=== PATIENT | male | born 1960 | race Caucasian/White ===

== ENCOUNTER 2016-11-19 15:31 | Inpatient (IN) | payer MEDICARE, MEDICAID ==
[2016-11-19 15:31] VITALS: BMI 14.1
[2016-11-19] MEDS ORDERED: Albuterol-Ipratrop 3 mg / 0.5 (3 ml) UD IH STA (16:04)
[2016-11-19] MEDS ORDERED: Albuterol-Ipratrop 3 mg / 0.5 (3 ml) UD INH STA (16:04)
[2016-11-19] MEDS ORDERED: Sodium Chloride 0.9% 1,000 ML IV STA (16:04)
--- NOTE | 2016-11-19 16:06 | ED PDOC ---
HPI: SOB/CHF/COPD Time Seen by Provider: 11/19/16 15:50 Chief Complaint (Nursing): Shortness Of Breath Chief Complaint (Provider): shortness of breath History Per: Patient History/Exam Limitations: no limitations Current Symptoms Are (Timing): Still Present Additional Complaint(s): 55yo male w/ Hx HIV comes to the ED complaining of shortness of breath, cough, congestion, yellow sputum, intermittent chest pain. Decreased appetite for 1 week. No nausea, vomit, dizziness, abdominal pain, leg pain. Past Medical History Vital Signs: Last Vital Signs Temp 98.2 F 11/19/16 15:42 Pulse 74 11/19/16 17:17 Resp 20 11/19/16 17:17 BP 100/60 11/19/16 17:05 Pulse Ox 97 11/19/16 17:51 - Medical History PMH: Arthritis, Asthma, Back Problems (Fractured vertebrae, kyphosis scoliosis) , Depression, Fractures, HIV (on HAART), Malignancy (brain CA), Osteoporosis, Pneumonia Denies: CHF, COPD, HTN, Hypercholesterolemia, Hypothyroidism, Kidney Stones, Chronic Kidney Disease, Rheumatoid Arthritis - Surgical History Surgical History: Appendectomy, Tonsillectomy - Family History Family History: States: Unknown Family Hx - Immunization History Hx Influenza Vaccination: Yes - Home Medications Home Medications: Ambulatory Orders Medication Instructions Recorded Baclofen [Lioresal] 40 mg PO TID 09/21/15 Celecoxib [Celebrex] 200 mg PO DAILY 09/21/15 Montelukast [Singulair] 10 mg PO DAILY 09/21/15 Morphine Sulfate [Morphine Sulfate 15 mg PO TID 09/21/15 ER] Morphine Sulfate [Morphine Sulfate 30 mg PO TID 09/21/15 ER] Ipratropium/Albuterol Sulfate 1 puff IH QID PRN 10/12/15 [Combivent Respimat Inhal [place]] Abacavir/Dolutegravir/Lamivudi 1 tab PO DAILY 03/27/16 [Triumeq Tablet] Albuterol Sulfate [Proair Hfa] 2 puff INH Q6H PRN 03/27/16 Ranitidine HCl [Zantac] 300 mg PO DAILY 03/27/16 Ammonium Lactate 12% [Lac-Hydrin 1 appl TOP DAILY 11/19/16 12% Lotion (225 g)] Calcium Carbonate [Calcium 1,250 mg PO DAILY 11/19/16 Carbonate] Mometasone Furoate [Nasonex] 2 spray NHI DAILY PRN 11/19/16 - Allergies Allergies/Adverse Reactions: Allergies Allergy/AdvReac Type Severity Reaction Status Date / Time No Known Allergies Allergy Verified 03/27/16 19:12 Review of Systems ROS Statement: Except As Marked, All Systems Reviewed And Found Negative ENT: Positive for: Nose Congestion Cardiovascular: Positive for: Chest Pain Respiratory: Positive for: Cough, Shortness of Breath, Sputum Gastrointestinal: Negative for: Nausea, Vomiting, Abdominal Pain Musculoskeletal: Negative for: Leg Pain Physical Exam - Reviewed Nursing Documentation Reviewed: Yes Vital Signs Reviewed: Yes - Physical Exam Appears: Positive for: Well, Non-toxic, No Acute Distress Head Exam: Positive for: ATRAUMATIC, NORMAL INSPECTION, NORMOCEPHALIC Skin: Positive for: Warm, Dry Eye Exam: Positive for: EOMI, PERRL Cardiovascular/Chest: Positive for: Regular Rate, Rhythm Respiratory: Positive for: Decreased Breath Sounds, Wheezing (diffuse) Gastrointestinal/Abdominal: Positive for: Soft. Negative for: Tenderness Extremity: Positive for: Normal ROM - Laboratory Results Result Diagrams: 11/19/16 17:24 11/19/16 17:24 - ECG ECG: Positive for: Interpreted By Me, Viewed By Me ECG Rhythm: Positive for: Right Bundle Branch Block O2 Sat by Pulse Oximetry: 97 (RA) Pulse Ox Interpretation: Normal - Progress ED Course And Treament: 1826: Spoke with Dr. Ma. Will admit. Pt. stable. Will give antibiotics. Will give further orders when pt. reaches floor. Disposition - Clinical Impression Clinical Impression: Exacerbation of asthma, Pneumonia - Patient ED Disposition Is Patient to be Admitted: Yes Counseled Patient/Family Regarding: Studies Performed, Diagnosis - Disposition Disposition Time: 18:28 Condition: FAIR - Pt Status Changed To: Hospital Disposition Of: Inpatient - Admit Certification Admit to Inpatient:: After my assessment, the patient will require hospitalization for at least two midnights. This is because of the severity of symptoms shown, intensity of services needed, and/or the medical risk in this patient being treated as an outpatient. - POA Present On Arrival: None Core Measure Indicators: Pneumonia Additional Comments - Additional Comments Additional Comments: Scribe Attestation: Documented by Michael Arredondo acting as a scribe for Lavonne Vuong MD. MD Edwards Attestation: All medical record entries made by the Yonathanibluis alfredo were at my direction and personally dictated by me. I have reviewed the chart and agree that the record accurately reflects my personal performance of the history, physical exam, medical decision making, and the department course for this patient. I have also personally directed, reviewed, and agree with the discharge instructions and disposition.
[2016-11-19] MEDS ORDERED: Albuterol-Ipratrop 3 mg / 0.5 (3 ml) UD ONE (17:31)
[2016-11-19 17:41] LABS: ABG ALLEN TEST YES; ARTERIAL BLOOD GAS HCO3 29.2 mmol/L (21-28); ARTERIAL BLOOD GAS PH 7.44 (7.35-7.45); ARTERIAL BLOOD GAS PO2 76 mm/Hg (80-100)
[2016-11-19 17:42] LABS: BASO % 0.4 % (0.0-2.0); LYMPH # 0.7 K/uL (1.0-4.3); LYMPH % 10.8 % (20.0-40.0); MEAN CELL VOLUME 85.1 fl (80.0-94.0); MEAN CORPUSCULAR HEMOGLOBIN 28.7 pg (27.0-31.0); MEAN CORPUSCULAR HGB CONC 33.7 g/dL (33.0-37.0); MEAN PLATELET VOLUME 7.9 fl (7.2-11.7); MONO # 0.8 K/uL (0.0-0.8); MONO % 11.8 % (0.0-10.0); NEUT # 5.2 K/uL (1.8-7.0); NRBC % 0.1 % (0.0-0.0); RED CELL DISTRIBUTION WIDTH 13.4 % (11.5-14.5); WHITE BLOOD COUNT 6.7 K/uL (4.8-10.8)
[2016-11-19 17:43] LABS: ALB/GLOB RATIO 0.7 (1.0-2.1); ALKALINE PHOSPHATASE 116 U/L (38-126); ALT/SGPT 29 U/L (21-72); AST/SGOT 42 U/L (17-59); BILIRUBIN,TOTAL 0.6 mg/dl (0.2-1.3); BLOOD UREA NITROGEN 16 mg/dl (9-20); CALCIUM 9.1 mg/dL (8.4-10.2); CARBON DIOXIDE 29 mmol/L (22-30); CHLORIDE 99 mmol/L (98-107); GFR AFRICAN-AMERICAN > 60; GLUCOSE,RANDOM 103 mg/dL (75-110); MAGNESIUM 2.3 MG/DL (1.6-2.3); PHOSPHOROUS 4.2 mg/dl (2.5-4.5); POTASSIUM 4.4 MMOL/L (3.6-5.0); SODIUM 142 mmol/l (132-148); TOTAL PROTEIN 8.3 G/DL (6.3-8.2)
[2016-11-19 17:45] LABS: PARTIAL THROMBOPLASTIN TIME 32.8 SECONDS (23.3-32.5)
[2016-11-19] MEDS ORDERED: cefTRIAXone (Rocephin) 1 gm Inj ONE (18:25)
[2016-11-19] MEDS ORDERED: cefTRIAXone (Rocephin) 1 gm Inj IV ONE (18:27)
[2016-11-19] MEDS ORDERED: Azithromycin 500 MG in Sodium Chloride 0.9% 250 ML IVPB ONE (18:30)
[2016-11-20] MEDS ORDERED: Patient's Own Med (Mometasone Furoate [Nasonex] 2 SPRAY) NAS PRN (00:54)
[2016-11-20] MEDS ORDERED: Sodium Chloride 3% for Inhalation 4 ML VIAL.NEB IH PRN ×2 (01:02→11:13)
[2016-11-20] MEDS: Dextrose 5%/0.45% NS 1,000 ML IV SCH ×2 (01:27→18:32)
[2016-11-20] MEDS: Morphine 15 mg SR Tab PO SCH ×3 (01:31→16:44)
[2016-11-20] MEDS: Morphine 30 mg SR Tab PO SCH ×4 (01:31→16:45)
[2016-11-20 07:29] LABS: BLOOD UREA NITROGEN 13 mg/dl (9-20); CALCIUM 8.7 mg/dL (8.4-10.2); CARBON DIOXIDE 27 mmol/L (22-30); CHLORIDE 102 mmol/L (98-107); GFR AFRICAN-AMERICAN > 60; GLUCOSE,RANDOM 145 mg/dL (75-110); POTASSIUM 4.4 MMOL/L (3.6-5.0); SODIUM 144 mmol/l (132-148)
[2016-11-20 07:32] LABS: HEMATOCRIT 29.1 % (35.0-51.0); MEAN CELL VOLUME 84.4 fl (80.0-94.0); MEAN CORPUSCULAR HEMOGLOBIN 28.4 pg (27.0-31.0); MEAN CORPUSCULAR HGB CONC 33.6 g/dL (33.0-37.0); RED CELL DISTRIBUTION WIDTH 13.1 % (11.5-14.5); WHITE BLOOD COUNT 4.3 K/uL (4.8-10.8)
--- NOTE | 2016-11-20 07:53 | RAD ---
HISTORY: Sepsis Patient COMPARISON: Comparison is made to the previous study dated 03/27/2016 FINDINGS: LUNGS: Reticular opacities at the right lung. The right upper lobe is partially obscured by the patient's head. No significant interval change in the left lung. PLEURA: Possible small right pleural effusion. CARDIOVASCULAR: Normal. OSSEOUS STRUCTURES: No significant abnormalities. VISUALIZED UPPER ABDOMEN: Normal. OTHER FINDINGS: None. IMPRESSION: Reticular opacities at the right lung. Blunting of the right costophrenic angle. Otherwise no interval change.
--- NOTE | 2016-11-20 08:27 | CARD ---
APPROVED REPORT EKG Measurement Heart [id number] <Conclusion> Normal sinus rhythm Normal ECG
[2016-11-20] MEDS: Albuterol-Ipratrop 3 mg / 0.5 (3 ml) UD INH SCH ×3 (08:33→19:52)
[2016-11-20] MEDS ORDERED: Patient's Own Med (Abacavir/Dolutegravir/Lamivudi [Triumeq Tablet] 1 TAB) PO SCH (09:00)
[2016-11-20] MEDS ORDERED: CELECOXIB 200 MG PO SCH (09:00)
[2016-11-20] MEDS: methylPREDNISolone 60 MG in Sodium Chloride 0.9% 50 ML IVPB SCH ×2 (09:03→21:38)
[2016-11-20] MEDS: Promethazine DM 12.5 mg-30 mg/10 ml Syrup PO PRN (09:04)
[2016-11-20] MEDS: Enoxaparin 40 mg Syringe SC SCH (09:05)
[2016-11-20] MEDS: Azithromycin 500 MG in Sodium Chloride 0.9% 250 ML IVPB SCH (10:26)
--- NOTE | 2016-11-20 10:42 | HP ---
HISTORY OF PRESENT ILLNESS: The patient is a 55-year-old male who was admitted via the [facility] because of shortness of breath, cough, pulmonary congestion, yellow sputum, intermittent chest pain and decreased appetite for the past several weeks prior to presentation. He indicates that he had b een sick for at least 2 weeks prior to presentation. He follows up with a doctor in [place], but romero s not gone to see the doctor, but called the doctor on the phone several weeks ago. 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 FAMILY HISTORY: Noncontributory. SOCIAL HISTORY: He lives at home with his partner. REVIEW OF SYSTEMS: Essentially remarkable for unsteadiness of gait and poor appetite with weight los s. PHYSICAL EXAMINATION: GENERAL: The patient is alert and oriented, appears emaciated. VITAL SIGNS: Blood pressure 100/60, pulse of 74, respiratory rate 20, temperature of 98.2 degrees Fa hrenheit, O2 sat 97% on room air. SKIN: Shows poor turgor. HEENT: Pupils equal, react to light and accommodation. Mouth shows poor hygiene. NECK: JVP flat. LUNGS: Bilateral coarse rales. HEART: S1, S2. ABDOMEN: Soft, nontender. No organomegaly. EXTREMITIES: Show chronic stasis changes and some deformity of right hip. CENTRAL NERVOUS SYSTEM: Exam is grossly intact. The patient is alert and oriented x 3. LABORATORY DATA: Remarkable for WBC of 4.3; hemoglobin 9.8; platelet count of 359,000. Sodium 144, potassium 4.4, BUN of 13, creatinine 0.4, serum glucose 145. ProBNP 603, troponin less than 0.012. ELECTROCARDIOGRAM FINDINGS: EKG: Normal sinus rhythm. CHEST X-RAY: Reticular opacities of right lung, right upper lobe was partially obscured by the patie nt's hand. No significant interval change in his left lung when compared to x-rays of 03/27/2016. IMPRESSION: Acute exacerbation of asthma, pneumonia right lung, history of human immunodeficiency vi cecilio infection, history of lymphoma in the past, cachexia due to low body mass index. PLAN: IV antibiotics and IV hydration. Infectious disease evaluation for appropriate antibiotic the rapy. We will continue therapy as ordered. Thee Ma MD cc: 62 TT: 11/20/2016 10:41:35 [facility] # [id number] dn
--- NOTE | 2016-11-20 11:11 | CP.PCM.CON ---
History of Present Illness - History of Present Illness History of Present Illness: 55yo male w/ Hx HIV comes to the ED complaining of shortness of breath, cough, congestion, yellow sputum, intermittent chest pain. Decreased appetite for 1 week. No nausea, vomit, dizziness, abdominal pain, leg pain. stopped his HIV meds claims to be undetectable - Medical History PMH: Arthritis, Asthma, Back Problems (Fractured vertebrae, kyphosis scoliosis) , Depression, Fractures, HIV (on HAART), Malignancy (brain CA), Osteoporosis, Pneumonia Denies: CHF, COPD, HTN, Hypercholesterolemia, Hypothyroidism, Kidney Stones, Chronic Kidney Disease, Rheumatoid Arthritis Review of Systems - Constitutional Constitutional: As Per HPI - EENT Eyes: absent: As Per HPI, Blind Spots, Blurred Vision, Change in Vision, Decreased Night Vision, Diplopia, Discharge, Dry Eye, Exophthalmos, Floaters, Irritation, Itchy Eyes, Loss of Peripheral Vision, Pain, Photophobia, Requires Corrective Lenses, Sees Flashes, Spots in Vision, Tunnel Vision, Other Visual Disturbances, Loss of Vision, Other Ears: absent: As Per HPI, Decreased Hearing, Ear Discharge, Ear Pain, Tinnitus, Abnormal Hearing, Disequilibrium, Dizziness, Other Nose/Mouth/Throat: absent: As Per HPI, Epistaxis, Nasal Congestion, Nasal Discharge, Nasal Obstruction, Nasal Trauma, Nose Pain, Post Nasal Drip, Sinus Pain, Sinus Pressure, Bleeding Gums, Change in Voice, Dental Pain, Dry Mouth, Dysphagia, Halitosis, Hoarsness, Lip Swelling, Mouth Lesions, Mouth Pain, Odynophagia, Sore Throat, Throat Swelling, Tongue Swelling, Facial Pain, Neck Pain, Neck Mass, Other - Cardiovascular Cardiovascular: As Per HPI - Respiratory Respiratory: As Per HPI - Gastrointestinal Gastrointestinal: absent: As Per HPI, Abdominal Pain, Belching, Bloating, Change in Bowel Habits, Change in Stool Character, Coffee Ground Emesis, Constipation, Cramping, Diarrhea, Dyspepsia, Dysphagia, Early Satiety, Excessive Flatus, Fecal Incontinence, Heartburn, Hematemesis, Hematochezia, Loose Stools, Melena, Nausea, Odynophagia, Temesmus, Vomiting, Other - Genitourinary Genitourinary: absent: As Per HPI, Change in Urinary Stream, Difficulty Urinating, Dysuria, Flank Pain, Hematuria, Pyuria, Nocturia, Urinary Incontinence, Urinary Frequency, Urinary Hesitance, Urinary Urgency, Voiding Freq/Small Amts, Freq UTI, Hx Renal/Bladder Calculi, Hx /Renal Surgery, Bladder Distension, Other - Musculoskeletal Musculoskeletal: As Per HPI - Integumentary Integumentary: absent: As Per HPI, Acne, Alopecia, Bleeding Lesions, Change in Hair, Change in Nails, Change in Pigmentation, Changing Lesions, Dry Skin, Erythema, Furuncle, Hirsutism, Lesions, New Lesions, Non-Healing Lesions, Photosensitivity, Pruritus, Rash, Skin Pain, Skin Ulcer, Sores, Striae, Swelling , Unusual Bruising, Wounds, Jaundice, Other - Neurological Neurological: absent: As Per HPI, Abnormal Gait, Abnormal Hearing, Abnormal Movements, Abnormal Speech, Behavioral Changes, Burning Sensations, Confusion, Convulsions, Disequilibrium, Dizziness, Numbness, Focal Weakness, Frequent Falls , Headaches, Lack of Coordination, Loss of Vision, Memory Loss, Paresthesias, Radicular Pain, Restless Legs, Sensory Deficit, Syncope, Tingling, Tremor, Vertigo, Weakness, Other Visual Disturbances, Other - Psychiatric Psychiatric: absent: As Per HPI, Abnormal Sleep Pattern, Anhedonia, Anxiety, Auditory Hallucinations, Behavioral Changes, Change in Appetite, Change in Libido, Confusion, Depression, Difficulty Concentrating, Hallucinations, Homicidal Ideation, Hopelessness, Irritability, Memory Loss, Mood Swings, Panic Attacks, Paranoia, Suicidal Ideation, Visual Hallucinations, Tactile Hallucinations, Other - Endocrine Endocrine: absent: As Per HPI, Change in Body Appearance, Change in Libido, Cold Intolorance, Deepening of Voice, Excessive Sweating, Fatigue, Flushing, Heat Intolorance, Increase in Ring/Shoe/Hat Size, Palpitations, Polydipsia, Polyphagia, Polyuria, Other - Hematologic/Lymphatic Hematologic: absent: As Per HPI, Easy Bleeding, Easy Bruising, Lymphadenopathy, Other Past Patient History - Infectious Disease Hx of Infectious Diseases: None - Past Medical History & Family History Past Medical History?: Yes - Past Social History Smoking Status: Former Smoker - CARDIAC Hx Cardiac Disorders: No - PULMONARY Hx Respiratory Disorders: Yes Hx Asthma: Yes Hx Pneumonia: Yes - NEUROLOGICAL Hx Neurological Disorder: No HX Cerebrovascular Accident: No Other/Comment: Brain Ca - HEENT Hx HEENT Problems: Yes Hx Blind: No Hx Cataracts: Yes Hx Deafness: Yes ([place] Hx Difficulty Chewing: No Hx Epistaxis: No Hx Glaucoma: No Hx Macular Degeneration: No Other/Comment: impaired hearing, used to have Left and right hearing aid years ago. - RENAL Hx Chronic Kidney Disease: No - ENDOCRINE/METABOLIC Hx Endocrine Disorders: No Hx Hypothyroidism: No - HEMATOLOGICAL/ONCOLOGICAL Hx Blood Disorders: Yes Hx Human Immunodeficiency Virus (HIV): Yes (on HAART) - INTEGUMENTARY Hx Dermatological Problems: No - MUSCULOSKELETAL/RHEUMATOLOGICAL Hx Musculoskeletal Disorders: Yes Hx Falls: Yes Other/Comment: hx of kyphosis - GASTROINTESTINAL Hx Gastrointestinal Disorders: No - GENITOURINARY/GYNECOLOGICAL Hx Genitourinary Disorders: No - PSYCHIATRIC Hx Psychophysiologic Disorder: No Hx Substance Use: No - SURGICAL HISTORY Hx Surgeries: Yes Hx Appendectomy: Yes Hx Cataract Extraction: Yes Hx Tonsillectomy: Yes Other/Comment: hx of kyphoplasty - ANESTHESIA Hx Anesthesia: Yes Hx Anesthesia Reactions: No Hx Malignant Hyperthermia: No Meds Allergies/Adverse Reactions: Allergies Allergy/AdvReac Type Severity Reaction Status Date / Time No Known Allergies Allergy Verified 03/27/16 19:12 - Medications Medications: Current Medications Acetaminophen (Tylenol 325mg Tab) 650 mg PO Q4 PRN PRN Reason: Fever >100.4 F Albuterol/Ipratropium (Duoneb 3 Mg/0.5 Mg (3 Ml) Ud) 3 ml INH RQ6 [facility] Last Admin: 11/20/16 08:33 Dose: 3 ml Baclofen (Lioresal) 40 mg PO TID [facility] Calcium Carbonate (Oscal) 1,000 mg PO DAILY [facility] Last Admin: 11/20/16 10:25 Dose: 1,000 mg Celecoxib (Celebrex) 200 mg PO DAILY [facility] Last Admin: 11/20/16 09:04 Dose: 200 mg Enoxaparin Sodium (Lovenox) 40 mg SC DAILY [facility] PRN Reason: Protocol Last Admin: 11/20/16 09:05 Dose: 40 mg Fluticasone Propionate (Flonase) 2 spr NHI DAILY PRN PRN Reason: Allergy symptoms Home Med (Abacavir/Dolutegravir/Lamivudi [Triumeq Tablet]) 1 tab PO DAILY [facility] Dextrose/Sodium Chloride (Dextrose 5%/0.45% Ns 1000 Ml) 1,000 mls @ 60 mls/hr IV .[id number] [facility] Stop: 11/21/16 01:01 Last Admin: 11/20/16 01:27 Dose: 60 mls/hr Ceftriaxone Sodium 1 gm/ (Sodium Chloride) 100 mls @ 100 mls/hr IVPB DAILY [facility] Last Admin: 11/20/16 10:26 Dose: 100 mls/hr Methylprednisolone 60 mg/ (Sodium Chloride) 50.96 mls @ 100 mls/hr IVPB Q12 [facility] Last Admin: 11/20/16 09:03 Dose: 100 mls/hr Azithromycin 500 mg/ Sodium (Chloride) 250 mls @ 250 mls/hr IVPB DAILY [facility] Last Admin: 11/20/16 10:26 Dose: 250 mls/hr Lactic Acid (Lac-Hydrin 12% Lotion (225 G)) 1 applic TOP DAILY [facility] Last Admin: 11/20/16 09:04 Dose: 1 unit Montelukast Sodium (Singulair) 10 mg PO DAILY [facility] Last Admin: 11/20/16 09:04 Dose: 10 mg Morphine Sulfate (Morphine Extended Release Tab) 15 mg PO TID [facility] Last Admin: 11/20/16 09:02 Dose: 15 mg Morphine Sulfate (Morphine Extended Release Tab) 30 mg PO TID [facility] Last Admin: 11/20/16 09:02 Dose: 30 mg Promethazine HCl/Dextromethorphan (Phenergan Dm Syrup) 10 ml PO Q4 PRN PRN Reason: Cough Last Admin: 11/20/16 09:04 Dose: 10 ml Physical Exam - Constitutional Appears: Non-toxic, Cachectic, Chronically Ill - Head Exam Head Exam: ATRAUMATIC, NORMAL INSPECTION, NORMOCEPHALIC - Eye Exam Eye Exam: EOMI. absent: Scleral icterus - ENT Exam ENT Exam: Mucous Membranes Dry, Normal External Ear Exam, Normal Oropharynx - Neck Exam Neck exam: Negative for: Lymphadenopathy, Thyromegaly - Respiratory Exam Respiratory Exam: Decreased Breath Sounds, Rhonchi - Cardiovascular Exam Cardiovascular Exam: REGULAR RHYTHM - GI/Abdominal Exam GI & Abdominal Exam: Diminished Bowel Sounds, Soft. absent: Tenderness - Rectal Exam Rectal Exam: Deferred - Exam Exam: NORMAL INSPECTION - Extremities Exam Extremities exam: Positive for: pedal edema, tenderness, pedal pulses present. Negative for: calf tenderness - Back Exam Back exam: absent: CVA tenderness (L), CVA tenderness (R) - Neurological Exam Neurological exam: Alert, CN II-XII Intact, Oriented x3, Reflexes Normal - Psychiatric Exam Psychiatric exam: Normal Mood - Skin Skin Exam: Dry, Intact Results - Vital Signs Recent Vital Signs: Last Vital Signs Temp 97.5 F L 11/20/16 08:01 Pulse 60 11/20/16 08:40 Resp 20 11/20/16 08:01 BP 101/64 11/20/16 08:01 Pulse Ox 99 11/20/16 08:01 - Labs Result Diagrams: 11/20/16 06:20 11/20/16 06:20 Labs: Laboratory Results - last 24 hr 11/20/16 11/20/16 06:20 06:20 WBC 4.3 L RBC 3.45 L Hgb 9.8 L Hct 29.1 L MCV 84.4 MCH 28.4 MCHC 33.6 RDW 13.1 Plt Count 359 Sodium 144 Potassium 4.4 Chloride 102 Carbon Dioxide 27 Anion Gap 19 BUN 13 Creatinine 0.4 L Est GFR ( Amer) > 60 Est GFR (Non-Af Amer) > 60 Random Glucose 145 H Calcium 8.7 Assessment & Plan (1) Asthma attack Status: Acute (2) Pneumonia Status: Acute Priority: High (3) Dehydration Status: Acute Priority: High (4) Failure to thrive Assessment and Plan: will check cultures serologies T cells and viral load poor prognosis from outset Status: Acute Priority: High (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
--- NOTE | 2016-11-20 12:49 | PQF GENQUE ---
This form is a permanent part of the medical record 11/20/16 Dr. Ma, Please clarify the type of asthma. Admitted with sob, cough, chest congestion ,intermittent chest pain and decreased appetite. Noted to have diffuse wheezing in the ER. CXR: Reticular opacities at the right lung. H&P diagnoses include Asthma exacerbation and Pneumonia. Treated with Solumedrol, IVAB, Nebulizers, Singulair and Flonase. Clarification of your documentation is requested to better reflect the severity of illness and intensity of treatment of your patient. PHYSICIAN'S RESPONSE Please clarify type of asthma: [ ] Childhood [ ] Cough variant [ ] Exercise induced [ ] Late onset [ ] Mild intermittent [ x] Mild persistent [ ] Moderate persistent [ ] Severe persistent [ ] With bronchitis(please clarify acuity of bronchitis) [ ] With chronic lung disease (please document specific chronic lung disease ) [ ] Other (please specify) [ ] Unable to determine [ ] Unknown Based on your medical judgment of the clinical indicators outlined above please clarify the following: [] Practitioner response [] If unable to determine, please check the box, sign and date. Present On Admission (POA) Indicator: [] Present at the time of admission [] Not present at the time of admission [] Clinically Undetermined In responding to this query, please exercise your independent professional judgment. The fact that a question is asked does not imply that any particular answer is desired or expected. Thank you for your clarification on this documentation. If you have any questions please call:extension [phone] Medical Records Dept * Thank you, Chyna Rosenbaum RN [facility]
--- NOTE | 2016-11-20 12:58 | PQF HIV ---
This form is a permanent part of the medical record 11/20/16 Dr. Fields, Would you please clarify the status of the patient's HIV AFTER WORKUP. See Physician Response below. 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 Lymphocyte subset panel pending. Clarification of your documentation is requested to better reflect the severity of illness and intensity of treatment of your patient. Indicators present [x] Documented diagnosis of HIV [] CD4 count: [] PENDING [] Other: [] Location in the medical record that reflects the above clinical findings: [] Other Treatment Provided: [] PHYSICIAN'S RESPONSE If possible, based on your medical judgment, please clarify the clinical classification for this patient. [ ] Asymptomatic HIV Status: without any history of (or current) AIDS Defining Illnesses of HIV-Related Illness [ ] AIDS: Meets the current CDC Definition of AIDS HIV-Infected persons who HAVE OR HAVE HAD less than 200 CD4+ T-lymphocytes/uL or CD4+ T-lymphocyte percentage of total lymphocytes of less than 14, AND/OR an AIDS-Defining or HIV-Related Disease. See reverse side for examples. Per CDC publication Vol 60 RR-17 : Relating to the classification HIV Infection , once a patient is diagnosed with AIDS the diagnosis still stands even if, after treatment, the CD4+ T cell count rises above 200 per uL of blood or other AIDS-defining illnesses are cured. [ ] If unable to determine, please check the box, sign and date. In responding to this query, please exercise your independent professional judgment. The fact that a question is asked does not imply that any particular answer is desired or expected. Thank you for your clarification on this documentation. If you have any questions please call:[phone] * Thank you, Chyna Rosenbaum RN [facility] The following are AIDS-Defining Illnesses or HIV-Related Diseases: Candidiasis of bronchi, trachea, or lungs Candidiasis, esophageal Cervical cancer, invasive * Coccidioidomycosis, disseminated or extrapulmonary Cryptococcosis, extrapulmonary Cryptosporidiosis, chronic intestinal (greater than 1 month's duration) Cytomegalovirus disease (other than liver, spleen, or nodes) Cytomegalovirus retinitis (with loss of vision) Encephalopathy, HIV-related Herpes simplex: chronic ulcer(s) (greater than 1 month's duration); or bronchitis, pneumonitis, or esophagitis Histoplasmosis, disseminated or extrapulmonary Isosporiasis, chronic intestinal (greater than 1 month's duration) Kaposi's sarcoma Lymphoma, Burkitt's (or equivalent term) Lymphoma, immunoblastic (or equivalent term) Lymphoma, primary, of brain Mycobacterium avium complex or M. 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
--- NOTE | 2016-11-20 14:43 | IP.NPCORE ---
Pneumonia Progress Notes - Oxygenation Assessment (REQUIRED) Documented 02: Yes O2 Saturation: 98 Oxygen Delivery Method: Room Air Documented P02: Yes (76) - Blood Cultures (REQUIRED) Culture drawn: Yes - Initial Antibiotic Initial Antibiotic given within Four Hours:: Yes - Appropriate Antibiotic Appropriate Antibiotic within 24 hours of Admission:: Yes No change in antibiotics: Yes Infectious Disease Consult: 11/21/16 08:18 Dr. Fields 11/21/16 08:25 - Pneumonia Vaccine Pneumonia Vaccine: Yes
[2016-11-20 15:42] LABS: RBC URINE 1 /hpf (0-3); URINE BACTERIA RARE (<OCC); URINE BILIRUBIN NEGATIVE (NEGATIVE); URINE BLOOD NEGATIVE (NEGATIVE); URINE COLOR YELLOW (YELLOW); URINE GLUCOSE (UA) NEG (Normal); URINE KETONE TRACE mg/dL (NEGATIVE); URINE LEUKOCYTE ESTERASE NEG Leu/uL (Negative); URINE PROTEIN NEGATIVE (NEGATIVE); URINE UROBILINOGEN 0.2-1.0 mg/dL (0.2-1.0); WBC URINE < 1 /hpf (0-5)
[2016-11-21] MEDS: Morphine 15 mg SR Tab PO SCH ×3 (00:14→16:36)
[2016-11-21] MEDS: Morphine 30 mg SR Tab PO SCH ×3 (00:14→16:34)
[2016-11-21] MEDS: Promethazine DM 12.5 mg-30 mg/10 ml Syrup PO PRN ×3 (00:15→16:38)
[2016-11-21] MEDS: Albuterol-Ipratrop 3 mg / 0.5 (3 ml) UD INH SCH ×4 (01:07→19:37)
--- NOTE | 2016-11-21 08:53 | CP.PCM.PN ---
Subjective - Date & Time of Evaluation Date of Evaluation: 11/21/16 Time of Evaluation: 08:54 - Subjective Subjective: MILD CLINICAL IMPROVEMENT STILL COUGHING WITH SOB UNABLE TO EXPECTORATE SPUTUM Objective - Vital Signs/Intake and Output Vital Signs (last 24 hours): Temp Pulse Resp BP Pulse Ox 97.9 F 72 20 123/71 98 11/21/16 08:03 11/21/16 08:03 11/21/16 08:03 11/21/16 08:03 11/21/16 08:26 - Medications Medications: Current Medications Acetaminophen (Tylenol 325mg Tab) 650 mg PO Q4 PRN PRN Reason: Fever >100.4 F Albuterol/Ipratropium (Duoneb 3 Mg/0.5 Mg (3 Ml) Ud) 3 ml INH RQ6 [facility] Last Admin: 11/21/16 08:19 Dose: 3 ml Baclofen (Lioresal) 40 mg PO TID [facility] Calcium Carbonate (Oscal) 1,000 mg PO DAILY [facility] Last Admin: 11/20/16 10:25 Dose: 1,000 mg Celecoxib (Celebrex) 200 mg PO DAILY [facility] Last Admin: 11/20/16 09:04 Dose: 200 mg Enoxaparin Sodium (Lovenox) 40 mg SC DAILY [facility] PRN Reason: Protocol Last Admin: 11/20/16 09:05 Dose: 40 mg Fluticasone Propionate (Flonase) 2 spr NHI DAILY PRN PRN Reason: Allergy symptoms Home Med (Abacavir/Dolutegravir/Lamivudi [Triumeq Tablet]) 1 tab PO DAILY [facility] Ceftriaxone Sodium 1 gm/ (Sodium Chloride) 100 mls @ 100 mls/hr IVPB DAILY [facility] Last Admin: 11/20/16 10:26 Dose: 100 mls/hr Methylprednisolone 60 mg/ (Sodium Chloride) 50.96 mls @ 100 mls/hr IVPB Q12 [facility] Last Admin: 11/20/16 21:38 Dose: 100 mls/hr Azithromycin 500 mg/ Sodium (Chloride) 250 mls @ 250 mls/hr IVPB DAILY [facility] Last Admin: 11/20/16 10:26 Dose: 250 mls/hr Lactic Acid (Lac-Hydrin 12% Lotion (225 G)) 1 applic TOP DAILY [facility] Last Admin: 11/20/16 09:04 Dose: 1 unit Montelukast Sodium (Singulair) 10 mg PO DAILY [facility] Last Admin: 11/20/16 09:04 Dose: 10 mg Morphine Sulfate (Morphine Extended Release Tab) 15 mg PO Q8 [facility] Last Admin: 11/21/16 00:14 Dose: 15 mg Morphine Sulfate (Morphine Extended Release Tab) 30 mg PO Q8 [facility] Last Admin: 11/21/16 00:14 Dose: 30 mg Promethazine HCl/Dextromethorphan (Phenergan Dm Syrup) 10 ml PO Q4 PRN PRN Reason: Cough Last Admin: 11/21/16 00:15 Dose: 10 ml - Labs Labs: 11/20/16 06:20 11/20/16 06:20 PT 11.4 SECONDS (9.6-11.2) H 11/19/16 17:24 INR 1.10 (0.92-1.08) H 11/19/16 17:24 APTT 32.8 SECONDS (23.3-32.5) H 11/19/16 17:24 - Constitutional Appears: Chronically Ill - Head Exam Head Exam: ATRAUMATIC, NORMAL INSPECTION, NORMOCEPHALIC - Eye Exam Eye Exam: EOMI, Normal appearance, PERRL Pupil Exam: NORMAL ACCOMODATION, PERRL - ENT Exam ENT Exam: Mucous Membranes Moist, Normal Exam - Neck Exam Neck Exam: Full ROM, Normal Inspection. absent: Lymphadenopathy - Respiratory Exam Respiratory Exam: Decreased Breath Sounds, Rales, Wheezes, NORMAL BREATHING PATTERN - Cardiovascular Exam Cardiovascular Exam: REGULAR RHYTHM, +S1, +S2. absent: Murmur - GI/Abdominal Exam GI & Abdominal Exam: Soft, Normal Bowel Sounds. absent: Tenderness - Rectal Exam Rectal Exam: NORMAL INSPECTION - Extremities Exam Extremities Exam: Full ROM, Normal Capillary Refill, Normal Inspection. absent : Joint Swelling, Pedal Edema - Back Exam Back Exam: NORMAL INSPECTION - Neurological Exam Neurological Exam: Abnormal Gait, Alert, Awake, CN II-XII Intact, Oriented x3 - Psychiatric Exam Psychiatric exam: Normal Affect, Normal Mood - Skin Skin Exam: Dry, Intact, Normal Color, Warm Assessment and Plan - Assessment and Plan (Free Text) Assessment: ACUTE EXAC OF ASTHMA HIV DZ PNEUMONIA Plan: CONTINUE RX ORDERED PODIATRY CARE FOR ONYCHOMYCOSIS OF FEET
[2016-11-21] MEDS: methylPREDNISolone 60 MG in Sodium Chloride 0.9% 50 ML IVPB SCH ×2 (09:21→21:18)
[2016-11-21] MEDS: Enoxaparin 40 mg Syringe SC SCH (09:22)
[2016-11-21] MEDS: Azithromycin 500 MG in Sodium Chloride 0.9% 250 ML IVPB SCH (11:11)
--- NOTE | 2016-11-21 18:59 | CP.PCM.PN ---
Subjective - Date & Time of Evaluation Date of Evaluation: 11/21/16 Time of Evaluation: 09:00 - Subjective Subjective: cultures neg thus far cont iv rx check T cells Objective - Vital Signs/Intake and Output Vital Signs (last 24 hours): Temp Pulse Resp BP Pulse Ox 98.7 F 76 20 127/71 96 11/21/16 16:43 11/21/16 16:43 11/21/16 16:43 11/21/16 16:43 11/21/16 16:43 - Medications Medications: Current Medications Acetaminophen (Tylenol 325mg Tab) 650 mg PO Q4 PRN PRN Reason: Fever >100.4 F Albuterol/Ipratropium (Duoneb 3 Mg/0.5 Mg (3 Ml) Ud) 3 ml INH RQ6 [facility] Last Admin: 11/21/16 13:48 Dose: 3 ml Baclofen (Lioresal) 40 mg PO TID [facility] Calcium Carbonate (Oscal) 1,000 mg PO DAILY [facility] Last Admin: 11/21/16 09:23 Dose: 1,000 mg Celecoxib (Celebrex) 200 mg PO DAILY [facility] Last Admin: 11/21/16 09:22 Dose: 200 mg Enoxaparin Sodium (Lovenox) 40 mg SC DAILY [facility] PRN Reason: Protocol Last Admin: 11/21/16 09:22 Dose: 40 mg Fluticasone Propionate (Flonase) 2 spr NHI DAILY PRN PRN Reason: Allergy symptoms Home Med (Abacavir/Dolutegravir/Lamivudi [Triumeq Tablet]) 1 tab PO DAILY [facility] Ceftriaxone Sodium 1 gm/ (Sodium Chloride) 100 mls @ 100 mls/hr IVPB DAILY [facility] Last Admin: 11/21/16 09:21 Dose: 100 mls/hr Methylprednisolone 60 mg/ (Sodium Chloride) 50.96 mls @ 100 mls/hr IVPB Q12 [facility] Last Admin: 11/21/16 09:21 Dose: 100 mls/hr Azithromycin 500 mg/ Sodium (Chloride) 250 mls @ 250 mls/hr IVPB DAILY [facility] Last Admin: 11/21/16 11:11 Dose: 250 mls/hr Lactic Acid (Lac-Hydrin 12% Lotion (225 G)) 1 applic TOP DAILY [facility] Last Admin: 11/21/16 09:22 Dose: 1 unit Montelukast Sodium (Singulair) 10 mg PO DAILY [facility] Last Admin: 11/21/16 09:22 Dose: 10 mg Morphine Sulfate (Morphine Extended Release Tab) 15 mg PO Q8 [facility] Last Admin: 11/21/16 16:36 Dose: 15 mg Morphine Sulfate (Morphine Extended Release Tab) 30 mg PO Q8 [facility] Last Admin: 11/21/16 16:34 Dose: 30 mg Promethazine HCl/Dextromethorphan (Phenergan Dm Syrup) 10 ml PO Q4 PRN PRN Reason: Cough Last Admin: 11/21/16 16:38 Dose: 10 ml - Labs Labs: 11/20/16 06:20 11/20/16 06:20 PT 11.4 SECONDS (9.6-11.2) H 11/19/16 17:24 INR 1.10 (0.92-1.08) H 11/19/16 17:24 APTT 32.8 SECONDS (23.3-32.5) H 11/19/16 17:24 - Constitutional Appears: Non-toxic, Cachectic, Chronically Ill - Head Exam Head Exam: NORMOCEPHALIC - Eye Exam Eye Exam: PERRL. 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
[2016-11-22] MEDS: Morphine 15 mg SR Tab PO SCH ×2 (00:45→09:25)
[2016-11-22] MEDS: Morphine 30 mg SR Tab PO SCH ×2 (00:46→09:25)
[2016-11-22] MEDS: Promethazine DM 12.5 mg-30 mg/10 ml Syrup PO PRN ×2 (00:48→09:29)
[2016-11-22] MEDS: Albuterol-Ipratrop 3 mg / 0.5 (3 ml) UD INH SCH ×3 (01:01→13:33)
[2016-11-22 07:49] LABS: HEMATOCRIT 29.6 % (35.0-51.0); MEAN CELL VOLUME 83.6 fl (80.0-94.0); MEAN CORPUSCULAR HEMOGLOBIN 28.6 pg (27.0-31.0); MEAN CORPUSCULAR HGB CONC 34.3 g/dL (33.0-37.0); RED CELL DISTRIBUTION WIDTH 13.3 % (11.5-14.5); WHITE BLOOD COUNT 5.1 K/uL (4.8-10.8)
[2016-11-22 08:12] LABS: BLOOD UREA NITROGEN 13 mg/dl (9-20); CALCIUM 8.8 mg/dL (8.4-10.2); CARBON DIOXIDE 29 mmol/L (22-30); CHLORIDE 99 mmol/L (98-107); GFR AFRICAN-AMERICAN > 60; GLUCOSE,RANDOM 119 mg/dL (75-110); POTASSIUM 3.8 MMOL/L (3.6-5.0); SODIUM 141 mmol/l (132-148)
[2016-11-22] MEDS: Azithromycin 500 MG in Sodium Chloride 0.9% 250 ML IVPB SCH (09:27)
[2016-11-22] MEDS: methylPREDNISolone 60 MG in Sodium Chloride 0.9% 50 ML IVPB SCH (09:27)
[2016-11-22] MEDS: Enoxaparin 40 mg Syringe SC SCH (09:28)
--- NOTE | 2016-11-22 09:28 | CP.PCM.PN ---
Subjective - Date & Time of Evaluation Date of Evaluation: 11/22/16 Time of Evaluation: 09:28 - Subjective Subjective: STILL WEAK AND DYSPNEIC COUGHING Objective - Vital Signs/Intake and Output Vital Signs (last 24 hours): Temp Pulse Resp BP Pulse Ox 98.1 F 65 18 121/68 99 11/22/16 08:03 11/22/16 08:03 11/22/16 08:03 11/22/16 08:03 11/22/16 08:03 - Medications Medications: Current Medications Acetaminophen (Tylenol 325mg Tab) 650 mg PO Q4 PRN PRN Reason: Fever >100.4 F Albuterol/Ipratropium (Duoneb 3 Mg/0.5 Mg (3 Ml) Ud) 3 ml INH RQ6 [facility] Last Admin: 11/22/16 07:45 Dose: 3 ml Baclofen (Lioresal) 40 mg PO TID [facility] Calcium Carbonate (Oscal) 1,000 mg PO DAILY [facility] Last Admin: 11/21/16 09:23 Dose: 1,000 mg Celecoxib (Celebrex) 200 mg PO DAILY [facility] Last Admin: 11/21/16 09:22 Dose: 200 mg Enoxaparin Sodium (Lovenox) 40 mg SC DAILY [facility] PRN Reason: Protocol Last Admin: 11/21/16 09:22 Dose: 40 mg Fluticasone Propionate (Flonase) 2 spr NHI DAILY PRN PRN Reason: Allergy symptoms Home Med (Abacavir/Dolutegravir/Lamivudi [Triumeq Tablet]) 1 tab PO DAILY [facility] Ceftriaxone Sodium 1 gm/ (Sodium Chloride) 100 mls @ 100 mls/hr IVPB DAILY [facility] Last Admin: 11/21/16 09:21 Dose: 100 mls/hr Methylprednisolone 60 mg/ (Sodium Chloride) 50.96 mls @ 100 mls/hr IVPB Q12 [facility] Last Admin: 11/21/16 21:18 Dose: 100 mls/hr Azithromycin 500 mg/ Sodium (Chloride) 250 mls @ 250 mls/hr IVPB DAILY [facility] Last Admin: 11/21/16 11:11 Dose: 250 mls/hr Lactic Acid (Lac-Hydrin 12% Lotion (225 G)) 1 applic TOP DAILY [facility] Last Admin: 11/21/16 09:22 Dose: 1 unit Montelukast Sodium (Singulair) 10 mg PO DAILY [facility] Last Admin: 11/21/16 09:22 Dose: 10 mg Morphine Sulfate (Morphine Extended Release Tab) 15 mg PO Q8 [facility] Last Admin: 11/22/16 00:45 Dose: 15 mg Morphine Sulfate (Morphine Extended Release Tab) 30 mg PO Q8 [facility] Last Admin: 11/22/16 00:46 Dose: 30 mg Promethazine HCl/Dextromethorphan (Phenergan Dm Syrup) 10 ml PO Q4 PRN PRN Reason: Cough Last Admin: 11/22/16 00:48 Dose: 10 ml - Labs Labs: 11/22/16 06:10 11/22/16 06:10 PT 11.4 SECONDS (9.6-11.2) H 11/19/16 17:24 INR 1.10 (0.92-1.08) H 11/19/16 17:24 APTT 32.8 SECONDS (23.3-32.5) H 11/19/16 17:24 - Constitutional Appears: In Acute Distress - Head Exam Head Exam: ATRAUMATIC, NORMAL INSPECTION, NORMOCEPHALIC - Eye Exam Eye Exam: EOMI, Normal appearance, PERRL Pupil Exam: NORMAL ACCOMODATION, PERRL - ENT Exam ENT Exam: Mucous Membranes Moist, Normal Exam - Neck Exam Neck Exam: Full ROM, Normal Inspection. absent: Lymphadenopathy - Respiratory Exam Respiratory Exam: Decreased Breath Sounds, Rales, NORMAL BREATHING PATTERN - Cardiovascular Exam Cardiovascular Exam: REGULAR RHYTHM, +S1, +S2. absent: Murmur - GI/Abdominal Exam GI & Abdominal Exam: Soft, Normal Bowel Sounds. absent: Tenderness - Rectal Exam Rectal Exam: NORMAL INSPECTION - Extremities Exam Extremities Exam: Full ROM, Normal Capillary Refill, Normal Inspection. absent : Joint Swelling, Pedal Edema - Back Exam Back Exam: NORMAL INSPECTION - Neurological Exam Neurological Exam: Alert, Awake, CN II-XII Intact, Normal Gait, Oriented x3 - Psychiatric Exam Psychiatric exam: Normal Affect, Normal Mood - Skin Skin Exam: Dry, Intact, Normal Color, Warm Assessment and Plan - Assessment and Plan (Free Text) Assessment: ASTHMA EXAC PNEUMONIA HIV DZ Plan: CONTINUE ANTIBIOTIC RX TRANSFER TO TCU
[2016-11-22 10:32] VITALS: O2SAT 97
--- NOTE | 2016-11-22 14:07 | CP.PCM.CON ---
History of Present Illness - History of Present Illness History of Present Illness: PODIATRY CONSULT NOTE DR. MORROW: This is a 55 yo male patient seen at bedside today following request for podiatry consult. Pt says he has been in the hospital since Saturday w/ pneumonia. Says his toenails are long and thickened and has painful calluses under his feet. Also reports that he has neuropathy in the feet. Says he normally sees a web offset press feeder in [place]. Also complains of some dryness to the top and bottom of both feet. Denies any other pedal complaints at this time. PMH: asthma, HIV + Past Patient History - Infectious Disease Hx of Infectious Diseases: None - Past Medical History & Family History Past Medical History?: Yes - Past Social History Smoking Status: Former Smoker - CARDIAC Hx Cardiac Disorders: No - PULMONARY Hx Respiratory Disorders: Yes Hx Asthma: Yes Hx Pneumonia: Yes - NEUROLOGICAL Hx Neurological Disorder: No HX Cerebrovascular Accident: No Other/Comment: Brain Ca - HEENT Hx HEENT Problems: Yes Hx Blind: No Hx Cataracts: Yes Hx Deafness: Yes (B/L [place]) Hx Difficulty Chewing: No Hx Epistaxis: No Hx Glaucoma: No Hx Macular Degeneration: No Other/Comment: impaired hearing, used to have Left and right hearing aid years ago. - RENAL Hx Chronic Kidney Disease: No - ENDOCRINE/METABOLIC Hx Endocrine Disorders: No Hx Hypothyroidism: No - HEMATOLOGICAL/ONCOLOGICAL Hx Blood Disorders: Yes Hx Human Immunodeficiency Virus (HIV): Yes (on HAART) - INTEGUMENTARY Hx Dermatological Problems: No - MUSCULOSKELETAL/RHEUMATOLOGICAL Hx Musculoskeletal Disorders: Yes Hx Falls: Yes Other/Comment: hx of kyphosis - GASTROINTESTINAL Hx Gastrointestinal Disorders: No - GENITOURINARY/GYNECOLOGICAL Hx Genitourinary Disorders: No - PSYCHIATRIC Hx Psychophysiologic Disorder: No Hx Substance Use: No - SURGICAL HISTORY Hx Surgeries: Yes Hx Appendectomy: Yes Hx Cataract Extraction: Yes Hx Tonsillectomy: Yes Other/Comment: hx of kyphoplasty - ANESTHESIA Hx Anesthesia: Yes Hx Anesthesia Reactions: No Hx Malignant Hyperthermia: No Meds Home Medications: Home Medication List Medication Instructions Recorded Confirmed Type Azithromycin 500MG/NS 250ml 500 mg IV DAILY #7 bag 11/22/16 Rx [Zithromax 500mg in NS] cefTRIAXone 1 gm [Rocephin 1 gram 1 gm IVPB DAILY #7 bag 11/22/16 Rx IVPB] methylPREDNISolone [Solu-Medrol] 60 mg IV Q12 #4 vial 11/22/16 Rx Allergies/Adverse Reactions: Allergies Allergy/AdvReac Type Severity Reaction Status Date / Time No Known Allergies Allergy Verified 03/27/16 19:12 - Medications Medications: Current Medications Acetaminophen (Tylenol 325mg Tab) 650 mg PO Q4 PRN PRN Reason: Fever >100.4 F Albuterol/Ipratropium (Duoneb 3 Mg/0.5 Mg (3 Ml) Ud) 3 ml INH RQ6 [facility] Last Admin: 11/22/16 13:33 Dose: 3 ml Calcium Carbonate (Oscal) 1,000 mg PO DAILY [facility] Last Admin: 11/22/16 09:26 Dose: 1,000 mg Celecoxib (Celebrex) 200 mg PO DAILY [facility] Last Admin: 11/22/16 09:26 Dose: 200 mg Enoxaparin Sodium (Lovenox) 40 mg SC DAILY [facility] PRN Reason: Protocol Last Admin: 11/22/16 09:28 Dose: 40 mg Fluticasone Propionate (Flonase) 2 spr NHI DAILY PRN PRN Reason: Allergy symptoms Ceftriaxone Sodium 1 gm/ (Sodium Chloride) 100 mls @ 100 mls/hr IVPB DAILY [facility] Last Admin: 11/22/16 09:26 Dose: 100 mls/hr Methylprednisolone 60 mg/ (Sodium Chloride) 50.96 mls @ 100 mls/hr IVPB Q12 [facility] Last Admin: 11/22/16 09:27 Dose: 100 mls/hr Azithromycin 500 mg/ Sodium (Chloride) 250 mls @ 250 mls/hr IVPB DAILY [facility] Last Admin: 11/22/16 09:27 Dose: 250 mls/hr Lactic Acid (Lac-Hydrin 12% Lotion (225 G)) 1 applic TOP DAILY [facility] Last Admin: 11/22/16 09:28 Dose: 1 unit Montelukast Sodium (Singulair) 10 mg PO DAILY [facility] Last Admin: 11/22/16 09:27 Dose: 10 mg Morphine Sulfate (Morphine Extended Release Tab) 15 mg PO Q8 [facility] Last Admin: 11/22/16 09:25 Dose: 15 mg Morphine Sulfate (Morphine Extended Release Tab) 30 mg PO Q8 [facility] Last Admin: 11/22/16 09:25 Dose: 30 mg Promethazine HCl/Dextromethorphan (Phenergan Dm Syrup) 10 ml PO Q4 PRN PRN Reason: Cough Last Admin: 11/22/16 09:29 Dose: 10 ml Physical Exam - Constitutional Appears: Non-toxic, No Acute Distress, Cachectic, Chronically Ill - Extremities Exam Additional comments: BL lower extremity exam: VASC- DP/PT pulses palpable, skin temp runs warm to cool BL, cap refill < 3 sec to digits x 10, no pedal edema noted NEURO: gross pedal sensation is intact DERM: IPK noted submetatarsal 3 bilateral, nails thickened and elongated x 10 ( BL hallux toenails have subungual debris) ORTHO: tenderness to palpation sub-met 3 bl at IPK's - Neurological Exam Neurological exam: Alert, CN II-XII Intact, Oriented x3 - Psychiatric Exam Psychiatric exam: Normal Affect, Normal Mood Results - Vital Signs Recent Vital Signs: Last Vital Signs Temp 98.1 F 11/22/16 08:03 Pulse 79 11/22/16 10:19 Resp 18 11/22/16 08:03 BP 121/68 11/22/16 08:03 Pulse Ox 97 11/22/16 10:19 - Labs Result Diagrams: 11/22/16 06:10 11/22/16 06:10 Labs: Laboratory Results - last 24 hr 11/20/16 11/20/16 11/22/16 12:19 12:19 06:10 WBC 5.1 RBC 3.54 L Hgb 10.1 L Hct 29.6 L MCV 83.6 MCH 28.6 MCHC 34.3 RDW 13.3 Plt Count 417 H Sodium Potassium Chloride Carbon Dioxide Anion Gap BUN Creatinine Est GFR ( Amer) Est GFR (Non-Af Amer) Random Glucose Calcium Absolute Lymphs (Flow) 595 L % CD4 Cells 4 L Absolute CD4 Count 26 L T-Help/Suppress Ratio 0.08 L % CD8 Cells 57 H Absolute CD8 Count 337 T-Lymph Analys Comment See note HIV-1 RNA Qnt (RT-PCR) 4.38 H 11/22/16 06:10 WBC RBC Hgb Hct MCV MCH MCHC RDW Plt Count Sodium 141 Potassium 3.8 Chloride 99 Carbon Dioxide 29 Anion Gap 18 BUN 13 Creatinine 0.4 L Est GFR ( Amer) > 60 Est GFR (Non-Af Amer) > 60 Random Glucose 119 H Calcium 8.8 Absolute Lymphs (Flow) % CD4 Cells Absolute CD4 Count T-Help/Suppress Ratio % CD8 Cells Absolute CD8 Count T-Lymph Analys Comment HIV-1 RNA Qnt (RT-PCR) Assessment & Plan - Assessment and Plan (Free Text) Assessment: 55 yo male patient w/ oncychomycosis of toenails x 10, bilateral foot intractable plantar keratomas (secondary to pressure) Plan: -Pt S&E at bedside -Chart, labs, vitals reviewed -Discussed w/ attending Dr. Morrow -Nails aseptically debrided x 10 w/ sterile nail nipper, IPK's paired w/ sterile # 10 blade. -Pt tolerated procedures well without incident -Rx for clotrimazole. Apply to affected toenails bid -Ammonium lactate (patient has bottle at bedside) to plantar aspect of feet bid -Stable per podiatry, podiatry to signs off. -Reconsult as needed -
--- NOTE | 2016-11-22 14:57 | RAD ---
PROCEDURE: CHEST RADIOGRAPH, 1 VIEW HISTORY: Pneumonia COMPARISON: 11/19/2016. FINDINGS: LUNGS: There is persistent airspace disease in the right lower lobe. The left lung is clear the PLEURA: No pneumothorax or pleural fluid seen. CARDIOVASCULAR: Normal. OSSEOUS STRUCTURES: No significant abnormalities. VISUALIZED UPPER ABDOMEN: Normal. OTHER FINDINGS: There is chronic elevation of the right hemidiaphragm. IMPRESSION: Airspace disease in the right lower lobe could represent atelectasis or pneumonia. Follow-up PA and lateral radiographs are recommended.
[2016-11-22 15:46] VITALS: BP 131/72; PULSE 71; RESP 20; TEMP 98.2
--- NOTE | 2016-11-23 09:04 | PQF HIV ---
This form is a permanent part of the medical record 11/23/16 Dr. Ma, Would you please further clarify the HIV status on this patient using the terminology under the physician response. This is for the medical admission . 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 Lymphocyte subset panel results have returned. Clarification of your documentation is requested to better reflect the severity of illness and intensity of treatment of your patient. Indicators present [x] Documented diagnosis of HIV [x] CD4 count: [] Under the laboratory section [] Other: [] Location in the medical record that reflects the above clinical findings: [] Other Treatment Provided: [] PHYSICIAN'S RESPONSE If possible, based on your medical judgment, please clarify the clinical classification for this patient. [x] Asymptomatic HIV Status: without any history of (or current) AIDS Defining Illnesses of HIV-Related Illness [] AIDS: Meets the current CDC Definition of AIDS HIV-Infected persons who HAVE OR HAVE HAD less than 200 CD4+ T-lymphocytes/uL or CD4+ T-lymphocyte percentage of total lymphocytes of less than 14, AND/OR an AIDS-Defining or HIV-Related Disease. See reverse side for examples. Per CDC publication Vol 60 RR-17 : Relating to the classification HIV Infection , once a patient is diagnosed with AIDS the diagnosis still stands even if, after treatment, the CD4+ T cell count rises above 200 per uL of blood or other AIDS-defining illnesses are cured. [] If unable to determine, please check the box, sign and date. In responding to this query, please exercise your independent professional judgment. The fact that a question is asked does not imply that any particular answer is desired or expected. Thank you for your clarification on this documentation. If you have any questions please call: extension [phone] * Thank you, Chyna Rosenbaum RN CDMP The following are AIDS-Defining Illnesses or HIV-Related Diseases: Candidiasis of bronchi, trachea, or lungs Candidiasis, esophageal Cervical cancer, invasive * Coccidioidomycosis, disseminated or extrapulmonary Cryptococcosis, extrapulmonary Cryptosporidiosis, chronic intestinal (greater than 1 month's duration) Cytomegalovirus disease (other than liver, spleen, or nodes) Cytomegalovirus retinitis (with loss of vision) Encephalopathy, HIV-related Herpes simplex: chronic ulcer(s) (greater than 1 month's duration); or bronchitis, pneumonitis, or esophagitis Histoplasmosis, disseminated or extrapulmonary Isosporiasis, chronic intestinal (greater than 1 month's duration) Kaposi's sarcoma Lymphoma, Burkitt's (or equivalent term) Lymphoma, immunoblastic (or equivalent term) Lymphoma, primary, of brain Mycobacterium avium complex or M. 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
--- NOTE | 2016-12-02 10:53 | CP.PCM.DIS ---
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 (6) Chronic pain syndrome Status: Chronic Priority: Low (7) HIV disease Status: Chronic Priority: Low Hospital Course - Lab Results Lab Results: Most Recent Lab Values WBC 5.1 K/uL (4.8-10.8) 11/22/16 06:10 RBC 3.54 Mil/uL (4.40-5.90) L 11/22/16 06:10 Hgb 10.1 g/dL (12.0-18.0) L 11/22/16 06:10 Hct 29.6 % (35.0-51.0) L 11/22/16 06:10 MCV 83.6 fl (80.0-94.0) 11/22/16 06:10 MCH 28.6 pg (27.0-31.0) 11/22/16 06:10 MCHC 34.3 g/dL (33.0-37.0) 11/22/16 06:10 RDW 13.3 % (11.5-14.5) 11/22/16 06:10 Plt Count 417 K/uL (130-400) H 11/22/16 06:10 MPV 7.9 fl (7.2-11.7) 11/19/16 17:24 Neut % (Auto) 77.0 % (50.0-75.0) H 11/19/16 17:24 Lymph % (Auto) 10.8 % (20.0-40.0) L 11/19/16 17:24 [place] % (Auto) 11.8 % (0.0-10.0) H 11/19/16 17:24 Eos % (Auto) 0.0 % (0.0-4.0) 11/19/16 17:24 Baso % (Auto) 0.4 % (0.0-2.0) 11/19/16 17:24 Neut # 5.2 K/uL (1.8-7.0) 11/19/16 17:24 Lymph # 0.7 K/uL (1.0-4.3) L 11/19/16 17:24 [place] # 0.8 K/uL (0.0-0.8) 11/19/16 17:24 Eos # 0.0 K/uL (0.0-0.7) 11/19/16 17:24 Baso # 0.0 K/uL (0.0-0.2) 11/19/16 17:24 PT 11.4 SECONDS (9.6-11.2) H 11/19/16 17:24 INR 1.10 (0.92-1.08) H 11/19/16 17:24 APTT 32.8 SECONDS (23.3-32.5) H 11/19/16 17:24 pCO2 45 mm/Hg (35-45) 11/19/16 17:35 pO2 76 mm/Hg (80-100) L 11/19/16 17:35 HCO3 29.2 mmol/L (21-28) H 11/19/16 17:35 ABG pH 7.44 (7.35-7.45) 11/19/16 17:35 ABG Total CO2 32.0 mmol/L (22-28) H 11/19/16 17:35 ABG O2 Saturation 99.2 % (95-98) H 11/19/16 17:35 ABG Base Excess 5.6 mmol/L (-2.0-3.0) H 11/19/16 17:35 Shawn Test Yes 11/19/16 17:35 ABG Potassium 4.1 mmol/L (3.6-5.2) 11/19/16 17:35 Sodium 135.0 mmol/L (132-148) 11/19/16 17:35 Chloride 105.0 mmol/L (98-107) 11/19/16 17:35 Glucose 99 mg/dL (75-110) 11/19/16 17:35 Lactate 0.5 mmol/L (0.7-2.1) L 11/19/16 17:35 FiO2 21.0 % 11/19/16 17:35 Sodium 141 mmol/l (132-148) 11/22/16 06:10 Potassium 3.8 MMOL/L (3.6-5.0) 11/22/16 06:10 Chloride 99 mmol/L (98-107) 11/22/16 06:10 Carbon Dioxide 29 mmol/L (22-30) 11/22/16 06:10 Anion Gap 18 (10-20) 11/22/16 06:10 BUN 13 mg/dl (9-20) 11/22/16 06:10 Creatinine 0.4 mg/dL (0.8-1.5) L 11/22/16 06:10 Est GFR ( Amer) > 60 11/22/16 06:10 Est GFR (Non-Af Amer) > 60 11/22/16 06:10 Random Glucose 119 mg/dL (75-110) H 11/22/16 06:10 Calcium 8.8 mg/dL (8.4-10.2) 11/22/16 06:10 Phosphorus 4.2 mg/dl (2.5-4.5) 11/19/16 17:24 Magnesium 2.3 MG/DL (1.6-2.3) 11/19/16 17:24 Total Bilirubin 0.6 mg/dl (0.2-1.3) 11/19/16 17:24 AST 42 U/L (17-59) 11/19/16 17:24 ALT 29 U/L (21-72) 11/19/16 17:24 Alkaline Phosphatase 116 U/L (38-126) 11/19/16 17:24 Troponin I < 0.0120 ng/mL (0.00-0.120) 11/19/16 17:24 NT-Pro-B Natriuret Pep 603 pg/ml (0-900) 11/19/16 17:24 Total Protein 8.3 G/DL (6.3-8.2) H 11/19/16 17:24 Albumin 3.5 g/dL (3.5-5.0) 11/19/16 17:24 Globulin 4.8 gm/dL (2.2-3.9) H 11/19/16 17:24 Albumin/Globulin Ratio 0.7 (1.0-2.1) L 11/19/16 17:24 Arterial Blood Potassium 4.1 mmol/L (3.6-5.2) 11/19/16 17:35 Urine Color Yellow (YELLOW) 11/19/16 15:26 Urine Clarity Slighty-cloudy (Clear) 11/19/16 15:26 Urine pH 6.0 (5.0-8.0) 11/19/16 15:26 Ur Specific [place] 1.018 (1.003-1.030) 11/19/16 15:26 Urine Protein Negative mg/dL (NEGATIVE) 11/19/16 15:26 Urine Glucose (UA) Neg mg/dL (Normal) 11/19/16 15:26 Urine Ketones Trace mg/dL (NEGATIVE) 11/19/16 15:26 Urine Blood Negative (NEGATIVE) 11/19/16 15:26 Urine Nitrate Negative (NEGATIVE) 11/19/16 15:26 Urine Bilirubin Negative (NEGATIVE) 11/19/16 15:26 Urine Urobilinogen 0.2-1.0 mg/dL (0.2-1.0) 11/19/16 15:26 Ur Leukocyte Esterase Neg [place]/uL (Negative) 11/19/16 15:26 Urine RBC (Auto) 1 /hpf (0-3) 11/19/16 15:26 Urine Microscopic WBC < 1 /hpf (0-5) 11/19/16 15:26 Urine Bacteria Rare (<OCC) 11/19/16 15:26 Absolute Lymphs (Flow) 595 Cells/mcL (850-3900) L 11/20/16 12:19 % CD4 Cells 4 Percent (30-61) L 11/20/16 12:19 Absolute CD4 Count 26 Cells/mcL (490-1740) L 11/20/16 12:19 T-Help/Suppress Ratio 0.08 Ratio (0.86-5.00) L 11/20/16 12:19 % CD8 Cells 57 Percent (12-42) H 11/20/16 12:19 Absolute CD8 Count 337 Cells/mcL (180-1170) 11/20/16 12:19 T-Lymph Analys Comment See note 11/20/16 12:19 HIV-1 RNA Qnt (RT-PCR) 4.38 (<1.30) H 11/20/16 12:19 Influenza Typ A,B (EIA) Negative for flu a/b (NEGATIVE) 11/19/16 17:24 - Hospital Course Hospital Course: STILL ILL COUGH AND SOB PERSIST Discharge Exam - Head Exam Head Exam: ATRAUMATIC, NORMAL INSPECTION, NORMOCEPHALIC - Eye Exam Eye Exam: EOMI, Normal appearance, PERRL Pupil Exam: NORMAL ACCOMODATION, PERRL - Respiratory Exam Respiratory Exam: Prolonged Expiratory Phase, Rales - GI/Abdominal Exam GI & Abdominal Exam: Normal Bowel Sounds - Rectal Exam Rectal Exam: NORMAL INSPECTION - Neurological Exam Neurological exam: Abnormal Gait, Alert, CN II-XII Intact, Oriented x3, Reflexes Normal - Psychiatric Exam Psychiatric exam: Normal Affect, Normal Mood - Skin Skin Exam: Dry, Intact, Normal Color, Warm Discharge Plan - Discharge Medications Prescriptions: cefTRIAXone 1 gm [Rocephin 1 gram IVPB] 1 gm IVPB DAILY #7 bag methylPREDNISolone [Solu-Medrol] 60 mg IV Q12 #4 vial Azithromycin 500MG/NS 250ml [Zithromax 500mg in NS] 500 mg IV DAILY #7 bag - Follow Up Plan Condition: FAIR Disposition: TRANSF TO SNF Patient education suggested?: Yes Instructions: Asthma (DC), Community Acquired Pneumonia (DC) Additional Instructions: TRANSFER TO TCU
== END 2016-11-22 15:34 | DRG 975 ==
LOC: H.ER 15:31 → H.ERHOLD 18:23 → H.MEDSURG1 22:04
PROVIDERS: ADMIT Internal Medicine Pulmonary Disease; ATTEND Internal Medicine Pulmonary Disease
PROC: 0HBRXZZ Excision of Toe Nail, External Approach (ICD-10-PCS; principal; 2016-11-22)
DX: J18.9 Pneumonia, unspecified organism (principal); B20 Human immunodeficiency virus [HIV] disease; J45.31 Mild persistent asthma with (acute) exacerbation; R64 Cachexia; M41.9 Scoliosis, unspecified; Z68.1 Body mass index [BMI] 19.9 or less, adult; G62.9 Polyneuropathy, unspecified; M81.0 Age-related osteoporosis without current pathological fracture; B35.1 Tinea unguium; Z85.841 Personal history of malignant neoplasm of brain; G89.4 Chronic pain syndrome; Z87.891 Personal history of nicotine dependence; Z87.01 Personal history of pneumonia (recurrent); H91.93 Unspecified hearing loss, bilateral; E86.0 Dehydration; R62.7 Adult failure to thrive

== ENCOUNTER 2016-11-22 13:39 | Inpatient (IN) | payer OTHER ==
[2016-11-22 15:53] VITALS: BMI 16.6
[2016-11-22] MEDS ORDERED: ALBUTEROL SULFATE IH PRN (17:46)
[2016-11-22] MEDS ORDERED: [UNRECOGNIZED DRUG - OTHER] IH PRN (17:46)
[2016-11-22] MEDS ORDERED: IPRATROPIUM IH PRN (17:46)
[2016-11-22] MEDS ORDERED: Promethazine DM 12.5 mg-30 mg/10 ml Syrup PO PRN (18:03)
[2016-11-22] MEDS: Morphine 30 mg SR Tab PO SCH (20:53)
[2016-11-22] MEDS: Morphine 15 mg SR Tab PO SCH (20:54)
[2016-11-22] MEDS: methylPREDNISolone 60 MG in Sodium Chloride 0.9% 50 ML IV SCH ×2 (20:55→21:00)
[2016-11-22] MEDS ORDERED: MethylPREDNISolone 40 mg Vial IV SCH (21:00)
[2016-11-23] MEDS: Morphine 15 mg SR Tab PO SCH ×3 (05:36→22:23)
[2016-11-23] MEDS: Morphine 30 mg SR Tab PO SCH ×3 (05:36→22:22)
[2016-11-23 08:17] LABS: HEMATOCRIT 30.2 % (35.0-51.0); MEAN CELL VOLUME 83.4 fl (80.0-94.0); MEAN CORPUSCULAR HEMOGLOBIN 28.1 pg (27.0-31.0); MEAN CORPUSCULAR HGB CONC 33.7 g/dL (33.0-37.0); RED CELL DISTRIBUTION WIDTH 13.2 % (11.5-14.5); WHITE BLOOD COUNT 5.2 K/uL (4.8-10.8)
[2016-11-23 08:25] LABS: BLOOD UREA NITROGEN 20 mg/dl (9-20); CARBON DIOXIDE 29 mmol/L (22-30); CHLORIDE 100 mmol/L (98-107); GFR AFRICAN-AMERICAN > 60; GLUCOSE,RANDOM 95 mg/dL (75-110); POTASSIUM 4.6 MMOL/L (3.6-5.0); SODIUM 138 mmol/l (132-148)
[2016-11-23] MEDS ORDERED: Azithromycin 500 MG in Sodium Chloride 0.9% 250 ML IVPB SCH (09:00)
[2016-11-23] MEDS ORDERED: cefTRIAXone IV 1 gm in Dextros 50 ML BAG IVPB SCH (09:00)
[2016-11-23] MEDS: Enoxaparin 40 mg Syringe SC SCH (09:27)
[2016-11-23] MEDS: methylPREDNISolone 60 MG in Sodium Chloride 0.9% 50 ML IV SCH ×2 (09:32→22:24)
--- NOTE | 2016-11-23 13:04 | CP.PCM.CON ---
History of Present Illness - History of Present Illness History of Present Illness: awaiting antivitral rx to arrive from [facility] so far negative remains congested bactrim added CD4 is low Past Patient History - Infectious Disease Hx of Infectious Diseases: None - Past Medical History & Family History Past Medical History?: Yes - Past Social History Smoking Status: Never Smoked - CARDIAC Hx Cardiac Disorders: No - PULMONARY Hx Respiratory Disorders: Yes Hx Asthma: Yes Hx Pneumonia: Yes - NEUROLOGICAL Hx Neurological Disorder: No HX Cerebrovascular Accident: No Other/Comment: Brain Ca - HEENT Hx HEENT Problems: Yes Hx Blind: No Hx Cataracts: Yes Hx Deafness: Yes ([place]) Hx Difficulty Chewing: No Hx Epistaxis: No Hx Glaucoma: No Hx Macular Degeneration: No Other/Comment: impaired hearing, used to have Left and right hearing aid years ago. - RENAL Hx Chronic Kidney Disease: No - ENDOCRINE/METABOLIC Hx Endocrine Disorders: No Hx Hypothyroidism: No - HEMATOLOGICAL/ONCOLOGICAL Hx AIDS: Yes Hx Human Immunodeficiency Virus (HIV): Yes - INTEGUMENTARY Hx Dermatological Problems: No - MUSCULOSKELETAL/RHEUMATOLOGICAL Hx Musculoskeletal Disorders: Yes Hx Falls: No Other/Comment: hx of kyphosis - GASTROINTESTINAL Hx Gastrointestinal Disorders: No - GENITOURINARY/GYNECOLOGICAL Hx Genitourinary Disorders: No - PSYCHIATRIC Hx Psychophysiologic Disorder: No Hx Substance Use: No - SURGICAL HISTORY Hx Surgeries: Yes Hx Appendectomy: Yes Hx Cataract Extraction: Yes Hx Tonsillectomy: Yes Other/Comment: hx of kyphoplasty - ANESTHESIA Hx Anesthesia: Yes Hx Anesthesia Reactions: No Hx Malignant Hyperthermia: No Has any member of the family had a problem w/ anesthesia?: No Meds Allergies/Adverse Reactions: Allergies Allergy/AdvReac Type Severity Reaction Status Date / Time No Known Allergies Allergy Verified 11/22/16 15:53 - Medications Medications: Current Medications Acetaminophen (Tylenol 325mg Tab) 650 mg PO Q4 PRN PRN Reason: Fever >100.4 F Albuterol/Ipratropium (Duoneb 3 Mg/0.5 Mg (3 Ml) Ud) 3 ml INH RQ6 PRN PRN Reason: Shortness of Breath Calcium Carbonate (Oscal) 1,000 mg PO DAILY [facility] Last Admin: 11/23/16 09:25 Dose: 1,000 mg Celecoxib (Celebrex) 200 mg PO DAILY [facility] Last Admin: 11/23/16 09:26 Dose: 200 mg Clotrimazole (Lotrimin 1% Cream) 1 applic TOP BID [facility] Last Admin: 11/23/16 09:26 Dose: 1 u Enoxaparin Sodium (Lovenox) 40 mg SC DAILY [facility] PRN Reason: Protocol Last Admin: 11/23/16 09:27 Dose: 40 mg Fluticasone Propionate (Flonase) 2 spr NHI DAILY PRN PRN Reason: Allergy symptoms Home Med (Ipratropium/Albuterol Sulfate [Combivent Respimat Inhal [place]]) 1 puff IH QID PRN PRN Reason: Shortness of Breath Azithromycin 500 mg/ Sodium (Chloride) 250 mls @ 250 mls/hr IVPB DAILY [facility] Last Admin: 11/23/16 10:13 Dose: 250 mls/hr Ceftriaxone Sodium 1 gm/ (Sodium Chloride) 100 mls @ 100 mls/hr IVPB DAILY@ 1700 [facility] Methylprednisolone 60 mg/ (Sodium Chloride) 50.96 mls @ 101.92 mls/hr IV Q12 [facility] Last Admin: 11/23/16 09:32 Dose: 101.92 mls/hr Lactic Acid (Lac-Hydrin 12% Lotion (225 G)) 1 applic TOP DAILY [facility] Last Admin: 11/23/16 09:27 Dose: 1 u Montelukast Sodium (Singulair) 10 mg PO DAILY [facility] Last Admin: 11/23/16 09:27 Dose: 10 mg Morphine Sulfate (Morphine Extended Release Tab) 15 mg PO Q8@0600,1300,2100 [facility] Last Admin: 11/23/16 05:36 Dose: 15 mg Morphine Sulfate (Morphine Extended Release Tab) 30 mg PO Q8@0600,1300,2100 [facility] Last Admin: 11/23/16 05:36 Dose: 30 mg Promethazine HCl/Dextromethorphan (Phenergan Dm Syrup) 10 ml PO Q4 PRN PRN Reason: Cough Results - Vital Signs Recent Vital Signs: Last Vital Signs Temp 98.1 F 11/23/16 08:19 Pulse 73 11/23/16 10:49 Resp 20 11/23/16 08:19 BP 119/73 11/23/16 08:19 Pulse Ox 95 11/23/16 10:49 - Labs Result Diagrams: 11/23/16 07:43 11/23/16 07:43 Labs: Laboratory Results - last 24 hr 11/23/16 11/23/16 07:43 07:43 WBC 5.2 RBC 3.62 L Hgb 10.2 L Hct 30.2 L MCV 83.4 MCH 28.1 MCHC 33.7 RDW 13.2 Plt Count 420 H Sodium 138 Potassium 4.6 Chloride 100 Carbon Dioxide 29 Anion Gap 14 BUN 20 Creatinine 0.5 L Est GFR ( Amer) > 60 Est GFR (Non-Af Amer) > 60 Random Glucose 95 Calcium 9.0
--- NOTE | 2016-11-23 14:53 | HP ---
HISTORY OF PRESENT ILLNESS: The patient is a 55-year-old male who was admitted from the [facility] to the transitional care unit for intravenous antibiotic therapy and aggressive physical therapy. He was admitted originally for pneumonia and acute asthma. PAST MEDICAL HISTORY: Arthritis, asthma, chronic back pain syndrome, kyphoscoliosis, depression, HIV infection, and brain lymphoma. FAMILY HISTORY: Unremarkable. SOCIAL HISTORY: He lives at home with his partner, does not smoke or drink. REVIEW OF SYSTEMS: Remarkable for unsteadiness of gait, back pain, and cough with shortness of breat h. PHYSICAL EXAMINATION: GENERAL: The patient is alert and oriented, appears emaciated. VITAL SIGNS: Stable. HEENT: Mouth shows fair hygiene. NECK: JVP flat. LUNGS: Poor aeration bilaterally with rales and wheezing. HEART: S1, S2. ABDOMEN: Soft, nontender, no organomegaly. EXTREMITIES: Show no edema or cyanosis. CENTRAL NERVOUS SYSTEM: Grossly intact. LABORATORY DATA: Pending. IMPRESSION: Pneumonia, acute asthma, history of human immunodeficiency virus infection, history of b rain lymphoma in the past, cachexia due to low body mass index. PLAN: Continue IV antibiotic therapy, aerosolized bronchodilators, physical therapy. Further therap y will depend on findings. Thee Ma MD cc: [id number] TT: 11/23/2016 14:53:04 ny
[2016-11-23] MEDS: TRIUMEQ TABLET PO SCH (18:06)
[2016-11-23] MEDS: Tmp-Smz 800 mg-160 mg DS Tab PO SCH (22:22)
[2016-11-24] MEDS: Morphine 30 mg SR Tab PO SCH ×3 (05:53→21:23)
[2016-11-24] MEDS: Morphine 15 mg SR Tab PO SCH ×3 (05:54→21:23)
[2016-11-24] MEDS: methylPREDNISolone 60 MG in Sodium Chloride 0.9% 50 ML IV SCH ×2 (09:29→21:25)
[2016-11-24] MEDS: TRIUMEQ TABLET PO SCH (09:30)
[2016-11-24] MEDS: Enoxaparin 40 mg Syringe SC SCH (09:31)
--- NOTE | 2016-11-24 12:35 | CP.PCM.PN ---
Subjective - Date & Time of Evaluation Date of Evaluation: 11/24/16 Time of Evaluation: 12:35 - Subjective Subjective: c/o persistent cough and dyspepsia Objective - Vital Signs/Intake and Output Vital Signs (last 24 hours): Temp Pulse Resp BP Pulse Ox 97.9 F 56 L 20 119/71 98 11/24/16 08:18 11/24/16 08:18 11/24/16 08:18 11/24/16 08:18 11/24/16 08:18 - Medications Medications: Current Medications Acetaminophen (Tylenol 325mg Tab) 650 mg PO Q4 PRN PRN Reason: Fever >100.4 F Albuterol/Ipratropium (Duoneb 3 Mg/0.5 Mg (3 Ml) Ud) 3 ml INH RQ6 PRN PRN Reason: Shortness of Breath Calcium Carbonate (Oscal) 1,000 mg PO DAILY [facility] Last Admin: 11/24/16 09:30 Dose: 1,000 mg Celecoxib (Celebrex) 200 mg PO DAILY [facility] Last Admin: 11/24/16 09:31 Dose: 200 mg Clotrimazole (Lotrimin 1% Cream) 1 applic TOP BID [facility] Last Admin: 11/24/16 09:32 Dose: 1 u Enoxaparin Sodium (Lovenox) 40 mg SC DAILY [facility] PRN Reason: Protocol Last Admin: 11/24/16 09:31 Dose: 40 mg Fluticasone Propionate (Flonase) 2 spr NHI DAILY PRN PRN Reason: Allergy symptoms Home Med (Ipratropium/Albuterol Sulfate [Combivent Respimat Inhal [place]]) 1 puff IH QID PRN PRN Reason: Shortness of Breath Home Med (Patient's Own Medication) 1 unit PO DAILY [facility] Last Admin: 11/24/16 09:30 Dose: 1 unit Ceftriaxone Sodium 1 gm/ (Sodium Chloride) 100 mls @ 100 mls/hr IVPB DAILY@ 1700 [facility] Last Admin: 11/23/16 17:29 Dose: 100 mls/hr Methylprednisolone 60 mg/ (Sodium Chloride) 50.96 mls @ 101.92 mls/hr IV Q12 [facility] Last Admin: 11/24/16 09:29 Dose: 101.92 mls/hr Azithromycin 500 mg/ Sodium (Chloride) 250 mls @ 250 mls/hr IVPB DAILY@1800 [facility] Lactic Acid (Lac-Hydrin 12% Lotion (225 G)) 1 applic TOP DAILY [facility] Last Admin: 11/24/16 09:32 Dose: 1 u Montelukast Sodium (Singulair) 10 mg PO DAILY [facility] Last Admin: 11/24/16 09:31 Dose: 10 mg Morphine Sulfate (Morphine Extended Release Tab) 15 mg PO Q8@0600,1300,2100 [facility] Last Admin: 11/24/16 05:54 Dose: 15 mg Morphine Sulfate (Morphine Extended Release Tab) 30 mg PO Q8@0600,1300,2100 [facility] Last Admin: 11/24/16 05:53 Dose: 30 mg Promethazine HCl/Dextromethorphan (Phenergan Dm Syrup) 10 ml PO Q4 PRN PRN Reason: Cough Trimethoprim/Sulfamethoxazole (Bactrim Ds Tab) 1 tab PO Q12 [facility] Last Admin: 11/23/16 22:22 Dose: 1 tab - Labs Labs: 11/23/16 07:43 11/23/16 07:43 - Constitutional Appears: Chronically Ill - Head Exam Head Exam: ATRAUMATIC, NORMAL INSPECTION, NORMOCEPHALIC - Eye Exam Eye Exam: EOMI, Normal appearance, PERRL Pupil Exam: NORMAL ACCOMODATION, PERRL - ENT Exam ENT Exam: Mucous Membranes Moist, Normal Exam - Neck Exam Neck Exam: Full ROM, Normal Inspection. absent: Lymphadenopathy - Respiratory Exam Respiratory Exam: Prolonged Expiratory Phase, Rales, Wheezes, NORMAL BREATHING PATTERN - Cardiovascular Exam Cardiovascular Exam: REGULAR RHYTHM, +S1, +S2. absent: Murmur - GI/Abdominal Exam GI & Abdominal Exam: Soft, Normal Bowel Sounds. absent: Tenderness - Rectal Exam Rectal Exam: NORMAL INSPECTION - Extremities Exam Extremities Exam: Full ROM, Normal Capillary Refill, Normal Inspection. absent : Joint Swelling, Pedal Edema - Back Exam Back Exam: NORMAL INSPECTION - Neurological Exam Neurological Exam: Alert, Awake, CN II-XII Intact, Normal Gait, Oriented x3 - Psychiatric Exam Psychiatric exam: Normal Affect, Normal Mood - Skin Skin Exam: Dry, Intact, Normal Color, Warm Assessment and Plan - Assessment and Plan (Free Text) Assessment: HIV DZ PNEUMONIA Plan: CONTINUE PRESENT RX PROTONIX PO
[2016-11-24] MEDS: Tmp-Smz 800 mg-160 mg DS Tab PO SCH ×2 (13:20→21:23)
[2016-11-24] MEDS: Pantoprazole 40 mg EC Tab PO SCH (16:53)
[2016-11-24] MEDS: Azithromycin 500 MG in Sodium Chloride 0.9% 250 ML IVPB SCH (17:00)
[2016-11-24] MEDS: Acetylcysteine 20% Inhal Soln (4ml) INH SCH (19:46)
[2016-11-24] MEDS: Albuterol-Ipratrop 3 mg / 0.5 (3 ml) UD INH PRN (19:46)
[2016-11-25] MEDS: Morphine 15 mg SR Tab PO SCH ×3 (06:18→21:13)
[2016-11-25] MEDS: Morphine 30 mg SR Tab PO SCH ×3 (06:19→21:13)
[2016-11-25] MEDS: Albuterol-Ipratrop 3 mg / 0.5 (3 ml) UD INH PRN ×2 (08:55→20:09)
[2016-11-25] MEDS: Acetylcysteine 20% Inhal Soln (4ml) INH SCH ×2 (08:55→20:09)
[2016-11-25] MEDS: Tmp-Smz 800 mg-160 mg DS Tab PO SCH ×2 (09:14→21:13)
[2016-11-25] MEDS: Enoxaparin 40 mg Syringe SC SCH (09:14)
[2016-11-25] MEDS: TRIUMEQ TABLET PO SCH (09:15)
[2016-11-25] MEDS: Pantoprazole 40 mg EC Tab PO SCH (09:15)
[2016-11-25] MEDS: methylPREDNISolone 60 MG in Sodium Chloride 0.9% 50 ML IV SCH (09:22)
--- NOTE | 2016-11-25 11:00 | CP.PCM.PN ---
Subjective - Date & Time of Evaluation Date of Evaluation: 11/25/16 Time of Evaluation: 11:00 - Subjective Subjective: CONTINUES TO COUGH BUT IS UNABLE TO EXPECTORATE SPUTUM Objective - Vital Signs/Intake and Output Vital Signs (last 24 hours): Temp Pulse Resp BP Pulse Ox 97.2 F L 61 20 116/76 98 11/25/16 07:58 11/25/16 07:58 11/25/16 07:58 11/25/16 07:58 11/25/16 07:58 - Medications Medications: Current Medications Acetaminophen (Tylenol 325mg Tab) 650 mg PO Q4 PRN PRN Reason: Fever >100.4 F Acetylcysteine (Acetylcysteine 20%) 2 ml INH RBID [facility] Last Admin: 11/25/16 08:55 Dose: 2 ml Albuterol/Ipratropium (Duoneb 3 Mg/0.5 Mg (3 Ml) Ud) 3 ml INH RQ6 PRN PRN Reason: Shortness of Breath Last Admin: 11/25/16 08:55 Dose: 3 ml Calcium Carbonate (Oscal) 1,000 mg PO DAILY [facility] Last Admin: 11/25/16 09:15 Dose: 1,000 mg Celecoxib (Celebrex) 200 mg PO DAILY [facility] Last Admin: 11/25/16 09:15 Dose: 200 mg Clotrimazole (Lotrimin 1% Cream) 1 applic TOP BID [facility] Last Admin: 11/25/16 09:16 Dose: 1 u Enoxaparin Sodium (Lovenox) 40 mg SC DAILY [facility] PRN Reason: Protocol Last Admin: 11/25/16 09:14 Dose: 40 mg Fluticasone Propionate (Flonase) 2 spr NHI DAILY PRN PRN Reason: Allergy symptoms Home Med (Ipratropium/Albuterol Sulfate [Combivent Respimat Inhal [place]]) 1 puff IH QID PRN PRN Reason: Shortness of Breath Home Med (Patient's Own Medication) 1 unit PO DAILY [facility] Last Admin: 11/25/16 09:15 Dose: 1 unit Ceftriaxone Sodium 1 gm/ (Sodium Chloride) 100 mls @ 100 mls/hr IVPB DAILY@ 1700 [facility] Last Admin: 11/24/16 16:50 Dose: 100 mls/hr Methylprednisolone 60 mg/ (Sodium Chloride) 50.96 mls @ 101.92 mls/hr IV Q12 [facility] Last Admin: 11/25/16 09:22 Dose: 101.92 mls/hr Azithromycin 500 mg/ Sodium (Chloride) 250 mls @ 250 mls/hr IVPB DAILY@1800 [facility] Last Admin: 11/24/16 17:00 Dose: 250 mls/hr Lactic Acid (Lac-Hydrin 12% Lotion (225 G)) 1 applic TOP DAILY [facility] Last Admin: 11/25/16 09:16 Dose: 1 u Montelukast Sodium (Singulair) 10 mg PO DAILY [facility] Last Admin: 11/25/16 09:15 Dose: 10 mg Morphine Sulfate (Morphine Extended Release Tab) 15 mg PO Q8@0600,1300,2100 [facility] Last Admin: 11/25/16 06:18 Dose: 15 mg Morphine Sulfate (Morphine Extended Release Tab) 30 mg PO Q8@0600,1300,2100 [facility] Last Admin: 11/25/16 06:19 Dose: 30 mg Pantoprazole Sodium (Protonix Ec Tab) 40 mg PO DAILY [facility] Last Admin: 11/25/16 09:15 Dose: 40 mg Promethazine HCl/Dextromethorphan (Phenergan Dm Syrup) 10 ml PO Q4 PRN PRN Reason: Cough Trimethoprim/Sulfamethoxazole (Bactrim Ds Tab) 1 tab PO Q12 [facility] Last Admin: 11/25/16 09:14 Dose: 1 tab - Labs Labs: 11/23/16 07:43 11/23/16 07:43 - Constitutional Appears: Chronically Ill - Head Exam Head Exam: ATRAUMATIC, NORMAL INSPECTION, NORMOCEPHALIC - Eye Exam Eye Exam: EOMI, Normal appearance, PERRL Pupil Exam: NORMAL ACCOMODATION, PERRL - ENT Exam ENT Exam: Mucous Membranes Moist, Normal Exam - Neck Exam Neck Exam: Full ROM, Normal Inspection. absent: Lymphadenopathy - Respiratory Exam Respiratory Exam: Decreased Breath Sounds, Prolonged Expiratory Phase, Rales, NORMAL BREATHING PATTERN - Cardiovascular Exam Cardiovascular Exam: REGULAR RHYTHM, +S1, +S2. absent: Murmur - GI/Abdominal Exam GI & Abdominal Exam: Soft, Normal Bowel Sounds. absent: Tenderness - Rectal Exam Rectal Exam: NORMAL INSPECTION - Extremities Exam Extremities Exam: Full ROM, Normal Capillary Refill, Normal Inspection. absent : Joint Swelling, Pedal Edema - Back Exam Back Exam: NORMAL INSPECTION - Neurological Exam Neurological Exam: Alert, Awake, CN II-XII Intact, Normal Gait, Oriented x3 - Psychiatric Exam Psychiatric exam: Normal Affect, Normal Mood - Skin Skin Exam: Dry, Intact, Normal Color, Warm Assessment and Plan - Assessment and Plan (Free Text) Assessment: PNEUMONIA HIV DZ CACHEXIA ASTHMA Plan: CONTINUE PRESENT RX CPT REPEAT CXR
[2016-11-25] MEDS: Azithromycin 500 MG in Sodium Chloride 0.9% 250 ML IVPB SCH (18:15)
[2016-11-25] MEDS: methylPREDNISolone 40 MG in Sodium Chloride 0.9% 50 ML IV SCH (21:12)
[2016-11-26] MEDS: Morphine 30 mg SR Tab PO SCH ×3 (06:07→21:06)
[2016-11-26] MEDS: Morphine 15 mg SR Tab PO SCH ×3 (06:08→21:06)
[2016-11-26] MEDS: Albuterol-Ipratrop 3 mg / 0.5 (3 ml) UD INH PRN ×2 (07:59→20:19)
[2016-11-26] MEDS: Acetylcysteine 20% Inhal Soln (4ml) INH SCH ×2 (07:59→20:19)
--- NOTE | 2016-11-26 08:19 | CP.PCM.PN ---
Subjective - Date & Time of Evaluation Date of Evaluation: 11/26/16 Time of Evaluation: 08:19 - Subjective Subjective: STILL COUGHING BUT UNABLE TO EXPECTORATE SPUTUM NO CHEST PAINS SOB IMPROVING Objective - Vital Signs/Intake and Output Vital Signs (last 24 hours): Temp Pulse Resp BP Pulse Ox 97.9 F 59 L 20 117/68 99 11/26/16 07:58 11/26/16 07:58 11/26/16 07:58 11/26/16 07:58 11/26/16 07:58 - Medications Medications: Current Medications Acetaminophen (Tylenol 325mg Tab) 650 mg PO Q4 PRN PRN Reason: Fever >100.4 F Acetylcysteine (Acetylcysteine 20%) 2 ml INH RBID [facility] Last Admin: 11/26/16 07:59 Dose: 2 ml Albuterol/Ipratropium (Duoneb 3 Mg/0.5 Mg (3 Ml) Ud) 3 ml INH RQ6 PRN PRN Reason: Shortness of Breath Last Admin: 11/26/16 07:59 Dose: 3 ml Benzonatate (Tessalon Perles) 100 mg PO TID [facility] Last Admin: 11/25/16 17:12 Dose: 100 mg Calcium Carbonate (Oscal) 1,000 mg PO DAILY [facility] Last Admin: 11/25/16 09:15 Dose: 1,000 mg Celecoxib (Celebrex) 200 mg PO DAILY [facility] Last Admin: 11/25/16 09:15 Dose: 200 mg Clotrimazole (Lotrimin 1% Cream) 1 applic TOP BID [facility] Last Admin: 11/25/16 17:13 Dose: 1 u Enoxaparin Sodium (Lovenox) 40 mg SC DAILY [facility] PRN Reason: Protocol Last Admin: 11/25/16 09:14 Dose: 40 mg Fluticasone Propionate (Flonase) 2 spr NHI DAILY PRN PRN Reason: Allergy symptoms Home Med (Ipratropium/Albuterol Sulfate [Combivent Respimat Inhal [place]]) 1 puff IH QID PRN PRN Reason: Shortness of Breath Home Med (Patient's Own Medication) 1 unit PO DAILY [facility] Last Admin: 11/25/16 09:15 Dose: 1 unit Ceftriaxone Sodium 1 gm/ (Sodium Chloride) 100 mls @ 100 mls/hr IVPB DAILY@ 1700 [facility] Last Admin: 11/25/16 17:09 Dose: 100 mls/hr Azithromycin 500 mg/ Sodium (Chloride) 250 mls @ 250 mls/hr IVPB DAILY@1800 [facility] Last Admin: 11/25/16 18:15 Dose: 250 mls/hr Methylprednisolone 40 mg/ (Sodium Chloride) 50.64 mls @ 101.92 mls/hr IV Q12 [facility] Last Admin: 11/25/16 21:12 Dose: 101.92 mls/hr Lactic Acid (Lac-Hydrin 12% Lotion (225 G)) 1 applic TOP DAILY [facility] Last Admin: 11/25/16 09:16 Dose: 1 u Montelukast Sodium (Singulair) 10 mg PO DAILY [facility] Last Admin: 11/25/16 09:15 Dose: 10 mg Morphine Sulfate (Morphine Extended Release Tab) 15 mg PO Q8@0600,1300,2100 [facility] Last Admin: 11/26/16 06:08 Dose: 15 mg Morphine Sulfate (Morphine Extended Release Tab) 30 mg PO Q8@0600,1300,2100 [facility] Last Admin: 11/26/16 06:07 Dose: 30 mg Pantoprazole Sodium (Protonix Ec Tab) 40 mg PO DAILY [facility] Last Admin: 11/25/16 09:15 Dose: 40 mg Promethazine HCl/Dextromethorphan (Phenergan Dm Syrup) 10 ml PO Q4 PRN PRN Reason: Cough Trimethoprim/Sulfamethoxazole (Bactrim Ds Tab) 1 tab PO Q12 [facility] Last Admin: 11/25/16 21:13 Dose: 1 tab - Labs Labs: 11/23/16 07:43 11/23/16 07:43 - Constitutional Appears: No Acute Distress, Chronically Ill - Head Exam Head Exam: ATRAUMATIC, NORMAL INSPECTION, NORMOCEPHALIC - Eye Exam Eye Exam: EOMI, Normal appearance, PERRL Pupil Exam: NORMAL ACCOMODATION, PERRL - ENT Exam ENT Exam: Mucous Membranes Moist, Normal Exam - Neck Exam Neck Exam: Full ROM, Normal Inspection. absent: Lymphadenopathy - Respiratory Exam Respiratory Exam: Decreased Breath Sounds, Prolonged Expiratory Phase, Rales, NORMAL BREATHING PATTERN - Cardiovascular Exam Cardiovascular Exam: REGULAR RHYTHM, +S1, +S2. absent: Murmur - GI/Abdominal Exam GI & Abdominal Exam: Soft, Normal Bowel Sounds. absent: Tenderness - Rectal Exam Rectal Exam: NORMAL INSPECTION - Extremities Exam Extremities Exam: Full ROM, Normal Capillary Refill, Normal Inspection. absent : Joint Swelling, Pedal Edema - Back Exam Back Exam: NORMAL INSPECTION - Neurological Exam Neurological Exam: Abnormal Gait, Alert, Awake, CN II-XII Intact, Oriented x3 - Psychiatric Exam Psychiatric exam: Normal Affect, Normal Mood - Skin Skin Exam: Dry, Intact, Normal Color, Warm Assessment and Plan - Assessment and Plan (Free Text) Assessment: PNEUMONIA ASTHMA HIV DZ Plan: CONTINUE PRESENT RX
[2016-11-26] MEDS: Tmp-Smz 800 mg-160 mg DS Tab PO SCH ×2 (09:11→21:03)
[2016-11-26] MEDS: Enoxaparin 40 mg Syringe SC SCH (09:14)
[2016-11-26] MEDS: TRIUMEQ TABLET PO SCH (09:16)
[2016-11-26] MEDS: Pantoprazole 40 mg EC Tab PO SCH (09:17)
[2016-11-26] MEDS: methylPREDNISolone 40 MG in Sodium Chloride 0.9% 50 ML IV SCH ×2 (09:33→21:07)
--- NOTE | 2016-11-26 17:03 | RAD ---
PROCEDURE: CHEST RADIOGRAPH, 1 VIEW HISTORY: PNEUMONIA COMPARISON: Comparison is made to the previous study dated 11/22/2016 FINDINGS: LUNGS: There is heterogeneous opacity at the right lung base may represent atelectasis or pneumonia. PLEURA: No pneumothorax or pleural fluid seen. CARDIOVASCULAR: Normal. OSSEOUS STRUCTURES: No significant abnormalities. VISUALIZED UPPER ABDOMEN: Normal. OTHER FINDINGS: None. IMPRESSION: Opacity at the right lower lobe suspicious for atelectasis or pneumonia.
[2016-11-26] MEDS: Azithromycin 500 MG in Sodium Chloride 0.9% 250 ML IVPB SCH (18:04)
[2016-11-27] MEDS: Morphine 15 mg SR Tab PO SCH ×3 (05:40→20:54)
[2016-11-27] MEDS: Morphine 30 mg SR Tab PO SCH ×3 (05:40→20:54)
[2016-11-27] MEDS: Pantoprazole 40 mg EC Tab PO SCH (08:28)
[2016-11-27] MEDS: TRIUMEQ TABLET PO SCH (08:28)
[2016-11-27] MEDS: Tmp-Smz 800 mg-160 mg DS Tab PO SCH ×2 (08:28→20:55)
[2016-11-27] MEDS: Enoxaparin 40 mg Syringe SC SCH (08:29)
--- NOTE | 2016-11-27 08:42 | CP.PCM.PN ---
Subjective - Date & Time of Evaluation Date of Evaluation: 11/27/16 Time of Evaluation: 08:43 - Subjective Subjective: COUGH PERSISTS C/O MOOD SWINGS WHICH HE BLAMES ON MEDS? Objective - Vital Signs/Intake and Output Vital Signs (last 24 hours): Temp Pulse Resp BP Pulse Ox 98.1 F 75 18 108/73 98 11/27/16 08:17 11/27/16 08:17 11/27/16 08:17 11/27/16 08:17 11/27/16 08:17 - Medications Medications: Current Medications Acetaminophen (Tylenol 325mg Tab) 650 mg PO Q4 PRN PRN Reason: Fever >100.4 F Acetylcysteine (Acetylcysteine 20%) 2 ml INH RBID [facility] Last Admin: 11/26/16 20:19 Dose: 2 ml Albuterol/Ipratropium (Duoneb 3 Mg/0.5 Mg (3 Ml) Ud) 3 ml INH RQ6 PRN PRN Reason: Shortness of Breath Last Admin: 11/26/16 20:19 Dose: 3 ml Benzonatate (Tessalon Perles) 100 mg PO TID [facility] Last Admin: 11/27/16 08:27 Dose: 100 mg Calcium Carbonate (Oscal) 1,000 mg PO DAILY [facility] Last Admin: 11/27/16 08:28 Dose: 1,000 mg Celecoxib (Celebrex) 200 mg PO DAILY [facility] Last Admin: 11/27/16 08:28 Dose: 200 mg Clotrimazole (Lotrimin 1% Cream) 1 applic TOP BID [facility] Last Admin: 11/27/16 08:29 Dose: 1 u Enoxaparin Sodium (Lovenox) 40 mg SC DAILY [facility] PRN Reason: Protocol Last Admin: 11/27/16 08:29 Dose: 40 mg Fluticasone Propionate (Flonase) 2 spr NHI DAILY PRN PRN Reason: Allergy symptoms Home Med (Ipratropium/Albuterol Sulfate [Combivent Respimat Inhal [place]]) 1 puff IH QID PRN PRN Reason: Shortness of Breath Home Med (Patient's Own Medication) 1 unit PO DAILY [facility] Last Admin: 11/27/16 08:28 Dose: 1 unit Ceftriaxone Sodium 1 gm/ (Sodium Chloride) 100 mls @ 100 mls/hr IVPB DAILY@ 1700 [facility] Last Admin: 11/26/16 16:58 Dose: 100 mls/hr Azithromycin 500 mg/ Sodium (Chloride) 250 mls @ 250 mls/hr IVPB DAILY@1800 [facility] Last Admin: 11/26/16 18:04 Dose: 250 mls/hr Methylprednisolone 40 mg/ (Sodium Chloride) 50.64 mls @ 101.92 mls/hr IV Q12 [facility] Last Admin: 11/26/16 21:07 Dose: 101.92 mls/hr Lactic Acid (Lac-Hydrin 12% Lotion (225 G)) 1 applic TOP DAILY [facility] Last Admin: 11/27/16 08:29 Dose: 1 u Montelukast Sodium (Singulair) 10 mg PO DAILY [facility] Last Admin: 11/27/16 08:28 Dose: 10 mg Morphine Sulfate (Morphine Extended Release Tab) 15 mg PO Q8@0600,1300,2100 [facility] Last Admin: 11/27/16 05:40 Dose: 15 mg Morphine Sulfate (Morphine Extended Release Tab) 30 mg PO Q8@0600,1300,2100 [facility] Last Admin: 11/27/16 05:40 Dose: 30 mg Pantoprazole Sodium (Protonix Ec Tab) 40 mg PO DAILY [facility] Last Admin: 11/27/16 08:28 Dose: 40 mg Promethazine HCl/Dextromethorphan (Phenergan Dm Syrup) 10 ml PO Q4 PRN PRN Reason: Cough Trimethoprim/Sulfamethoxazole (Bactrim Ds Tab) 1 tab PO Q12 [facility] Last Admin: 11/27/16 08:28 Dose: 1 tab - Labs Labs: 11/23/16 07:43 11/23/16 07:43 - Constitutional Appears: No Acute Distress, Chronically Ill - Head Exam Head Exam: ATRAUMATIC, NORMAL INSPECTION, NORMOCEPHALIC - Eye Exam Eye Exam: EOMI, Normal appearance, PERRL Pupil Exam: NORMAL ACCOMODATION, PERRL - ENT Exam ENT Exam: Mucous Membranes Moist, Normal Exam - Neck Exam Neck Exam: Full ROM, Normal Inspection. absent: Lymphadenopathy - Respiratory Exam Respiratory Exam: Decreased Breath Sounds, Prolonged Expiratory Phase, Rales, NORMAL BREATHING PATTERN - Cardiovascular Exam Cardiovascular Exam: REGULAR RHYTHM, +S1, +S2. absent: Murmur - GI/Abdominal Exam GI & Abdominal Exam: Soft, Normal Bowel Sounds. absent: Tenderness - Rectal Exam Rectal Exam: NORMAL INSPECTION - Extremities Exam Extremities Exam: Full ROM, Normal Capillary Refill, Normal Inspection. absent : Joint Swelling, Pedal Edema - Back Exam Back Exam: NORMAL INSPECTION - Neurological Exam Neurological Exam: Alert, Awake, CN II-XII Intact, Normal Gait, Oriented x3 - Psychiatric Exam Psychiatric exam: Normal Affect, Normal Mood - Skin Skin Exam: Dry, Intact, Normal Color, Warm Assessment and Plan - Assessment and Plan (Free Text) Assessment: PNEUMONIA HIV DZ ANEMIA OF CHRONIC DZ ASTHMA MOOD SWINGS?MED RXN Plan: TAPER STEROIDS D/C TESSARLON AND MUCOMYST
[2016-11-27] MEDS: Albuterol-Ipratrop 3 mg / 0.5 (3 ml) UD INH PRN (09:16)
[2016-11-27] MEDS: Acetylcysteine 20% Inhal Soln (4ml) INH SCH (09:16)
[2016-11-27] MEDS: methylPREDNISolone 40 MG in Sodium Chloride 0.9% 50 ML IV SCH (09:18)
[2016-11-27] MEDS: Azithromycin 500 MG in Sodium Chloride 0.9% 250 ML IVPB SCH (17:01)
[2016-11-28] MEDS: Morphine 15 mg SR Tab PO SCH (05:38)
[2016-11-28] MEDS: Morphine 30 mg SR Tab PO SCH ×2 (05:39→21:13)
[2016-11-28] MEDS: Enoxaparin 40 mg Syringe SC SCH (09:28)
--- NOTE | 2016-11-28 09:35 | CP.PCM.PN ---
Subjective - Date & Time of Evaluation Date of Evaluation: 11/28/16 Time of Evaluation: 09:36 - Subjective Subjective: STILL C/O HALLUCINATIONS AT NIGHT--STATES THAT IT IS DUE TO HIS MEDS COUGH PERSISTS Objective - Vital Signs/Intake and Output Vital Signs (last 24 hours): Temp Pulse Resp BP Pulse Ox 97.5 F L 63 20 121/72 99 11/28/16 08:13 11/28/16 08:13 11/28/16 08:13 11/28/16 08:13 11/28/16 08:13 - Medications Medications: Current Medications Acetaminophen (Tylenol 325mg Tab) 650 mg PO Q4 PRN PRN Reason: Fever >100.4 F Albuterol/Ipratropium (Duoneb 3 Mg/0.5 Mg (3 Ml) Ud) 3 ml INH RQ6 PRN PRN Reason: Shortness of Breath Last Admin: 11/27/16 09:16 Dose: 3 ml Calcium Carbonate (Oscal) 1,000 mg PO DAILY [facility] Last Admin: 11/27/16 08:28 Dose: 1,000 mg Celecoxib (Celebrex) 200 mg PO DAILY [facility] Last Admin: 11/27/16 08:28 Dose: 200 mg Clotrimazole (Lotrimin 1% Cream) 1 applic TOP BID [facility] Last Admin: 11/27/16 16:59 Dose: 1 u Enoxaparin Sodium (Lovenox) 40 mg SC DAILY [facility] PRN Reason: Protocol Last Admin: 11/28/16 09:28 Dose: 40 mg Fluticasone Propionate (Flonase) 2 spr NHI DAILY PRN PRN Reason: Allergy symptoms Home Med (Patient's Own Medication) 1 unit PO DAILY [facility] Last Admin: 11/27/16 08:28 Dose: 1 unit Ceftriaxone Sodium 1 gm/ (Sodium Chloride) 100 mls @ 100 mls/hr IVPB DAILY@ 1700 [facility] Last Admin: 11/27/16 17:00 Dose: 100 mls/hr Azithromycin 500 mg/ Sodium (Chloride) 250 mls @ 250 mls/hr IVPB DAILY@1800 [facility] Last Admin: 11/27/16 17:01 Dose: 250 mls/hr Methylprednisolone 40 mg/ (Sodium Chloride) 50.64 mls @ 101.92 mls/hr IV DAILY [facility] Last Admin: 11/27/16 09:18 Dose: 101.92 mls/hr Lactic Acid (Lac-Hydrin 12% Lotion (225 G)) 1 applic TOP DAILY [facility] Last Admin: 11/27/16 08:29 Dose: 1 u Montelukast Sodium (Singulair) 10 mg PO DAILY [facility] Last Admin: 11/27/16 08:28 Dose: 10 mg Morphine Sulfate (Morphine Extended Release Tab) 15 mg PO Q8@0600,1300,2100 [facility] Last Admin: 11/28/16 05:38 Dose: 15 mg Morphine Sulfate (Morphine Extended Release Tab) 30 mg PO Q8@0600,1300,2100 [facility] Last Admin: 11/28/16 05:39 Dose: 30 mg Pantoprazole Sodium (Protonix Ec Tab) 40 mg PO DAILY [facility] Last Admin: 11/27/16 08:28 Dose: 40 mg Promethazine HCl/Dextromethorphan (Phenergan Dm Syrup) 10 ml PO Q4 PRN PRN Reason: Cough Trimethoprim/Sulfamethoxazole (Bactrim Ds Tab) 1 tab PO Q12 [facility] Last Admin: 11/27/16 20:55 Dose: 1 tab - Labs Labs: 11/23/16 07:43 11/23/16 07:43 - Constitutional Appears: Chronically Ill - Head Exam Head Exam: ATRAUMATIC, NORMAL INSPECTION, NORMOCEPHALIC - Eye Exam Eye Exam: EOMI, Normal appearance, PERRL Pupil Exam: NORMAL ACCOMODATION, PERRL - ENT Exam ENT Exam: Mucous Membranes Moist, Normal Exam - Neck Exam Neck Exam: Full ROM, Normal Inspection. absent: Lymphadenopathy - Respiratory Exam Respiratory Exam: Decreased Breath Sounds, Rales, NORMAL BREATHING PATTERN - Cardiovascular Exam Cardiovascular Exam: REGULAR RHYTHM, +S1, +S2. absent: Murmur - GI/Abdominal Exam GI & Abdominal Exam: Soft, Normal Bowel Sounds. absent: Tenderness - Rectal Exam Rectal Exam: NORMAL INSPECTION - Extremities Exam Extremities Exam: Full ROM, Normal Capillary Refill, Normal Inspection. absent : Joint Swelling, Pedal Edema - Back Exam Back Exam: NORMAL INSPECTION - Neurological Exam Neurological Exam: Abnormal Gait, Alert, Awake, CN II-XII Intact, Oriented x3 - Psychiatric Exam Psychiatric exam: Normal Affect, Normal Mood - Skin Skin Exam: Dry, Intact, Normal Color, Warm Assessment and Plan - Assessment and Plan (Free Text) Assessment: PNEUMONIA ASTHMA HX OF HIV DZ Plan: HOLD ALL MEDS EXCEPT DUONEB,ROBITUSSIN AND LOVENOX X 24 HRS
[2016-11-28] MEDS: Tmp-Smz 800 mg-160 mg DS Tab PO SCH (10:08)
[2016-11-28] MEDS: Pantoprazole 40 mg EC Tab PO SCH (10:11)
[2016-11-28] MEDS: TRIUMEQ TABLET PO SCH ×2 (10:12→17:42)
[2016-11-28] MEDS: methylPREDNISolone 40 MG in Sodium Chloride 0.9% 50 ML IV SCH (10:31)
[2016-11-28] MEDS: guaiFENesin 100 mg/5 ml Syrup UD PO SCH ×3 (10:59→21:16)
--- NOTE | 2016-11-28 13:14 | CP.PCM.PN ---
Subjective - Date & Time of Evaluation Date of Evaluation: 11/28/16 Time of Evaluation: 08:00 - Subjective Subjective: c/o hallucinations afebrile CD4 very low needs PCP prophylaxis cont ARV rx poor prognosis Objective - Vital Signs/Intake and Output Vital Signs (last 24 hours): Temp Pulse Resp BP Pulse Ox 97.5 F L 63 20 121/72 99 11/28/16 08:13 11/28/16 08:13 11/28/16 08:13 11/28/16 08:13 11/28/16 08:13 - Medications Medications: Current Medications Acetaminophen (Tylenol 325mg Tab) 650 mg PO Q4 PRN PRN Reason: Fever >100.4 F Albuterol/Ipratropium (Duoneb 3 Mg/0.5 Mg (3 Ml) Ud) 3 ml INH RQ6 PRN PRN Reason: Shortness of Breath Last Admin: 11/27/16 09:16 Dose: 3 ml Calcium Carbonate (Oscal) 1,000 mg PO DAILY [facility] Last Admin: 11/28/16 10:12 Dose: Not Given Celecoxib (Celebrex) 200 mg PO DAILY [facility] Last Admin: 11/28/16 10:13 Dose: Not Given Clotrimazole (Lotrimin 1% Cream) 1 applic TOP BID [facility] Last Admin: 11/28/16 10:19 Dose: 1 u Enoxaparin Sodium (Lovenox) 40 mg SC DAILY [facility] PRN Reason: Protocol Last Admin: 11/28/16 09:28 Dose: 40 mg Fluticasone Propionate (Flonase) 2 spr NHI DAILY PRN PRN Reason: Allergy symptoms Guaifenesin (Robitussin) 100 mg PO Q6 [facility] Last Admin: 11/28/16 10:59 Dose: Not Given Home Med (Patient's Own Medication) 1 unit PO DAILY [facility] Last Admin: 11/28/16 10:12 Dose: Not Given Ceftriaxone Sodium 1 gm/ (Sodium Chloride) 100 mls @ 100 mls/hr IVPB DAILY@ 1700 [facility] Last Admin: 11/27/16 17:00 Dose: 100 mls/hr Azithromycin 500 mg/ Sodium (Chloride) 250 mls @ 250 mls/hr IVPB DAILY@1800 [facility] Last Admin: 11/27/16 17:01 Dose: 250 mls/hr Methylprednisolone 40 mg/ (Sodium Chloride) 50.64 mls @ 101.92 mls/hr IV DAILY [facility] Last Admin: 11/28/16 10:31 Dose: Not Given Lactic Acid (Lac-Hydrin 12% Lotion (225 G)) 1 applic TOP DAILY [facility] Last Admin: 11/28/16 10:20 Dose: 1 u Montelukast Sodium (Singulair) 10 mg PO DAILY [facility] Last Admin: 11/28/16 10:11 Dose: Not Given Morphine Sulfate (Morphine Extended Release Tab) 15 mg PO Q8@0600,1300,2100 [facility] Last Admin: 11/28/16 05:38 Dose: 15 mg Morphine Sulfate (Morphine Extended Release Tab) 30 mg PO Q8@0600,1300,2100 [facility] Last Admin: 11/28/16 05:39 Dose: 30 mg Trimethoprim/Sulfamethoxazole (Bactrim Ds Tab) 1 tab PO Q12 [facility] Last Admin: 11/28/16 10:08 Dose: Not Given - Labs Labs: 11/23/16 07:43 11/23/16 07:43 - Constitutional Appears: Non-toxic - Head Exam Head Exam: NORMOCEPHALIC - Eye Exam Eye Exam: PERRL. absent: Scleral icterus - ENT Exam ENT Exam: Mucous Membranes Dry - Neck Exam Neck Exam: absent: Lymphadenopathy - Respiratory Exam Respiratory Exam: Decreased Breath Sounds, Rhonchi - Cardiovascular Exam Cardiovascular Exam: REGULAR RHYTHM, +S1, +S2 - GI/Abdominal Exam GI & Abdominal Exam: Distended, Hypoactive Bowel Sounds. absent: Tenderness - Rectal Exam Rectal Exam: Deferred - Extremities Exam Extremities Exam: absent: Calf Tenderness, Pedal Edema, Tenderness - Back Exam Back Exam: absent: CVA tenderness (L), CVA tenderness (R) - Neurological Exam Neurological Exam: Alert, Awake, Oriented x3 Assessment and Plan - Assessment and Plan (Free Text) Plan: cont rx as recommended
[2016-11-28] MEDS: Azithromycin 500 MG in Sodium Chloride 0.9% 250 ML IVPB SCH (17:44)
[2016-11-29] MEDS: Morphine 30 mg SR Tab PO SCH ×3 (00:57→17:11)
[2016-11-29] MEDS: guaiFENesin 100 mg/5 ml Syrup UD PO SCH ×4 (04:57→21:26)
[2016-11-29 07:11] LABS: BASO % 0.1 % (0.0-2.0); EOS # 0.1 K/uL (0.0-0.7); EOS % 0.5 % (0.0-4.0); HEMATOCRIT 35.3 % (35.0-51.0); LYMPH # 2.4 K/uL (1.0-4.3); LYMPH % 20.4 % (20.0-40.0); MEAN CELL VOLUME 84.8 fl (80.0-94.0); MEAN CORPUSCULAR HEMOGLOBIN 28.3 pg (27.0-31.0); MEAN CORPUSCULAR HGB CONC 33.4 g/dL (33.0-37.0); MEAN PLATELET VOLUME 8.2 fl (7.2-11.7); MONO # 1.3 K/uL (0.0-0.8); MONO % 11.2 % (0.0-10.0); NEUT % 67.8 % (50.0-75.0); NRBC % 0.1 % (0.0-0.0); RED CELL DISTRIBUTION WIDTH 13.9 % (11.5-14.5); WHITE BLOOD COUNT 11.9 K/uL (4.8-10.8)
[2016-11-29 07:20] LABS: BLOOD UREA NITROGEN 22 mg/dl (9-20); CALCIUM 8.7 mg/dL (8.4-10.2); CARBON DIOXIDE 32 mmol/L (22-30); CHLORIDE 96 mmol/L (98-107); GFR AFRICAN-AMERICAN > 60; GLUCOSE,RANDOM 82 mg/dL (75-110); POTASSIUM 5.1 MMOL/L (3.6-5.0); SODIUM 136 mmol/l (132-148)
[2016-11-29] MEDS: Enoxaparin 40 mg Syringe SC SCH (09:01)
[2016-11-29] MEDS: Tmp-Smz 800 mg-160 mg DS Tab PO SCH (09:02)
[2016-11-29] MEDS: TRIUMEQ TABLET PO SCH (09:02)
--- NOTE | 2016-11-29 09:40 | CP.PCM.PN ---
Subjective - Date & Time of Evaluation Date of Evaluation: 11/29/16 Time of Evaluation: 09:40 - Subjective Subjective: CONTINUES TO C/O ABOUT SLEEP DISTURBANCES REQUESTS A SLEEPING PILL REFUSES PSYCH EVAL LABS REVIEWED WILL CONTINUE IV ANTIBIOTICS RESTART ALL MEDS ADD AMBIEN FOR INSOMNIA Objective - Vital Signs/Intake and Output Vital Signs (last 24 hours): Temp Pulse Resp BP Pulse Ox 97.6 F 70 20 100/61 96 11/29/16 07:58 11/29/16 07:58 11/29/16 07:58 11/29/16 07:58 11/28/16 20:21 - Medications Medications: Current Medications Acetaminophen (Tylenol 325mg Tab) 650 mg PO Q4 PRN PRN Reason: Fever >100.4 F Albuterol/Ipratropium (Duoneb 3 Mg/0.5 Mg (3 Ml) Ud) 3 ml INH RQ6 PRN PRN Reason: Shortness of Breath Last Admin: 11/27/16 09:16 Dose: 3 ml Calcium Carbonate (Oscal) 1,000 mg PO DAILY [facility] Last Admin: 11/28/16 10:12 Dose: Not Given Celecoxib (Celebrex) 200 mg PO DAILY [facility] Last Admin: 11/28/16 10:13 Dose: Not Given Clotrimazole (Lotrimin 1% Cream) 1 applic TOP BID [facility] Last Admin: 11/28/16 19:15 Dose: 1 u Enoxaparin Sodium (Lovenox) 40 mg SC DAILY [facility] PRN Reason: Protocol Last Admin: 11/29/16 09:01 Dose: 40 mg Fluticasone Propionate (Flonase) 2 spr NHI DAILY PRN PRN Reason: Allergy symptoms Guaifenesin (Robitussin) 100 mg PO Q6 [facility] Last Admin: 11/29/16 09:02 Dose: 100 mg Home Med (Patient's Own Medication) 1 unit PO DAILY [facility] Last Admin: 11/29/16 09:02 Dose: 1 unit Ceftriaxone Sodium 1 gm/ (Sodium Chloride) 100 mls @ 100 mls/hr IVPB DAILY@ 1700 [facility] Last Admin: 11/27/16 17:00 Dose: 100 mls/hr Azithromycin 500 mg/ Sodium (Chloride) 250 mls @ 250 mls/hr IVPB DAILY@1800 [facility] Last Admin: 11/28/16 17:44 Dose: 250 mls/hr Methylprednisolone 40 mg/ (Sodium Chloride) 50.64 mls @ 101.92 mls/hr IV DAILY [facility] Last Admin: 11/28/16 10:31 Dose: Not Given Lactic Acid (Lac-Hydrin 12% Lotion (225 G)) 1 applic TOP DAILY [facility] Last Admin: 11/28/16 10:20 Dose: 1 u Montelukast Sodium (Singulair) 10 mg PO DAILY [facility] Last Admin: 11/28/16 10:11 Dose: Not Given Morphine Sulfate (Morphine Extended Release Tab) 15 mg PO Q8@0600,1300,2100 [facility] Last Admin: 11/28/16 05:38 Dose: 15 mg Morphine Sulfate (Morphine Extended Release Tab) 30 mg PO Q8 [facility] Last Admin: 11/29/16 09:00 Dose: 30 mg Trimethoprim/Sulfamethoxazole (Bactrim Ds Tab) 1 tab PO DAILY [facility] Last Admin: 11/29/16 09:02 Dose: 1 tab Zolpidem Tartrate (Ambien) 5 mg PO HS PRN PRN Reason: Insomnia - Labs Labs: 11/29/16 06:43 11/29/16 06:43
[2016-11-29] MEDS: Azithromycin 500 MG in Sodium Chloride 0.9% 250 ML IVPB SCH (17:08)
[2016-11-30] MEDS: Morphine 30 mg SR Tab PO SCH ×3 (00:43→16:42)
[2016-11-30] MEDS: guaiFENesin 100 mg/5 ml Syrup UD PO SCH ×4 (05:10→21:31)
[2016-11-30 08:03] VITALS: RESP 20
[2016-11-30] MEDS: Enoxaparin 40 mg Syringe SC SCH (09:18)
[2016-11-30] MEDS: TRIUMEQ TABLET PO SCH (09:18)
[2016-11-30] MEDS: Tmp-Smz 800 mg-160 mg DS Tab PO SCH (09:18)
--- NOTE | 2016-11-30 12:37 | CP.PCM.PN ---
Subjective - Date & Time of Evaluation Date of Evaluation: 11/30/16 Time of Evaluation: 12:37 - Subjective Subjective: OOB TO CHAIR SOB AND COUGH IMPROVED NO MORE HALLUCINATIONS Objective - Vital Signs/Intake and Output Vital Signs (last 24 hours): Temp Pulse Resp BP Pulse Ox 97.2 F L 73 20 102/55 L 99 11/30/16 08:02 11/30/16 08:02 11/30/16 08:02 11/30/16 08:02 11/30/16 08:02 - Medications Medications: Current Medications Acetaminophen (Tylenol 325mg Tab) 650 mg PO Q4 PRN PRN Reason: Fever >100.4 F Albuterol/Ipratropium (Duoneb 3 Mg/0.5 Mg (3 Ml) Ud) 3 ml INH RQ6 PRN PRN Reason: Shortness of Breath Last Admin: 11/27/16 09:16 Dose: 3 ml Calcium Carbonate (Oscal) 1,000 mg PO DAILY [facility] Last Admin: 11/28/16 10:12 Dose: Not Given Celecoxib (Celebrex) 200 mg PO DAILY [facility] Last Admin: 11/28/16 10:13 Dose: Not Given Clotrimazole (Lotrimin 1% Cream) 1 applic TOP BID [facility] Last Admin: 11/30/16 09:17 Dose: 1 u Docusate Sodium (Colace) 100 mg PO BID [facility] Enoxaparin Sodium (Lovenox) 40 mg SC DAILY [facility] PRN Reason: Protocol Last Admin: 11/30/16 09:18 Dose: 40 mg Fluticasone Propionate (Flonase) 2 spr NHI DAILY PRN PRN Reason: Allergy symptoms Guaifenesin (Robitussin) 100 mg PO Q6 [facility] Last Admin: 11/30/16 09:18 Dose: 100 mg Home Med (Patient's Own Medication) 1 unit PO DAILY [facility] Last Admin: 11/30/16 09:18 Dose: 1 unit Lactic Acid (Lac-Hydrin 12% Lotion (225 G)) 1 applic TOP DAILY [facility] Last Admin: 11/30/16 09:17 Dose: 1 u Montelukast Sodium (Singulair) 10 mg PO DAILY [facility] Last Admin: 11/28/16 10:11 Dose: Not Given Morphine Sulfate (Morphine Extended Release Tab) 15 mg PO Q8@0600,1300,2100 [facility] Last Admin: 11/28/16 05:38 Dose: 15 mg Morphine Sulfate (Morphine Extended Release Tab) 30 mg PO Q8 [facility] Last Admin: 11/30/16 09:20 Dose: 30 mg Trimethoprim/Sulfamethoxazole (Bactrim Ds Tab) 1 tab PO DAILY [facility] Last Admin: 11/30/16 09:18 Dose: 1 tab Zolpidem Tartrate (Ambien) 5 mg PO HS PRN PRN Reason: Insomnia Last Admin: 11/29/16 21:29 Dose: 5 mg - Labs Labs: 11/29/16 06:43 11/29/16 06:43 - Constitutional Appears: No Acute Distress - Head Exam Head Exam: ATRAUMATIC, NORMAL INSPECTION, NORMOCEPHALIC - Eye Exam Eye Exam: EOMI, Normal appearance, PERRL Pupil Exam: NORMAL ACCOMODATION, PERRL - ENT Exam ENT Exam: Mucous Membranes Moist, Normal Exam - Neck Exam Neck Exam: Full ROM, Normal Inspection. absent: Lymphadenopathy - Respiratory Exam Respiratory Exam: Decreased Breath Sounds, Rales, NORMAL BREATHING PATTERN - Cardiovascular Exam Cardiovascular Exam: REGULAR RHYTHM, +S1, +S2. absent: Murmur - GI/Abdominal Exam GI & Abdominal Exam: Soft, Normal Bowel Sounds. absent: Tenderness - Rectal Exam Rectal Exam: NORMAL INSPECTION - Extremities Exam Extremities Exam: Full ROM, Normal Capillary Refill, Normal Inspection. absent : Joint Swelling, Pedal Edema - Back Exam Back Exam: NORMAL INSPECTION - Neurological Exam Neurological Exam: Abnormal Gait, Alert, Awake, CN II-XII Intact, Oriented x3 - Psychiatric Exam Psychiatric exam: Normal Affect, Normal Mood - Skin Skin Exam: Dry, Intact, Normal Color, Warm Assessment and Plan - Assessment and Plan (Free Text) Assessment: PNEUMONIA IMPROVING HIV DZ Plan: CONTINUE PRESENT RX D/C HOME ON 12/02
[2016-12-01] MEDS: Morphine 30 mg SR Tab PO SCH ×3 (01:45→17:07)
[2016-12-01] MEDS: guaiFENesin 100 mg/5 ml Syrup UD PO SCH ×4 (04:45→21:57)
[2016-12-01] MEDS: TRIUMEQ TABLET PO SCH (09:26)
[2016-12-01] MEDS: Tmp-Smz 800 mg-160 mg DS Tab PO SCH (09:27)
--- NOTE | 2016-12-01 12:11 | CP.PCM.PN ---
Subjective - Date & Time of Evaluation Date of Evaluation: 12/01/16 Time of Evaluation: 12:11 - Subjective Subjective: EPISODE OF CONFUSION DUE TO AMBIEN FEELS WELL TODAY Objective - Vital Signs/Intake and Output Vital Signs (last 24 hours): Temp Pulse Resp BP Pulse Ox 96.8 F L 72 20 88/54 L 97 12/01/16 08:11 12/01/16 08:11 12/01/16 08:11 12/01/16 08:11 12/01/16 08:11 - Medications Medications: Current Medications Acetaminophen (Tylenol 325mg Tab) 650 mg PO Q4 PRN PRN Reason: Fever >100.4 F Albuterol/Ipratropium (Duoneb 3 Mg/0.5 Mg (3 Ml) Ud) 3 ml INH RQ6 PRN PRN Reason: Shortness of Breath Last Admin: 11/27/16 09:16 Dose: 3 ml Calcium Carbonate (Oscal) 1,000 mg PO DAILY [facility] Last Admin: 11/28/16 10:12 Dose: Not Given Celecoxib (Celebrex) 200 mg PO DAILY [facility] Last Admin: 11/28/16 10:13 Dose: Not Given Clotrimazole (Lotrimin 1% Cream) 1 applic TOP BID [facility] Last Admin: 12/01/16 09:28 Dose: Not Given Docusate Sodium (Colace) 100 mg PO BID [facility] Last Admin: 12/01/16 09:27 Dose: Not Given Fluticasone Propionate (Flonase) 2 spr NHI DAILY PRN PRN Reason: Allergy symptoms Guaifenesin (Robitussin) 100 mg PO Q6 [facility] Last Admin: 12/01/16 09:28 Dose: 100 mg Home Med (Patient's Own Medication) 1 unit PO DAILY [facility] Last Admin: 12/01/16 09:26 Dose: 1 unit Lactic Acid (Lac-Hydrin 12% Lotion (225 G)) 1 applic TOP DAILY [facility] Last Admin: 12/01/16 09:28 Dose: Not Given Montelukast Sodium (Singulair) 10 mg PO DAILY [facility] Last Admin: 11/28/16 10:11 Dose: Not Given Morphine Sulfate (Morphine Extended Release Tab) 15 mg PO Q8@0600,1300,2100 [facility] Last Admin: 11/28/16 05:38 Dose: 15 mg Morphine Sulfate (Morphine Extended Release Tab) 30 mg PO Q8 [facility] Last Admin: 12/01/16 09:24 Dose: 30 mg Trimethoprim/Sulfamethoxazole (Bactrim Ds Tab) 1 tab PO DAILY [facility] Last Admin: 12/01/16 09:27 Dose: 1 tab Zolpidem Tartrate (Ambien) 5 mg PO HS PRN PRN Reason: Insomnia Last Admin: 11/30/16 23:33 Dose: 5 mg - Labs Labs: 11/29/16 06:43 11/29/16 06:43 - Constitutional Appears: Chronically Ill - Head Exam Head Exam: ATRAUMATIC, NORMAL INSPECTION, NORMOCEPHALIC - Eye Exam Eye Exam: EOMI, Normal appearance, PERRL Pupil Exam: NORMAL ACCOMODATION, PERRL - ENT Exam ENT Exam: Mucous Membranes Moist, Normal Exam - Neck Exam Neck Exam: Full ROM, Normal Inspection. absent: Lymphadenopathy - Respiratory Exam Respiratory Exam: Prolonged Expiratory Phase, NORMAL BREATHING PATTERN - Cardiovascular Exam Cardiovascular Exam: REGULAR RHYTHM, +S1, +S2. absent: Murmur - GI/Abdominal Exam GI & Abdominal Exam: Soft, Normal Bowel Sounds. absent: Tenderness - Rectal Exam Rectal Exam: NORMAL INSPECTION - Extremities Exam Extremities Exam: Full ROM, Normal Capillary Refill, Normal Inspection. absent : Joint Swelling, Pedal Edema - Back Exam Back Exam: NORMAL INSPECTION - Neurological Exam Neurological Exam: Abnormal Gait, Alert, Awake, CN II-XII Intact, Oriented x3 - Psychiatric Exam Psychiatric exam: Normal Affect, Normal Mood - Skin Skin Exam: Dry, Intact, Normal Color, Warm Assessment and Plan - Assessment and Plan (Free Text) Assessment: PNEUMONIA CLINICALLY IMPROVED HIV DZ CHRONIC LOW BP Plan: D/C AMBIEN D/C PLANNED FOR AM
[2016-12-02] MEDS: Morphine 30 mg SR Tab PO SCH ×3 (00:39→17:11)
[2016-12-02] MEDS: guaiFENesin 100 mg/5 ml Syrup UD PO SCH ×4 (04:50→21:19)
[2016-12-02] MEDS: TRIUMEQ TABLET PO SCH (08:07)
[2016-12-02] MEDS: Tmp-Smz 800 mg-160 mg DS Tab PO SCH (08:07)
--- NOTE | 2016-12-02 09:55 | CP.PCM.PN ---
Subjective - Date & Time of Evaluation Date of Evaluation: 12/02/16 Time of Evaluation: 09:56 - Subjective Subjective: C/O FEELING WEAK SCARRED TO GO HOME ADVISED SUBACUTE CARE BUT INDICATES THAT HE WANTS HIS PARTNER TO MAKE THAT DECISION FOR HIM Objective - Vital Signs/Intake and Output Vital Signs (last 24 hours): Temp Pulse Resp BP Pulse Ox 97.7 F 73 20 96/69 L 98 12/02/16 08:37 12/02/16 08:37 12/02/16 08:37 12/02/16 08:37 12/02/16 08:37 - Medications Medications: Current Medications Acetaminophen (Tylenol 325mg Tab) 650 mg PO Q4 PRN PRN Reason: Fever >100.4 F Albuterol/Ipratropium (Duoneb 3 Mg/0.5 Mg (3 Ml) Ud) 3 ml INH RQ6 PRN PRN Reason: Shortness of Breath Last Admin: 11/27/16 09:16 Dose: 3 ml Calcium Carbonate (Oscal) 1,000 mg PO DAILY [facility] Last Admin: 11/28/16 10:12 Dose: Not Given Celecoxib (Celebrex) 200 mg PO DAILY [facility] Last Admin: 11/28/16 10:13 Dose: Not Given Clotrimazole (Lotrimin 1% Cream) 1 applic TOP BID [facility] Last Admin: 12/02/16 08:15 Dose: Not Given Docusate Sodium (Colace) 100 mg PO BID [facility] Last Admin: 12/02/16 08:13 Dose: Not Given Enoxaparin Sodium (Lovenox) 30 mg SC DAILY [facility] PRN Reason: Protocol Fluticasone Propionate (Flonase) 2 spr NHI DAILY PRN PRN Reason: Allergy symptoms Guaifenesin (Robitussin) 100 mg PO Q6 [facility] Last Admin: 12/02/16 09:10 Dose: 100 mg Home Med (Patient's Own Medication) 1 unit PO DAILY [facility] Last Admin: 12/02/16 08:07 Dose: 1 unit Azithromycin 500 mg/ Sodium (Chloride) 250 mls @ 250 mls/hr IVPB DAILY@1700 [facility] Lactic Acid (Lac-Hydrin 12% Lotion (225 G)) 1 applic TOP DAILY [facility] Last Admin: 12/02/16 08:14 Dose: Not Given Montelukast Sodium (Singulair) 10 mg PO DAILY [facility] Last Admin: 11/28/16 10:11 Dose: Not Given Morphine Sulfate (Morphine Extended Release Tab) 30 mg PO Q8 [facility] Last Admin: 12/02/16 08:13 Dose: 30 mg Trimethoprim/Sulfamethoxazole (Bactrim Ds Tab) 1 tab PO DAILY [facility] Last Admin: 12/02/16 08:07 Dose: 1 tab - Labs Labs: 11/29/16 06:43 11/29/16 06:43 - Constitutional Appears: Chronically Ill - Head Exam Head Exam: ATRAUMATIC, NORMAL INSPECTION, NORMOCEPHALIC - Eye Exam Eye Exam: EOMI, Normal appearance, PERRL Pupil Exam: NORMAL ACCOMODATION, PERRL - ENT Exam ENT Exam: Mucous Membranes Moist, Normal Exam - Neck Exam Neck Exam: Full ROM, Normal Inspection. absent: Lymphadenopathy - Respiratory Exam Respiratory Exam: Decreased Breath Sounds, Prolonged Expiratory Phase, Rales, NORMAL BREATHING PATTERN - Cardiovascular Exam Cardiovascular Exam: REGULAR RHYTHM, +S1, +S2. absent: Murmur - GI/Abdominal Exam GI & Abdominal Exam: Soft, Normal Bowel Sounds. absent: Tenderness - Rectal Exam Rectal Exam: NORMAL INSPECTION - Extremities Exam Extremities Exam: Full ROM, Normal Capillary Refill, Normal Inspection. absent : Joint Swelling, Pedal Edema - Back Exam Back Exam: NORMAL INSPECTION - Neurological Exam Neurological Exam: Abnormal Gait, Alert, Awake, CN II-XII Intact, Oriented x3 - Psychiatric Exam Psychiatric exam: Normal Affect, Normal Mood - Skin Skin Exam: Dry, Intact, Normal Color, Warm Assessment and Plan - Assessment and Plan (Free Text) Assessment: PNEUMONIA HIV DZ ANEMIA OF CHRONIC DZ Plan: CANCEL DISCHARGE RENEW IV ZITHROMAX WILL HAVE [employer] MANAGER DISCUS SUBACUTE CARE WITH PT AND HIS PARTNER REPEAT LABS AND CXR
[2016-12-02] MEDS: Enoxaparin 40 mg Syringe SC SCH (12:40)
--- NOTE | 2016-12-02 13:00 | RAD ---
PROCEDURE: CHEST RADIOGRAPH, 1 VIEW HISTORY: PNEUMONIA COMPARISON: 11/25/2016 FINDINGS: LUNGS: Mild persistent subsegmental atelectasis or scarring is seen at the right lung base. Mild interstitial change and/or hyperinflation is seen elsewhere. PLEURA: No pneumothorax or pleural fluid seen. CARDIOVASCULAR: Aorta is moderately uncoiled. Heart is top-normal in size. No CHF is seen. OSSEOUS STRUCTURES: Multiple prior kyphoplasties are identified. No acute rib fractures seen. Kyphosis is noted. VISUALIZED UPPER ABDOMEN: Normal. OTHER FINDINGS: None. IMPRESSION: Stable mild subsegmental atelectasis or scarring at the right lung base. No new infiltrate seen.
[2016-12-02] MEDS: Albuterol-Ipratrop 3 mg / 0.5 (3 ml) UD INH SCH ×2 (13:13→19:29)
[2016-12-02] MEDS ORDERED: Azithromycin 500 MG in Sodium Chloride 0.9% 250 ML IVPB SCH (17:00)
[2016-12-03] MEDS: Albuterol-Ipratrop 3 mg / 0.5 (3 ml) UD INH SCH (01:14)
[2016-12-03] MEDS: Morphine 30 mg SR Tab PO SCH ×2 (01:49→08:06)
[2016-12-03] MEDS: guaiFENesin 100 mg/5 ml Syrup UD PO SCH ×2 (04:00→10:27)
[2016-12-03 06:29] LABS: BASO # 0.1 K/uL (0.0-0.2); BASO % 0.6 % (0.0-2.0); EOS # 0.1 K/uL (0.0-0.7); EOS % 1.3 % (0.0-4.0); HEMATOCRIT 31.9 % (35.0-51.0); LYMPH % 10.4 % (20.0-40.0); MEAN CELL VOLUME 85.5 fl (80.0-94.0); MEAN CORPUSCULAR HEMOGLOBIN 28.6 pg (27.0-31.0); MEAN CORPUSCULAR HGB CONC 33.5 g/dL (33.0-37.0); MEAN PLATELET VOLUME 7.7 fl (7.2-11.7); MONO # 1.2 K/uL (0.0-0.8); MONO % 12.8 % (0.0-10.0); NEUT % 74.9 % (50.0-75.0); RED CELL DISTRIBUTION WIDTH 14.6 % (11.5-14.5); WHITE BLOOD COUNT 9.3 K/uL (4.8-10.8)
[2016-12-03 06:47] LABS: BLOOD UREA NITROGEN 16 mg/dl (9-20); CALCIUM 8.7 mg/dL (8.4-10.2); CARBON DIOXIDE 30 mmol/L (22-30); CHLORIDE 101 mmol/L (98-107); GFR AFRICAN-AMERICAN > 60; GLUCOSE,RANDOM 82 mg/dL (75-110); POTASSIUM 4.7 MMOL/L (3.6-5.0); SODIUM 140 mmol/l (132-148)
[2016-12-03 07:57] VITALS: BP 104/74; PULSE 84; TEMP 99.5; O2SAT 99
[2016-12-03] MEDS: Tmp-Smz 800 mg-160 mg DS Tab PO SCH (08:07)
[2016-12-03] MEDS: Enoxaparin 40 mg Syringe SC SCH (08:08)
[2016-12-03] MEDS: TRIUMEQ TABLET PO SCH (08:09)
--- NOTE | 2016-12-03 09:11 | CP.PCM.DIS ---
Provider - Provider Date of Admission: 11/22/16 15:54 Attending physician: Thee Ma MD Time Spent in preparation of Discharge (in minutes): 30 Diagnosis - Discharge Diagnosis (1) Asthma attack Status: Acute (2) Hypotension Status: Acute Priority: High (3) Pneumonia Status: Acute Priority: High (4) Cachexia associated with AIDS Status: Chronic Priority: Low (5) Chronic pain syndrome Status: Chronic Priority: Low (6) HIV disease Status: Chronic Priority: Low Hospital Course - Lab Results Lab Results: Most Recent Lab Values WBC 9.3 K/uL (4.8-10.8) 12/03/16 05:30 RBC 3.73 Mil/uL (4.40-5.90) L 12/03/16 05:30 Hgb 10.7 g/dL (12.0-18.0) L 12/03/16 05:30 Hct 31.9 % (35.0-51.0) L 12/03/16 05:30 MCV 85.5 fl (80.0-94.0) 12/03/16 05:30 MCH 28.6 pg (27.0-31.0) 12/03/16 05:30 MCHC 33.5 g/dL (33.0-37.0) 12/03/16 05:30 RDW 14.6 % (11.5-14.5) H 12/03/16 05:30 Plt Count 354 K/uL (130-400) 12/03/16 05:30 MPV 7.7 fl (7.2-11.7) 12/03/16 05:30 Neut % (Auto) 74.9 % (50.0-75.0) 12/03/16 05:30 Lymph % (Auto) 10.4 % (20.0-40.0) L 12/03/16 05:30 [place] % (Auto) 12.8 % (0.0-10.0) H 12/03/16 05:30 Eos % (Auto) 1.3 % (0.0-4.0) 12/03/16 05:30 Baso % (Auto) 0.6 % (0.0-2.0) 12/03/16 05:30 Neut # 7.0 K/uL (1.8-7.0) 12/03/16 05:30 Lymph # 1.0 K/uL (1.0-4.3) 12/03/16 05:30 [place] # 1.2 K/uL (0.0-0.8) H 12/03/16 05:30 Eos # 0.1 K/uL (0.0-0.7) 12/03/16 05:30 Baso # 0.1 K/uL (0.0-0.2) 12/03/16 05:30 PT 10.7 SECONDS (9.6-11.2) 12/03/16 05:30 INR 1.03 (0.92-1.08) 12/03/16 05:30 Sodium 140 mmol/l (132-148) 12/03/16 05:30 Potassium 4.7 MMOL/L (3.6-5.0) 12/03/16 05:30 Chloride 101 mmol/L (98-107) 12/03/16 05:30 Carbon Dioxide 30 mmol/L (22-30) 12/03/16 05:30 Anion Gap 15 (10-20) 12/03/16 05:30 BUN 16 mg/dl (9-20) 12/03/16 05:30 Creatinine 0.6 mg/dL (0.8-1.5) L 12/03/16 05:30 Est GFR ( Amer) > 60 12/03/16 05:30 Est GFR (Non-Af Amer) > 60 12/03/16 05:30 Random Glucose 82 mg/dL (75-110) 12/03/16 05:30 Calcium 8.7 mg/dL (8.4-10.2) 12/03/16 05:30 - Hospital Course Hospital Course: FRAIL LOOKING NO CHEST PAINS/SOB DOES NOT WANT TO GO TO [facility] WANTS TO GO HOME CALL PLACED TO HIS PARTNER PER HIS REQUEST AND CASE WAS DISCUSSED WITH HIM-- HE WILL COME TO SEE PT AND WILL DISCUS [facility]/HOME CARE Discharge Exam - Head Exam Head Exam: ATRAUMATIC, NORMAL INSPECTION, NORMOCEPHALIC - Eye Exam Eye Exam: EOMI, Normal appearance, PERRL Pupil Exam: NORMAL ACCOMODATION, PERRL - Respiratory Exam Respiratory Exam: Prolonged Expiratory Phase - GI/Abdominal Exam GI & Abdominal Exam: Normal Bowel Sounds - Rectal Exam Rectal Exam: NORMAL INSPECTION - Exam Exam: Circumcision, NORMAL INSPECTION External exam: NORMAL EXTERNAL EXAM Speculum exam: NORMAL SPECULUM EXAM Bimanual exam: NORMAL BIMANUAL EXAM - Neurological Exam Neurological exam: Abnormal Gait, Alert, CN II-XII Intact, Oriented x3, Reflexes Normal - Psychiatric Exam Psychiatric exam: Normal Affect, Normal Mood - Skin Skin Exam: Dry, Intact, Normal Color, Warm Discharge Plan - Follow Up Plan Condition: GOOD Disposition: HOME/ ROUTINE Patient education suggested?: Yes Additional Instructions: DISCHARGE TODAY FOLLOW UP WITH PMD IN [place]
== END 2016-12-03 13:10 | disposition home or self-care (01) | DRG 975 ==
LOC: H.TCU 15:54
PROVIDERS: ADMIT Internal Medicine Pulmonary Disease; ATTEND Internal Medicine Pulmonary Disease
PROC: 3E03329 Introduction of Other Anti-infective into Peripheral Vein, Percutaneous Approach (ICD-10-PCS; principal; 2016-11-22)
PROC: F07Z9FZ Gait Training/Functional Ambulation Treatment using Assistive, Adaptive, Supportive or Protective Equipment (ICD-10-PCS; 2016-11-22)
PROC: F08Z4FZ Home Management Treatment using Assistive, Adaptive, Supportive or Protective Equipment (ICD-10-PCS; 2016-11-22)
PROC: 3E0F73Z Introduction of Anti-inflammatory into Respiratory Tract, Via Natural or Artificial Opening (ICD-10-PCS; 2016-11-22)
PROC: F07M6FZ Therapeutic Exercise Treatment of Musculoskeletal System - Whole Body using Assistive, Adaptive, Supportive or Protective Equipment (ICD-10-PCS; 2016-11-23)
DX: J18.9 Pneumonia, unspecified organism (principal); B20 Human immunodeficiency virus [HIV] disease; R64 Cachexia; Z68.1 Body mass index [BMI] 19.9 or less, adult; G89.4 Chronic pain syndrome; J45.998 Other asthma; D63.8 Anemia in other chronic diseases classified elsewhere; M41.9 Scoliosis, unspecified; G47.00 Insomnia, unspecified; M54.5 Low back pain; F32.9 Major depressive disorder, single episode, unspecified; Z85.72 Personal history of non-Hodgkin lymphomas; Z85.841 Personal history of malignant neoplasm of brain; Z87.01 Personal history of pneumonia (recurrent)

== ENCOUNTER 2017-02-26 15:27 | Emergency (ER) | payer MEDICARE ==
[2017-02-26 15:27] VITALS: BMI 14.1
[2017-02-26 15:48] VITALS: BP 98/66; PULSE 74; RESP 18; TEMP 98.7; O2SAT 98
--- NOTE | 2017-02-26 16:39 | ED PDOC ---
HPI: General Adult Time Seen by Provider: 02/26/17 16:31 Chief Complaint (Nursing): Lower Extremity Problem/Injury Chief Complaint (Provider): leg pain, swelling History Per: Patient Additional Complaint(s): 56 year old HIV (+) male presents to ED with chronic rash to both legs ongoing for several months. Patient states that he noticed redness to both legs as of one month ago and he came to ED today to be evaluated for this. He denies fever or chills. No associated chest pain, shortness or breath or ROBERTS. Patient also would like rash to groin that he has had for several months evaluated. He states groin rash is itchy but he denies any pain or drainage to affected area. Past Medical History Reviewed: Historical Data, Nursing Documentation, Vital Signs Vital Signs: Last Vital Signs Temp 98.7 F 02/26/17 15:45 Pulse 74 02/26/17 15:45 Resp 18 02/26/17 15:45 BP 98/66 L 02/26/17 15:45 Pulse Ox 98 02/26/17 20:00 - Medical History PMH: Arthritis, Asthma, Back Problems (Fractured vertebrae, kyphosis scoliosis) , Depression, Fractures, HIV, Malignancy (brain CA), Osteoporosis, Pneumonia - Surgical History Surgical History: Appendectomy, Tonsillectomy - Family History Family History: States: No Known Family Hx - Living Arrangements Living Arrangements: With Family - Social History Current smoker - smoking cessation education provided: No Alcohol: None Drugs: Denies - Home Medications Home Medications: Ambulatory Orders Medication Instructions Recorded Celecoxib [Celebrex] 200 mg PO DAILY 09/21/15 Montelukast [Singulair] 10 mg PO DAILY 09/21/15 Morphine Sulfate [Morphine Sulfate 30 mg PO TID 09/21/15 ER] Ipratropium/Albuterol Sulfate 1 puff IH QID PRN 10/12/15 [Combivent Respimat Inhal [facility]] Abacavir/Dolutegravir/Lamivudi 1 tab PO DAILY 03/27/16 [Triumeq Tablet] Albuterol Sulfate [Proair Hfa] 2 puff INH Q6H PRN 03/27/16 Ranitidine HCl [Zantac] 300 mg PO DAILY 03/27/16 Calcium Carbonate 1,250 mg PO DAILY 11/19/16 Azithromycin 500MG/NS 250ml 500 mg IV DAILY #7 bag 11/22/16 [Zithromax 500mg in NS] Morphine [Morphine Extended 30 mg PO Q8 12/03/16 Release Tab] Sulfamethoxazole/Trimethoprim 1 tab PO DAILY tab 12/03/16 [Bactrim DS Tab] guaiFENesin [Robitussin] 100 mg PO Q6 12/03/16 Cephalexin [Keflex] 500 mg PO TID #21 capsule 02/26/17 Fluconazole [Diflucan] 150 mg PO ONCE #1 tab 02/26/17 - Allergies Allergies/Adverse Reactions: Allergies Allergy/AdvReac Type Severity Reaction Status Date / Time No Known Allergies Allergy Verified 11/22/16 15:53 Review of Systems ROS Statement: Except As Marked, All Systems Reviewed And Found Negative Constitutional: Negative for: Fever Cardiovascular: Negative for: Chest Pain Respiratory: Negative for: Shortness of Breath Gastrointestinal: Negative for: Vomiting Musculoskeletal: Positive for: Other (chronic rash to legs) Skin: Positive for: Rash (to groin) Physical Exam - Reviewed Nursing Documentation Reviewed: Yes Vital Signs Reviewed: Yes - Physical Exam Appears: Positive for: Well, Non-toxic, No Acute Distress Skin: Positive for: Rash (fungal rash to groin region bilaterally, no acute suppurative infection) ENT: Positive for: Normal ENT Inspection Cardiovascular/Chest: Positive for: Regular Rate, Rhythm Respiratory: Positive for: Normal Breath Sounds Extremity: Positive for: Other (chronic venous statis dermatitis to both lower extremities with mild overlying erythema suspicious for possible mild cellulitis , mild calf tenderness bilaterally, normal distal sensation bilaterally) Neurologic/Psych: Positive for: Alert, Oriented, Gait (steady with cane, used at baseline) - Laboratory Results Result Diagrams: 02/26/17 17:47 02/26/17 17:47 - ECG O2 Sat by Pulse Oximetry: 98 Pulse Ox Interpretation: Normal - Other Rad CXR X-Ray: Viewed By Me, Read By Radiologist X-Ray Interpretation: atelectasis, no acute finding Doppler both legs X-Ray: Read By Radiologist X-Ray Interpretation: no DVT Medical Decision Making Medical Decision Makin56 year old with leg and groin rash Plan: CBC CMP Doppler both legs EKG CXR IVF Doppler negative for DVT PO diflucan dose given in ED. Rx given for diflucan and keflex. Patient was advised to follow up with PMD in 2-3 days. Disposition - Clinical Impression Clinical Impression: Venous stasis dermatitis of both lower extremities, Cellulitis of both lower extremities, Fungal dermatitis - Patient ED Disposition Is Patient to be Admitted: No Counseled Patient/Family Regarding: Studies Performed, Diagnosis, Need For Followup, Rx Given - Disposition Referrals: [facility] [place] [Outside] Disposition: Routine/Home Disposition Time: 19:14 Condition: STABLE Additional Instructions: TAKE ANTIBIOTICS DIRECTED. TAKE SECOND DOSE OF DIFLUCAN ONE WEEK FROM TODAY. FOLLOW UP IN 3-4 DAYS WITH YOUR PRIMARY CARE DOCTOR. Prescriptions: Cephalexin [Keflex] 500 mg PO TID #21 capsule Fluconazole [Diflucan] 150 mg PO ONCE #1 tab Instructions: Cellulitis (ED), Stasis Dermatitis (ED), Jock Itch (ED) Forms: [employer] ([place]) Results - Lab Results Lab Results: 02/26/17 02/26/17 17:47 17:47 WBC 4.8 RBC 3.50 L Hgb 10.3 L Hct 31.8 L MCV 90.8 D MCH 29.5 MCHC 32.5 L RDW 16.9 H Plt Count 158 D MPV 8.4 Neut % (Auto) 47.9 L Lymph % (Auto) 35.8 [place] % (Auto) 10.4 H Eos % (Auto) 5.2 H Baso % (Auto) 0.7 Neut # 2.3 Lymph # 1.7 [place] # 0.5 Eos # 0.2 Baso # 0.0 Sodium 142 Potassium 4.7 Chloride 105 Carbon Dioxide 27 Anion Gap 15 BUN 18 Creatinine 0.6 L Est GFR ( Amer) > 60 Est GFR (Non-Af Amer) > 60 Random Glucose 89 Calcium 9.0 Total Bilirubin 0.5 AST 36 ALT 36 Alkaline Phosphatase 88 Total Protein 7.1 Albumin 4.3 Globulin 2.9 Albumin/Globulin Ratio 1.5
[2017-02-26] MEDS ORDERED: Sodium Chloride 0.9% 1,000 ML IV STA (17:10)
[2017-02-26 17:51] LABS: BASO % 0.7 % (0.0-2.0); EOS # 0.2 K/uL (0.0-0.7); EOS % 5.2 % (0.0-4.0); HEMATOCRIT 31.8 % (35.0-51.0); LYMPH # 1.7 K/uL (1.0-4.3); LYMPH % 35.8 % (20.0-40.0); MEAN CELL VOLUME 90.8 fl (80.0-94.0); MEAN CORPUSCULAR HEMOGLOBIN 29.5 pg (27.0-31.0); MEAN CORPUSCULAR HGB CONC 32.5 g/dL (33.0-37.0); MEAN PLATELET VOLUME 8.4 fl (7.2-11.7); MONO # 0.5 K/uL (0.0-0.8); MONO % 10.4 % (0.0-10.0); NEUT # 2.3 K/uL (1.8-7.0); NEUT % 47.9 % (50.0-75.0); NRBC % 0.1 % (0.0-0.0); RED CELL DISTRIBUTION WIDTH 16.9 % (11.5-14.5); WHITE BLOOD COUNT 4.8 K/uL (4.8-10.8)
[2017-02-26 18:06] LABS: ALB/GLOB RATIO 1.5 (1.0-2.1); ALKALINE PHOSPHATASE 88 U/L (38-126); ALT/SGPT 36 U/L (21-72); AST/SGOT 36 U/L (17-59); BILIRUBIN,TOTAL 0.5 mg/dl (0.2-1.3); BLOOD UREA NITROGEN 18 mg/dl (9-20); CARBON DIOXIDE 27 mmol/L (22-30); CHLORIDE 105 mmol/L (98-107); GFR AFRICAN-AMERICAN > 60; GLUCOSE,RANDOM 89 mg/dL (75-110); POTASSIUM 4.7 MMOL/L (3.6-5.0); SODIUM 142 mmol/l (132-148); TOTAL PROTEIN 7.1 G/DL (6.3-8.2)
--- NOTE | 2017-02-26 18:14 | RAD ---
HISTORY: clearance COMPARISON: Chest x-ray performed 02/20/17 TECHNIQUE: Chest PA and lateral FINDINGS: LUNGS: Mild right basilar atelectasis. Please note that chest x-ray has limited sensitivity for the detection of pulmonary masses. PLEURA: No significant pleural effusion identified. No definite pneumothorax . CARDIOVASCULAR: Heart size appears within normal limits. Ectatic aorta. OSSEOUS STRUCTURES: Diffuse osseous demineralization limits evaluation for acute fracture lines. Evidence of vertebroplasty involving at least 3 levels lower thoracic/ upper lumbar spine. Degenerative changes. VISUALIZED UPPER ABDOMEN: Unremarkable. OTHER FINDINGS: None. IMPRESSION: Mild right basilar atelectasis.
--- NOTE | 2017-02-26 18:52 | US ---
PROCEDURE: Bilateral lower extremity duplex venous sonography HISTORY: swelling to both legs for one month COMPARISON: None available. TECHNIQUE: Bilateral common femoral, superficial femoral, popliteal and posterior tibial veins were evaluated. Flow was assessed with color Doppler, compressibility, assessment of phasic flow and augmentation response. FINDINGS: COMMON FEMORAL VEIN: Right CFV: Unremarkable. Left CFV: Unremarkable. SUPERFICIAL FEMORAL VEIN: Right SFV: Unremarkable. Left SFV: Unremarkable. POPLITEAL VEIN: Right Popliteal: Unremarkable. Left Popliteal: Unremarkable. POSTERIOR TIBIAL VEIN: Right PTV: Unremarkable. Left PTV: Unremarkable. OTHER FINDINGS: None. IMPRESSION: No evidence of deep venous thrombosis.
[2017-02-26] MEDS ORDERED: Fluconazole 150 MG TAB PO STA (19:12)
== END 2017-02-26 19:58 | disposition home or self-care (01) ==
LOC: H.ER 15:27
DX: L03.119 Cellulitis of unspecified part of limb (principal); B35.9 Dermatophytosis, unspecified; I87.2 Venous insufficiency (chronic) (peripheral)

== ENCOUNTER 2017-04-16 00:01 | Inpatient (IN) | payer MEDICARE ==
--- NOTE | 2017-04-16 00:38 | ED PDOC ---
HPI:STROKE - Historian Historian: Patient, Partner - Chief Complaint Chief Complaint: other (Aphasia ) - Onset Onset: This evening - Timing Timing: Resolved - Associated Symptoms Associated symptoms:: Tremors - Notes: Notes:: Thierry Quiroga is a 56 year old male with a past medical history of HIV and lymphoma who presents to the ER for evaluation of an episode of aphasia earlier today. The patients partner states that the patient was taking his pillls. Afterwards, when the patient was going to bed, his partner heard him calling his name. The patient was found sitting on floor upright and began having shaking of his bilateral upper extremities and became very tense. The patient thought that he was having an episode of neuropathic pain but was concerned with his speech stating that he was unable to speak for 45 minutes. He denies noticing any weakness or slurred speech. Symptoms have resolved and upon arrival to ED patient has no complaints. NIHSS Stroke Scale - Date/Time Evaluation Performed Date Performed: 04/16/17 Time Performed: 00:00 When Was NIHSS Performed: Code Stroke - How Severe is the Stroke Level of Consciousness: 0=Alert LOC to Questions: 0=Both comments correct LOC to commands: 0=Obeys both correctly Best Gaze: 0=Normal Visual: 0=No visual loss Facial: 0=Normal Motor Arm - Left: 0=No drift Motor Arm - Right: 0=No drift Motor Leg - Left: 0=No drift Motor Leg - Right: 0=No drift Limb Ataxia: 0=Absent Sensory: 0=Normal Best Language: 0=No aphasia Dysarthia: 0=Normal articulation Extinction & Inattention (Neglect): 0=Normal, no object Score: 0 rTPA Inclusion/Exclusion - Refusal of Treatment Patient Refused Treatment: No - Inclusion Criteria for Altepase Patient is 18 years or Older: Yes The Clinical Diagnosis of Ischemic Stroke That is Causing a Potentially Disabling Neurological Deficit: No Time of Onset is Well Established to be Less Than 270 Minute Before Treatment Would Begin: No Risk/Benefit Discussed With Patient/Family Member Present: No Past Medical History Reviewed: Historical Data, Nursing Documentation, Vital Signs Vital Signs: Last Vital Signs Temp Pulse 82 04/16/17 00:03 Resp 16 04/16/17 00:03 BP 108/75 04/16/17 00:03 Pulse Ox 100 04/16/17 00:03 - Medical History PMH: Arthritis, Asthma, Back Problems (Fractured vertebrae, kyphosis scoliosis) , Depression, Fractures, HIV, Malignancy (brain CA), Osteoporosis, Pneumonia Denies: CHF, COPD, HTN, Hypercholesterolemia, Hypothyroidism, Kidney Stones, Chronic Kidney Disease, Rheumatoid Arthritis - Surgical History Surgical History: Appendectomy, Tonsillectomy - Family History Family History: States: Unknown Family Hx - Immunization History Hx Influenza Vaccination: Yes - Home Medications Home Medications: Ambulatory Orders Medication Instructions Recorded Celecoxib [Celebrex] 200 mg PO DAILY 09/21/15 Montelukast [Singulair] 10 mg PO DAILY 09/21/15 Morphine Sulfate [Morphine Sulfate 30 mg PO TID 09/21/15 ER] Ipratropium/Albuterol Sulfate 1 puff IH QID PRN 10/12/15 [Combivent Respimat Inhal [place]] Abacavir/Dolutegravir/Lamivudi 1 tab PO DAILY 03/27/16 [Triumeq Tablet] Albuterol Sulfate [Proair Hfa] 2 puff INH Q6H PRN 03/27/16 Ranitidine HCl [Zantac] 300 mg PO DAILY 03/27/16 Calcium Carbonate 1,250 mg PO DAILY 11/19/16 Azithromycin 500MG/NS 250ml 500 mg IV DAILY #7 bag 11/22/16 [Zithromax 500mg in NS] Morphine [Morphine Extended 30 mg PO Q8 12/03/16 Release Tab] Sulfamethoxazole/Trimethoprim 1 tab PO DAILY tab 12/03/16 [Bactrim DS Tab] guaiFENesin [Robitussin] 100 mg PO Q6 12/03/16 Cephalexin [Keflex] 500 mg PO TID #21 capsule 02/26/17 Fluconazole [Diflucan] 150 mg PO ONCE #1 tab 02/26/17 - Allergies Allergies/Adverse Reactions: Allergies Allergy/AdvReac Type Severity Reaction Status Date / Time No Known Allergies Allergy Verified 11/22/16 15:53 Review of Systems Neurological: Positive for: Change in Speech (Aphasia, Negative for slurred speech). Negative for: Weakness Physical Exam - Physical Exam Appears: Negative for: Non-toxic (Patient appears weak and chronically ill) Head Exam: Positive for: ATRAUMATIC, NORMAL INSPECTION, NORMOCEPHALIC Skin: Positive for: Warm, Dry, Pallor Eye Exam: Positive for: Normal appearance, EOMI, PERRL, Other (Strabismus right eye) ENT: Positive for: Other (Dry mucus membranes) Neck: Positive for: Normal, Painless ROM, Supple Cardiovascular/Chest: Positive for: Regular Rate, Rhythm. Negative for: Murmur Respiratory: Positive for: Normal Breath Sounds. Negative for: Respiratory Distress Gastrointestinal/Abdominal: Positive for: Normal Exam, Soft. Negative for: Tenderness Back: Positive for: Normal Inspection. Negative for: L CVA Tenderness, R CVA Tenderness, Other (midline tenderness) Extremity: Positive for: Normal ROM. Negative for: Pedal Edema, Deformity Neurologic/Psych: Positive for: Alert, Oriented, Motor/Sensory Deficits (4/5 strength in all four extremities ). Negative for: Other (Pronator drift) - Laboratory Results Result Diagrams: 04/16/17 00:49 04/16/17 00:49 - ECG O2 Sat by Pulse Oximetry: 100 Medical Decision Making Medical Decision Making: Impression: Rule out CVA, versus electrolyte imbalance, versus other abnormality Plan: Type and screen CT head w/o contrast EKG CMP Hg A1C Lipid panel Troponin I CBC with Differential PT CXR [employer] Therapist CT Head w/o contrast: FINDINGS: Artifacts: Streak artifact degrades image quality. Motion artifact degrades image quality. Brain: There is dilatation of sulci, gyri and ventricles. There is no midline shift. There are no intraaxial or extra axial mass lesions or areas of hemorrhage. There is minimal left occipital encephalomalacia with compensatory dilatation of the occipital horn of the left lateral ventricle. There is dystrophic calcification in the posterior right parietal lobe. Lyon-white differentiation is maintained. Ventricles: See above. Bony structures: Cranial vault is intact Soft tissues: unremarkable Sinuses: There is no acute sinusitis. Ears and mastoids: Middle ears and mastoids unremarkable. Orbits: Orbital contents are unremarkable. IMPRESSION: Limited by patient motion, mild atrophy, minimal left occipital encephalomalacia; dystrophic calcification posterior right parietal lobe, no bleed 226AM: Pt. is stable. Still has not urinated despite IVF. Will admit to Dr. Hirsch. Will consult Dr. Mota in the AM. Scribe Attestation: Documented by Rashard Baker, acting as a scribe for Pepito Gomez MD. Provider Scribe Attestation: All medical record entries made by the Scribe were at my direction and personally dictated by me. I have reviewed the chart and agree that the record accurately reflects my personal performance of the history, physical exam, medical decision making, and the department course for this patient. I have also personally directed, reviewed, and agree with the discharge instructions and disposition. Disposition - Clinical Impression Clinical Impression: Weakness, Dehydration - Disposition Disposition Time: 02:27 Condition: STABLE
[2017-04-16 00:52] LABS: BASO # 0.1 K/uL (0.0-0.2); BASO % 1.1 % (0.0-2.0); EOS # 0.5 K/uL (0.0-0.7); EOS % 8.9 % (0.0-4.0); HEMATOCRIT 33.6 % (35.0-51.0); LYMPH # 2.4 K/uL (1.0-4.3); LYMPH % 46.3 % (20.0-40.0); MEAN CELL VOLUME 88.8 fl (80.0-94.0); MEAN CORPUSCULAR HEMOGLOBIN 28.8 pg (27.0-31.0); MEAN CORPUSCULAR HGB CONC 32.5 g/dL (33.0-37.0); MEAN PLATELET VOLUME 8.6 fl (7.2-11.7); MONO # 0.4 K/uL (0.0-0.8); MONO % 6.8 % (0.0-10.0); NEUT # 1.9 K/uL (1.8-7.0); NEUT % 36.9 % (50.0-75.0); NRBC % 0.1 % (0.0-0.0); RED CELL DISTRIBUTION WIDTH 13.4 % (11.5-14.5); WHITE BLOOD COUNT 5.1 K/uL (4.8-10.8)
[2017-04-16 01:03] LABS: ALB/GLOB RATIO 1.5 (1.0-2.1); ALKALINE PHOSPHATASE 82 U/L (38-126); ALT/SGPT 27 U/L (21-72); AST/SGOT 35 U/L (17-59); BILIRUBIN,TOTAL 0.5 mg/dl (0.2-1.3); BLOOD UREA NITROGEN 21 mg/dl (9-20); CALCIUM 8.9 mg/dL (8.4-10.2); CARBON DIOXIDE 23 mmol/L (22-30); CHLORIDE 102 mmol/L (98-107); CHOLESTEROL 134 mg/dL (0-199); GFR AFRICAN-AMERICAN > 60; GLUCOSE,RANDOM 99 mg/dL (75-110); POTASSIUM 3.8 MMOL/L (3.6-5.0); SODIUM 138 mmol/l (132-148); TOTAL PROTEIN 7.3 G/DL (6.3-8.2)
[2017-04-16 01:09] LABS: PARTIAL THROMBOPLASTIN TIME 21.3 Seconds (25.6-37.1)
--- NOTE | 2017-04-16 01:21 | CT ---
EXAM: CT Head Without Intravenous Contrast EXAM DATE/TIME: 04/16/2017 12:04 AM CLINICAL HISTORY: 56 years old, male; Pain; Other: Stroke; Additional info: Code stroke TECHNIQUE: Axial computed tomography images of the head/brain without intravenous contrast. All CT scans at this facility use one or more dose reduction techniques, viz.: automated exposure control; ma/kV adjustment per patient size (including targeted exams where dose is matched to indication; i.e. head); or iterative reconstruction technique. Coronal and sagittal reformatted images were created and reviewed. COMPARISON: RF - MODIFIED BARIUM VIDEO SWALLOW 09/23/2015 10:23:16 AM FINDINGS: Artifacts: Streak artifact degrades image quality. Motion artifact degrades image quality. Brain: There is dilatation of sulci, gyri and ventricles. There is no midline shift. There are no intra-axial or extra axial mass lesions or areas of hemorrhage. There is minimal left occipital encephalomalacia with compensatory dilatation of the occipital horn of the left lateral ventricle. There is dystrophic calcification in the posterior right parietal lobe. Lyon-white differentiation is maintained. Ventricles: See above. Bony structures: Cranial vault is intact Soft tissues: unremarkable Sinuses: There is no acute sinusitis. Ears and mastoids: Middle ears and mastoids unremarkable. Orbits: Orbital contents are unremarkable. IMPRESSION: Limited by patient motion, mild atrophy, minimal left occipital encephalomalacia; dystrophic calcification posterior right parietal lobe, no bleed
[2017-04-16] MEDS: Sodium Chloride 0.9% 1,000 ML IV SCH ×4 (01:47→22:53)
--- NOTE | 2017-04-16 02:28 | RAD ---
EXAM: XR Chest, 1 View CLINICAL HISTORY: 56 years old, male; Pain; Other: Stroke; Additional info: Weakness TECHNIQUE: Frontal view of the chest. COMPARISON: CT - CHEST W/O CONTRAST 10/06/2015 2:53:02 PM FINDINGS: The cardiomediastinal silhouette is unremarkable. The lungs are clear. No subdiaphragmatic free air or pneumothorax. The trachea is midline. IMPRESSION: No focal infiltrate or effusion.
[2017-04-16] MEDS ORDERED: Influenza Vaccine 18yr & older 0.5 ML/45 MCG SYR IM ONE (06:37)
[2017-04-16 06:42] VITALS: BMI 19.9
[2017-04-16] MEDS ORDERED: Albuterol-Ipratrop 3 mg / 0.5 (3 ml) UD INH PRN (09:10)
[2017-04-16] MEDS: Tmp-Smz 800 mg-160 mg DS Tab PO SCH (10:28)
[2017-04-16] MEDS: Morphine 30 mg SR Tab PO SCH ×2 (10:29→16:47)
[2017-04-16] MEDS: Pantoprazole 40 mg EC Tab PO SCH (10:31)
[2017-04-16 10:45] LABS: HEMATOCRIT 30.4 % (35.0-51.0); MEAN CELL VOLUME 86.7 fl (80.0-94.0); MEAN CORPUSCULAR HEMOGLOBIN 29.1 pg (27.0-31.0); MEAN CORPUSCULAR HGB CONC 33.5 g/dL (33.0-37.0); RED CELL DISTRIBUTION WIDTH 12.9 % (11.5-14.5); WHITE BLOOD COUNT 4.6 K/uL (4.8-10.8)
[2017-04-16 11:02] LABS: ALB/GLOB RATIO 1.3 (1.0-2.1); ALKALINE PHOSPHATASE 75 U/L (38-126); ALT/SGPT 29 U/L (21-72); AST/SGOT 35 U/L (17-59); BILIRUBIN,TOTAL 0.5 mg/dl (0.2-1.3); BLOOD UREA NITROGEN 17 mg/dl (9-20); CALCIUM 8.3 mg/dL (8.4-10.2); CARBON DIOXIDE 26 mmol/L (22-30); CHLORIDE 107 mmol/L (98-107); GFR AFRICAN-AMERICAN > 60; GLUCOSE,RANDOM 81 mg/dL (75-110); SODIUM 140 mmol/l (132-148); TOTAL PROTEIN 6.2 G/DL (6.3-8.2)
[2017-04-16 11:34] LABS: THYROID STIMULATING HORMONE 1.37 mIU/ML (0.46-4.68)
[2017-04-16] MEDS: TRIUMEQ PO SCH (12:51)
[2017-04-16] MEDS ORDERED: Gadodiamide 287 MG/ML VIAL (15ML) IV ONE (13:02)
--- NOTE | 2017-04-16 16:49 | CARD ---
APPROVED REPORT EKG Measurement Heart [id number] <Conclusion> Normal sinus rhythm RSR' or QR pattern in V1 suggests right ventricular conduction delay Borderline ECG
--- NOTE | 2017-04-16 18:00 | CP.PCM.CON ---
History of Present Illness - History of Present Illness History of Present Illness: CONSULT DICTATED TIA / Sz FAILURE TO THRIVE HYDRATION NO AED IS NEEDED CONTINUE THE PRESENT MANAGEMENT Past Patient History - Infectious Disease Hx of Infectious Diseases: None - Past Medical History & Family History Past Medical History?: Yes - Past Social History Smoking Status: Never Smoked - CARDIAC Hx Cardiac Disorders: Yes - PULMONARY Hx Asthma: Yes Hx Chronic Obstructive Pulmonary Disease (COPD): No Hx Pneumonia: Yes - NEUROLOGICAL Hx Neurological Disorder: No HX Cerebrovascular Accident: No Other/Comment: Brain Ca - HEENT Hx HEENT Problems: Yes Hx Blind: No Hx Cataracts: Yes Hx Deafness: Yes (B/L [place]) Hx Difficulty Chewing: No Hx Epistaxis: No Hx Glaucoma: No Hx Macular Degeneration: No Other/Comment: impaired hearing, used to have Left and right hearing aid years ago. - RENAL Hx Chronic Kidney Disease: No - ENDOCRINE/METABOLIC Hx Hypothyroidism: No - HEMATOLOGICAL/ONCOLOGICAL Hx Blood Disorders: Yes - INTEGUMENTARY Hx Dermatological Problems: No - MUSCULOSKELETAL/RHEUMATOLOGICAL Hx Musculoskeletal Disorders: Yes - GASTROINTESTINAL Hx Gastrointestinal Disorders: No Hx Gastritis: Yes - GENITOURINARY/GYNECOLOGICAL Hx Genitourinary Disorders: No - PSYCHIATRIC Hx Depression: Yes Hx Substance Use: No - SURGICAL HISTORY Hx Appendectomy: Yes Hx Tonsillectomy: Yes - ANESTHESIA Hx Anesthesia: Yes Hx Anesthesia Reactions: No Hx Malignant Hyperthermia: No Meds Allergies/Adverse Reactions: Allergies Allergy/AdvReac Type Severity Reaction Status Date / Time No Known Allergies Allergy Verified 11/22/16 15:53 - Medications Medications: Current Medications Albuterol/Ipratropium (Duoneb 3 Mg/0.5 Mg (3 Ml) Ud) 3 ml INH RQ6 PRN PRN Reason: Shortness of Breath Aspirin (Ecotrin) 81 mg PO DAILY [facility] Last Admin: 04/16/17 10:28 Dose: 81 mg Home Med (Patient's Own Medication) 1 unit PO DAILY [facility] Last Admin: 04/16/17 12:51 Dose: 1 unit Sodium Chloride (Sodium Chloride 0.9%) 1,000 mls @ 100 mls/hr IV .Q10H [facility] Stop: 04/17/17 08:54 Last Admin: 04/16/17 10:31 Dose: 100 mls/hr Montelukast Sodium (Singulair) 10 mg PO DAILY [facility] Last Admin: 04/16/17 10:31 Dose: 10 mg Morphine Sulfate (Morphine Extended Release Tab) 30 mg PO Q8 [facility] Last Admin: 04/16/17 16:47 Dose: Not Given Pantoprazole Sodium (Protonix Ec Tab) 40 mg PO DAILY [facility] Last Admin: 04/16/17 10:31 Dose: 40 mg Trimethoprim/Sulfamethoxazole (Bactrim Ds Tab) 1 tab PO DAILY [facility] Last Admin: 04/16/17 10:28 Dose: 1 tab Results - Vital Signs Recent Vital Signs: Last Vital Signs Temp 97.5 F L 04/16/17 15:53 Pulse 59 L 04/16/17 15:53 Resp 12 04/16/17 15:53 BP 92/53 L 04/16/17 15:53 Pulse Ox 95 04/16/17 15:53 - Labs Result Diagrams: 04/16/17 10:30 04/16/17 10:30 Labs: Laboratory Results - last 24 hr 04/16/17 04/16/17 04/16/17 00:05 00:49 00:49 WBC 5.1 RBC 3.79 L Hgb 10.9 L Hct 33.6 L MCV 88.8 D MCH 28.8 MCHC 32.5 L RDW 13.4 Plt Count 133 MPV 8.6 Neut % (Auto) 36.9 L Lymph % (Auto) 46.3 H [place] % (Auto) 6.8 Eos % (Auto) 8.9 H Baso % (Auto) 1.1 Neut # 1.9 Lymph # 2.4 [place] # 0.4 Eos # 0.5 Baso # 0.1 PT 10.8 INR 1.1 APTT 21.3 L Sodium 138 Potassium 3.8 Chloride 102 Carbon Dioxide 23 Anion Gap 17 BUN 21 H Creatinine 0.7 L Est GFR ( Amer) > 60 Est GFR (Non-Af Amer) > 60 Random Glucose 99 Hemoglobin A1c Calcium 8.9 Total Bilirubin 0.5 AST 35 ALT 27 Alkaline Phosphatase 82 Total Creatine Kinase Troponin I < 0.0120 Total Protein 7.3 Albumin 4.4 Globulin 2.9 Albumin/Globulin Ratio 1.5 Triglycerides 111 D Cholesterol 134 LDL Cholesterol Direct 51 HDL Cholesterol 56 TSH 3rd Generation 04/16/17 04/16/17 04/16/17 00:49 10:30 10:30 WBC 4.6 L RBC 3.51 L Hgb 10.2 L Hct 30.4 L MCV 86.7 D MCH 29.1 MCHC 33.5 RDW 12.9 Plt Count 134 MPV Neut % (Auto) Lymph % (Auto) [place] % (Auto) Eos % (Auto) Baso % (Auto) Neut # Lymph # [place] # Eos # Baso # PT INR APTT Sodium 140 Potassium 4.0 Chloride 107 Carbon Dioxide 26 Anion Gap 12 BUN 17 Creatinine 0.8 Est GFR ( Amer) > 60 Est GFR (Non-Af Amer) > 60 Random Glucose 81 Hemoglobin A1c 5.8 Calcium 8.3 L Total Bilirubin 0.5 AST 35 ALT 29 Alkaline Phosphatase 75 Total Creatine Kinase 89 Troponin I Total Protein 6.2 L Albumin 3.6 Globulin 2.6 Albumin/Globulin Ratio 1.3 Triglycerides Cholesterol LDL Cholesterol Direct HDL Cholesterol TSH 3rd Generation 1.37
--- NOTE | 2017-04-16 23:22 | CP.PCM.HP ---
History of Present Illness - History of Present Illness History of Present Illness: A 56 yr old male with hx of HIV , neuropathy on chronic pain meds, osteoporosis , dependant on ADL\IDL,walks with walker\cane brought to ER for small period of AMS. hx obtaine via Partner, as per him he called after he fell from chair ,was told he was trying to put on slippers.after that he was shaky especially arms, staring into space for few seconds. no known recent viral count .on bactrim he does see physician for HIV, complaint to meds. currently he got valium for MRI, feels sleepy. initial CT head negative, unbale to lie down in MRI for long. for EEG Present on Admission - Present on Admission Any Indicators Present on Admission: No Review of Systems - Hematologic/Lymphatic Additional comments: Constitutional: Fatigue. absent: Fever, Frequent Falls, no recent Weight Loss , Weakness - EENT Eyes: absent: Blurred Vision, Other Visual Disturbances Nose/Mouth/Throat: absent: Nasal Discharge, Dysphagia, Hoarsness - Cardiovascular Cardiovascular: no Dyspnea on Exertion. absent: Chest Pain, Edema, Palpitations, Pedal Edema, Syncope - Respiratory Respiratory: no Cough. absent: Wheezing, Chest Congestion, Excessive Mucous Production - Gastrointestinal Gastrointestinal: Belching, Bloating, Dyspepsia. absent: Change in Stool Character, Constipation, Melena, Nausea, Vomiting - Genitourinary Genitourinary: no Voiding Freq/Small Amts. absent: Change in Urinary Stream - Musculoskeletal Musculoskeletal: no Arthralgias, Back Pain - Neurological Neurological: absent: Behavioral Changes, Convulsions, Paresthesias, Vertigo - Psychiatric Psychiatric: absent: Confusion, Irritability Past Patient History - Infectious Disease Hx of Infectious Diseases: None - Past Medical History & Family History Past Medical History?: Yes - Past Social History Smoking Status: Never Smoked - CARDIAC Hx Cardiac Disorders: Yes - PULMONARY Hx Asthma: Yes Hx Chronic Obstructive Pulmonary Disease (COPD): No Hx Pneumonia: Yes - NEUROLOGICAL Hx Neurological Disorder: No HX Cerebrovascular Accident: No Other/Comment: Brain Ca - HEENT Hx HEENT Problems: Yes Hx Blind: No Hx Cataracts: Yes Hx Deafness: Yes (B/L [place]) Hx Difficulty Chewing: No Hx Epistaxis: No Hx Glaucoma: No Hx Macular Degeneration: No Other/Comment: impaired hearing, used to have Left and right hearing aid years ago. - RENAL Hx Chronic Kidney Disease: No - ENDOCRINE/METABOLIC Hx Hypothyroidism: No - HEMATOLOGICAL/ONCOLOGICAL Hx Blood Disorders: Yes - INTEGUMENTARY Hx Dermatological Problems: No - MUSCULOSKELETAL/RHEUMATOLOGICAL Hx Musculoskeletal Disorders: Yes - GASTROINTESTINAL Hx Gastrointestinal Disorders: No Hx Gastritis: Yes - GENITOURINARY/GYNECOLOGICAL Hx Genitourinary Disorders: No - PSYCHIATRIC Hx Depression: Yes Hx Substance Use: No - SURGICAL HISTORY Hx Appendectomy: Yes Hx Tonsillectomy: Yes - ANESTHESIA Hx Anesthesia: Yes Hx Anesthesia Reactions: No Hx Malignant Hyperthermia: No Meds Home Medications: Home Medication List Medication Instructions Recorded Confirmed Type Aspirin [Ecotrin] 81 mg PO DAILY #30 tabec 04/18/17 Rx Megestrol Acetate [Megace] 400 mg PO DAILY #14 cup 04/18/17 Rx Baclofen [Lioresal] 10 mg PO TID #60 tab 04/19/17 Rx Allergies/Adverse Reactions: Allergies Allergy/AdvReac Type Severity Reaction Status Date / Time No Known Allergies Allergy Verified 11/22/16 15:53 Physical Exam - Additional Findings Additional findings: Appears: Positive for: Non-toxic, No Acute Distress, sleepy MM-DRY Head Exam: Positive for: ATRAUMATIC. Negative for: NORMOCEPHALIC ,cachexia Eye Exam: Positive for: Normal appearance, EOMI, PERRL (PERRLA) Neck: Positive for: Normal ,no carotid bruit . Cardiovascular/Chest: Positive for: Regular Rate, Rhythm, Chest Non Tender. Negative for: Murmur Respiratory: Positive for: Normal Breath Sounds. Negative for: Respiratory Distress, wheezing, rhonchi etc Gastrointestinal/Abdominal: Positive for: Normal Exam, Soft, BM2 + Negative for : Tenderness Extremity: Positive for: Normal ROM. Negative for: Deformity Neurologic/Psych: Positive for: Alert, Oriented (x3). Negative for: Motor/ Sensory Deficits kyphosis noted Results - Vital Signs Recent Vital Signs: Last Vital Signs Temp 97.5 F L 04/16/17 15:53 Pulse 59 L 04/16/17 15:53 Resp 12 04/16/17 15:53 BP 92/53 L 04/16/17 15:53 Pulse Ox 95 04/16/17 15:53 - Labs Result Diagrams: 04/16/17 10:30 04/16/17 10:30 Labs: Laboratory Results - last 24 hr 04/16/17 04/16/17 04/16/17 00:05 00:49 00:49 WBC 5.1 RBC 3.79 L Hgb 10.9 L Hct 33.6 L MCV 88.8 D MCH 28.8 MCHC 32.5 L RDW 13.4 Plt Count 133 MPV 8.6 Neut % (Auto) 36.9 L Lymph % (Auto) 46.3 H [place] % (Auto) 6.8 Eos % (Auto) 8.9 H Baso % (Auto) 1.1 Neut # 1.9 Lymph # 2.4 [place] # 0.4 Eos # 0.5 Baso # 0.1 PT 10.8 INR 1.1 APTT 21.3 L Sodium 138 Potassium 3.8 Chloride 102 Carbon Dioxide 23 Anion Gap 17 BUN 21 H Creatinine 0.7 L Est GFR ( Amer) > 60 Est GFR (Non-Af Amer) > 60 Random Glucose 99 Hemoglobin A1c Calcium 8.9 Total Bilirubin 0.5 AST 35 ALT 27 Alkaline Phosphatase 82 Total Creatine Kinase Troponin I < 0.0120 Total Protein 7.3 Albumin 4.4 Globulin 2.9 Albumin/Globulin Ratio 1.5 Triglycerides 111 D Cholesterol 134 LDL Cholesterol Direct 51 HDL Cholesterol 56 TSH 3rd Generation 04/16/17 04/16/17 04/16/17 00:49 10:30 10:30 WBC 4.6 L RBC 3.51 L Hgb 10.2 L Hct 30.4 L MCV 86.7 D MCH 29.1 MCHC 33.5 RDW 12.9 Plt Count 134 MPV Neut % (Auto) Lymph % (Auto) [place] % (Auto) Eos % (Auto) Baso % (Auto) Neut # Lymph # [place] # Eos # Baso # PT INR APTT Sodium 140 Potassium 4.0 Chloride 107 Carbon Dioxide 26 Anion Gap 12 BUN 17 Creatinine 0.8 Est GFR ( Amer) > 60 Est GFR (Non-Af Amer) > 60 Random Glucose 81 Hemoglobin A1c 5.8 Calcium 8.3 L Total Bilirubin 0.5 AST 35 ALT 29 Alkaline Phosphatase 75 Total Creatine Kinase 89 Troponin I Total Protein 6.2 L Albumin 3.6 Globulin 2.6 Albumin/Globulin Ratio 1.3 Triglycerides Cholesterol LDL Cholesterol Direct HDL Cholesterol TSH 3rd Generation 1.37 - EKG Data EKG Interpreted by: Myself EKG shows normal: Sinus rhythm Rate: Normal - Imaging and Cardiology Chest x-ray Status: Report reviewed by me CT scan - head Status: Report reviewed by me Assessment & Plan (1) Altered mental state Status: Acute (2) Dehydration Status: Acute Priority: High (3) Failure to thrive in adult Status: Acute (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 This is because of the severity of symptoms shown, intensity of services needed, and/or the medical risk in this patient being treated as an outpatient. - . Bed Request Type: Telemetry Admitting Physician: Briana Hirsch
[2017-04-17] MEDS: Morphine 30 mg SR Tab PO SCH ×3 (01:24→17:15)
--- NOTE | 2017-04-17 03:27 | CON ---
DATE: LOCATION: Room 422. REASON FOR CONSULTATION: Possible transient ischemic attack. CHIEF COMPLAINT: The patient was brought in to [facility] with a history of some shaking spell and inability to speak for 45 minutes. From neurological point of view, I was called into evaluate him for further management. HISTORY OF PRESENT ILLNESS: Mr. 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 The speech arrest was about 45 minutes. He had no similar episodes happened in the past. PAST MEDICAL HISTORY: As stated above. Following entering into the emergency room, code stroke was called in, because of his focal neuro deficit. Initial NIH score was 0. PERSONAL HISTORY: Denies smoking or alcohol use. REVIEW OF SYSTEMS: A 16-point review of systems have been reviewed. From neuro, focal speech arrest. MEDICATIONS: Celebrex, Singulair, Morphine, Combivent, Triumeq, ProAir, Zantac, calcium supplement, Zithromax, extended morphine, Bactrim, Robitussin, Keflex, and fluconazole. PHYSICAL EXAMINATION: VITAL SIGNS: Blood pressure 92/53, pulse rate 59, mean artery pressure of 66, temperature 97.5 with pulse rate of 12. NECK: Supple. No carotid bruit. HEART: Sounds irregular. EXTREMITIES: Hyperemic 2+ pitting edema in both lower extremities. NEUROLOGIC: The patient is sedated, verbally arousable, speech is fluent. He knows he is in the hospital. No focal weakness as he is complaining out. He denies of headache. No visual or bulbar dysfunction at present. CRANIAL NERVE EXAMINATION: Visual field: Respond to visual threat. Pupils reactive to light. Extraocular movement normal. No nystagmus. No facial sensory deficit. No facial asymmetry. Hearing seems to be intact. Good gag. MOTOR EXAMINATION: He could able to lift both upper extremities against gravity. Mild sensory tremor is noted. He had a restricted movement of the lower extremities more than upper extremities. Deep tendon reflexes are same throughout. Plantars are downgoing. SENSORY EXAMINATION: Respond to pain symmetrically. COORDINATION: Gait deferred at this time. DIAGNOSTIC DATA: CT of the head being reviewed showed motion artifact with atrophy, minimal left occipital encephalomalacia and posterior right parietal lobe calcification noted. No mass effect is noted. EKG, sinus bradycardia. LABORATORY DATA: WBC 4.6, hemoglobin 10.2, hematocrit 30.4, and platelet 134. PT 10.8, INR 1.1. PTT 21.3. Sodium 140, potassium 4.0, chloride 107, bicarbonate 26, BUN 17, creatinine 0.8, GFR more than 60, calcium 8.3, total protein 6.2, cholesterol 134, LDL 51, HDL 56, and TSH 137. CONCLUSION: Upon reviewing his history and neurological examination, Mr. Thierry Quiroga has been presenting with a brief episode of speech arrest. This episode was associated with some preceding some tremor sensation. All symptoms are nonspecific, however, speech arrest possible, dominant hemisphere dysfunction. RECOMMENDATION: 1. Continue the present management including aspirin for stroke prophylaxis. 2. The patient should be evaluated by ticket broker to upgrade his nutritional status by dietary recommendation. 3. Please avoid all narcotics, which would worsen his problem. 4. No further workup is needed from neurology. Cole Mota MD
--- NOTE | 2017-04-17 08:24 | EEG ---
DATE OF STUDY: 04/16/2017 This is a 16-channel electroencephalogram of awake and drowsy adult. During the study, photic stimulation was performed. Hyperventilation was not performed. The resting electroencephalogram consists of 7 to 9 hertz, high theta mixed with low alpha activity seen at parietal and occipital leads. Anteriorly, fast activity superimposed with 2 to 3 hertz delta activity seen, which consists of early drowsiness. The photic stimulation did not evoke driving response noted at 2 to 20 hertz. IMPRESSION: This is a mildly abnormal electroencephalogram for his age. However, during the study, neither electroencephalographic paroxysmal activities nor focal slowing noted. Cole Mota MD
[2017-04-17] MEDS: Enoxaparin 40 mg Syringe SC SCH (09:25)
[2017-04-17] MEDS: Tmp-Smz 800 mg-160 mg DS Tab PO SCH (09:25)
[2017-04-17] MEDS: Pantoprazole 40 mg EC Tab PO SCH (09:28)
[2017-04-17] MEDS: TRIUMEQ PO SCH (09:28)
[2017-04-17] MEDS: Sodium Chloride 0.9% 1,000 ML IV SCH (09:29)
--- NOTE | 2017-04-18 00:01 | CP.PCM.PN ---
Subjective - Date & Time of Evaluation Date of Evaluation: 04/17/17 Time of Evaluation: 08:00 - Subjective Subjective: patient is lethargic, received ramesh of ativan vitals- BP low normal side with HR 40-50. no fever .looks comfortable EEG-final report pending notes he feels better notes he is on pain meds for chronic pain due to back etc Objective - Vital Signs/Intake and Output Vital Signs (last 24 hours): Temp Pulse Resp BP Pulse Ox 98.2 F 72 18 94/59 L 98 04/17/17 18:41 04/17/17 18:41 04/17/17 18:41 04/17/17 18:41 04/17/17 18:41 Intake and Output: 04/17/17 04/18/17 18:59 06:59 Intake Total 250 Balance 250 - Medications Medications: Current Medications Albuterol/Ipratropium (Duoneb 3 Mg/0.5 Mg (3 Ml) Ud) 3 ml INH RQ6 PRN PRN Reason: Shortness of Breath Aspirin (Ecotrin) 81 mg PO DAILY [facility] Last Admin: 04/17/17 09:25 Dose: 81 mg Enoxaparin Sodium (Lovenox) 40 mg SC DAILY [facility] PRN Reason: Protocol Last Admin: 04/17/17 09:25 Dose: 40 mg Home Med (Patient's Own Medication) 1 unit PO DAILY [facility] Last Admin: 04/17/17 09:28 Dose: 1 unit Montelukast Sodium (Singulair) 10 mg PO DAILY [facility] Last Admin: 04/17/17 09:28 Dose: 10 mg Morphine Sulfate (Morphine Extended Release Tab) 30 mg PO Q8 [facility] Pantoprazole Sodium (Protonix Ec Tab) 40 mg PO DAILY [facility] Last Admin: 04/17/17 09:28 Dose: 40 mg Trimethoprim/Sulfamethoxazole (Bactrim Ds Tab) 1 tab PO DAILY [facility] Last Admin: 04/17/17 09:25 Dose: 1 tab - Labs Labs: 04/16/17 10:30 04/16/17 10:30 PT 10.8 Seconds (9.8-13.1) 04/16/17 00:05 INR 1.1 (0.9-1.2) 04/16/17 00:05 APTT 21.3 Seconds (25.6-37.1) L 04/16/17 00:05 - Additional Findings Additional findings: Appears: Positive for: Non-toxic, No Acute Distress, sleepy Head Exam: Positive for: ATRAUMATIC. Negative for: NORMOCEPHALIC ,cachexia Eye Exam: Positive for: Normal appearance, EOMI, PERRL (PERRLA) Neck: Positive for: Normal ,no carotid bruit . Cardiovascular/Chest: Positive for: Regular Rate, Rhythm, Chest Non Tender. Negative for: Murmur Respiratory: Positive for: Normal Breath Sounds. Negative for: Respiratory Distress, wheezing, rhonchi etc Gastrointestinal/Abdominal: Positive for: Normal Exam, Soft, BM2 + Negative for : Tenderness Extremity: Positive for: Normal ROM. Negative for: Deformity Neurologic/Psych: Positive for: Alert, Oriented (x3). Negative for: Motor/ Sensory Deficits kyphosis noted Assessment and Plan (1) Altered mental state Status: Resolved (2) Dehydration Status: Acute (3) Cachexia associated with AIDS Status: Chronic (4) Chronic pain syndrome Status: Chronic - Assessment and Plan (Free Text) Plan: continue IVF encourage PO reports pending labs noted d\w partner - in detail so far work up negative PT evaluvation when he is more alert
[2017-04-18] MEDS: Morphine 15 mg SR Tab PO SCH ×3 (01:07→18:08)
[2017-04-18] MEDS ORDERED: Patient's Own Med (Abacavir/Dolutegravir/Lamivudi [Triumeq Tablet] 1 TAB) PO SCH (09:00)
--- NOTE | 2017-04-18 09:04 | PQF HIV ---
This form is a permanent part of the medical record 04/18/17 Dr. 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 ( Lymphoma per the ER MD ) . Would you please further clarify the diagnosis of HIV under the physician response. Clarification of your documentation is requested to better reflect the severity of illness and intensity of treatment of your patient. Indicators present [x] Documented diagnosis of HIV [] CD4 count: [] [] Other: [] Location in the medical record that reflects the above clinical findings: [] Other Treatment Provided: [x] Medication PHYSICIAN'S RESPONSE If possible, based on your medical judgment, please clarify the clinical classification for this patient. [] Asymptomatic HIV Status: without any history of (or current) AIDS Defining Illnesses of HIV-Related Illness [] AIDS: Meets the current CDC Definition of AIDS HIV-Infected persons who HAVE OR HAVE HAD less than 200 CD4+ T-lymphocytes/uL or CD4+ T-lymphocyte percentage of total lymphocytes of less than 14, AND/OR an AIDS-Defining or HIV-Related Disease. See reverse side for examples. Per CDC publication Vol 60 RR-17 : Relating to the classification HIV Infection , once a patient is diagnosed with AIDS the diagnosis still stands even if, after treatment, the CD4+ T cell count rises above 200 per uL of blood or other AIDS-defining illnesses are cured. [] If unable to determine, please check the box, sign and date. In responding to this query, please exercise your independent professional judgment. The fact that a question is asked does not imply that any particular answer is desired or expected. Thank you for your clarification on this documentation. If you have any questions please call:extension [phone] * Thank you, Chyna Rosenbaum RN CDMP The following are AIDS-Defining Illnesses or HIV-Related Diseases: Candidiasis of bronchi, trachea, or lungs Candidiasis, esophageal Cervical cancer, invasive * Coccidioidomycosis, disseminated or extrapulmonary Cryptococcosis, extrapulmonary Cryptosporidiosis, chronic intestinal (greater than 1 month's duration) Cytomegalovirus disease (other than liver, spleen, or nodes) Cytomegalovirus retinitis (with loss of vision) Encephalopathy, HIV-related Herpes simplex: chronic ulcer(s) (greater than 1 month's duration); or bronchitis, pneumonitis, or esophagitis Histoplasmosis, disseminated or extrapulmonary Isosporiasis, chronic intestinal (greater than 1 month's duration) Kaposi's sarcoma Lymphoma, Burkitt's (or equivalent term) Lymphoma, immunoblastic (or equivalent term) Lymphoma, primary, of brain Mycobacterium avium complex or M. 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
[2017-04-18] MEDS: Tmp-Smz 800 mg-160 mg DS Tab PO SCH (09:19)
[2017-04-18] MEDS: Enoxaparin 40 mg Syringe SC SCH (09:19)
[2017-04-18] MEDS: Pantoprazole 40 mg EC Tab PO SCH (09:20)
[2017-04-18] MEDS: TRIUMEQ PO SCH (09:20)
[2017-04-18] MEDS: Megestrol Acetate 40 mg/ml Cup PO SCH (11:25)
--- NOTE | 2017-04-19 00:17 | CP.PCM.PN ---
Subjective - Date & Time of Evaluation Date of Evaluation: 04/19/17 Time of Evaluation: 09:00 - Subjective Subjective: standing and combing his hair in bathroom feels better labs noted consults reviewed d\w patient -he also does not know CD 4 count, he is complaint to meds tolerating diet Objective - Vital Signs/Intake and Output Vital Signs (last 24 hours): Temp Pulse Resp BP Pulse Ox 98.3 F 67 20 125/75 99 04/18/17 23:48 04/18/17 23:48 04/18/17 23:48 04/18/17 23:48 04/18/17 23:48 - Medications Medications: Current Medications Albuterol/Ipratropium (Duoneb 3 Mg/0.5 Mg (3 Ml) Ud) 3 ml INH RQ6 PRN PRN Reason: Shortness of Breath Aspirin (Ecotrin) 81 mg PO DAILY [facility] Last Admin: 04/18/17 09:19 Dose: 81 mg Baclofen (Lioresal) 10 mg PO TID [facility] Enoxaparin Sodium (Lovenox) 40 mg SC DAILY [facility] PRN Reason: Protocol Last Admin: 04/18/17 09:19 Dose: Not Given Home Med (Patient's Own Medication) 1 unit PO DAILY [facility] Last Admin: 04/18/17 09:20 Dose: 1 unit Home Med (Abacavir/Dolutegravir/Lamivudi [Triumeq Tablet]) 1 tab PO DAILY [facility] Megestrol Acetate (Megace) 400 mg PO DAILY [facility] Last Admin: 04/18/17 11:25 Dose: 400 mg Montelukast Sodium (Singulair) 10 mg PO DAILY [facility] Last Admin: 04/18/17 09:20 Dose: 10 mg Morphine Sulfate (Morphine Extended Release Tab) 30 mg PO Q8 [facility] Last Admin: 04/18/17 18:08 Dose: 30 mg Pantoprazole Sodium (Protonix Ec Tab) 40 mg PO DAILY [facility] Last Admin: 04/18/17 09:20 Dose: 40 mg Trimethoprim/Sulfamethoxazole (Bactrim Ds Tab) 1 tab PO DAILY [facility] Last Admin: 04/18/17 09:19 Dose: 1 tab - Labs Labs: 04/16/17 10:30 04/16/17 10:30 PT 10.8 Seconds (9.8-13.1) 04/16/17 00:05 INR 1.1 (0.9-1.2) 04/16/17 00:05 APTT 21.3 Seconds (25.6-37.1) L 04/16/17 00:05 - Additional Findings Additional findings: Appears: Positive for: Non-toxic, No Acute Distress, sleepy Head Exam: Positive for: ATRAUMATIC. Negative for: NORMOCEPHALIC ,cachexia Eye Exam: Positive for: Normal appearance, EOMI, PERRL (PERRLA) Neck: Positive for: Normal ,no carotid bruit . Cardiovascular/Chest: Positive for: Regular Rate, Rhythm, Chest Non Tender. Negative for: Murmur Respiratory: Positive for: Normal Breath Sounds. Negative for: Respiratory Distress, wheezing, rhonchi etc Gastrointestinal/Abdominal: Positive for: Normal Exam, Soft, BM2 + Negative for : Tenderness Extremity: Positive for: Normal ROM. Negative for: Deformity Neurologic/Psych: Positive for: Alert, Oriented (x3). 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 continue all meds.
[2017-04-19] MEDS: Morphine 15 mg SR Tab PO SCH ×2 (02:45→09:00)
[2017-04-19 07:53] VITALS: O2SAT 100
[2017-04-19] MEDS: Tmp-Smz 800 mg-160 mg DS Tab PO SCH (08:57)
[2017-04-19] MEDS: Enoxaparin 40 mg Syringe SC SCH (08:57)
[2017-04-19] MEDS: Megestrol Acetate 40 mg/ml Cup PO SCH (08:58)
[2017-04-19] MEDS: TRIUMEQ PO SCH (08:58)
[2017-04-19] MEDS: Pantoprazole 40 mg EC Tab PO SCH (08:58)
[2017-04-19 16:12] VITALS: BP 111/73; PULSE 82; RESP 16; TEMP 97.9
--- NOTE | 2017-04-19 22:42 | CP.PCM.DIS ---
Provider - Provider Date of Admission: 04/17/17 07:59 Attending physician: Briana Hirsch MD Time Spent in preparation of Discharge (in minutes): 30 Hospital Course - Lab Results Lab Results: Micro Results 04/17/17 13:08 Nose MRSA Culture (Admit) - Final MRSA NOT DETECTED 04/16/17 Unknown Naris MRSA Culture (Admit) - Final MRSA NOT DETECTED Most Recent Lab Values WBC 4.6 K/uL (4.8-10.8) L 04/16/17 10:30 RBC 3.51 Mil/uL (4.40-5.90) L 04/16/17 10:30 Hgb 10.2 g/dL (12.0-18.0) L 04/16/17 10:30 Hct 30.4 % (35.0-51.0) L 04/16/17 10:30 MCV 86.7 fl (80.0-94.0) D 04/16/17 10:30 MCH 29.1 pg (27.0-31.0) 04/16/17 10:30 MCHC 33.5 g/dL (33.0-37.0) 04/16/17 10:30 RDW 12.9 % (11.5-14.5) 04/16/17 10:30 Plt Count 134 K/uL (130-400) 04/16/17 10:30 MPV 8.6 fl (7.2-11.7) 04/16/17 00:49 Neut % (Auto) 36.9 % (50.0-75.0) L 04/16/17 00:49 Lymph % (Auto) 46.3 % (20.0-40.0) H 04/16/17 00:49 [place] % (Auto) 6.8 % (0.0-10.0) 04/16/17 00:49 Eos % (Auto) 8.9 % (0.0-4.0) H 04/16/17 00:49 Baso % (Auto) 1.1 % (0.0-2.0) 04/16/17 00:49 Neut # 1.9 K/uL (1.8-7.0) 04/16/17 00:49 Lymph # 2.4 K/uL (1.0-4.3) 04/16/17 00:49 Bacon # 0.4 K/uL (0.0-0.8) 04/16/17 00:49 Eos # 0.5 K/uL (0.0-0.7) 04/16/17 00:49 Baso # 0.1 K/uL (0.0-0.2) 04/16/17 00:49 PT 10.8 Seconds (9.8-13.1) 04/16/17 00:05 INR 1.1 (0.9-1.2) 04/16/17 00:05 APTT 21.3 Seconds (25.6-37.1) L 04/16/17 00:05 Sodium 140 mmol/l (132-148) 04/16/17 10:30 Potassium 4.0 MMOL/L (3.6-5.0) 04/16/17 10:30 Chloride 107 mmol/L (98-107) 04/16/17 10:30 Carbon Dioxide 26 mmol/L (22-30) 04/16/17 10:30 Anion Gap 12 (10-20) 04/16/17 10:30 BUN 17 mg/dl (9-20) 04/16/17 10:30 Creatinine 0.8 mg/dL (0.8-1.5) 04/16/17 10:30 Est GFR ( Amer) > 60 04/16/17 10:30 Est GFR (Non-Af Amer) > 60 04/16/17 10:30 Random Glucose 81 mg/dL (75-110) 04/16/17 10:30 Hemoglobin A1c 5.8 % (4.2-6.5) 04/16/17 00:49 Calcium 8.3 mg/dL (8.4-10.2) L 04/16/17 10:30 Total Bilirubin 0.5 mg/dl (0.2-1.3) 04/16/17 10:30 AST 35 U/L (17-59) 04/16/17 10:30 ALT 29 U/L (21-72) 04/16/17 10:30 Alkaline Phosphatase 75 U/L (38-126) 04/16/17 10:30 Total Creatine Kinase 89 U/L (55-170) 04/16/17 10:30 Troponin I < 0.0120 ng/mL (0.00-0.120) 04/16/17 00:49 Total Protein 6.2 G/DL (6.3-8.2) L 04/16/17 10:30 Albumin 3.6 g/dL (3.5-5.0) 04/16/17 10:30 Globulin 2.6 gm/dL (2.2-3.9) 04/16/17 10:30 Albumin/Globulin Ratio 1.3 (1.0-2.1) 04/16/17 10:30 Triglycerides 111 mg/DL (0-149) D 04/16/17 00:49 Cholesterol 134 mg/dL (0-199) 04/16/17 00:49 LDL Cholesterol Direct 51 mg/dL (0-129) 04/16/17 00:49 HDL Cholesterol 56 MG/DL (30-70) 04/16/17 00:49 TSH 3rd Generation 1.37 mIU/ML (0.46-4.68) 04/16/17 10:30 HIV-1 RNA Qnt (RT-PCR) 4.45 (<1.30) H 04/16/17 10:30 - Hospital Course Hospital Course: improved notes he has social issues at home refused PT -2 days again his partner made him to get PT- advise rolling walker. Discharge Exam - Head Exam Head Exam: ATRAUMATIC, NORMAL INSPECTION, NORMOCEPHALIC - Additional Findings Additional findings: Appears: Positive for: Non-toxic, No Acute Distress, Head Exam: Positive for: ATRAUMATIC. Negative for: NORMOCEPHALIC ,cachexia Eye Exam: Positive for: Normal appearance, EOMI, PERRL (PERRLA) Neck: Positive for: Normal ,no carotid bruit . Cardiovascular/Chest: Positive for: Regular Rate, Rhythm, Chest Non Tender. Negative for: Murmur Respiratory: Positive for: Normal Breath Sounds. Negative for: Respiratory Distress, wheezing, rhonchi etc Gastrointestinal/Abdominal: Positive for: Normal Exam, Soft, BM2 + Negative for : Tenderness Extremity: Positive for: Normal ROM. Negative for: Deformity Neurologic/Psych: Positive for: Alert, Oriented (x3). Negative for: Motor/ Sensory Deficits kyphosis noted Discharge Plan - Discharge Medications Prescriptions: Aspirin [Ecotrin] 81 mg PO DAILY #30 tabec Baclofen [Lioresal] 10 mg PO TID #60 tab Megestrol Acetate [Megace] 400 mg PO DAILY #14 cup - Follow Up Plan Condition: STABLE Disposition: HOME/ ROUTINE Instructions: Dehydration (DC), Weakness (GEN) Additional Instructions: patient doing well today, ambulating in room with cane denies sob, dizziness, weakness fever or chills Refusing PT eval pt. cleared by and for discharge to Home today pt. will f/u with PMD / ID in 1 week
== END 2017-04-19 18:00 | disposition home or self-care (01) | DRG 977 ==
LOC: H.ER 00:01 → H.ERHOLD 01:40 → H.ICU/CCU 05:20 → OBSVTOIN 04-17 07:59 → H.TEL 04-17 12:17
PROVIDERS: ADMIT Internal Medicine; ATTEND Internal Medicine
PROC: 3E0234Z Introduction of Serum, Toxoid and Vaccine into Muscle, Percutaneous Approach (ICD-10-PCS; principal; 2017-04-17)
DX: E86.0 Dehydration (principal); B20 Human immunodeficiency virus [HIV] disease; R64 Cachexia; Z68.1 Body mass index [BMI] 19.9 or less, adult; R62.7 Adult failure to thrive; G89.4 Chronic pain syndrome; J45.909 Unspecified asthma, uncomplicated; M81.0 Age-related osteoporosis without current pathological fracture; Z85.841 Personal history of malignant neoplasm of brain; Z23 Encounter for immunization; F32.9 Major depressive disorder, single episode, unspecified; G62.9 Polyneuropathy, unspecified; Z85.72 Personal history of non-Hodgkin lymphomas

== ENCOUNTER 2018-04-23 16:57 | Inpatient (IN) | payer MEDICAID, MEDICARE ==
[2018-04-23 16:57] VITALS: BMI 19.9
[2018-04-23] MEDS ORDERED: Albuterol-Ipratrop 3 mg / 0.5 (3 ml) UD INH STA (17:37)
[2018-04-23] MEDS ORDERED: Sodium Chloride 0.9% 500 ML IV STA (17:37)
[2018-04-23] MEDS ORDERED: Albuterol 0.083% Inhal Sol (2.5 mg/3 mL) UD INH STA (17:38)
[2018-04-23] MEDS ORDERED: Albuterol-Ipratrop 3 mg / 0.5 (3 ml) UD IH STA (17:38)
--- NOTE | 2018-04-23 17:44 | ED PDOC ---
HPI: CCC, URI, Sore Throat Time Seen by Provider: 04/23/18 17:26 Chief Complaint (Nursing): Fever Chief Complaint (Provider): Cough History Per: Patient History/Exam Limitations: no limitations Onset/Duration Of Symptoms: Days (1 week) Current Symptoms Are (Timing): Still Present Additional Complaint(s): Pt. with cough, congestion, runny nose, yellow phlegm. Weakness all over. No abd pain, nausea, vomit, diarrhea. No chest pain. No fever. 1 week ago also accidentally slipped and hurt his back. No numbness, tingles. No incontinence or constipation. Ambulating since. Takes morphine for a long time for chronic pain in the back. No head injury. No dizziness. Past Medical History Reviewed: Nursing Documentation, Vital Signs Vital Signs: Last Vital Signs Temp 98.3 F 04/23/18 17:19 Pulse 79 04/23/18 17:19 Resp 16 04/23/18 17:19 BP 106/70 04/23/18 17:19 Pulse Ox 96 04/23/18 17:19 - Medical History PMH: Arthritis, Asthma, Back Problems (Fractured vertebrae, kyphosis scoliosis), Depression, Fractures, Gastritis, HIV, Malignancy (brain CA), Osteoporosis, Pneumonia Denies: CHF, COPD, HTN, Hypercholesterolemia, Hypothyroidism, Kidney Stones, Chronic Kidney Disease, Rheumatoid Arthritis - Surgical History Surgical History: Appendectomy, Tonsillectomy - Family History Family History: States: Unknown Family Hx - Living Arrangements Living Arrangements: With Family - Social History Alcohol: None Drugs: Denies - Immunization History Hx Influenza Vaccination: Yes - Home Medications Home Medications: Ambulatory Orders Medication Instructions Recorded Montelukast [Singulair] 10 mg PO DAILY 09/21/15 Ipratropium/Albuterol Sulfate 1 puff IH QID PRN 10/12/15 [Combivent Respimat 20-100 Mcg] Abacavir/Dolutegravir/Lamivudi 1 tab PO DAILY 03/27/16 [Triumeq Tablet] Albuterol Sulfate [Proair Hfa] 2 puff INH Q6H PRN 03/27/16 Ranitidine HCl [Zantac] 300 mg PO DAILY 03/27/16 Morphine [Morphine Extended 30 mg PO Q8 12/03/16 Release Tab] Sulfamethoxazole/Trimethoprim 1 tab PO DAILY tab 12/03/16 [Bactrim DS Tab] Aspirin [Ecotrin] 81 mg PO DAILY #30 tabec 04/18/17 Megestrol Acetate [Megace] 400 mg PO DAILY #14 cup 04/18/17 Baclofen [Lioresal] 10 mg PO TID #60 tab 04/19/17 - Allergies Allergies/Adverse Reactions: Allergies Allergy/AdvReac Type Severity Reaction Status Date / Time No Known Allergies Allergy Verified 04/23/18 17:19 Review of Systems ROS Statement: Except As Marked, All Systems Reviewed And Found Negative Respiratory: Positive for: Cough, Shortness of Breath, Sputum, Wheezing Musculoskeletal: Positive for: Back Pain Physical Exam - Reviewed Nursing Documentation Reviewed: Yes Vital Signs Reviewed: Yes - Physical Exam Appears: Positive for: Non-toxic, No Acute Distress Head Exam: Positive for: ATRAUMATIC, NORMAL INSPECTION, NORMOCEPHALIC Skin: Positive for: Normal Color, Warm, DRY Eye Exam: Positive for: EOMI, Normal appearance, PERRL ENT: Positive for: Nasal Congestion. Negative for: Pharyngeal Erythema, Tonsillar Exudate Neck: Positive for: Normal, Painless ROM, Supple Cardiovascular/Chest: Positive for: Regular Rate, Rhythm. Negative for: Edema Respiratory: Positive for: Decreased Breath Sounds, Wheezing (L>R with coarse sounds). Negative for: Accessory Muscle Use Gastrointestinal/Abdominal: Positive for: Normal Exam, Soft. Negative for: Tenderness Back: Positive for: Normal Inspection. Negative for: L CVA Tenderness, R CVA Tenderness, Vertebral Tenderness Extremity: Positive for: Normal ROM. Negative for: Tenderness, Pedal Edema Neurologic/Psych: Positive for: Alert, olap developer II-XII, Oriented. Negative for: Motor/Sensory Deficits - Laboratory Results Result Diagrams: 04/23/18 17:00 - ECG O2 Sat by Pulse Oximetry: 96 Pulse Ox Interpretation: Normal - Progress ED Course And Treament: 1845: Dr. Gomez to take over care and fu on labs and imaging. Disposition - Clinical Impression Clinical Impression: Cough - Patient ED Disposition Is Patient to be Admitted: Transfer of Care - Disposition Disposition: Transfer of Care Disposition Time: 18:45 Condition: FAIR Patient Signed Over To: Pepito Gomez
[2018-04-23] MEDS ORDERED: Albuterol 0.083% Inhal Sol (2.5 mg/3 mL) UD ONE (18:03)
[2018-04-23] MEDS ORDERED: Morphine 4 MG/ML VIAL ONE (18:03)
[2018-04-23] MEDS ORDERED: Albuterol-Ipratrop 3 mg / 0.5 (3 ml) UD ONE (18:04)
[2018-04-23 18:05] LABS: BASO % 0.5 % (0.0-2.0); EOS % 0.5 % (0.0-4.0); HEMOGLOBIN 10.6 g/dL (12.0-18.0); LYMPH # 1.2 K/uL (1.0-4.3); LYMPH % 14.4 % (20.0-40.0); MEAN CELL VOLUME 90.1 fl (80.0-94.0); MEAN CORPUSCULAR HGB CONC 33.3 g/dL (33.0-37.0); MEAN PLATELET VOLUME 7.7 fl (7.2-11.7); MONO # 0.7 K/uL (0.0-0.8); MONO % 7.7 % (0.0-10.0); NEUT # 6.6 K/uL (1.8-7.0); NEUT % 76.9 % (50.0-75.0); RBC 3.51 Mil/uL (4.40-5.90); RED CELL DISTRIBUTION WIDTH 14.8 % (11.5-14.5); WHITE BLOOD COUNT 8.6 K/uL (4.8-10.8)
[2018-04-23 19:01] LABS: ABG ALLEN TEST YES; ARTERIAL BLOOD GAS HCO3 26.2 mmol/L (21-28); ARTERIAL BLOOD GAS O2 SAT 96.6 % (95-98); ARTERIAL BLOOD GAS PCO2 38 mm/Hg (35-45); ARTERIAL BLOOD GAS PH 7.44 (7.35-7.45); ARTERIAL BLOOD GAS PO2 73 mm/Hg (80-100)
[2018-04-23 19:06] LABS: BASO % 0.5 % (0.0-2.0); EOS % 0.3 % (0.0-4.0); HEMOGLOBIN 10.2 g/dL (12.0-18.0); LYMPH # 2.5 K/uL (1.0-4.3); LYMPH % 27.9 % (20.0-40.0); MEAN CELL VOLUME 90.8 fl (80.0-94.0); MEAN CORPUSCULAR HEMOGLOBIN 30.2 pg (27.0-31.0); MEAN CORPUSCULAR HGB CONC 33.3 g/dL (33.0-37.0); MEAN PLATELET VOLUME 7.7 fl (7.2-11.7); MONO # 0.7 K/uL (0.0-0.8); MONO % 7.4 % (0.0-10.0); NEUT # 5.7 K/uL (1.8-7.0); NEUT % 63.9 % (50.0-75.0); RBC 3.38 Mil/uL (4.40-5.90); RED CELL DISTRIBUTION WIDTH 14.6 % (11.5-14.5); WHITE BLOOD COUNT 8.9 K/uL (4.8-10.8)
[2018-04-23 19:11] LABS: INR 1.2; PROTHROMBIN TIME 13.3 Seconds (9.8-13.1)
[2018-04-23 19:13] LABS: PARTIAL THROMBOPLASTIN TIME 37.5 Seconds (25.6-37.1)
[2018-04-23 19:14] LABS: ALB/GLOB RATIO 0.9 (1.0-2.1); ALBUMIN 3.7 g/dL (3.5-5.0); ALT/SGPT 25 U/L (21-72); AST/SGOT 34 U/L (17-59); BLOOD UREA NITROGEN 11 mg/dl (9-20); CALCIUM 8.9 mg/dL (8.4-10.2); GFR NON-AFRICAN AMERICAN > 60
[2018-04-23 20:02] LABS: B-TYPE NATRIURETIC PEPTIDE 584 pg/ml (0-900)
[2018-04-23] MEDS ORDERED: cefTRIAXone 2 GM in Sodium Chloride 0.9% 100 ML IVPB STA (22:09)
[2018-04-23] MEDS ORDERED: Azithromycin 500 MG in Sodium Chloride 0.9% 250 ML IVPB STA (22:09)
[2018-04-23] MEDS ORDERED: Tmp-Smz 800 mg-160 mg DS Tab PO STA (22:10)
[2018-04-23] MEDS ORDERED: Sodium Chloride 0.9% 1,000 ML IV STA (22:11)
[2018-04-23] MEDS ORDERED: Azithromycin 500 MG IV IVPB ONE (22:26)
[2018-04-23] MEDS ORDERED: Tmp-Smz 800 mg-160 mg DS Tab ONE (22:27)
[2018-04-24] MEDS: Sodium Chloride 0.9% 1,000 ML IV SCH ×2 (01:26→13:04)
[2018-04-24] MEDS: Albuterol-Ipratrop 3 mg / 0.5 (3 ml) UD INH SCH ×4 (02:00→19:35)
[2018-04-24] MEDS: Morphine 15 mg Immediate Release Tab PO SCH ×3 (06:10→22:03)
[2018-04-24] MEDS: Morphine 30 mg SR Tab PO SCH ×3 (06:10→16:58)
[2018-04-24 06:46] LABS: MEAN CELL VOLUME 90.3 fl (80.0-94.0); MEAN CORPUSCULAR HEMOGLOBIN 30.2 pg (27.0-31.0); MEAN CORPUSCULAR HGB CONC 33.5 g/dL (33.0-37.0); RBC 3.31 Mil/uL (4.40-5.90); RED CELL DISTRIBUTION WIDTH 14.6 % (11.5-14.5); WHITE BLOOD COUNT 6.3 K/uL (4.8-10.8)
[2018-04-24 07:28] LABS: ALB/GLOB RATIO 0.8 (1.0-2.1); ALBUMIN 3.5 g/dL (3.5-5.0); ALT/SGPT 21 U/L (21-72); AST/SGOT 28 U/L (17-59); BLOOD UREA NITROGEN 6 mg/dl (9-20); CALCIUM 8.8 mg/dL (8.4-10.2); GFR NON-AFRICAN AMERICAN > 60
[2018-04-24] MEDS: VIT D PO SCH (08:47)
[2018-04-24] MEDS: Patient's Own Med (Abacavir/Dolutegravir/Lamivudi [Triumeq Tablet] 1 TAB) PO SCH (08:47)
[2018-04-24] MEDS: CALCIUM PO SCH (08:47)
[2018-04-24] MEDS: Azithromycin 500 MG in Sodium Chloride 0.9% 250 ML IVPB SCH (08:51)
--- NOTE | 2018-04-24 08:57 | CP.PCM.HP ---
<Esteban Warner - Last Filed: 04/24/18 11:15> History of Present Illness - History of Present Illness History of Present Illness: Pt is a 57 y/o male with pmhx significant for AIDS, Brain lymphoma (s/p resection and chemo), Asthma, and GERD presented to hospital with symptoms of sob,non productive cough, night sweats, and weakness x 1 week. He denied chest pain, fevers, headache, N/V, diarrhea, abdominal pain, sick contacts, recent travel. PMD: Dr. Mani Acosta, Infectious Disease, [place] PMHX: Asthma (well controlled), AIDS (has had HIV for 40 years, taking Triumeq and Bactrim for ppx, Complaint, states last CD4 was 2 but was told viral load was undetectable), GERD, Brain Lymphoma w/ resection and 11 rounds of chemo in 1991 Hospitalizations: Has had multiple hospitalizations for pnemonia in the past 2 years Social: Former smoker, quit in 1996, homosexual, denies illicit drug use ER Course: -Chest CT: Diffuse Atypical Pneumonia, R. Basilar scarring, BL lower lobes Bronchiectasis, Fibronodular scarring -Labs: No leukocytosis, Microcytic anemia Hg 10.6, CMP unremarkable -S/P Melthylprednisolone 125mg, Bolus 1L IV Fluids, Rocephin, Azithro, Blood Cx taken, Bronchodilator treatments -Influenza negative -Last CD 4 (2016) - 4 Present on Admission - Present on Admission Any Indicators Present on Admission: No Past Patient History - Infectious Disease Hx of Infectious Diseases: None - Past Medical History & Family History Past Medical History?: Yes - Past Social History Smoking Status: Never Smoked - CARDIAC Hx Cardiac Disorders: No Hx Congestive Heart Failure: No Hx Hypercholesterolemia: No Hx Hypertension: No - PULMONARY Hx Respiratory Disorders: Yes Hx Asthma: Yes Hx Chronic Obstructive Pulmonary Disease (COPD): No Hx Pneumonia: Yes - NEUROLOGICAL Hx Neurological Disorder: Yes HX Cerebrovascular Accident: No Other/Comment: Brain Ca - HEENT Hx HEENT Problems: Yes Hx Blind: No Hx Cataracts: Yes Hx Deafness: Yes (B/L [place]) Hx Difficulty Chewing: No Hx Epistaxis: No Hx Glaucoma: No Hx Macular Degeneration: No Other/Comment: impaired hearing, used to have Left and right hearing aid years ago. - RENAL Hx Chronic Kidney Disease: No - ENDOCRINE/METABOLIC Hx Endocrine Disorders: No Hx Hypothyroidism: No - HEMATOLOGICAL/ONCOLOGICAL Hx Blood Disorders: Yes Hx Human Immunodeficiency Virus (HIV): Yes - INTEGUMENTARY Hx Dermatological Problems: No - MUSCULOSKELETAL/RHEUMATOLOGICAL Hx Musculoskeletal Disorders: Yes Hx Arthritis: Yes Hx Falls: Yes Hx Fractures: Yes Hx Osteoporosis: Yes Hx Rheumatoid Arthritis: No - GASTROINTESTINAL Hx Gastrointestinal Disorders: Yes Hx Gastritis: Yes - GENITOURINARY/GYNECOLOGICAL Hx Genitourinary Disorders: No - PSYCHIATRIC Hx Psychophysiologic Disorder: Yes Hx Depression: Yes Hx Substance Use: No - SURGICAL HISTORY Hx Surgeries: Yes Hx Appendectomy: Yes Hx Tonsillectomy: Yes - ANESTHESIA Hx Anesthesia: Yes Hx Anesthesia Reactions: No Hx Malignant Hyperthermia: No Meds Allergies/Adverse Reactions: Allergies Allergy/AdvReac Type Severity Reaction Status Date / Time No Known Allergies Allergy Verified 04/23/18 17:19 Physical Exam - Constitutional Appears: No Acute Distress, Older Than Stated Age, Chronically Ill - Head Exam Head Exam: ATRAUMATIC, NORMAL INSPECTION - Eye Exam Eye Exam: Normal appearance - ENT Exam ENT Exam: Mucous Membranes Moist - Neck Exam Neck exam: Positive for: Full Rom - Respiratory Exam Respiratory Exam: Decreased Breath Sounds, Rales (Diffuseley scattered), Rhonchi. absent: Wheezes, Stridor Additional comments: Intermittent cough with minimal yellow sputum production. Mildly labored breathing. - Cardiovascular Exam Cardiovascular Exam: REGULAR RHYTHM, +S1, +S2 - GI/Abdominal Exam GI & Abdominal Exam: Normal Bowel Sounds, Soft. absent: Tenderness - Extremities Exam Extremities exam: Positive for: normal inspection. Negative for: pedal edema - Back Exam Back exam: NORMAL INSPECTION. absent: vertebral tenderness - Neurological Exam Neurological exam: Alert, Oriented x3 - Psychiatric Exam Psychiatric exam: Normal Affect - Skin Skin Exam: Pallor Results - Vital Signs Recent Vital Signs: Last Vital Signs Temp 97.8 F 04/24/18 08:08 Pulse 64 04/24/18 08:24 Resp 19 04/24/18 08:08 BP 115/71 04/24/18 08:08 Pulse Ox 96 04/24/18 08:08 - Labs Result Diagrams: 04/24/18 06:00 04/24/18 06:00 Labs: Laboratory Results - last 24 hr 04/23/18 04/23/18 04/23/18 17:00 18:00 18:46 WBC 8.6 D RBC 3.51 L Hgb 10.6 L Hct 31.7 L MCV 90.1 D MCH 30.0 MCHC 33.3 RDW 14.8 H Plt Count 441 H D MPV 7.7 Neut % (Auto) 76.9 H Lymph % (Auto) 14.4 L [place] % (Auto) 7.7 Eos % (Auto) 0.5 Baso % (Auto) 0.5 Neut # (Auto) 6.6 Lymph # (Auto) 1.2 [place] # (Auto) 0.7 Eos # (Auto) 0.0 Baso # (Auto) 0.0 PT INR APTT pCO2 pO2 HCO3 ABG pH ABG Total CO2 ABG O2 Saturation ABG Base Excess Shawn Test ABG Potassium A-a O2 Difference Glucose Lactate FiO2 Sodium 143 Potassium 4.0 Chloride 104 Carbon Dioxide 30 Anion Gap 13 BUN 11 Creatinine 0.7 L Est GFR ( Amer) > 60 Est GFR (Non-Af Amer) > 60 Random Glucose 89 Calcium 8.9 Total Bilirubin 0.4 AST 34 ALT 25 Alkaline Phosphatase 134 H D Troponin I < 0.0120 NT-Pro-B Natriuret Pep 584 Total Protein 7.9 Albumin 3.7 Globulin 4.3 H Albumin/Globulin Ratio 0.9 L Arterial Blood Potassium Influenza Typ A,B (EIA) Negative for flu a/b 04/23/18 04/23/18 04/23/18 18:46 18:46 18:58 WBC 8.9 RBC 3.38 L Hgb 10.2 L Hct 30.7 L MCV 90.8 MCH 30.2 MCHC 33.3 RDW 14.6 H Plt Count 426 H MPV 7.7 Neut % (Auto) 63.9 Lymph % (Auto) 27.9 [place] % (Auto) 7.4 Eos % (Auto) 0.3 Baso % (Auto) 0.5 Neut # (Auto) 5.7 Lymph # (Auto) 2.5 [place] # (Auto) 0.7 Eos # (Auto) 0.0 Baso # (Auto) 0.0 PT 13.3 H INR 1.2 APTT 37.5 H pCO2 38 pO2 73 L HCO3 26.2 ABG pH 7.44 ABG Total CO2 27.0 ABG O2 Saturation 96.6 ABG Base Excess 1.7 Shawn Test Yes ABG Potassium 3.3 L A-a O2 Difference 29.0 Glucose 96 Lactate 1.0 FiO2 21.0 Sodium 137.0 Potassium Chloride 107.0 Carbon Dioxide Anion Gap BUN Creatinine Est GFR ( Amer) Est GFR (Non-Af Amer) Random Glucose Calcium Total Bilirubin AST ALT Alkaline Phosphatase Troponin I NT-Pro-B Natriuret Pep Total Protein Albumin Globulin Albumin/Globulin Ratio Arterial Blood Potassium 3.3 L Influenza Typ A,B (EIA) 04/24/18 04/24/18 06:00 06:00 WBC 6.3 RBC 3.31 L Hgb 10.0 L Hct 29.9 L MCV 90.3 MCH 30.2 MCHC 33.5 RDW 14.6 H Plt Count 403 H MPV Neut % (Auto) Lymph % (Auto) [place] % (Auto) Eos % (Auto) Baso % (Auto) Neut # (Auto) Lymph # (Auto) [place] # (Auto) Eos # (Auto) Baso # (Auto) PT INR APTT pCO2 pO2 HCO3 ABG pH ABG Total CO2 ABG O2 Saturation ABG Base Excess Shawn Test ABG Potassium A-a O2 Difference Glucose Lactate FiO2 Sodium 144 Potassium 4.5 Chloride 108 H Carbon Dioxide 27 Anion Gap 14 BUN 6 L Creatinine 0.5 L Est GFR ( Amer) > 60 Est GFR (Non-Af Amer) > 60 Random Glucose 114 H Calcium 8.8 Total Bilirubin 0.2 AST 28 ALT 21 Alkaline Phosphatase 118 Troponin I NT-Pro-B Natriuret Pep Total Protein 7.7 Albumin 3.5 Globulin 4.2 H Albumin/Globulin Ratio 0.8 L Arterial Blood Potassium Influenza Typ A,B (EIA) Assessment & Plan - Assessment and Plan (Free Text) Assessment: Pt is a 57 y/o male with pmhx significant for AIDS, Brain lymphoma (s/p resection and chemo), Asthma, and GERD presented to hospital with symptoms of sob and weakness in setting of URI symptoms, admitted for Atypical Pneumonia. #Atypical Pneumonia, acute -C/W ABX Ceftrixone and Azithromycin -ID Consulted #SOB, acute -Likely due to pneumonia exacerbating significant lung disease as noted on Chest CT. -not much improvement since the night before as per patient -C/W bronchodilators treatments -Pulmonology Consulted #AIDS, HIV, Chronic -Will continue home medication if formulary, Triumeq -CD4/8 and viral load Discussed Case with Dr. Alok Warner, PGY2 <Sergey Dickinson - Last Filed: 04/24/18 17:30> Results - Vital Signs Recent Vital Signs: Last Vital Signs Temp 98.3 F 04/24/18 15:55 Pulse 83 04/24/18 15:55 Resp 20 04/24/18 15:55 BP 90/56 L 04/24/18 15:55 Pulse Ox 94 L 04/24/18 15:55 - Labs Result Diagrams: 04/24/18 06:00 04/24/18 06:00 Labs: Laboratory Results - last 24 hr 04/23/18 04/23/18 04/23/18 17:00 18:00 18:46 WBC 8.6 D RBC 3.51 L Hgb 10.6 L Hct 31.7 L MCV 90.1 D MCH 30.0 MCHC 33.3 RDW 14.8 H Plt Count 441 H D MPV 7.7 Neut % (Auto) 76.9 H Lymph % (Auto) 14.4 L [place] % (Auto) 7.7 Eos % (Auto) 0.5 Baso % (Auto) 0.5 Neut # (Auto) 6.6 Lymph # (Auto) 1.2 [place] # (Auto) 0.7 Eos # (Auto) 0.0 Baso # (Auto) 0.0 PT INR APTT pCO2 pO2 HCO3 ABG pH ABG Total CO2 ABG O2 Saturation ABG Base Excess Shawn Test ABG Potassium A-a O2 Difference Glucose Lactate FiO2 Sodium 143 Potassium 4.0 Chloride 104 Carbon Dioxide 30 Anion Gap 13 BUN 11 Creatinine 0.7 L Est GFR ( Amer) > 60 Est GFR (Non-Af Amer) > 60 Random Glucose 89 Calcium 8.9 Total Bilirubin 0.4 AST 34 ALT 25 Alkaline Phosphatase 134 H D Troponin I < 0.0120 NT-Pro-B Natriuret Pep 584 Total Protein 7.9 Albumin 3.7 Globulin 4.3 H Albumin/Globulin Ratio 0.9 L Arterial Blood Potassium Influenza Typ A,B (EIA) Negative for flu a/b 04/23/18 04/23/18 04/23/18 18:46 18:46 18:58 WBC 8.9 RBC 3.38 L Hgb 10.2 L Hct 30.7 L MCV 90.8 MCH 30.2 MCHC 33.3 RDW 14.6 H Plt Count 426 H MPV 7.7 Neut % (Auto) 63.9 Lymph % (Auto) 27.9 [place] % (Auto) 7.4 Eos % (Auto) 0.3 Baso % (Auto) 0.5 Neut # (Auto) 5.7 Lymph # (Auto) 2.5 [place] # (Auto) 0.7 Eos # (Auto) 0.0 Baso # (Auto) 0.0 PT 13.3 H INR 1.2 APTT 37.5 H pCO2 38 pO2 73 L HCO3 26.2 ABG pH 7.44 ABG Total CO2 27.0 ABG O2 Saturation 96.6 ABG Base Excess 1.7 Shawn Test Yes ABG Potassium 3.3 L A-a O2 Difference 29.0 Glucose 96 Lactate 1.0 FiO2 21.0 Sodium 137.0 Potassium Chloride 107.0 Carbon Dioxide Anion Gap BUN Creatinine Est GFR ( Amer) Est GFR (Non-Af Amer) Random Glucose Calcium Total Bilirubin AST ALT Alkaline Phosphatase Troponin I NT-Pro-B Natriuret Pep Total Protein Albumin Globulin Albumin/Globulin Ratio Arterial Blood Potassium 3.3 L Influenza Typ A,B (EIA) 04/24/18 04/24/18 06:00 06:00 WBC 6.3 RBC 3.31 L Hgb 10.0 L Hct 29.9 L MCV 90.3 MCH 30.2 MCHC 33.5 RDW 14.6 H Plt Count 403 H MPV Neut % (Auto) Lymph % (Auto) [place] % (Auto) Eos % (Auto) Baso % (Auto) Neut # (Auto) Lymph # (Auto) [place] # (Auto) Eos # (Auto) Baso # (Auto) PT INR APTT pCO2 pO2 HCO3 ABG pH ABG Total CO2 ABG O2 Saturation ABG Base Excess Shawn Test ABG Potassium A-a O2 Difference Glucose Lactate FiO2 Sodium 144 Potassium 4.5 Chloride 108 H Carbon Dioxide 27 Anion Gap 14 BUN 6 L Creatinine 0.5 L Est GFR ( Amer) > 60 Est GFR (Non-Af Amer) > 60 Random Glucose 114 H Calcium 8.8 Total Bilirubin 0.2 AST 28 ALT 21 Alkaline Phosphatase 118 Troponin I NT-Pro-B Natriuret Pep Total Protein 7.7 Albumin 3.5 Globulin 4.2 H Albumin/Globulin Ratio 0.8 L Arterial Blood Potassium Influenza Typ A,B (EIA) Assessment & Plan - Assessment and Plan (Free Text) Assessment: Patient was personally seen and examined by me in rounds with residents. Available labs and diagnostic data reviewed. Case, Patient's condition and management plan discussed with residents in rounds. Agree with resident's progress note. Plan: As ordered.
[2018-04-24] MEDS ORDERED: VITAMIN D3 PO SCH (09:00)
[2018-04-24] MEDS ORDERED: Calcium-Vit D 500 mg-200 Units Tab UD PO SCH (09:00)
[2018-04-24] MEDS ORDERED: CALCIUM CARBONATE PO SCH (09:00)
--- NOTE | 2018-04-24 10:05 | CP.PCM.CON ---
History of Present Illness - History of Present Illness History of Present Illness: Infectious Disease Consultation Note- Asked to see this patient at the request of for pneumonia. HPI- Patient is a 57 year old male with PMH of HIV/AIDS for many years f/u with in [facility] and is on triumeq , brain lymphoma s/p resection and chemo, asthma, former smoker, GERD, who is admitted with c/o cough for past week but not productive, chills, night sweats and weakness. denies any hemoptysis. he deniesany chest pain, fevers, headache, N/V, diarrhea, abdominal pain, sick contacts or recent travel. pt. also states he has h/o chronic back pain and is on morphine chronically and he states his back pains are secondary to multiple fractures in his spine as a result of multiple falls throughout the years and he states he has had kyphoplasty as well. Pt. states he has been on many different HAART regimens since his virus was not well controlled but he was told by his Infectious Disease doctor in [facility] that his VL was much better 2 months ago , he is not sure about his CD4 count. He also states he had recent blood work done by his doctor and is supposed to f/u in early april for his results. He states he always has poor appetite and drinks ensure daily. last CD4 documented in [facility] from 10/2016 was-26. PMD: Dr. Mani Acosta, Infectious Disease, [place] PMHX: Asthma (well controlled), AIDS (has had HIV for 40 years, taking Triumeq and Bactrim for ppx, Complain, GERD, Brain Lymphoma w/ resection and 11 rounds of chemo in 1991 Hospitalizations: Has had multiple hospitalizations for pnemonia in the past 2 years Social: Former smoker, quit in 1996, homosexual, denies illicit drug use ER Course: -Cxray -Chest CT: Diffuse Atypical Pneumonia, R. Basilar scarring, BL lower lobes Bronchiectasis, Fibronodular scarring -Labs: No leukocytosis, Microcytic anemia Hg 10.6, CMP unremarkable -S/P Melthylprednisolone 125mg, Bolus 1L IV Fluids, Rocephin, Azithro, Blood Cx taken, Bronchodilator treatments -Influenza negative Review of Systems - Review of Systems Review of Systems: ROS- denies any fever but has chills, + nonnproductive cough, no sob, no chest pain, denies any nausea or vomiting, denies any abd. pain, chronic constipation, denies any dysurea. denies any sick contacts denies any recent travel Past Patient History - Infectious Disease Hx of Infectious Diseases: None - Past Medical History & Family History Past Medical History?: Yes - Past Social History Smoking Status: Never Smoked - CARDIAC Hx Cardiac Disorders: No - PULMONARY Hx Respiratory Disorders: Yes Hx Asthma: Yes Hx Pneumonia: Yes - NEUROLOGICAL Hx Neurological Disorder: Yes HX Cerebrovascular Accident: No Other/Comment: Brain Ca - HEENT Hx HEENT Problems: Yes Hx Blind: No Hx Cataracts: Yes Hx Deafness: Yes (B/L SUN'AQ) Hx Difficulty Chewing: No Hx Epistaxis: No Hx Glaucoma: No Hx Macular Degeneration: No Other/Comment: impaired hearing, used to have Left and right hearing aid years ago. - RENAL Hx Chronic Kidney Disease: No - ENDOCRINE/METABOLIC Hx Endocrine Disorders: No - HEMATOLOGICAL/ONCOLOGICAL Hx Blood Disorders: Yes Hx AIDS: Yes Hx Human Immunodeficiency Virus (HIV): Yes - INTEGUMENTARY Hx Dermatological Problems: No - MUSCULOSKELETAL/RHEUMATOLOGICAL Hx Musculoskeletal Disorders: Yes Hx Arthritis: Yes Hx Falls: Yes Hx Fractures: Yes Hx Osteoporosis: Yes Hx Rheumatoid Arthritis: No - GASTROINTESTINAL Hx Gastrointestinal Disorders: Yes Hx Gastritis: Yes - GENITOURINARY/GYNECOLOGICAL Hx Genitourinary Disorders: No - PSYCHIATRIC Hx Psychophysiologic Disorder: Yes Hx Depression: Yes Hx Substance Use: No - SURGICAL HISTORY Hx Surgeries: Yes Hx Appendectomy: Yes Hx Tonsillectomy: Yes - ANESTHESIA Hx Anesthesia: Yes Hx Anesthesia Reactions: No Hx Malignant Hyperthermia: No Meds Allergies/Adverse Reactions: Allergies Allergy/AdvReac Type Severity Reaction Status Date / Time No Known Allergies Allergy Verified 04/23/18 17:19 - Medications Medications: Current Medications Albuterol/Ipratropium (Duoneb 3 Mg/0.5 Mg (3 Ml) Ud) 3 ml INH RQ6 [facility] Last Admin: 04/24/18 07:51 Dose: 3 ml Albuterol/Ipratropium (Duoneb 3 Mg/0.5 Mg (3 Ml) Ud) 3 ml INH RQ4 PRN PRN Reason: Shortness of Breath Baclofen (Lioresal) 40 mg PO Q8H [facility] Home Med (Abacavir/Dolutegravir/Lamivudi [Triumeq Tablet]) 1 tab PO DAILY [facility] Last Admin: 04/24/18 08:47 Dose: 1 tab Home Med (Ranitidine Hcl [Zantac]) 300 mg PO DAILY [facility] Last Admin: 04/24/18 08:47 Dose: 300 mg Home Med (Calcium Carbonate/Vitamin D3 [Calcium 500 + Vit D Caplet]) 1 each PO DAILY [facility] Last Admin: 04/24/18 08:47 Dose: 1 each Sodium Chloride (Sodium Chloride 0.9%) 1,000 mls @ 80 mls/hr IV .[id number] [facility] Stop: 04/25/18 00:05 Last Admin: 04/24/18 01:26 Dose: 80 mls/hr Ceftriaxone Sodium 2 gm/ (Sodium Chloride) 100 mls @ 100 mls/hr IVPB DAILY@1200 [facility]; Protocol Azithromycin 500 mg/ Sodium (Chloride) 250 mls @ 250 mls/hr IVPB DAILY [facility]; Protocol Last Admin: 04/24/18 08:51 Dose: 250 mls/hr Montelukast Sodium (Singulair) 10 mg PO DAILY [facility] Last Admin: 04/24/18 08:48 Dose: 10 mg Morphine Sulfate (Morphine Extended Release Tab) 30 mg PO Q8 [facility] Last Admin: 04/24/18 08:50 Dose: 30 mg Morphine Sulfate (Morphine Immediate Release Tab) 15 mg PO Q8@0600,1400,2200 [facility] Last Admin: 04/24/18 06:10 Dose: 15 mg Physical Exam - Constitutional Appears: No Acute Distress, Cachectic, Chronically Ill - Eye Exam Eye Exam: EOMI, PERRL - ENT Exam ENT Exam: Normal Oropharynx - Neck Exam Neck exam: Positive for: Full Rom Additional comments: supple - Respiratory Exam Respiratory Exam: NORMAL BREATHING PATTERN Additional comments: slight coarse breath sounds in right base No wheezing - Cardiovascular Exam Cardiovascular Exam: RRR, +S1, +S2 - GI/Abdominal Exam GI & Abdominal Exam: Normal Bowel Sounds, Soft Additional comments: NT, ND - Extremities Exam Extremities exam: Positive for: normal inspection - Neurological Exam Neurological exam: Alert, Oriented x3 Results - Vital Signs Recent Vital Signs: Last Vital Signs Temp 97.8 F 04/24/18 08:08 Pulse 64 04/24/18 08:24 Resp 19 04/24/18 08:08 BP 115/71 04/24/18 08:08 Pulse Ox 96 04/24/18 08:08 - Labs Result Diagrams: 04/24/18 06:00 04/24/18 06:00 Labs: Laboratory Results - last 24 hr 04/23/18 04/23/18 04/23/18 17:00 18:00 18:46 WBC 8.6 D RBC 3.51 L Hgb 10.6 L Hct 31.7 L MCV 90.1 D MCH 30.0 MCHC 33.3 RDW 14.8 H Plt Count 441 H D MPV 7.7 Neut % (Auto) 76.9 H Lymph % (Auto) 14.4 L [place] % (Auto) 7.7 Eos % (Auto) 0.5 Baso % (Auto) 0.5 Neut # (Auto) 6.6 Lymph # (Auto) 1.2 [place] # (Auto) 0.7 Eos # (Auto) 0.0 Baso # (Auto) 0.0 PT INR APTT pCO2 pO2 HCO3 ABG pH ABG Total CO2 ABG O2 Saturation ABG Base Excess Shawn Test ABG Potassium A-a O2 Difference Glucose Lactate FiO2 Sodium 143 Potassium 4.0 Chloride 104 Carbon Dioxide 30 Anion Gap 13 BUN 11 Creatinine 0.7 L Est GFR ( Amer) > 60 Est GFR (Non-Af Amer) > 60 Random Glucose 89 Calcium 8.9 Total Bilirubin 0.4 AST 34 ALT 25 Alkaline Phosphatase 134 H D Troponin I < 0.0120 NT-Pro-B Natriuret Pep 584 Total Protein 7.9 Albumin 3.7 Globulin 4.3 H Albumin/Globulin Ratio 0.9 L Arterial Blood Potassium Influenza Typ A,B (EIA) Negative for flu a/b 04/23/18 04/23/18 04/23/18 18:46 18:46 18:58 WBC 8.9 RBC 3.38 L Hgb 10.2 L Hct 30.7 L MCV 90.8 MCH 30.2 MCHC 33.3 RDW 14.6 H Plt Count 426 H MPV 7.7 Neut % (Auto) 63.9 Lymph % (Auto) 27.9 [place] % (Auto) 7.4 Eos % (Auto) 0.3 Baso % (Auto) 0.5 Neut # (Auto) 5.7 Lymph # (Auto) 2.5 [place] # (Auto) 0.7 Eos # (Auto) 0.0 Baso # (Auto) 0.0 PT 13.3 H INR 1.2 APTT 37.5 H pCO2 38 pO2 73 L HCO3 26.2 ABG pH 7.44 ABG Total CO2 27.0 ABG O2 Saturation 96.6 ABG Base Excess 1.7 Shawn Test Yes ABG Potassium 3.3 L A-a O2 Difference 29.0 Glucose 96 Lactate 1.0 FiO2 21.0 Sodium 137.0 Potassium Chloride 107.0 Carbon Dioxide Anion Gap BUN Creatinine Est GFR ( Amer) Est GFR (Non-Af Amer) Random Glucose Calcium Total Bilirubin AST ALT Alkaline Phosphatase Troponin I NT-Pro-B Natriuret Pep Total Protein Albumin Globulin Albumin/Globulin Ratio Arterial Blood Potassium 3.3 L Influenza Typ A,B (EIA) 04/24/18 04/24/18 06:00 06:00 WBC 6.3 RBC 3.31 L Hgb 10.0 L Hct 29.9 L MCV 90.3 MCH 30.2 MCHC 33.5 RDW 14.6 H Plt Count 403 H MPV Neut % (Auto) Lymph % (Auto) [place] % (Auto) Eos % (Auto) Baso % (Auto) Neut # (Auto) Lymph # (Auto) [place] # (Auto) Eos # (Auto) Baso # (Auto) PT INR APTT pCO2 pO2 HCO3 ABG pH ABG Total CO2 ABG O2 Saturation ABG Base Excess Shawn Test ABG Potassium A-a O2 Difference Glucose Lactate FiO2 Sodium 144 Potassium 4.5 Chloride 108 H Carbon Dioxide 27 Anion Gap 14 BUN 6 L Creatinine 0.5 L Est GFR ( Amer) > 60 Est GFR (Non-Af Amer) > 60 Random Glucose 114 H Calcium 8.8 Total Bilirubin 0.2 AST 28 ALT 21 Alkaline Phosphatase 118 Troponin I NT-Pro-B Natriuret Pep Total Protein 7.7 Albumin 3.5 Globulin 4.2 H Albumin/Globulin Ratio 0.8 L Arterial Blood Potassium Influenza Typ A,B (EIA) Laboratory Results - last 72 hr 04/23/18 04/23/18 04/23/18 17:00 18:00 18:46 WBC 8.6 D RBC 3.51 L Hgb 10.6 L Hct 31.7 L MCV 90.1 D MCH 30.0 MCHC 33.3 RDW 14.8 H Plt Count 441 H D MPV 7.7 Neut % (Auto) 76.9 H Lymph % (Auto) 14.4 L [place] % (Auto) 7.7 Eos % (Auto) 0.5 Baso % (Auto) 0.5 Neut # (Auto) 6.6 Lymph # (Auto) 1.2 [place] # (Auto) 0.7 Eos # (Auto) 0.0 Baso # (Auto) 0.0 PT INR APTT pCO2 pO2 HCO3 ABG pH ABG Total CO2 ABG O2 Saturation ABG Base Excess Shawn Test ABG Potassium A-a O2 Difference Glucose Lactate FiO2 Sodium 143 Potassium 4.0 Chloride 104 Carbon Dioxide 30 Anion Gap 13 BUN 11 Creatinine 0.7 L Est GFR ( Amer) > 60 Est GFR (Non-Af Amer) > 60 Random Glucose 89 Calcium 8.9 Total Bilirubin 0.4 AST 34 ALT 25 Alkaline Phosphatase 134 H D Troponin I < 0.0120 NT-Pro-B Natriuret Pep 584 Total Protein 7.9 Albumin 3.7 Globulin 4.3 H Albumin/Globulin Ratio 0.9 L Arterial Blood Potassium Influenza Typ A,B (EIA) Negative for flu a/b 04/23/18 04/23/18 04/23/18 18:46 18:46 18:58 WBC 8.9 RBC 3.38 L Hgb 10.2 L Hct 30.7 L MCV 90.8 MCH 30.2 MCHC 33.3 RDW 14.6 H Plt Count 426 H MPV 7.7 Neut % (Auto) 63.9 Lymph % (Auto) 27.9 [place] % (Auto) 7.4 Eos % (Auto) 0.3 Baso % (Auto) 0.5 Neut # (Auto) 5.7 Lymph # (Auto) 2.5 [place] # (Auto) 0.7 Eos # (Auto) 0.0 Baso # (Auto) 0.0 PT 13.3 H INR 1.2 APTT 37.5 H pCO2 38 pO2 73 L HCO3 26.2 ABG pH 7.44 ABG Total CO2 27.0 ABG O2 Saturation 96.6 ABG Base Excess 1.7 Shawn Test Yes ABG Potassium 3.3 L A-a O2 Difference 29.0 Glucose 96 Lactate 1.0 FiO2 21.0 Sodium 137.0 Potassium Chloride 107.0 Carbon Dioxide Anion Gap BUN Creatinine Est GFR ( Amer) Est GFR (Non-Af Amer) Random Glucose Calcium Total Bilirubin AST ALT Alkaline Phosphatase Troponin I NT-Pro-B Natriuret Pep Total Protein Albumin Globulin Albumin/Globulin Ratio Arterial Blood Potassium 3.3 L Influenza Typ A,B (EIA) 04/24/18 04/24/18 06:00 06:00 WBC 6.3 RBC 3.31 L Hgb 10.0 L Hct 29.9 L MCV 90.3 MCH 30.2 MCHC 33.5 RDW 14.6 H Plt Count 403 H MPV Neut % (Auto) Lymph % (Auto) [place] % (Auto) Eos % (Auto) Baso % (Auto) Neut # (Auto) Lymph # (Auto) [place] # (Auto) Eos # (Auto) Baso # (Auto) PT INR APTT pCO2 pO2 HCO3 ABG pH ABG Total CO2 ABG O2 Saturation ABG Base Excess Shawn Test ABG Potassium A-a O2 Difference Glucose Lactate FiO2 Sodium 144 Potassium 4.5 Chloride 108 H Carbon Dioxide 27 Anion Gap 14 BUN 6 L Creatinine 0.5 L Est GFR ( Amer) > 60 Est GFR (Non-Af Amer) > 60 Random Glucose 114 H Calcium 8.8 Total Bilirubin 0.2 AST 28 ALT 21 Alkaline Phosphatase 118 Troponin I NT-Pro-B Natriuret Pep Total Protein 7.7 Albumin 3.5 Globulin 4.2 H Albumin/Globulin Ratio 0.8 L Arterial Blood Potassium Influenza Typ A,B (EIA) Assessment & Plan (1) Cough Status: Acute (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 afebrile and normal wbc count, however his chst Ct reported as chronic pneumonits and bibasilar bronchiectais, and diffuse atypical Pneuminia. pt. chachectic and immunocompromised and hence would advise to cover for both atypicals and opportunistic lung infections. check CD4 and VL now. plan- check sputum cx. check mycoplasma serology check urine legionella AG. check CD4 and VL. pt. does not have any cavitary lesion but in AIDS pt. with low immune status along with cough and night swetas MYB must be ruled out as ewll. Hence advise to place on Airborne isolation and check 3 sputum AFB. advise to also start pt. on IV bactrim for presumed PCP for now pending further results. advise to continue with IV zirhromax to cover for atypicals. d/c ceftraixone and instead place pt. on zosyn for broader coverage. can continue with his triumeq. advise pulmonary evaluation as well. all above d/w patient and he verbalizes full understanding of all above and agrees with above plan of care. Thank you for allowing me to take part in the care of this patient.
[2018-04-24] MEDS ORDERED: cefTRIAXone 2 GM in Sodium Chloride 0.9% 100 ML IVPB SCH (12:00)
--- NOTE | 2018-04-24 12:18 | RAD ---
Date of service: 04/23/2018 HISTORY: dyspnea COMPARISON: Chest radiograph dated 03/1917. FINDINGS: Patient rotation limits evaluation. LUNGS: Left lower lobe patchy infiltrates. PLEURA: No significant pleural effusion identified, no pneumothorax apparent. CARDIOVASCULAR: Atherosclerotic aortic calcifications. Cardiomediastinal silhouette within normal limits. OSSEOUS STRUCTURES: Multilevel thoracolumbar vertebral augmentation. Unchanged. VISUALIZED UPPER ABDOMEN: Normal. OTHER FINDINGS: None. IMPRESSION: Left lower lobe patchy infiltrates.
--- NOTE | 2018-04-24 13:33 | CT ---
Date of service: 04/23/2018 PROCEDURE: CT Chest without contrast HISTORY: HIV+, Cough, Fever COMPARISON: Chest radiograph performed approximately 1.5 hours prior; CT chest dated 10/06/2015 TECHNIQUE: Contiguous axial images were obtained through the chest without intravenous contrast enhancement. Sagittal and coronal reconstructions were performed. Radiation dose (DLP): 301.8 mGy-cm. This CT exam was performed using one or more of the following dose reduction techniques: Automated exposure control, adjustment of the mA and/or kV according to patient size, and/or use of iterative reconstruction technique. FINDINGS: LUNGS: Hyperinflated lungs. Left lower lobe tree-in-bud opacities. Mild right upper, middle and lower lobe scarring visualized airway clear MEDIASTINUM: Unremarkable thoracic aorta. No aneurysm. Normal sized heart. Main pulmonary artery unremarkable. No vascular congestion. No lymphadenopathy. PLEURA: No pleural fluid. No pneumothorax. BONES: Exaggerated thoracic kyphosis. Prior vertebral augmentation from T9-L1. L2 and L4 vertebral compression deformities. No destructive lesion. UPPER ABDOMEN: Nonobstructive left lower pole punctate calculus. OTHER FINDINGS: None. IMPRESSION: Left lower lobe tree-in-bud opacities. Additional stable findings as above.
[2018-04-24] MEDS: Piperacillin/Tazobact 3.375 GM in Sodium Chloride 0.9% 100 ML IVPB SCH ×2 (14:20→16:58)
[2018-04-24] MEDS: Sulfamethoxazole/Trimethoprim 240 MG in Dextrose 5% In Water 250 ML IVPB SCH (15:17)
--- NOTE | 2018-04-24 19:29 | CON ---
DATE: 04/24/2018 HISTORY OF PRESENT ILLNESS: Mr. Thierry Quiroga is a 57-year-old male who was referred for pulmonary evaluation by Dr. Dickinson. He was admitted via the emergency room because of back pain following a fall and also cough with shortness of breath and exercise intolerance. He is well known to me from prior admissions. PAST MEDICAL HISTORY: He has a past medical history of arthritis, asthma, back pain, chronic back problems, depression, HIV infection, questionable brain malignancy and osteoporosis with recurrent pneumonia. FAMILY HISTORY: Noncontributory. SOCIAL HISTORY: Socially, he denies smoking, alcohol use and lives with family. REVIEW OF SYSTEMS: Essentially remarkable for back pain and shortness of breath. PHYSICAL EXAMINATION: GENERAL: The patient is alert, oriented, appears much more comfortable this morning. VITAL SIGNS: Blood pressure of 115/71, pulse of 64, respiratory rate is 18 per minute, he is afebrile. O2 sat is 96% on room air. SKIN: Shows fair turgor. HEENT: Pupils are equal and reactive to light and accommodation. Mouth shows fair hygiene. NECK: JVP flat. LUNGS: Bilateral coarse rales, more on the left lower lung area. HEART: S1, S2. ABDOMEN: Soft, nontender. No organomegaly. EXTREMITIES: Shows arthritis changes. No edema. No cyanosis appreciated. LABORATORY DATA: Remarkable for WBC of 6.3, hemoglobin 10, platelet count . Sodium 144, potassium 4.5, BUN of 6, creatinine 0.5. Arterial blood gas; pH 7.44, pCO2 of 38, pO2 of 73, this is on 21% oxygen on room air. DIAGNOSTIC DATA: Chest x-ray official report pending, but read by me shows a left lower lobe infiltrate. IMPRESSION: A 57-year-old male with history of human immunodeficiency virus infection and has pneumonia and chronic back pain following a fall. PLAN: The plan is to continue IV antibiotics as ordered. Give oxygen supplementation and analgesics for pain. We will obtain sputum for Gram stain and cultures and blood cultures. We will continue to follow with you. Thee Ma MD [facility] # [phone]
--- NOTE | 2018-04-24 21:16 | CARD ---
APPROVED REPORT Date of service: 04/23/2018 EKG Measurement Heart [id number] CT [id number] <Conclusion> Normal sinus rhythm Incomplete right bundle branch block Borderline ECG
[2018-04-25] MEDS: Piperacillin/Tazobact 3.375 GM in Sodium Chloride 0.9% 100 ML IVPB SCH ×3 (00:54→16:40)
[2018-04-25] MEDS: Morphine 30 mg SR Tab PO SCH ×3 (00:55→17:22)
[2018-04-25] MEDS: Albuterol-Ipratrop 3 mg / 0.5 (3 ml) UD INH SCH ×4 (01:13→19:17)
[2018-04-25] MEDS: Sulfamethoxazole/Trimethoprim 240 MG in Dextrose 5% In Water 250 ML IVPB SCH ×3 (01:41→17:22)
[2018-04-25] MEDS: Sodium Chloride 3% for Inhalation 4 ML VIAL.NEB IH PRN (04:47)
[2018-04-25] MEDS: Morphine 15 mg Immediate Release Tab PO SCH ×3 (06:33→22:05)
[2018-04-25] MEDS: VIT D PO SCH (09:02)
[2018-04-25] MEDS: Patient's Own Med (Abacavir/Dolutegravir/Lamivudi [Triumeq Tablet] 1 TAB) PO SCH (09:02)
[2018-04-25] MEDS: CALCIUM PO SCH (09:02)
[2018-04-25] MEDS: Azithromycin 500 MG in Sodium Chloride 0.9% 250 ML IVPB SCH (09:03)
--- NOTE | 2018-04-25 11:15 | IP.NPCORE ---
Pneumonia Progress Notes - Oxygenation Assessment (REQUIRED) Documented 02: Yes O2 Saturation: 94 Oxygen Delivery Method: Room Air Documented P02: Yes - Blood Cultures (REQUIRED) Culture drawn: Yes - Initial Antibiotic Initial Antibiotic given within Four Hours:: Yes - Appropriate Antibiotic Appropriate Antibiotic within 24 hours of Admission:: Yes Current Antibiotic: Azithromycin/Zosyn Infectious Disease Consult: 04/25/18 11:15 Yes - Pneumonia Vaccine Pneumonia Vaccine: Yes
--- NOTE | 2018-04-25 12:00 | CP.PCM.PN ---
Subjective - Date & Time of Evaluation Date of Evaluation: 04/25/18 Time of Evaluation: 12:00 - Subjective Subjective: ID note- Pt. seen and examined today . remains afebrile but very weak. has cough but can't expectorate. Objective - Vital Signs/Intake and Output Vital Signs (last 24 hours): Temp Pulse Resp BP Pulse Ox 97.4 F L 68 68 H 103/69 94 L 04/25/18 08:30 04/25/18 08:30 04/25/18 08:30 04/25/18 08:30 04/25/18 11:16 - Medications Medications: Current Medications Albuterol/Ipratropium (Duoneb 3 Mg/0.5 Mg (3 Ml) Ud) 3 ml INH RQ6 [facility] Last Admin: 04/25/18 07:53 Dose: 3 ml Albuterol/Ipratropium (Duoneb 3 Mg/0.5 Mg (3 Ml) Ud) 3 ml INH RQ4 PRN PRN Reason: Shortness of Breath Baclofen (Lioresal) 40 mg PO 0600,1400,2200 [facility] Last Admin: 04/25/18 06:33 Dose: 40 mg Home Med (Abacavir/Dolutegravir/Lamivudi [Triumeq Tablet]) 1 tab PO DAILY [facility] Last Admin: 04/25/18 09:02 Dose: 1 tab Home Med (Ranitidine Hcl [Zantac]) 300 mg PO DAILY [facility] Last Admin: 04/25/18 09:02 Dose: 300 mg Home Med (Calcium Carbonate/Vitamin D3 [Calcium 500 + Vit D Caplet]) 1 each PO DAILY [facility] Last Admin: 04/25/18 09:02 Dose: 1 each Azithromycin 500 mg/ Sodium (Chloride) 250 mls @ 250 mls/hr IVPB DAILY [facility]; Protocol Last Admin: 04/25/18 09:03 Dose: 250 mls/hr Piperacillin Sod/Tazobactam (Sod 3.375 gm/ Sodium Chloride) 100 mls @ 100 mls/hr IVPB Q8 [facility]; Protocol Last Admin: 04/25/18 09:03 Dose: 100 mls/hr Trimethoprim/Sulfamethoxazole (240 mg/ Dextrose) 250 mls @ 250 mls/hr IVPB Q8 [facility]; Protocol Last Admin: 04/25/18 11:54 Dose: 250 mls/hr Montelukast Sodium (Singulair) 10 mg PO DAILY [facility] Last Admin: 04/25/18 09:02 Dose: 10 mg Morphine Sulfate (Morphine Extended Release Tab) 30 mg PO Q8 [facility] Last Admin: 04/25/18 09:01 Dose: 30 mg Morphine Sulfate (Morphine Immediate Release Tab) 15 mg PO Q8@0600,1400,2200 [facility] Last Admin: 04/25/18 06:33 Dose: 15 mg - Labs Labs: - Additional Findings Additional findings: - Constitutional Appears: No Acute Distress, Cachectic, Chronically Ill - Eye Exam Eye Exam: EOMI, PERRL - ENT Exam ENT Exam: Normal Oropharynx - Neck Exam Neck exam: Positive for: Full Rom Additional comments: supple - Respiratory Exam Respiratory Exam: NORMAL BREATHING PATTERN Additional comments: slight coarse breath sounds in right base No wheezing - Cardiovascular Exam Cardiovascular Exam: RRR, +S1, +S2 - GI/Abdominal Exam GI & Abdominal Exam: Normal Bowel Sounds, Soft Additional comments: NT, ND - Extremities Exam Extremities exam: Positive for: normal inspection - Neurological Exam Neurological exam: Alert, Oriented x 3 Laboratory Results - last 72 hr 04/23/18 04/23/18 04/23/18 17:00 18:00 18:46 WBC 8.6 D RBC 3.51 L Hgb 10.6 L Hct 31.7 L MCV 90.1 D MCH 30.0 MCHC 33.3 RDW 14.8 H Plt Count 441 H D MPV 7.7 Neut % (Auto) 76.9 H Lymph % (Auto) 14.4 L [place] % (Auto) 7.7 Eos % (Auto) 0.5 Baso % (Auto) 0.5 Neut # (Auto) 6.6 Lymph # (Auto) 1.2 [place] # (Auto) 0.7 Eos # (Auto) 0.0 Baso # (Auto) 0.0 PT INR APTT pCO2 pO2 HCO3 ABG pH ABG Total CO2 ABG O2 Saturation ABG Base Excess Shawn Test ABG Potassium A-a O2 Difference Glucose Lactate FiO2 Sodium 143 Potassium 4.0 Chloride 104 Carbon Dioxide 30 Anion Gap 13 BUN 11 Creatinine 0.7 L Est GFR ( Amer) > 60 Est GFR (Non-Af Amer) > 60 Random Glucose 89 Calcium 8.9 Total Bilirubin 0.4 AST 34 ALT 25 Alkaline Phosphatase 134 H D Troponin I < 0.0120 NT-Pro-B Natriuret Pep 584 Total Protein 7.9 Albumin 3.7 Globulin 4.3 H Albumin/Globulin Ratio 0.9 L Arterial Blood Potassium Influenza Typ A,B (EIA) Negative for flu a/b 04/23/18 04/23/18 04/23/18 18:46 18:46 18:58 WBC 8.9 RBC 3.38 L Hgb 10.2 L Hct 30.7 L MCV 90.8 MCH 30.2 MCHC 33.3 RDW 14.6 H Plt Count 426 H MPV 7.7 Neut % (Auto) 63.9 Lymph % (Auto) 27.9 [place] % (Auto) 7.4 Eos % (Auto) 0.3 Baso % (Auto) 0.5 Neut # (Auto) 5.7 Lymph # (Auto) 2.5 [place] # (Auto) 0.7 Eos # (Auto) 0.0 Baso # (Auto) 0.0 PT 13.3 H INR 1.2 APTT 37.5 H pCO2 38 pO2 73 L HCO3 26.2 ABG pH 7.44 ABG Total CO2 27.0 ABG O2 Saturation 96.6 ABG Base Excess 1.7 Shawn Test Yes ABG Potassium 3.3 L A-a O2 Difference 29.0 Glucose 96 Lactate 1.0 FiO2 21.0 Sodium 137.0 Potassium Chloride 107.0 Carbon Dioxide Anion Gap BUN Creatinine Est GFR ( Amer) Est GFR (Non-Af Amer) Random Glucose Calcium Total Bilirubin AST ALT Alkaline Phosphatase Troponin I NT-Pro-B Natriuret Pep Total Protein Albumin Globulin Albumin/Globulin Ratio Arterial Blood Potassium 3.3 L Influenza Typ A,B (EIA) 04/24/18 04/24/18 06:00 06:00 WBC 6.3 RBC 3.31 L Hgb 10.0 L Hct 29.9 L MCV 90.3 MCH 30.2 MCHC 33.5 RDW 14.6 H Plt Count 403 H MPV Neut % (Auto) Lymph % (Auto) [place] % (Auto) Eos % (Auto) Baso % (Auto) Neut # (Auto) Lymph # (Auto) [place] # (Auto) Eos # (Auto) Baso # (Auto) PT INR APTT pCO2 pO2 HCO3 ABG pH ABG Total CO2 ABG O2 Saturation ABG Base Excess Shawn Test ABG Potassium A-a O2 Difference Glucose Lactate FiO2 Sodium 144 Potassium 4.5 Chloride 108 H Carbon Dioxide 27 Anion Gap 14 BUN 6 L Creatinine 0.5 L Est GFR ( Amer) > 60 Est GFR (Non-Af Amer) > 60 Random Glucose 114 H Calcium 8.8 Total Bilirubin 0.2 AST 28 ALT 21 Alkaline Phosphatase 118 Troponin I NT-Pro-B Natriuret Pep Total Protein 7.7 Albumin 3.5 Globulin 4.2 H Albumin/Globulin Ratio 0.8 L Arterial Blood Potassium Influenza Typ A,B (EIA) Microbiology 04/23/18 18:54 Blood-Venous Blood Culture - Preliminary NO GROWTH AFTER 24 HOURS 04/23/18 18:46 Blood-Venous Blood Culture - Preliminary NO GROWTH AFTER 24 HOURS Assessment and Plan (1) Cough Status: Acute (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 afebrile and normal wbc count, however his chst Ct reported as chronic pneumonits and bibasilar bronchiectais, and diffuse atypical Pneuminia. pt. chachectic and immunocompromised and hence would advise to cover for both atypicals and opportunistic lung infections. blood cx- neg x 2 influenza - neg plan- await sputum cx. await mycoplasma serology await urine legionella AG. await CD4 and VL. await sputum AFB x 3. advise to also continue pt. on IV bactrim for presumed PCP day #2 advise to continue with IV zirhromax to cover for atypicals. advise to continue with IV zosyn day #2. can continue with his triumeq. all above d/w patient and he verbalizes full understanding of all above and agrees with above plan of care.
--- NOTE | 2018-04-25 12:33 | CP.PCM.PN ---
Subjective - Date & Time of Evaluation Date of Evaluation: 04/25/18 Time of Evaluation: 12:33 - Subjective Subjective: PLACED IN RESPIRATORY ISOLATION WITH DROPLET PRECAUTION UNABLE TO EXPECTORATE SPUTUM Objective - Vital Signs/Intake and Output Vital Signs (last 24 hours): Temp Pulse Resp BP Pulse Ox 97.4 F L 68 68 H 103/69 94 L 04/25/18 08:30 04/25/18 08:30 04/25/18 08:30 04/25/18 08:30 04/25/18 11:16 - Medications Medications: Current Medications Albuterol/Ipratropium (Duoneb 3 Mg/0.5 Mg (3 Ml) Ud) 3 ml INH RQ6 [facility] Last Admin: 04/25/18 07:53 Dose: 3 ml Albuterol/Ipratropium (Duoneb 3 Mg/0.5 Mg (3 Ml) Ud) 3 ml INH RQ4 PRN PRN Reason: Shortness of Breath Baclofen (Lioresal) 40 mg PO 0600,1400,2200 [facility] Last Admin: 04/25/18 06:33 Dose: 40 mg Home Med (Abacavir/Dolutegravir/Lamivudi [Triumeq Tablet]) 1 tab PO DAILY [facility] Last Admin: 04/25/18 09:02 Dose: 1 tab Home Med (Ranitidine Hcl [Zantac]) 300 mg PO DAILY [facility] Last Admin: 04/25/18 09:02 Dose: 300 mg Home Med (Calcium Carbonate/Vitamin D3 [Calcium 500 + Vit D Caplet]) 1 each PO DAILY [facility] Last Admin: 04/25/18 09:02 Dose: 1 each Azithromycin 500 mg/ Sodium (Chloride) 250 mls @ 250 mls/hr IVPB DAILY [facility]; Protocol Last Admin: 04/25/18 09:03 Dose: 250 mls/hr Piperacillin Sod/Tazobactam (Sod 3.375 gm/ Sodium Chloride) 100 mls @ 100 mls/hr IVPB Q8 [facility]; Protocol Last Admin: 04/25/18 09:03 Dose: 100 mls/hr Trimethoprim/Sulfamethoxazole (240 mg/ Dextrose) 250 mls @ 250 mls/hr IVPB Q8 [facility]; Protocol Last Admin: 04/25/18 11:54 Dose: 250 mls/hr Montelukast Sodium (Singulair) 10 mg PO DAILY [facility] Last Admin: 04/25/18 09:02 Dose: 10 mg Morphine Sulfate (Morphine Extended Release Tab) 30 mg PO Q8 [facility] Last Admin: 04/25/18 09:01 Dose: 30 mg Morphine Sulfate (Morphine Immediate Release Tab) 15 mg PO Q8@0600,1400,2200 [facility] Last Admin: 04/25/18 06:33 Dose: 15 mg - Labs Labs: 04/24/18 06:00 04/24/18 06:00 PT 13.3 Seconds (9.8-13.1) H 04/23/18 18:46 INR 1.2 04/23/18 18:46 APTT 37.5 Seconds (25.6-37.1) H 04/23/18 18:46 - Constitutional Appears: Chronically Ill - Head Exam Head Exam: ATRAUMATIC, NORMAL INSPECTION, NORMOCEPHALIC - Eye Exam Eye Exam: EOMI, Normal appearance, PERRL Pupil Exam: NORMAL ACCOMODATION, PERRL - ENT Exam ENT Exam: Mucous Membranes Moist, Normal Exam - Neck Exam Neck Exam: Full ROM, Normal Inspection. absent: Lymphadenopathy - Respiratory Exam Respiratory Exam: Decreased Breath Sounds, Prolonged Expiratory Phase, Rales, NORMAL BREATHING PATTERN - Cardiovascular Exam Cardiovascular Exam: REGULAR RHYTHM, +S1, +S2. absent: Murmur - GI/Abdominal Exam GI & Abdominal Exam: Soft, Normal Bowel Sounds. absent: Tenderness - Rectal Exam Rectal Exam: NORMAL INSPECTION - Extremities Exam Extremities Exam: Full ROM, Normal Capillary Refill, Normal Inspection. absent: Joint Swelling, Pedal Edema - Back Exam Back Exam: NORMAL INSPECTION - Neurological Exam Neurological Exam: Alert, Awake, CN II-XII Intact, Normal Gait, Oriented x3 - Psychiatric Exam Psychiatric exam: Normal Affect, Normal Mood - Skin Skin Exam: Dry, Intact, Normal Color, Warm Assessment and Plan - Assessment and Plan (Free Text) Assessment: PNEUMONIA--R/O TYPICAL/ATYPICAL HIV INFECTION Plan: WILL ADD MUCOMYST TO RX--HELP EXPECTORATE SPUTUM
--- NOTE | 2018-04-25 16:07 | CP.PCM.PN ---
<TimmyEsteban - Last Filed: 04/25/18 16:05> Subjective - Date & Time of Evaluation Date of Evaluation: 04/25/18 Time of Evaluation: 08:00 - Subjective Subjective: Seen and examined in the am. Reports no improvement in sob and cough. No acute respiratory distress note. Intermittent vomiting throughout the day. Pt states it is because he took his medication in a different combination than he normally does. Objective - Vital Signs/Intake and Output Vital Signs (last 24 hours): Temp Pulse Resp BP Pulse Ox 97.5 F L 74 20 105/67 97 04/25/18 15:51 04/25/18 15:51 04/25/18 15:51 04/25/18 15:51 04/25/18 15:51 - Medications Medications: Current Medications Acetylcysteine (Acetylcysteine 20%) 2 ml INH RBID [facility] Albuterol/Ipratropium (Duoneb 3 Mg/0.5 Mg (3 Ml) Ud) 3 ml INH RQ6 [facility] Last Admin: 04/25/18 13:01 Dose: 3 ml Albuterol/Ipratropium (Duoneb 3 Mg/0.5 Mg (3 Ml) Ud) 3 ml INH RQ4 PRN PRN Reason: Shortness of Breath Baclofen (Lioresal) 40 mg PO 0600,1400,2200 [facility] Last Admin: 04/25/18 14:00 Dose: 40 mg Home Med (Abacavir/Dolutegravir/Lamivudi [Triumeq Tablet]) 1 tab PO DAILY [facility] Last Admin: 04/25/18 09:02 Dose: 1 tab Home Med (Ranitidine Hcl [Zantac]) 300 mg PO DAILY [facility] Last Admin: 04/25/18 09:02 Dose: 300 mg Home Med (Calcium Carbonate/Vitamin D3 [Calcium 500 + Vit D Caplet]) 1 each PO DAILY [facility] Last Admin: 04/25/18 09:02 Dose: 1 each Azithromycin 500 mg/ Sodium (Chloride) 250 mls @ 250 mls/hr IVPB DAILY [facility]; Protocol Last Admin: 04/25/18 09:03 Dose: 250 mls/hr Piperacillin Sod/Tazobactam (Sod 3.375 gm/ Sodium Chloride) 100 mls @ 100 mls/hr IVPB Q8 [facility]; Protocol Last Admin: 04/25/18 09:03 Dose: 100 mls/hr Trimethoprim/Sulfamethoxazole (240 mg/ Dextrose) 250 mls @ 250 mls/hr IVPB Q8 [facility]; Protocol Last Admin: 04/25/18 11:54 Dose: 250 mls/hr Metoclopramide HCl (Reglan) 5 mg PO ACHS PRN PRN Reason: Nausea/Vomiting Montelukast Sodium (Singulair) 10 mg PO DAILY [facility] Last Admin: 04/25/18 09:02 Dose: 10 mg Morphine Sulfate (Morphine Extended Release Tab) 30 mg PO Q8 [facility] Last Admin: 04/25/18 09:01 Dose: 30 mg Morphine Sulfate (Morphine Immediate Release Tab) 15 mg PO Q8@0600,1400,2200 [facility] Last Admin: 04/25/18 13:59 Dose: 15 mg - Labs Labs: 04/24/18 06:00 04/24/18 06:00 PT 13.3 Seconds (9.8-13.1) H 04/23/18 18:46 INR 1.2 04/23/18 18:46 APTT 37.5 Seconds (25.6-37.1) H 04/23/18 18:46 - Constitutional Appears: No Acute Distress, Chronically Ill - Head Exam Head Exam: NORMAL INSPECTION - Eye Exam Eye Exam: Normal appearance. absent: Nystagmus - ENT Exam ENT Exam: Mucous Membranes Moist - Neck Exam Neck Exam: Full ROM - Respiratory Exam Respiratory Exam: Rales (Scattered), Wheezes. absent: Respiratory Distress - Cardiovascular Exam Cardiovascular Exam: REGULAR RHYTHM, +S1, +S2. absent: Murmur - GI/Abdominal Exam GI & Abdominal Exam: Soft. absent: Tenderness - Extremities Exam Extremities Exam: absent: Pedal Edema - Neurological Exam Neurological Exam: Alert, Oriented x3 - Psychiatric Exam Psychiatric exam: Normal Affect - Skin Skin Exam: Pallor Assessment and Plan - Assessment and Plan (Free Text) Assessment: Pt is a 57 y/o male with pmhx significant for AIDS, Brain lymphoma (s/p resection and chemo), Asthma, and GERD admitted for Diffuse Atypical Pneumonia. #Vomiting, intermittent -Non bloody; may be viral gastroenteritis vs HAART medication side effect -Reglan prn; will avoid Zofran (increase risk of QT prolongation w/ Azithromycin) #Atypical Pneumonia, acute -C/W ABX Ceftrixone and Azithromycin -ID Consulted #SOB, acute -Likely due to pneumonia exacerbating significant lung disease as noted on Chest CT. -not much improvement since the night before as per patient -C/W bronchodilators treatments -Pulmonology Consulted #AIDS, HIV, Chronic -Will continue home medication if formulary, Triumeq -CD4/8 and viral load Discussed Case with Dr. Alok Warner, PGY2 <Sergey Dickinson - Last Filed: 04/28/18 02:50> Objective - Vital Signs/Intake and Output Vital Signs (last 24 hours): Temp Pulse Resp BP Pulse Ox 98.7 F 89 19 119/75 96 04/27/18 23:49 04/27/18 23:49 04/27/18 23:49 04/27/18 23:49 04/27/18 23:49 - Medications Medications: Current Medications Acetylcysteine (Acetylcysteine 20%) 2 ml INH RBID [facility] Last Admin: 04/27/18 19:40 Dose: 2 ml Albuterol/Ipratropium (Duoneb 3 Mg/0.5 Mg (3 Ml) Ud) 3 ml INH RQ6 [facility] Last Admin: 04/27/18 19:40 Dose: 3 ml Albuterol/Ipratropium (Duoneb 3 Mg/0.5 Mg (3 Ml) Ud) 3 ml INH RQ4 PRN PRN Reason: Shortness of Breath Baclofen (Lioresal) 40 mg PO 0600,1400,2200 [facility] Last Admin: 04/27/18 22:11 Dose: 40 mg Home Med (Abacavir/Dolutegravir/Lamivudi [Triumeq Tablet]) 1 tab PO DAILY [facility] Last Admin: 04/27/18 08:57 Dose: 1 tab Home Med (Ranitidine Hcl [Zantac]) 300 mg PO DAILY [facility] Last Admin: 04/27/18 08:58 Dose: 300 mg Home Med (Calcium Carbonate/Vitamin D3 [Calcium 500 + Vit D Caplet]) 1 each PO DAILY [facility] Last Admin: 04/27/18 08:58 Dose: 1 each Azithromycin 500 mg/ Sodium (Chloride) 250 mls @ 250 mls/hr IVPB DAILY [facility]; Protocol Last Admin: 04/27/18 10:39 Dose: 250 mls/hr Trimethoprim/Sulfamethoxazole (240 mg/ Dextrose) 250 mls @ 250 mls/hr IVPB Q8 [facility]; Protocol Last Admin: 04/28/18 00:10 Dose: 250 mls/hr Metoclopramide HCl (Reglan) 5 mg PO ACHS PRN PRN Reason: Nausea/Vomiting Montelukast Sodium (Singulair) 10 mg PO DAILY [facility] Last Admin: 04/27/18 08:57 Dose: 10 mg Morphine Sulfate (Morphine Immediate Release Tab) 15 mg PO Q8@0600,1400,2200 [facility] Last Admin: 04/27/18 22:10 Dose: 15 mg Ondansetron HCl (Zofran Inj) 4 mg IVP Q6 PRN PRN Reason: Nausea/Vomiting Last Admin: 04/27/18 01:01 Dose: 4 mg - Labs Labs: 04/27/18 05:30 04/27/18 05:30 PT 13.3 Seconds (9.8-13.1) H 04/23/18 18:46 INR 1.2 04/23/18 18:46 APTT 37.5 Seconds (25.6-37.1) H 04/23/18 18:46 Assessment and Plan - Assessment and Plan (Free Text) Assessment: Patient was personally seen and examined by me in rounds with residents. Available labs and diagnostic data reviewed. Case, Patient's condition and management plan discussed with residents in rounds. Agree with resident's progress note. Plan: As ordered.
[2018-04-25 18:39] LABS: % CD4 (T HELPER CELL) 4 Percent (30-61); % CD8 (SUPPRESSOR T CELL) 43 Percent (12-42); ABSOLUTE CD4 CELLS 44 Cells/mcL (490-1740); ABSOLUTE CD8 CELLS 453 Cells/mcL (180-1170); ABSOLUTE LYMPHOCYTES 1047 Cells/mcL (850-3900)
[2018-04-25] MEDS: Acetylcysteine 20% Inhal Soln (4ml) INH SCH (19:16)
[2018-04-26] MEDS: Morphine 30 mg SR Tab PO SCH ×2 (01:15→09:51)
[2018-04-26] MEDS: Piperacillin/Tazobact 3.375 GM in Sodium Chloride 0.9% 100 ML IVPB SCH ×3 (01:19→16:48)
[2018-04-26] MEDS: Sulfamethoxazole/Trimethoprim 240 MG in Dextrose 5% In Water 250 ML IVPB SCH ×4 (02:18→19:46)
[2018-04-26] MEDS: Albuterol-Ipratrop 3 mg / 0.5 (3 ml) UD INH SCH ×4 (02:19→19:47)
[2018-04-26] MEDS: Morphine 15 mg Immediate Release Tab PO SCH ×3 (06:29→21:58)
[2018-04-26] MEDS: Acetylcysteine 20% Inhal Soln (4ml) INH SCH ×2 (08:37→19:47)
[2018-04-26] MEDS: Patient's Own Med (Abacavir/Dolutegravir/Lamivudi [Triumeq Tablet] 1 TAB) PO SCH (09:36)
[2018-04-26] MEDS: CALCIUM PO SCH (09:36)
[2018-04-26] MEDS: VIT D PO SCH (09:36)
[2018-04-26] MEDS: Azithromycin 500 MG in Sodium Chloride 0.9% 250 ML IVPB SCH (09:43)
--- NOTE | 2018-04-26 10:11 | CP.PCM.PN ---
Subjective - Date & Time of Evaluation Date of Evaluation: 04/26/18 Time of Evaluation: 10:11 - Subjective Subjective: STILL UNABLE TO EXPECTORATE SPUTUM C/O HOARSENESS BUT NO SOB Objective - Vital Signs/Intake and Output Vital Signs (last 24 hours): Temp Pulse Resp BP Pulse Ox 97.5 F L 76 20 103/68 96 04/26/18 07:46 04/26/18 07:46 04/26/18 07:46 04/26/18 07:46 04/26/18 07:46 - Medications Medications: Current Medications Acetylcysteine (Acetylcysteine 20%) 2 ml INH RBID [facility] Last Admin: 04/26/18 08:37 Dose: 2 ml Albuterol/Ipratropium (Duoneb 3 Mg/0.5 Mg (3 Ml) Ud) 3 ml INH RQ6 [facility] Last Admin: 04/26/18 08:37 Dose: 3 ml Albuterol/Ipratropium (Duoneb 3 Mg/0.5 Mg (3 Ml) Ud) 3 ml INH RQ4 PRN PRN Reason: Shortness of Breath Baclofen (Lioresal) 40 mg PO 0600,1400,2200 [facility] Last Admin: 04/26/18 06:28 Dose: 40 mg Home Med (Abacavir/Dolutegravir/Lamivudi [Triumeq Tablet]) 1 tab PO DAILY [facility] Last Admin: 04/26/18 09:36 Dose: 1 tab Home Med (Ranitidine Hcl [Zantac]) 300 mg PO DAILY [facility] Last Admin: 04/26/18 09:35 Dose: 300 mg Home Med (Calcium Carbonate/Vitamin D3 [Calcium 500 + Vit D Caplet]) 1 each PO DAILY [facility] Last Admin: 04/26/18 09:36 Dose: 1 each Azithromycin 500 mg/ Sodium (Chloride) 250 mls @ 250 mls/hr IVPB DAILY [facility]; Protocol Last Admin: 04/26/18 09:43 Dose: 250 mls/hr Piperacillin Sod/Tazobactam (Sod 3.375 gm/ Sodium Chloride) 100 mls @ 100 mls/hr IVPB Q8 [facility]; Protocol Last Admin: 04/26/18 09:38 Dose: 100 mls/hr Trimethoprim/Sulfamethoxazole (240 mg/ Dextrose) 250 mls @ 250 mls/hr IVPB Q8 [facility]; Protocol Last Admin: 04/26/18 02:19 Dose: 250 mls/hr Metoclopramide HCl (Reglan) 5 mg PO ACHS PRN PRN Reason: Nausea/Vomiting Montelukast Sodium (Singulair) 10 mg PO DAILY [facility] Last Admin: 04/26/18 09:36 Dose: 10 mg Morphine Sulfate (Morphine Extended Release Tab) 30 mg PO Q8 [facility] Last Admin: 04/26/18 09:51 Dose: 30 mg Morphine Sulfate (Morphine Immediate Release Tab) 15 mg PO Q8@0600,1400,2200 [facility] Last Admin: 04/26/18 06:29 Dose: 15 mg Ondansetron HCl (Zofran Inj) 4 mg IVP Q6 PRN PRN Reason: Nausea/Vomiting Last Admin: 04/26/18 04:35 Dose: 4 mg - Labs Labs: 04/24/18 06:00 04/24/18 06:00 PT 13.3 Seconds (9.8-13.1) H 04/23/18 18:46 INR 1.2 04/23/18 18:46 APTT 37.5 Seconds (25.6-37.1) H 04/23/18 18:46 - Constitutional Appears: Older Than Stated Age, Chronically Ill - Head Exam Head Exam: ATRAUMATIC, NORMAL INSPECTION, NORMOCEPHALIC - Eye Exam Eye Exam: EOMI, Normal appearance, PERRL Pupil Exam: NORMAL ACCOMODATION, PERRL - ENT Exam ENT Exam: Mucous Membranes Moist, Normal Exam - Neck Exam Neck Exam: Full ROM, Normal Inspection. absent: Lymphadenopathy - Respiratory Exam Respiratory Exam: Prolonged Expiratory Phase, Rales, Wheezes, NORMAL BREATHING PATTERN - Cardiovascular Exam Cardiovascular Exam: REGULAR RHYTHM, +S1, +S2. absent: Murmur - GI/Abdominal Exam GI & Abdominal Exam: Soft, Normal Bowel Sounds. absent: Tenderness - Rectal Exam Rectal Exam: NORMAL INSPECTION - Extremities Exam Extremities Exam: Full ROM, Normal Capillary Refill, Normal Inspection. absent: Joint Swelling, Pedal Edema - Back Exam Back Exam: NORMAL INSPECTION - Neurological Exam Neurological Exam: Alert, Awake, CN II-XII Intact, Normal Gait, Oriented x3 - Psychiatric Exam Psychiatric exam: Normal Affect, Normal Mood - Skin Skin Exam: Dry, Intact, Normal Color, Warm Assessment and Plan - Assessment and Plan (Free Text) Assessment: PNEUMONIA HIV DZ [place]HEXIA Plan: CONTINUE CURRENT RX SERIAL CXRS
[2018-04-27] MEDS: Piperacillin/Tazobact 3.375 GM in Sodium Chloride 0.9% 100 ML IVPB SCH ×2 (01:00→09:00)
[2018-04-27] MEDS: Albuterol-Ipratrop 3 mg / 0.5 (3 ml) UD INH SCH ×4 (01:57→19:40)
[2018-04-27] MEDS: Sulfamethoxazole/Trimethoprim 240 MG in Dextrose 5% In Water 250 ML IVPB SCH ×3 (04:30→18:39)
[2018-04-27] MEDS: Morphine 15 mg Immediate Release Tab PO SCH ×3 (06:15→22:10)
[2018-04-27 07:27] LABS: ALB/GLOB RATIO 0.9 (1.0-2.1); ALBUMIN 3.6 g/dL (3.5-5.0); ALT/SGPT 28 U/L (21-72); AST/SGOT 50 U/L (17-59); BLOOD UREA NITROGEN 7 mg/dl (9-20); CALCIUM 8.9 mg/dL (8.4-10.2); GFR NON-AFRICAN AMERICAN > 60
[2018-04-27 07:36] LABS: HEMOGLOBIN 10.7 g/dL (12.0-18.0); MEAN CELL VOLUME 88.7 fl (80.0-94.0); MEAN CORPUSCULAR HEMOGLOBIN 30.3 pg (27.0-31.0); MEAN CORPUSCULAR HGB CONC 34.2 g/dL (33.0-37.0); RBC 3.54 Mil/uL (4.40-5.90); RED CELL DISTRIBUTION WIDTH 14.3 % (11.5-14.5); WHITE BLOOD COUNT 7.8 K/uL (4.8-10.8)
[2018-04-27] MEDS: Acetylcysteine 20% Inhal Soln (4ml) INH SCH ×2 (07:43→19:40)
[2018-04-27] MEDS: Patient's Own Med (Abacavir/Dolutegravir/Lamivudi [Triumeq Tablet] 1 TAB) PO SCH (08:57)
[2018-04-27] MEDS: CALCIUM PO SCH (08:58)
[2018-04-27] MEDS: VIT D PO SCH (08:58)
[2018-04-27] MEDS: Azithromycin 500 MG in Sodium Chloride 0.9% 250 ML IVPB SCH (10:39)
--- NOTE | 2018-04-27 11:12 | RAD ---
Date of service: 04/27/2018 PROCEDURE: CHEST RADIOGRAPH, 1 VIEW HISTORY: PNEUMONIA COMPARISON: Chest radiograph dated 04/23/2018. FINDINGS: LUNGS: Low lung volumes. Similar appearance of left lower lobe patchy infiltrates. PLEURA: No pneumothorax or pleural fluid seen. CARDIOVASCULAR: Atherosclerotic aortic calcifications. Cardiomediastinal silhouette within normal limits OSSEOUS STRUCTURES: Multilevel thoracolumbar vertebral augmentation. Unchanged. VISUALIZED UPPER ABDOMEN: Normal. OTHER FINDINGS: None. IMPRESSION: Stable left lower lobe patchy infiltrates.
--- NOTE | 2018-04-27 12:32 | CP.PCM.PN ---
Subjective - Date & Time of Evaluation Date of Evaluation: 04/27/18 Time of Evaluation: 12:32 - Subjective Subjective: STILL UNABLE TO EXPECTORATE SPUTUM AGREES TO INDUCTION BY RESPIRATORY THERAPY Objective - Vital Signs/Intake and Output Vital Signs (last 24 hours): Temp Pulse Resp BP Pulse Ox 98.7 F 88 20 117/70 94 L 04/27/18 08:46 04/27/18 08:46 04/27/18 08:46 04/27/18 08:46 04/27/18 08:46 - Medications Medications: Current Medications Acetylcysteine (Acetylcysteine 20%) 2 ml INH RBID [facility] Last Admin: 04/27/18 07:43 Dose: 2 ml Albuterol/Ipratropium (Duoneb 3 Mg/0.5 Mg (3 Ml) Ud) 3 ml INH RQ6 [facility] Last Admin: 04/27/18 07:42 Dose: 3 ml Albuterol/Ipratropium (Duoneb 3 Mg/0.5 Mg (3 Ml) Ud) 3 ml INH RQ4 PRN PRN Reason: Shortness of Breath Baclofen (Lioresal) 40 mg PO 0600,1400,2200 [facility] Last Admin: 04/27/18 06:22 Dose: Not Given Home Med (Abacavir/Dolutegravir/Lamivudi [Triumeq Tablet]) 1 tab PO DAILY [facility] Last Admin: 04/27/18 08:57 Dose: 1 tab Home Med (Ranitidine Hcl [Zantac]) 300 mg PO DAILY [facility] Last Admin: 04/27/18 08:58 Dose: 300 mg Home Med (Calcium Carbonate/Vitamin D3 [Calcium 500 + Vit D Caplet]) 1 each PO DAILY [facility] Last Admin: 04/27/18 08:58 Dose: 1 each Azithromycin 500 mg/ Sodium (Chloride) 250 mls @ 250 mls/hr IVPB DAILY [facility]; Protocol Last Admin: 04/27/18 10:39 Dose: 250 mls/hr Trimethoprim/Sulfamethoxazole (240 mg/ Dextrose) 250 mls @ 250 mls/hr IVPB Q8 [facility]; Protocol Last Admin: 04/27/18 04:30 Dose: Not Given Metoclopramide HCl (Reglan) 5 mg PO ACHS PRN PRN Reason: Nausea/Vomiting Montelukast Sodium (Singulair) 10 mg PO DAILY [facility] Last Admin: 04/27/18 08:57 Dose: 10 mg Morphine Sulfate (Morphine Immediate Release Tab) 15 mg PO Q8@0600,1400,2200 [facility] Last Admin: 04/27/18 06:15 Dose: 15 mg Ondansetron HCl (Zofran Inj) 4 mg IVP Q6 PRN PRN Reason: Nausea/Vomiting Last Admin: 04/27/18 01:01 Dose: 4 mg - Labs Labs: 04/27/18 05:30 04/27/18 05:30 PT 13.3 Seconds (9.8-13.1) H 04/23/18 18:46 INR 1.2 04/23/18 18:46 APTT 37.5 Seconds (25.6-37.1) H 04/23/18 18:46 - Constitutional Appears: Chronically Ill - Head Exam Head Exam: ATRAUMATIC, NORMAL INSPECTION, NORMOCEPHALIC - Eye Exam Eye Exam: EOMI, Normal appearance, PERRL Pupil Exam: NORMAL ACCOMODATION, PERRL - ENT Exam ENT Exam: Mucous Membranes Moist, Normal Exam - Neck Exam Neck Exam: Full ROM, Normal Inspection. absent: Lymphadenopathy - Respiratory Exam Respiratory Exam: Prolonged Expiratory Phase, Rales, Wheezes, NORMAL BREATHING PATTERN - Cardiovascular Exam Cardiovascular Exam: REGULAR RHYTHM, +S1, +S2. absent: Murmur - GI/Abdominal Exam GI & Abdominal Exam: Soft, Normal Bowel Sounds. absent: Tenderness - Rectal Exam Rectal Exam: NORMAL INSPECTION - Extremities Exam Extremities Exam: Full ROM, Normal Capillary Refill, Normal Inspection. absent: Joint Swelling, Pedal Edema - Back Exam Back Exam: NORMAL INSPECTION - Neurological Exam Neurological Exam: Alert, Awake, CN II-XII Intact, Normal Gait, Oriented x3 - Psychiatric Exam Psychiatric exam: Normal Affect, Normal Mood - Skin Skin Exam: Dry, Intact, Normal Color, Warm Assessment and Plan - Assessment and Plan (Free Text) Assessment: PNEUMONIA HIV INFECTION Plan: CONTINUE CURRENT RX CPT
--- NOTE | 2018-04-27 15:41 | PN ---
DATE: 04/27/2018 SUBJECTIVE: The patient seen and examined. Interim events noted. Consults noted and appreciated. The patient remains in the regular medical floor with isolation. The patient is awake, responsive, feels okay. Denies any specific complaint of chest pain or shortness of breath. Nursing staff has reported continuing his pain medication, and also the patient seems to be hard of hearing. Upon asking furthermore, the patient stated that the patient's hearing is less and he was admitted. It is not related to any medications. PHYSICAL EXAMINATION: GENERAL: The patient is in no acute distress. VITAL SIGNS: Stable. HEART: S1, S2, normal and regular. LUNGS: Good bilateral air exchange. ABDOMEN: Soft, nontender. EXTREMITIES: No edema. No calf swelling. No tenderness. No acute ischemia. 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 DIAGNOSTIC DATA: Available diagnostic data reviewed. ASSESSMENT AND PLAN: Overall, the patient's general medical condition is stable, although long-term prognosis is poor based on his CD4 count. Plan as ordered. Case and plan discussed with the patient. Sergey Dickinson MD
[2018-04-28] MEDS: Sulfamethoxazole/Trimethoprim 240 MG in Dextrose 5% In Water 250 ML IVPB SCH ×3 (00:10→17:59)
[2018-04-28] MEDS: Albuterol-Ipratrop 3 mg / 0.5 (3 ml) UD INH SCH ×3 (02:53→19:55)
[2018-04-28] MEDS: Sodium Chloride 3% for Inhalation 4 ML VIAL.NEB IH PRN (05:58)
[2018-04-28 06:14] LABS: HEMOGLOBIN 10.5 g/dL (12.0-18.0); MEAN CORPUSCULAR HEMOGLOBIN 29.7 pg (27.0-31.0); MEAN CORPUSCULAR HGB CONC 33.8 g/dL (33.0-37.0); RBC 3.52 Mil/uL (4.40-5.90); RED CELL DISTRIBUTION WIDTH 14.4 % (11.5-14.5); WHITE BLOOD COUNT 13.1 K/uL (4.8-10.8)
[2018-04-28] MEDS: Morphine 15 mg Immediate Release Tab PO SCH ×3 (06:16→21:46)
[2018-04-28 06:50] LABS: ALB/GLOB RATIO 0.9 (1.0-2.1); ALBUMIN 3.6 g/dL (3.5-5.0); ALT/SGPT 29 U/L (21-72); AST/SGOT 27 U/L (17-59); BLOOD UREA NITROGEN 5 mg/dl (9-20); CALCIUM 8.6 mg/dL (8.4-10.2); GFR NON-AFRICAN AMERICAN > 60
[2018-04-28] MEDS: Acetylcysteine 20% Inhal Soln (4ml) INH SCH ×2 (07:22→19:55)
[2018-04-28] MEDS: Patient's Own Med (Abacavir/Dolutegravir/Lamivudi [Triumeq Tablet] 1 TAB) PO SCH (08:51)
[2018-04-28] MEDS: Azithromycin 500 MG in Sodium Chloride 0.9% 250 ML IVPB SCH (08:51)
[2018-04-28] MEDS: CALCIUM PO SCH (08:57)
[2018-04-28] MEDS: VIT D PO SCH (08:57)
--- NOTE | 2018-04-28 08:59 | PN ---
DATE: 04/26/2018 SUBJECTIVE: The patient seen and examined. Interim events noted. Consults noted and appreciated. The patient remains in regular medical floor with isolation. The patient feels okay, complains of chronic back pain requiring morphine on intermediate basis. No chest pain. No shortness of breath. PHYSICAL EXAMINATION: GENERAL: The patient is in no acute distress. VITAL SIGNS: Stable. HEART: S1 and S2. Normal and regular. LUNGS: Good bilateral air exchange. ABDOMEN: Soft and nontender. EXTREMITIES: No edema. No calf swelling. No tenderness. No acute ischemia. CENTRAL NERVOUS SYSTEM: Exam is essentially unchanged. DIAGNOSTIC DATA: Available diagnostic data reviewed. ASSESSMENT AND PLAN: Overall, the patient's general medical condition is stable. We will try to taper down morphine a little bit. Plan discussed with the patient. Plan as ordered. Sergey Dickinson MD
[2018-04-28] MEDS ORDERED: Chlorhexidine Gluconate 1 APPL/PKT TP ONE (09:42)
--- NOTE | 2018-04-28 10:28 | CP.PCM.PN ---
Subjective - Date & Time of Evaluation Date of Evaluation: 04/28/18 Time of Evaluation: 10:28 - Subjective Subjective: ID note- pt. seen and examined today. pt. was able to finally give one sputum sample today with help of MOLD SHIFTER and resp therapist. afebrile. Objective - Vital Signs/Intake and Output Vital Signs (last 24 hours): Temp Pulse Resp BP Pulse Ox 98 F 76 20 109/69 96 04/28/18 08:10 04/28/18 08:10 04/28/18 08:10 04/28/18 08:10 04/28/18 08:10 - Medications Medications: Current Medications Acetylcysteine (Acetylcysteine 20%) 2 ml INH RBID [facility] Last Admin: 04/28/18 07:22 Dose: 2 ml Albuterol/Ipratropium (Duoneb 3 Mg/0.5 Mg (3 Ml) Ud) 3 ml INH RQ6 [facility] Last Admin: 04/28/18 07:22 Dose: 3 ml Albuterol/Ipratropium (Duoneb 3 Mg/0.5 Mg (3 Ml) Ud) 3 ml INH RQ4 PRN PRN Reason: Shortness of Breath Baclofen (Lioresal) 40 mg PO 0600,1400,2200 [facility] Last Admin: 04/28/18 06:01 Dose: Not Given Home Med (Abacavir/Dolutegravir/Lamivudi [Triumeq Tablet]) 1 tab PO DAILY [facility] Last Admin: 04/28/18 08:51 Dose: 1 tab Home Med (Ranitidine Hcl [Zantac]) 300 mg PO DAILY [facility] Last Admin: 04/28/18 08:57 Dose: 300 mg Home Med (Calcium Carbonate/Vitamin D3 [Calcium 500 + Vit D Caplet]) 1 each PO DAILY [facility] Last Admin: 04/28/18 08:57 Dose: 1 each Azithromycin 500 mg/ Sodium (Chloride) 250 mls @ 250 mls/hr IVPB DAILY [facility]; Protocol Last Admin: 04/28/18 08:51 Dose: 250 mls/hr Trimethoprim/Sulfamethoxazole (240 mg/ Dextrose) 250 mls @ 250 mls/hr IVPB Q8 [facility]; Protocol Last Admin: 04/28/18 00:10 Dose: 250 mls/hr Piperacillin Sod/Tazobactam (Sod 3.375 gm/ Sodium Chloride) 100 mls @ 100 mls/hr IVPB Q8 [facility]; Protocol Metoclopramide HCl (Reglan) 5 mg PO ACHS PRN PRN Reason: Nausea/Vomiting Montelukast Sodium (Singulair) 10 mg PO DAILY [facility] Last Admin: 04/28/18 08:57 Dose: 10 mg Morphine Sulfate (Morphine Immediate Release Tab) 15 mg PO Q8@0600,1400,2200 [facility] Last Admin: 04/28/18 06:16 Dose: 15 mg Ondansetron HCl (Zofran Inj) 4 mg IVP Q6 PRN PRN Reason: Nausea/Vomiting Last Admin: 04/28/18 06:29 Dose: 4 mg - Labs Labs: - Additional Findings Additional findings: - Constitutional Appears: No Acute Distress, Cachectic, Chronically Ill - Eye Exam Eye Exam: EOMI, PERRL - ENT Exam ENT Exam: Normal Oropharynx - Neck Exam Neck exam: Positive for: Full Rom Additional comments: supple - Respiratory Exam Respiratory Exam: NORMAL BREATHING PATTERN Additional comments: slight coarse breath sounds in right base No wheezing - Cardiovascular Exam Cardiovascular Exam: RRR, +S1, +S2 - GI/Abdominal Exam GI & Abdominal Exam: Normal Bowel Sounds, Soft Additional comments: NT, ND - Extremities Exam Extremities exam: Positive for: normal inspection - Neurological Exam Neurological exam: Alert, Oriented x 3 Laboratory Results - last 72 hr 04/24/18 04/24/18 04/24/18 10:36 10:36 12:18 WBC RBC Hgb Hct MCV MCH MCHC RDW Plt Count Sodium Potassium Chloride Carbon Dioxide Anion Gap BUN Creatinine Est GFR ( Amer) Est GFR (Non-Af Amer) Random Glucose Calcium Phosphorus Magnesium Total Bilirubin AST ALT Alkaline Phosphatase Total Protein Albumin Globulin Albumin/Globulin Ratio Absolute Lymphs (Flow) 1047 % CD4 Cells 4 L Absolute CD4 Count 44 L T-Help/Suppress Ratio 0.10 L % CD8 Cells 43 H Absolute CD8 Count 453 HIV-1 RNA Qnt (RT-PCR) <1.30 detected H Ur L.pneumophila Ag Mycoplasma pneumon IgG <=0.90 Mycoplasma pneumon IgM 73 TB Test (QFT) Nil TB Test Mitogen - Nil TB Test TB - Nil TB Test (QFT) 04/24/18 04/24/18 04/27/18 12:55 18:00 05:30 WBC 7.8 RBC 3.54 L Hgb 10.7 L Hct 31.4 L MCV 88.7 MCH 30.3 MCHC 34.2 RDW 14.3 Plt Count 435 H Sodium Potassium Chloride Carbon Dioxide Anion Gap BUN Creatinine Est GFR ( Amer) Est GFR (Non-Af Amer) Random Glucose Calcium Phosphorus Magnesium Total Bilirubin AST ALT Alkaline Phosphatase Total Protein Albumin Globulin Albumin/Globulin Ratio Absolute Lymphs (Flow) % CD4 Cells Absolute CD4 Count T-Help/Suppress Ratio % CD8 Cells Absolute CD8 Count HIV-1 RNA Qnt (RT-PCR) Ur L.pneumophila Ag Negative Mycoplasma pneumon IgG Mycoplasma pneumon IgM TB Test (QFT) Nil 0.08 TB Test Mitogen - Nil 0.41 TB Test TB - Nil 0.20 TB Test (QFT) Indeterminate H 04/27/18 04/28/18 04/28/18 05:30 05:35 05:35 WBC 13.1 H D RBC 3.52 L Hgb 10.5 L Hct 31.0 L MCV 88.0 MCH 29.7 MCHC 33.8 RDW 14.4 Plt Count 405 H Sodium 133 127 L Potassium 4.3 4.4 Chloride 95 L 92 L Carbon Dioxide 27 23 Anion Gap 15 16 BUN 7 L 5 L Creatinine 0.7 L 0.5 L Est GFR ( Amer) > 60 > 60 Est GFR (Non-Af Amer) > 60 > 60 Random Glucose 81 90 Calcium 8.9 8.6 Phosphorus 4.0 Magnesium 2.0 Total Bilirubin 0.3 0.3 AST 50 27 ALT 28 29 Alkaline Phosphatase 115 110 Total Protein 7.5 7.6 Albumin 3.6 3.6 Globulin 4.0 H 3.9 Albumin/Globulin Ratio 0.9 L 0.9 L Absolute Lymphs (Flow) % CD4 Cells Absolute CD4 Count T-Help/Suppress Ratio % CD8 Cells Absolute CD8 Count HIV-1 RNA Qnt (RT-PCR) Ur L.pneumophila Ag Mycoplasma pneumon IgG Mycoplasma pneumon IgM TB Test (QFT) Nil TB Test Mitogen - Nil TB Test TB - Nil TB Test (QFT) Microbiology 04/23/18 18:54 Blood-Venous Blood Culture - Preliminary NO GROWTH AFTER 4 DAYS 04/23/18 18:46 Blood-Venous Blood Culture - Preliminary NO GROWTH AFTER 4 DAYS 04/23/18 18:02 Blood-Venous Blood Culture - Preliminary NO GROWTH AFTER 4 DAYS Assessment and Plan (1) Cough Status: Acute (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 remains afebrile slight leukocytosis today admission chest Ct reported as chronic pneumonits and bibasilar bronchiectais, and diffuse atypical Pneuminia. blood cx- neg x 2 influenza - neg cxr- as per report stable LLL patchy infiltrate quantiferon gold- indeterminate CD4-44 urine legionella AG- neg mycoplasma serology-neg plan- await sputum cx. await sputum AFB x 3. advise to also continue pt. on IV bactrim for presumed PCP day #5 can d/c daily zithromax and place on zithromax 1200 mg once a week for MAC prophylaxis since his Cd4 is <50. advise to continue with IV zosyn day #5 can continue with his triumeq. all above d/w patient and he verbalizes full understanding of all above and agrees with above plan of care.
--- NOTE | 2018-04-28 13:43 | PN ---
DATE: 04/28/2018 SUBJECTIVE: The patient seen and examined. Interim events noted. Consults noted and appreciated. Pulmonary followup and intervention noted and appreciated. The patient feels okay. Pain is adequately controlled. The patient still not able to provide sputum specimen for testing. No chest pain. No shortness of breath. PHYSICAL EXAMINATION: GENERAL: The patient is in no acute distress. VITAL SIGNS: Stable. HEART: S1 and S2, normal and regular. LUNGS: Good bilateral air exchange. ABDOMEN: Soft, nontender. EXTREMITIES: No edema. No calf swelling. No tenderness. No acute ischemia. 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 DIAGNOSTIC DATA: Available diagnostic data reviewed. ASSESSMENT AND PLAN: Overall, the patient's general medical condition is hemodynamically stable. Long-term prognosis remains guarded. Plan as ordered. Sergey Dickinson MD
[2018-04-28] MEDS: Piperacillin/Tazobact 3.375 GM in Sodium Chloride 0.9% 100 ML IVPB SCH (16:07)
[2018-04-29] MEDS: Piperacillin/Tazobact 3.375 GM in Sodium Chloride 0.9% 100 ML IVPB SCH ×3 (00:02→16:36)
[2018-04-29] MEDS: Sulfamethoxazole/Trimethoprim 240 MG in Dextrose 5% In Water 250 ML IVPB SCH ×2 (01:32→12:32)
[2018-04-29] MEDS: Albuterol-Ipratrop 3 mg / 0.5 (3 ml) UD INH SCH ×4 (01:37→19:56)
[2018-04-29] MEDS: Morphine 15 mg Immediate Release Tab PO SCH ×3 (05:29→22:01)
[2018-04-29 06:33] LABS: HEMOGLOBIN 11.3 g/dL (12.0-18.0); MEAN CELL VOLUME 88.5 fl (80.0-94.0); MEAN CORPUSCULAR HEMOGLOBIN 30.2 pg (27.0-31.0); MEAN CORPUSCULAR HGB CONC 34.2 g/dL (33.0-37.0); RBC 3.72 Mil/uL (4.40-5.90); WHITE BLOOD COUNT 11.6 K/uL (4.8-10.8)
[2018-04-29 07:42] LABS: ALB/GLOB RATIO 0.9 (1.0-2.1); ALBUMIN 3.7 g/dL (3.5-5.0); ALT/SGPT 19 U/L (21-72); AST/SGOT 37 U/L (17-59); BLOOD UREA NITROGEN 4 mg/dl (9-20); CALCIUM 8.7 mg/dL (8.4-10.2); GFR NON-AFRICAN AMERICAN > 60
[2018-04-29] MEDS: Acetylcysteine 20% Inhal Soln (4ml) INH SCH ×2 (08:15→19:56)
--- NOTE | 2018-04-29 08:23 | CP.PCM.PN ---
Subjective - Date & Time of Evaluation Date of Evaluation: 04/29/18 Time of Evaluation: 08:23 - Subjective Subjective: FEELS WEAK ONLY ABLE TO GIVE 1 SPUTUM SAMPLE Objective - Vital Signs/Intake and Output Vital Signs (last 24 hours): Temp Pulse Resp BP Pulse Ox 98.3 F 75 20 109/72 92 L 04/29/18 08:03 04/29/18 08:03 04/29/18 08:03 04/29/18 08:03 04/29/18 08:03 - Medications Medications: Current Medications Acetylcysteine (Acetylcysteine 20%) 2 ml INH RBID [facility] Last Admin: 04/29/18 08:15 Dose: 2 ml Albuterol/Ipratropium (Duoneb 3 Mg/0.5 Mg (3 Ml) Ud) 3 ml INH RQ6 [facility] Last Admin: 04/29/18 08:14 Dose: 3 ml Albuterol/Ipratropium (Duoneb 3 Mg/0.5 Mg (3 Ml) Ud) 3 ml INH RQ4 PRN PRN Reason: Shortness of Breath Baclofen (Lioresal) 40 mg PO 0600,1400,2200 [facility] Last Admin: 04/29/18 05:29 Dose: 40 mg Home Med (Abacavir/Dolutegravir/Lamivudi [Triumeq Tablet]) 1 tab PO DAILY [facility] Last Admin: 04/28/18 08:51 Dose: 1 tab Home Med (Ranitidine Hcl [Zantac]) 300 mg PO DAILY [facility] Last Admin: 04/28/18 08:57 Dose: 300 mg Home Med (Calcium Carbonate/Vitamin D3 [Calcium 500 + Vit D Caplet]) 1 each PO DAILY [facility] Last Admin: 04/28/18 08:57 Dose: 1 each Trimethoprim/Sulfamethoxazole (240 mg/ Dextrose) 250 mls @ 250 mls/hr IVPB Q8 [facility]; Protocol Last Admin: 04/29/18 01:32 Dose: 250 mls/hr Piperacillin Sod/Tazobactam (Sod 3.375 gm/ Sodium Chloride) 100 mls @ 100 mls/hr IVPB Q8 [facility]; Protocol Last Admin: 04/29/18 00:02 Dose: 100 mls/hr Metoclopramide HCl (Reglan) 5 mg PO ACHS PRN PRN Reason: Nausea/Vomiting Montelukast Sodium (Singulair) 10 mg PO DAILY [facility] Last Admin: 04/28/18 08:57 Dose: 10 mg Morphine Sulfate (Morphine Immediate Release Tab) 15 mg PO Q8@0600,1400,2200 [facility] Last Admin: 04/29/18 05:29 Dose: 15 mg Ondansetron HCl (Zofran Inj) 4 mg IVP Q6 PRN PRN Reason: Nausea/Vomiting Last Admin: 04/28/18 06:29 Dose: 4 mg - Labs Labs: 04/29/18 05:30 04/29/18 05:30 PT 13.3 Seconds (9.8-13.1) H 04/23/18 18:46 INR 1.2 04/23/18 18:46 APTT 37.5 Seconds (25.6-37.1) H 04/23/18 18:46 - Constitutional Appears: Cachectic, Chronically Ill - Head Exam Head Exam: ATRAUMATIC, NORMAL INSPECTION, NORMOCEPHALIC - Eye Exam Eye Exam: EOMI, Normal appearance, PERRL Pupil Exam: NORMAL ACCOMODATION, PERRL - ENT Exam ENT Exam: Mucous Membranes Moist, Normal Exam - Neck Exam Neck Exam: Full ROM, Normal Inspection. absent: Lymphadenopathy - Respiratory Exam Respiratory Exam: Prolonged Expiratory Phase, Rales, NORMAL BREATHING PATTERN - Cardiovascular Exam Cardiovascular Exam: REGULAR RHYTHM, +S1, +S2. absent: Murmur - GI/Abdominal Exam GI & Abdominal Exam: Soft, Normal Bowel Sounds. absent: Tenderness - Rectal Exam Rectal Exam: NORMAL INSPECTION - Extremities Exam Extremities Exam: Full ROM, Normal Capillary Refill, Normal Inspection. absent: Joint Swelling, Pedal Edema - Back Exam Back Exam: NORMAL INSPECTION - Neurological Exam Neurological Exam: Alert, Awake, CN II-XII Intact, Normal Gait, Oriented x3 - Psychiatric Exam Psychiatric exam: Normal Affect, Normal Mood - Skin Skin Exam: Dry, Intact, Normal Color, Warm Assessment and Plan - Assessment and Plan (Free Text) Assessment: PNEUMONIA HIV DZ CACHEXIA Plan: CONTINUE CURRENT THERAPY PER ID
[2018-04-29] MEDS ORDERED: Alum-Mag Hydrox-Simethicone Susp (30 mL) PO ONE (10:09)
[2018-04-29] MEDS: VIT D PO SCH (11:55)
[2018-04-29] MEDS: CALCIUM PO SCH (11:55)
[2018-04-29] MEDS: Patient's Own Med (Abacavir/Dolutegravir/Lamivudi [Triumeq Tablet] 1 TAB) PO SCH (11:55)
--- NOTE | 2018-04-29 15:20 | PN ---
DATE: 04/29/2018 SUBJECTIVE: The patient seen and examined. Interim events noted. Consults noted and appreciated. Infectious Disease followup and intervention noted and appreciated. The patient remains in regular medical floor on isolation. Sleeping, arousable, feels okay. Denies any specific complaint. Generalized pain is adequately controlled with current pain management. PHYSICAL EXAMINATION: GENERAL: The patient is in no acute distress. VITAL SIGNS: Stable. HEART: S1 and S2, normal and regular. LUNGS: Good bilateral air exchange. ABDOMEN: Soft, nontender. EXTREMITIES: No edema. No calf swelling. No tenderness. No acute ischemia. 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 DIAGNOSTIC DATA: Available diagnostic data reviewed. ASSESSMENT AND PLAN: Overall, the patient's general medical condition is stable. Plan as ordered. Long-term prognosis remains poor due to advanced human immunodeficiency virus related acquired immunodeficiency syndrome. Sergey Dickinson MD
[2018-04-30] MEDS: Piperacillin/Tazobact 3.375 GM in Sodium Chloride 0.9% 100 ML IVPB SCH ×3 (00:31→16:02)
[2018-04-30] MEDS: Albuterol-Ipratrop 3 mg / 0.5 (3 ml) UD INH SCH ×4 (01:12→19:24)
[2018-04-30] MEDS ORDERED: Alum-Mag Hydrox-Simethicone Susp (30 mL) PO ONE (02:10)
[2018-04-30] MEDS: Morphine 15 mg Immediate Release Tab PO SCH ×2 (05:30→15:50)
[2018-04-30 06:28] LABS: HEMOGLOBIN 12.1 g/dL (12.0-18.0); MEAN CELL VOLUME 88.5 fl (80.0-94.0); MEAN CORPUSCULAR HEMOGLOBIN 30.3 pg (27.0-31.0); MEAN CORPUSCULAR HGB CONC 34.3 g/dL (33.0-37.0); RED CELL DISTRIBUTION WIDTH 14.3 % (11.5-14.5); WHITE BLOOD COUNT 9.9 K/uL (4.8-10.8)
[2018-04-30 07:27] LABS: ALB/GLOB RATIO 0.9 (1.0-2.1); ALBUMIN 3.9 g/dL (3.5-5.0); ALT/SGPT 29 U/L (21-72); AST/SGOT 38 U/L (17-59); BLOOD UREA NITROGEN 9 mg/dl (9-20); CALCIUM 9.1 mg/dL (8.4-10.2); GFR NON-AFRICAN AMERICAN > 60
[2018-04-30] MEDS: Acetylcysteine 20% Inhal Soln (4ml) INH SCH ×2 (07:47→19:25)
[2018-04-30] MEDS ORDERED: WATER IVPB SCH (09:00)
[2018-04-30] MEDS ORDERED: TRIMETHOPRIM IVPB SCH (09:00)
[2018-04-30] MEDS ORDERED: SULFAMETHOXAZOLE IVPB SCH (09:00)
[2018-04-30] MEDS ORDERED: DEXTROSE 5% IVPB SCH (09:00)
--- NOTE | 2018-04-30 09:46 | CP.PCM.PN ---
Subjective - Date & Time of Evaluation Date of Evaluation: 04/30/18 Time of Evaluation: 09:46 - Subjective Subjective: ID note- Pt. seen and examined. remains weak . afebrile . has only given one sputum sample so far. Objective - Vital Signs/Intake and Output Vital Signs (last 24 hours): Temp Pulse Resp BP Pulse Ox 97.7 F 89 18 102/70 99 04/30/18 08:27 04/30/18 08:27 04/30/18 08:27 04/30/18 08:27 04/30/18 08:27 - Medications Medications: Current Medications Acetylcysteine (Acetylcysteine 20%) 2 ml INH RBID [facility] Last Admin: 04/30/18 07:47 Dose: 2 ml Albuterol/Ipratropium (Duoneb 3 Mg/0.5 Mg (3 Ml) Ud) 3 ml INH RQ6 [facility] Last Admin: 04/30/18 07:47 Dose: 3 ml Albuterol/Ipratropium (Duoneb 3 Mg/0.5 Mg (3 Ml) Ud) 3 ml INH RQ4 PRN PRN Reason: Shortness of Breath Baclofen (Lioresal) 40 mg PO 0600,1400,2200 [facility] Last Admin: 04/30/18 05:30 Dose: 40 mg Home Med (Abacavir/Dolutegravir/Lamivudi [Triumeq Tablet]) 1 tab PO DAILY [facility] Last Admin: 04/29/18 11:55 Dose: Not Given Home Med (Ranitidine Hcl [Zantac]) 300 mg PO DAILY [facility] Last Admin: 04/29/18 08:47 Dose: 300 mg Home Med (Calcium Carbonate/Vitamin D3 [Calcium 500 + Vit D Caplet]) 1 each PO DAILY [facility] Last Admin: 04/29/18 11:55 Dose: Not Given Piperacillin Sod/Tazobactam (Sod 3.375 gm/ Sodium Chloride) 100 mls @ 100 mls/hr IVPB Q8 [facility]; Protocol Last Admin: 04/30/18 00:31 Dose: 100 mls/hr Trimethoprim/Sulfamethoxazole (240 mg/ Dextrose) 250 mls @ 100 mls/hr IVPB Q8 [facility]; Protocol Metoclopramide HCl (Reglan) 5 mg PO ACHS PRN PRN Reason: Nausea/Vomiting Montelukast Sodium (Singulair) 10 mg PO DAILY [facility] Last Admin: 04/29/18 11:55 Dose: Not Given Morphine Sulfate (Morphine Immediate Release Tab) 15 mg PO Q8@0600,1400,2200 [facility] Last Admin: 04/30/18 05:30 Dose: 15 mg Ondansetron HCl (Zofran Inj) 4 mg IVP Q6 PRN PRN Reason: Nausea/Vomiting Last Admin: 04/30/18 05:45 Dose: 4 mg - Labs Labs: - Additional Findings Additional findings: - Constitutional Appears: No Acute Distress, Cachectic, Chronically Ill - Eye Exam Eye Exam: EOMI, PERRL - ENT Exam ENT Exam: Normal Oropharynx - Neck Exam Neck exam: Positive for: Full Rom Additional comments: supple - Respiratory Exam Respiratory Exam: NORMAL BREATHING PATTERN Additional comments: decreased breath sounds in right base No wheezing - Cardiovascular Exam Cardiovascular Exam: RRR, +S1, +S2 - GI/Abdominal Exam GI & Abdominal Exam: Normal Bowel Sounds, Soft Additional comments: NT, ND - Extremities Exam Extremities exam: Positive for: normal inspection - Neurological Exam Neurological exam: Alert, Oriented x 3 Laboratory Results - last 72 hr 04/24/18 04/28/18 04/28/18 12:18 05:35 05:35 WBC 13.1 H D RBC 3.52 L Hgb 10.5 L Hct 31.0 L MCV 88.0 MCH 29.7 MCHC 33.8 RDW 14.4 Plt Count 405 H Sodium 127 L Potassium 4.4 Chloride 92 L Carbon Dioxide 23 Anion Gap 16 BUN 5 L Creatinine 0.5 L Est GFR ( Amer) > 60 Est GFR (Non-Af Amer) > 60 Random Glucose 90 Calcium 8.6 Phosphorus Magnesium Total Bilirubin 0.3 AST 27 ALT 29 Alkaline Phosphatase 110 Total Protein 7.6 Albumin 3.6 Globulin 3.9 Albumin/Globulin Ratio 0.9 L Mycoplasma pneumon IgG <=0.90 Mycoplasma pneumon IgM 73 04/29/18 04/29/18 04/30/18 05:30 05:30 05:50 WBC 11.6 H 9.9 RBC 3.72 L 4.00 L Hgb 11.3 L 12.1 Hct 33.0 L 35.4 MCV 88.5 88.5 MCH 30.2 30.3 MCHC 34.2 34.3 RDW 14.0 14.3 Plt Count 411 H 458 H Sodium 127 L Potassium 4.5 Chloride 89 L Carbon Dioxide 25 Anion Gap 18 BUN 4 L Creatinine 0.6 L Est GFR ( Amer) > 60 Est GFR (Non-Af Amer) > 60 Random Glucose 71 L Calcium 8.7 Phosphorus 3.1 Magnesium 2.0 Total Bilirubin 0.3 AST 37 ALT 19 L D Alkaline Phosphatase 117 Total Protein 7.7 Albumin 3.7 Globulin 3.9 Albumin/Globulin Ratio 0.9 L Mycoplasma pneumon IgG Mycoplasma pneumon IgM 04/30/18 05:50 WBC RBC Hgb Hct MCV MCH MCHC RDW Plt Count Sodium 134 Potassium 4.6 Chloride 93 L Carbon Dioxide 27 Anion Gap 19 BUN 9 Creatinine 0.7 L Est GFR ( Amer) > 60 Est GFR (Non-Af Amer) > 60 Random Glucose 99 Calcium 9.1 Phosphorus Magnesium Total Bilirubin 0.3 AST 38 ALT 29 Alkaline Phosphatase 134 H Total Protein 8.1 Albumin 3.9 Globulin 4.3 H Albumin/Globulin Ratio 0.9 L Mycoplasma pneumon IgG Mycoplasma pneumon IgM Microbiology 04/28/18 11:12 Sputum Gram Stain - Final 04/28/18 11:12 Sputum Sputum Culture - Final NORMAL ORAL JOSÉ ANTONIO 04/23/18 18:54 Blood-Venous Blood Culture - Final NO GROWTH AFTER 5 DAYS 04/23/18 18:54 Blood-Venous Gram Stain - Final TEST NOT PERFORMED 04/23/18 18:46 Blood-Venous Blood Culture - Final NO GROWTH AFTER 5 DAYS 04/23/18 18:46 Blood-Venous Gram Stain - Final TEST NOT PERFORMED 04/23/18 18:02 Blood-Venous Blood Culture - Final NO GROWTH AFTER 5 DAYS 04/23/18 18:02 Blood-Venous Gram Stain - Final TEST NOT PERFORMED Accession No. : [id number] Patient Name / ID : LUISA MAYA / [id number] Exam Date : 04/30/2018 10:40:55 ( Approved ) Study Comment : Sex / Age : M / 57Y Creator : fran galvan Dictator : Kurtis Torres MD Order Make Up Clerk : Consumer Loan Specialist : Kurtis Torres MD Approver2 : Report Date : 04/30/2018 11:07:05 My Comment : Date of service: 04/30/2018 PROCEDURE: CHEST RADIOGRAPH, 1 VIEW HISTORY: PNEUMONIA COMPARISON: Portable chest 04/27/2018. FINDINGS: LUNGS: Exam is compromised by patient's inability to remain position adequately. Patient's lower face obscures the right apex which is not included in the evaluation. Reticular markings remain greater the left and right lungs, particularly at the bases. No pulmonary vascular congestion gross pneumothorax or pleural effusion appreciable. Cardiac silhouette is stable. No alveolitis bilaterally. Consider potential atypical pneumonitis left lung. PLEURA: No pneumothorax or pleural fluid seen. CARDIOVASCULAR: Normal. OSSEOUS STRUCTURES: Prior multilevel vertebroplasty again seen at the thoracolumbar spine. VISUALIZED UPPER ABDOMEN: Normal. OTHER FINDINGS: None. IMPRESSION: No interval change in atypical pneumonitis pattern at the left base with remaining lung guthrie grossly clear as imaged. Note, lower face completely obscures right apex. 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 remains afebrile slight leukocytosis resolved. admission chest Ct reported as chronic pneumonits and bibasilar bronchiectais, and diffuse atypical Pneumonia. blood cx- neg x 2 influenza - neg cxr- as per report stable LLL patchy infiltrate quantiferon gold- indeterminate CD4-44 urine legionella AG- neg mycoplasma serology-neg plan- await sputum AFB x 3. advise to continue pt. on IV bactrim for presumed PCP day #7 can d/c daily zithromax and place on zithromax 1200 mg once a week for MAC prophylaxis since his Cd4 is <50. advise to continue with IV zosyn day #7 can continue with his triumeq. all above d/w patient and he verbalizes full understanding of all above and agrees with above plan of care.
[2018-04-30] MEDS: VIT D PO SCH (11:10)
[2018-04-30] MEDS: CALCIUM PO SCH (11:10)
[2018-04-30] MEDS: Patient's Own Med (Abacavir/Dolutegravir/Lamivudi [Triumeq Tablet] 1 TAB) PO SCH (11:10)
[2018-04-30] MEDS: Sulfamethoxazole/Trimethoprim 240 MG in Dextrose 5% In Water 250 ML IVPB SCH ×2 (11:12→16:03)
--- NOTE | 2018-04-30 12:54 | RAD ---
Date of service: 04/30/2018 PROCEDURE: CHEST RADIOGRAPH, 1 VIEW HISTORY: PNEUMONIA COMPARISON: Portable chest 04/27/2018. FINDINGS: LUNGS: Exam is compromised by patient's inability to remain position adequately. Patient's lower face obscures the right apex which is not included in the evaluation. Reticular markings remain greater the left and right lungs, particularly at the bases. No pulmonary vascular congestion gross pneumothorax or pleural effusion appreciable. Cardiac silhouette is stable. No alveolitis bilaterally. Consider potential atypical pneumonitis left lung. PLEURA: No pneumothorax or pleural fluid seen. CARDIOVASCULAR: Normal. OSSEOUS STRUCTURES: Prior multilevel vertebroplasty again seen at the thoracolumbar spine. VISUALIZED UPPER ABDOMEN: Normal. OTHER FINDINGS: None. IMPRESSION: No interval change in atypical pneumonitis pattern at the left base with remaining lung guthrie grossly clear as imaged. Note, lower face completely obscures right apex.
[2018-04-30] MEDS ORDERED: Morphine 15 mg Immediate Release Tab PO SCH (23:00)
[2018-05-01] MEDS: Sulfamethoxazole/Trimethoprim 240 MG in Dextrose 5% In Water 250 ML IVPB SCH ×4 (00:01→17:16)
[2018-05-01] MEDS: Piperacillin/Tazobact 3.375 GM in Sodium Chloride 0.9% 100 ML IVPB SCH ×3 (01:58→17:14)
[2018-05-01] MEDS: Albuterol-Ipratrop 3 mg / 0.5 (3 ml) UD INH SCH ×4 (02:16→19:19)
--- NOTE | 2018-05-01 07:46 | CP.PCM.PN ---
<Sultan Minal - Last Filed: 05/01/18 10:53> Subjective - Date & Time of Evaluation Date of Evaluation: 05/01/18 Time of Evaluation: 07:15 - Subjective Subjective: Patient seen and examined this morning during rounds with Dr. Dickinson. Patient looks cachexic and weak. Reports cough and dyspnea improved. Can not bright out phelgm. Afebrile. Will try to wean off from morphine. No other complaints. Objective - Vital Signs/Intake and Output Vital Signs (last 24 hours): Temp Pulse Resp BP Pulse Ox 97.8 F 87 20 106/74 96 05/01/18 00:04 05/01/18 00:04 05/01/18 00:04 05/01/18 00:04 05/01/18 00:04 - Medications Medications: Current Medications Acetylcysteine (Acetylcysteine 20%) 2 ml INH RBID [facility] Last Admin: 04/30/18 19:25 Dose: 2 ml Albuterol/Ipratropium (Duoneb 3 Mg/0.5 Mg (3 Ml) Ud) 3 ml INH RQ6 [facility] Last Admin: 05/01/18 02:16 Dose: 3 ml Albuterol/Ipratropium (Duoneb 3 Mg/0.5 Mg (3 Ml) Ud) 3 ml INH RQ4 PRN PRN Reason: Shortness of Breath Baclofen (Lioresal) 40 mg PO 0600,1400,2200 [facility] Last Admin: 04/30/18 22:21 Dose: Not Given Home Med (Abacavir/Dolutegravir/Lamivudi [Triumeq Tablet]) 1 tab PO DAILY [facility] Last Admin: 04/30/18 11:10 Dose: 1 tab Home Med (Ranitidine Hcl [Zantac]) 300 mg PO DAILY [facility] Last Admin: 04/30/18 11:10 Dose: 300 mg Home Med (Calcium Carbonate/Vitamin D3 [Calcium 500 + Vit D Caplet]) 1 each PO DAILY [facility] Last Admin: 04/30/18 11:10 Dose: 1 each Piperacillin Sod/Tazobactam (Sod 3.375 gm/ Sodium Chloride) 100 mls @ 100 mls/hr IVPB Q8 [facility]; Protocol Last Admin: 05/01/18 01:58 Dose: 100 mls/hr Trimethoprim/Sulfamethoxazole (240 mg/ Dextrose) 250 mls @ 100 mls/hr IVPB Q8 [facility]; Protocol Last Admin: 05/01/18 00:01 Dose: 100 mls/hr Metoclopramide HCl (Reglan) 5 mg PO ACHS PRN PRN Reason: Nausea/Vomiting Montelukast Sodium (Singulair) 10 mg PO DAILY [facility] Last Admin: 04/30/18 11:13 Dose: 10 mg Morphine Sulfate (Morphine Immediate Release Tab) 15 mg PO Q8H [facility] Last Admin: 04/30/18 23:42 Dose: 15 mg Ondansetron HCl (Zofran Inj) 4 mg IVP Q6 PRN PRN Reason: Nausea/Vomiting Last Admin: 04/30/18 05:45 Dose: 4 mg - Labs Labs: 04/30/18 05:50 04/30/18 05:50 PT 13.3 Seconds (9.8-13.1) H 04/23/18 18:46 INR 1.2 04/23/18 18:46 APTT 37.5 Seconds (25.6-37.1) H 04/23/18 18:46 - Constitutional Appears: No Acute Distress, Cachectic - Eye Exam Eye Exam: Normal appearance - ENT Exam ENT Exam: Mucous Membranes Moist - Respiratory Exam Respiratory Exam: Clear to Ausculation Bilateral, NORMAL BREATHING PATTERN. absent: Rhonchi, Wheezes, Respiratory Distress - Cardiovascular Exam Cardiovascular Exam: REGULAR RHYTHM, +S1, +S2 - GI/Abdominal Exam GI & Abdominal Exam: Soft, Normal Bowel Sounds. absent: Tenderness - Neurological Exam Neurological Exam: Alert, Awake - Psychiatric Exam Psychiatric exam: Normal Affect - Skin Skin Exam: Normal Color, Warm Assessment and Plan - Assessment and Plan (Free Text) Assessment: 57 y/o male with pmhx significant for AIDS, Brain lymphoma (s/p resection and chemo), Asthma, and GERD admitted for Diffuse Atypical Pneumonia. Plan: ID consult appreciated: Dr. Esteban Pulmonology consult appreciated: Dr. Ma Continue management as per recommendations Pain management: decreased morphine to 10 mg po q8h Plan d/w with Dr. Alok Fontaine, pgy-2 <Sergey Dickinson - Last Filed: 05/02/18 10:21> Objective - Vital Signs/Intake and Output Vital Signs (last 24 hours): Temp Pulse Resp BP Pulse Ox 97.6 F 91 H 19 97/68 L 96 05/02/18 08:12 05/02/18 08:12 05/02/18 08:12 05/02/18 08:12 05/02/18 08:12 - Medications Medications: Current Medications Acetylcysteine (Acetylcysteine 20%) 2 ml INH RBID [facility] Last Admin: 05/02/18 07:35 Dose: 2 ml Albuterol/Ipratropium (Duoneb 3 Mg/0.5 Mg (3 Ml) Ud) 3 ml INH RQ6 [facility] Last Admin: 05/02/18 07:35 Dose: 3 ml Albuterol/Ipratropium (Duoneb 3 Mg/0.5 Mg (3 Ml) Ud) 3 ml INH RQ4 PRN PRN Reason: Shortness of Breath Azithromycin (Zithromax) 1,200 mg PO QWK [facility]; Protocol Last Admin: 05/02/18 10:17 Dose: 1,200 mg Baclofen (Lioresal) 40 mg PO 0600,1400,2200 [facility] Last Admin: 05/02/18 06:37 Dose: Not Given Docusate Sodium (Colace) 100 mg PO DAILY [facility] Home Med (Abacavir/Dolutegravir/Lamivudi [Triumeq Tablet]) 1 tab PO DAILY [facility] Last Admin: 05/02/18 10:16 Dose: 1 tab Home Med (Ranitidine Hcl [Zantac]) 300 mg PO DAILY [facility] Last Admin: 05/02/18 10:16 Dose: 300 mg Home Med (Calcium Carbonate/Vitamin D3 [Calcium 500 + Vit D Caplet]) 1 each PO DAILY [facility] Last Admin: 05/02/18 10:17 Dose: 1 each Piperacillin Sod/Tazobactam (Sod 3.375 gm/ Sodium Chloride) 100 mls @ 100 mls/hr IVPB Q8 [facility]; Protocol Last Admin: 05/02/18 01:31 Dose: 100 mls/hr Trimethoprim/Sulfamethoxazole (240 mg/ Dextrose) 250 mls @ 100 mls/hr IVPB Q8 [facility]; Protocol Last Admin: 05/02/18 10:19 Dose: 100 mls/hr Metoclopramide HCl (Reglan) 5 mg PO ACHS PRN PRN Reason: Nausea/Vomiting Last Admin: 05/01/18 11:32 Dose: 5 mg Montelukast Sodium (Singulair) 10 mg PO DAILY [facility] Last Admin: 05/02/18 10:18 Dose: 10 mg Morphine Sulfate (Morphine Immediate Release Tab) 15 mg PO Q8H [facility] Last Admin: 05/02/18 06:33 Dose: 15 mg Ondansetron HCl (Zofran Inj) 4 mg IVP Q6 PRN PRN Reason: Nausea/Vomiting Last Admin: 04/30/18 05:45 Dose: 4 mg - Labs Labs: 04/30/18 05:50 04/30/18 05:50 PT 13.3 Seconds (9.8-13.1) H 04/23/18 18:46 INR 1.2 04/23/18 18:46 APTT 37.5 Seconds (25.6-37.1) H 04/23/18 18:46 Assessment and Plan - Assessment and Plan (Free Text) Assessment: Patient was personally seen and examined by me in rounds with residents. Available labs and diagnostic data reviewed. Case, Patient's condition and management plan discussed with residents in rounds. Agree with resident's progress note. Plan: As ordered.
[2018-05-01] MEDS: Acetylcysteine 20% Inhal Soln (4ml) INH SCH ×2 (08:03→19:19)
--- NOTE | 2018-05-01 08:58 | CP.PCM.PN ---
Subjective - Date & Time of Evaluation Date of Evaluation: 05/01/18 Time of Evaluation: 08:58 - Subjective Subjective: FRAIL LOOKING DENIES SOB UNABLE TO EXPECTORATE SPUTUM LUNGS-FAIR AERATION CXR REVIEWED WILL CONTINUE CURRENT RX UNABLE TO PERFORM BRONCHOSCOPY UNTIL AFB X 3 ARE OBTAINED AND NEGATIVE Objective - Vital Signs/Intake and Output Vital Signs (last 24 hours): Temp Pulse Resp BP Pulse Ox 97.7 F 85 19 106/69 97 05/01/18 08:21 05/01/18 08:21 05/01/18 08:21 05/01/18 08:21 05/01/18 08:21 - Medications Medications: Current Medications Acetylcysteine (Acetylcysteine 20%) 2 ml INH RBID [facility] Last Admin: 05/01/18 08:03 Dose: 2 ml Albuterol/Ipratropium (Duoneb 3 Mg/0.5 Mg (3 Ml) Ud) 3 ml INH RQ6 [facility] Last Admin: 05/01/18 08:03 Dose: 3 ml Albuterol/Ipratropium (Duoneb 3 Mg/0.5 Mg (3 Ml) Ud) 3 ml INH RQ4 PRN PRN Reason: Shortness of Breath Baclofen (Lioresal) 40 mg PO 0600,1400,2200 [facility] Last Admin: 04/30/18 22:21 Dose: Not Given Home Med (Abacavir/Dolutegravir/Lamivudi [Triumeq Tablet]) 1 tab PO DAILY [facility] Last Admin: 04/30/18 11:10 Dose: 1 tab Home Med (Ranitidine Hcl [Zantac]) 300 mg PO DAILY [facility] Last Admin: 04/30/18 11:10 Dose: 300 mg Home Med (Calcium Carbonate/Vitamin D3 [Calcium 500 + Vit D Caplet]) 1 each PO DAILY [facility] Last Admin: 04/30/18 11:10 Dose: 1 each Piperacillin Sod/Tazobactam (Sod 3.375 gm/ Sodium Chloride) 100 mls @ 100 mls/hr IVPB Q8 [facility]; Protocol Last Admin: 05/01/18 01:58 Dose: 100 mls/hr Trimethoprim/Sulfamethoxazole (240 mg/ Dextrose) 250 mls @ 100 mls/hr IVPB Q8 [facility]; Protocol Last Admin: 05/01/18 00:01 Dose: 100 mls/hr Metoclopramide HCl (Reglan) 5 mg PO ACHS PRN PRN Reason: Nausea/Vomiting Montelukast Sodium (Singulair) 10 mg PO DAILY [facility] Last Admin: 04/30/18 11:13 Dose: 10 mg Morphine Sulfate (Morphine Immediate Release Tab) 15 mg PO Q8H [facility] Last Admin: 04/30/18 23:42 Dose: 15 mg Ondansetron HCl (Zofran Inj) 4 mg IVP Q6 PRN PRN Reason: Nausea/Vomiting Last Admin: 04/30/18 05:45 Dose: 4 mg - Labs Labs: 04/30/18 05:50 04/30/18 05:50 PT 13.3 Seconds (9.8-13.1) H 04/23/18 18:46 INR 1.2 04/23/18 18:46 APTT 37.5 Seconds (25.6-37.1) H 04/23/18 18:46
--- NOTE | 2018-05-01 09:16 | PN ---
DATE: 04/30/2018 SUBJECTIVE: The patient seen and examined. Interim events noted. Consults noted and appreciated. Pulmonary and Infectious Disease followup and interventions noted and appreciated. The patient remains in regular medical floor with isolation, was able to provide one sputum specimen. The patient complains of chronic back pain, but no chest pain. No shortness of breath. PHYSICAL EXAMINATION: GENERAL: The patient is in no acute distress. VITAL SIGNS: Stable. HEART: S1 and S2, normal and regular. LUNGS: Good bilateral air exchange. No rales or rhonchi. ABDOMEN: Soft and nontender. EXTREMITIES: No edema. No calf swelling. No tenderness. No acute ischemia. CRACKER OFF: Exam is essentially unchanged. DIAGNOSTIC DATA: Available diagnostic data reviewed. Culture so far is negative. ASSESSMENT AND PLAN: Overall, the patient is clinically stable although retirement prognosis remains poor. Plan as ordered. Sergey Dickinson MD
[2018-05-01] MEDS ORDERED: Morphine 15 mg Immediate Release Tab PO SCH (10:51)
[2018-05-01] MEDS: Patient's Own Med (Abacavir/Dolutegravir/Lamivudi [Triumeq Tablet] 1 TAB) PO SCH (11:31)
[2018-05-01] MEDS: VIT D PO SCH (11:32)
[2018-05-01] MEDS: CALCIUM PO SCH (11:32)
[2018-05-01] MEDS: Sodium Chloride 3% for Inhalation 4 ML VIAL.NEB IH PRN (13:35)
[2018-05-01] MEDS: Morphine 15 mg Immediate Release Tab PO SCH ×3 (15:23→22:37)
[2018-05-02] MEDS: Sulfamethoxazole/Trimethoprim 240 MG in Dextrose 5% In Water 250 ML IVPB SCH ×3 (00:15→19:00)
[2018-05-02] MEDS: Albuterol-Ipratrop 3 mg / 0.5 (3 ml) UD INH SCH ×4 (01:06→19:35)
[2018-05-02] MEDS: Piperacillin/Tazobact 3.375 GM in Sodium Chloride 0.9% 100 ML IVPB SCH ×3 (01:31→18:26)
[2018-05-02] MEDS: Morphine 15 mg Immediate Release Tab PO SCH ×3 (06:33→22:19)
--- NOTE | 2018-05-02 06:56 | PQF ---
PROVIDER RESPONSE TEXT: Malnutrition REVIEWER QUERY TEXT: Clarification of Clinical Diagnostic Findings In agreement with the BMI:16.1? if yes please add the BMI to your progress note OR: Disagree OR: Other explanation of clinical finding The patient's Clinical Indicators include: XX Query created by: Erika Singer on 04/28/2018 7:56 AM Electronically signed by: Sergey Dickinson 05/02/2018 6:53 AM
--- NOTE | 2018-05-02 06:56 | PQF ---
PROVIDER RESPONSE TEXT: HIV related pneumonia REVIEWER QUERY TEXT: Pneumonia Specificity Pneumonia is documented in the Medical Record. Please specify the type of pneumonia and the causative organism (includes probable or suspected) if known after the work up is completed Such as: Type: -- Aspiration pneumonia (please also specify the aspirate) - Please indicate if the aspiration is postprocedure -- Bacterial (please document suspected or probable organism) -- Bronchopneumonia (please document suspected or probable organism) -- Interstitial pneumonia -- Organizing pneumonia / BOOP -- Pneumonia with influenza, north flu, or H1N1 flu -- RSV -- Tuberculosis, pulmonary -- Viral -- Other, please specify ID: see full note in [place]:Cough, Cachexia associated with AIDS, Weakness, Chronic Pain Syndrome, Bronch iectasis, admitted with cough and chills --in AIDS pt. with low immune status along with cough and night sweats MYB must be ruled out as well --advise airborn isolation and check sputum AFB -start IV bastrim for presumed PCP for now pending further results continue Zithromax, d/c ceftriaxone, start zosyn 04/25 Pulmonary consult: dxs, include: Pneumonia-R/O Typical /Atypical PNA 04/25 Resident/Attending progress note includes: #Atypical Pneumonia, acute -C/W ABX Ceftrixone and Az ithromycin -ID Consulted #SOB, acute -Likely due to pneumonia exacerbating significant lung disease as noted on Chest CT. -not much improvement since the night before as per patient -C/W bronchodilators treatments -Pulmonology Consulted #AIDS, HIV, Chronic -Will continue home medication if formulary, Triumeq -CD4/8 and viral load The patient's Clinical Indicators include: xxx Query created by: Erika Singer on 04/28/2018 8:18 AM Electronically signed by: Sergey Dickinson 05/02/2018 6:53 AM
[2018-05-02] MEDS: Acetylcysteine 20% Inhal Soln (4ml) INH SCH ×2 (07:35→19:35)
--- NOTE | 2018-05-02 08:01 | CP.PCM.PN ---
<Sultan Minal - Last Filed: 05/02/18 08:10> Subjective - Date & Time of Evaluation Date of Evaluation: 05/02/18 Time of Evaluation: 06:55 - Subjective Subjective: Patient seen and examined this AM with Dr. Dickinson. Patient looks cachexic and weak. Reports cough and dyspnea improved. Afebrile. Resumed previous morphine dose for pain. Reports constipation. Denies any other complaints. Objective - Vital Signs/Intake and Output Vital Signs (last 24 hours): Temp Pulse Resp BP Pulse Ox 97.8 F 94 H 18 93/61 L 97 05/02/18 00:00 05/02/18 00:00 05/02/18 00:00 05/02/18 00:00 05/02/18 00:00 - Medications Medications: Current Medications Acetylcysteine (Acetylcysteine 20%) 2 ml INH RBID [facility] Last Admin: 05/02/18 07:35 Dose: 2 ml Albuterol/Ipratropium (Duoneb 3 Mg/0.5 Mg (3 Ml) Ud) 3 ml INH RQ6 [facility] Last Admin: 05/02/18 07:35 Dose: 3 ml Albuterol/Ipratropium (Duoneb 3 Mg/0.5 Mg (3 Ml) Ud) 3 ml INH RQ4 PRN PRN Reason: Shortness of Breath Azithromycin (Zithromax) 1,200 mg PO QWK [facility]; Protocol Baclofen (Lioresal) 40 mg PO 0600,1400,2200 [facility] Last Admin: 05/02/18 06:37 Dose: Not Given Home Med (Abacavir/Dolutegravir/Lamivudi [Triumeq Tablet]) 1 tab PO DAILY [facility] Last Admin: 05/01/18 11:31 Dose: 1 tab Home Med (Ranitidine Hcl [Zantac]) 300 mg PO DAILY [facility] Last Admin: 05/01/18 11:32 Dose: 300 mg Home Med (Calcium Carbonate/Vitamin D3 [Calcium 500 + Vit D Caplet]) 1 each PO DAILY [facility] Last Admin: 05/01/18 11:32 Dose: 1 each Piperacillin Sod/Tazobactam (Sod 3.375 gm/ Sodium Chloride) 100 mls @ 100 mls/hr IVPB Q8 [facility]; Protocol Last Admin: 05/02/18 01:31 Dose: 100 mls/hr Trimethoprim/Sulfamethoxazole (240 mg/ Dextrose) 250 mls @ 100 mls/hr IVPB Q8 [facility]; Protocol Last Admin: 05/02/18 00:15 Dose: 100 mls/hr Metoclopramide HCl (Reglan) 5 mg PO ACHS PRN PRN Reason: Nausea/Vomiting Last Admin: 05/01/18 11:32 Dose: 5 mg Montelukast Sodium (Singulair) 10 mg PO DAILY [facility] Last Admin: 05/01/18 11:34 Dose: 10 mg Morphine Sulfate (Morphine Immediate Release Tab) 15 mg PO Q8H [facility] Last Admin: 05/02/18 06:33 Dose: 15 mg Ondansetron HCl (Zofran Inj) 4 mg IVP Q6 PRN PRN Reason: Nausea/Vomiting Last Admin: 04/30/18 05:45 Dose: 4 mg - Labs Labs: 04/30/18 05:50 04/30/18 05:50 PT 13.3 Seconds (9.8-13.1) H 04/23/18 18:46 INR 1.2 04/23/18 18:46 APTT 37.5 Seconds (25.6-37.1) H 04/23/18 18:46 - Additional Findings Additional findings: - Constitutional Appears: No Acute Distress, Cachectic - Eye Exam Eye Exam: Normal appearance - ENT Exam ENT Exam: Mucous Membranes Moist - Respiratory Exam Respiratory Exam: Clear to Ausculation Bilateral, NORMAL BREATHING PATTERN. absent: Rhonchi, Wheezes, Respiratory Distress - Cardiovascular Exam Cardiovascular Exam: REGULAR RHYTHM, +S1, +S2 - GI/Abdominal Exam GI & Abdominal Exam: Soft, Normal Bowel Sounds. absent: Tenderness - Neurological Exam Neurological Exam: Alert, Awake - Psychiatric Exam Psychiatric exam: Normal Affect - Skin Skin Exam: Normal Color, Warm Assessment and Plan - Assessment and Plan (Free Text) Assessment: 57 y/o male with pmhx significant for AIDS, Brain lymphoma (s/p resection and chemo), Asthma, and GERD admitted for Diffuse Atypical Pneumonia. Plan: ID consult appreciated: Dr. Esteban Pulmonology consult appreciated: Dr. Ma Continue management as per recommendations Pain management: continue with morphine 15 mg po q8 Plan d/w with Dr. Alok Fontaine, pgy-2 <Sergey Dickinson - Last Filed: 05/02/18 10:18> Objective - Vital Signs/Intake and Output Vital Signs (last 24 hours): Temp Pulse Resp BP Pulse Ox 97.6 F 91 H 19 97/68 L 96 05/02/18 08:12 05/02/18 08:12 05/02/18 08:12 05/02/18 08:12 05/02/18 08:12 - Medications Medications: Current Medications Acetylcysteine (Acetylcysteine 20%) 2 ml INH RBID [facility] Last Admin: 05/02/18 07:35 Dose: 2 ml Albuterol/Ipratropium (Duoneb 3 Mg/0.5 Mg (3 Ml) Ud) 3 ml INH RQ6 [facility] Last Admin: 05/02/18 07:35 Dose: 3 ml Albuterol/Ipratropium (Duoneb 3 Mg/0.5 Mg (3 Ml) Ud) 3 ml INH RQ4 PRN PRN Reason: Shortness of Breath Azithromycin (Zithromax) 1,200 mg PO QWK [facility]; Protocol Last Admin: 05/02/18 10:17 Dose: 1,200 mg Baclofen (Lioresal) 40 mg PO 0600,1400,2200 [facility] Last Admin: 05/02/18 06:37 Dose: Not Given Docusate Sodium (Colace) 100 mg PO DAILY [facility] Home Med (Abacavir/Dolutegravir/Lamivudi [Triumeq Tablet]) 1 tab PO DAILY [facility] Last Admin: 05/02/18 10:16 Dose: 1 tab Home Med (Ranitidine Hcl [Zantac]) 300 mg PO DAILY [facility] Last Admin: 05/02/18 10:16 Dose: 300 mg Home Med (Calcium Carbonate/Vitamin D3 [Calcium 500 + Vit D Caplet]) 1 each PO DAILY [facility] Last Admin: 05/02/18 10:17 Dose: 1 each Piperacillin Sod/Tazobactam (Sod 3.375 gm/ Sodium Chloride) 100 mls @ 100 mls/hr IVPB Q8 [facility]; Protocol Last Admin: 05/02/18 01:31 Dose: 100 mls/hr Trimethoprim/Sulfamethoxazole (240 mg/ Dextrose) 250 mls @ 100 mls/hr IVPB Q8 [facility]; Protocol Last Admin: 05/02/18 00:15 Dose: 100 mls/hr Metoclopramide HCl (Reglan) 5 mg PO ACHS PRN PRN Reason: Nausea/Vomiting Last Admin: 05/01/18 11:32 Dose: 5 mg Montelukast Sodium (Singulair) 10 mg PO DAILY [facility] Last Admin: 05/01/18 11:34 Dose: 10 mg Morphine Sulfate (Morphine Immediate Release Tab) 15 mg PO Q8H [facility] Last Admin: 05/02/18 06:33 Dose: 15 mg Ondansetron HCl (Zofran Inj) 4 mg IVP Q6 PRN PRN Reason: Nausea/Vomiting Last Admin: 04/30/18 05:45 Dose: 4 mg - Labs Labs: 04/30/18 05:50 04/30/18 05:50 PT 13.3 Seconds (9.8-13.1) H 04/23/18 18:46 INR 1.2 04/23/18 18:46 APTT 37.5 Seconds (25.6-37.1) H 04/23/18 18:46 Assessment and Plan - Assessment and Plan (Free Text) Assessment: Patient was personally seen and examined by me in rounds with residents. Available labs and diagnostic data reviewed. Case, Patient's condition and management plan discussed with residents in [facility]. Agree with resident's progress note. Plan: As ordered.
--- NOTE | 2018-05-02 08:22 | CP.PCM.PN ---
Subjective - Date & Time of Evaluation Date of Evaluation: 05/02/18 Time of Evaluation: 08:22 - Subjective Subjective: WEAK AND FRAIL LOOKING AFEBRILE STILL NO SPUTUM PRODUCTION Objective - Vital Signs/Intake and Output Vital Signs (last 24 hours): Temp Pulse Resp BP Pulse Ox 97.6 F 91 H 19 97/68 L 96 05/02/18 08:12 05/02/18 08:12 05/02/18 08:12 05/02/18 08:12 05/02/18 08:12 - Medications Medications: Current Medications Acetylcysteine (Acetylcysteine 20%) 2 ml INH RBID [facility] Last Admin: 05/02/18 07:35 Dose: 2 ml Albuterol/Ipratropium (Duoneb 3 Mg/0.5 Mg (3 Ml) Ud) 3 ml INH RQ6 [facility] Last Admin: 05/02/18 07:35 Dose: 3 ml Albuterol/Ipratropium (Duoneb 3 Mg/0.5 Mg (3 Ml) Ud) 3 ml INH RQ4 PRN PRN Reason: Shortness of Breath Azithromycin (Zithromax) 1,200 mg PO QWK [facility]; Protocol Baclofen (Lioresal) 40 mg PO 0600,1400,2200 [facility] Last Admin: 05/02/18 06:37 Dose: Not Given Docusate Sodium (Colace) 100 mg PO DAILY [facility] Home Med (Abacavir/Dolutegravir/Lamivudi [Triumeq Tablet]) 1 tab PO DAILY [facility] Last Admin: 05/01/18 11:31 Dose: 1 tab Home Med (Ranitidine Hcl [Zantac]) 300 mg PO DAILY [facility] Last Admin: 05/01/18 11:32 Dose: 300 mg Home Med (Calcium Carbonate/Vitamin D3 [Calcium 500 + Vit D Caplet]) 1 each PO DAILY [facility] Last Admin: 05/01/18 11:32 Dose: 1 each Piperacillin Sod/Tazobactam (Sod 3.375 gm/ Sodium Chloride) 100 mls @ 100 mls/hr IVPB Q8 [facility]; Protocol Last Admin: 05/02/18 01:31 Dose: 100 mls/hr Trimethoprim/Sulfamethoxazole (240 mg/ Dextrose) 250 mls @ 100 mls/hr IVPB Q8 [facility]; Protocol Last Admin: 05/02/18 00:15 Dose: 100 mls/hr Metoclopramide HCl (Reglan) 5 mg PO ACHS PRN PRN Reason: Nausea/Vomiting Last Admin: 05/01/18 11:32 Dose: 5 mg Montelukast Sodium (Singulair) 10 mg PO DAILY [facility] Last Admin: 05/01/18 11:34 Dose: 10 mg Morphine Sulfate (Morphine Immediate Release Tab) 15 mg PO Q8H [facility] Last Admin: 05/02/18 06:33 Dose: 15 mg Ondansetron HCl (Zofran Inj) 4 mg IVP Q6 PRN PRN Reason: Nausea/Vomiting Last Admin: 04/30/18 05:45 Dose: 4 mg - Labs Labs: 04/30/18 05:50 04/30/18 05:50 PT 13.3 Seconds (9.8-13.1) H 04/23/18 18:46 INR 1.2 04/23/18 18:46 APTT 37.5 Seconds (25.6-37.1) H 04/23/18 18:46 - Constitutional Appears: Well, Cachectic, Chronically Ill - Head Exam Head Exam: ATRAUMATIC, NORMAL INSPECTION, NORMOCEPHALIC - Eye Exam Eye Exam: EOMI, Normal appearance, PERRL Pupil Exam: NORMAL ACCOMODATION, PERRL - ENT Exam ENT Exam: Mucous Membranes Moist, Normal Exam - Neck Exam Neck Exam: Full ROM, Normal Inspection. absent: Lymphadenopathy - Respiratory Exam Respiratory Exam: Decreased Breath Sounds, Rales, NORMAL BREATHING PATTERN - Cardiovascular Exam Cardiovascular Exam: REGULAR RHYTHM, +S1, +S2. absent: Murmur - GI/Abdominal Exam GI & Abdominal Exam: Soft, Normal Bowel Sounds. absent: Tenderness - Rectal Exam Rectal Exam: NORMAL INSPECTION - Extremities Exam Extremities Exam: Full ROM, Normal Capillary Refill, Normal Inspection. absent: Joint Swelling, Pedal Edema - Back Exam Back Exam: NORMAL INSPECTION - Neurological Exam Neurological Exam: Alert, Awake, CN II-XII Intact, Normal Gait, Oriented x3 - Psychiatric Exam Psychiatric exam: Normal Affect, Normal Mood - Skin Skin Exam: Dry, Intact, Normal Color, Warm Assessment and Plan - Assessment and Plan (Free Text) Assessment: HIV DZ PNEUMONIA Plan: WILL PROBABLY NEED BRONCHOSCOPY WITH [facility] IF UNABLE TO PRODUCE SPUTUM BY NEXT WEEK
[2018-05-02] MEDS: Patient's Own Med (Abacavir/Dolutegravir/Lamivudi [Triumeq Tablet] 1 TAB) PO SCH (10:16)
[2018-05-02] MEDS: VIT D PO SCH (10:17)
[2018-05-02] MEDS: CALCIUM PO SCH (10:17)
--- NOTE | 2018-05-02 17:08 | CP.PCM.PN ---
Subjective - Date & Time of Evaluation Date of Evaluation: 05/02/18 Time of Evaluation: 14:00 - Subjective Subjective: ID - Pt. seen and examined today. remains weak still can't expectorate for sputum production. afebrile. Objective - Vital Signs/Intake and Output Vital Signs (last 24 hours): Temp Pulse Resp BP Pulse Ox 98 F 85 18 101/69 97 05/02/18 15:56 05/02/18 15:56 05/02/18 15:56 05/02/18 15:56 05/02/18 15:56 - Medications Medications: Current Medications Acetylcysteine (Acetylcysteine 20%) 2 ml INH RBID [facility] Last Admin: 05/02/18 07:35 Dose: 2 ml Albuterol/Ipratropium (Duoneb 3 Mg/0.5 Mg (3 Ml) Ud) 3 ml INH RQ6 [facility] Last Admin: 05/02/18 13:58 Dose: 3 ml Albuterol/Ipratropium (Duoneb 3 Mg/0.5 Mg (3 Ml) Ud) 3 ml INH RQ4 PRN PRN Reason: Shortness of Breath Azithromycin (Zithromax) 1,200 mg PO QWK [facility]; Protocol Last Admin: 05/02/18 10:17 Dose: 1,200 mg Baclofen (Lioresal) 40 mg PO 0600,1400,2200 [facility] Last Admin: 05/02/18 06:37 Dose: Not Given Docusate Sodium (Colace) 100 mg PO DAILY [facility] Last Admin: 05/02/18 10:30 Dose: 100 mg Home Med (Abacavir/Dolutegravir/Lamivudi [Triumeq Tablet]) 1 tab PO DAILY [facility] Last Admin: 05/02/18 10:16 Dose: 1 tab Home Med (Ranitidine Hcl [Zantac]) 300 mg PO DAILY [facility] Last Admin: 05/02/18 10:16 Dose: 300 mg Home Med (Calcium Carbonate/Vitamin D3 [Calcium 500 + Vit D Caplet]) 1 each PO DAILY [facility] Last Admin: 05/02/18 10:17 Dose: 1 each Piperacillin Sod/Tazobactam (Sod 3.375 gm/ Sodium Chloride) 100 mls @ 100 mls/hr IVPB Q8 [facility]; Protocol Last Admin: 05/02/18 10:20 Dose: 100 mls/hr Trimethoprim/Sulfamethoxazole (240 mg/ Dextrose) 250 mls @ 100 mls/hr IVPB Q8 [facility]; Protocol Last Admin: 05/02/18 10:19 Dose: 100 mls/hr Metoclopramide HCl (Reglan) 5 mg PO ACHS PRN PRN Reason: Nausea/Vomiting Last Admin: 05/01/18 11:32 Dose: 5 mg Montelukast Sodium (Singulair) 10 mg PO DAILY [facility] Last Admin: 05/02/18 10:18 Dose: 10 mg Morphine Sulfate (Morphine Immediate Release Tab) 15 mg PO Q8H [facility] Last Admin: 05/02/18 15:30 Dose: 15 mg Ondansetron HCl (Zofran Inj) 4 mg IVP Q6 PRN PRN Reason: Nausea/Vomiting Last Admin: 04/30/18 05:45 Dose: 4 mg - Labs Labs: - Additional Findings Additional findings: - Constitutional Appears: No Acute Distress, Cachectic, Chronically Ill - Eye Exam Eye Exam: EOMI, PERRL - ENT Exam ENT Exam: Normal Oropharynx - Neck Exam Neck exam: Positive for: Full Rom Additional comments: supple - Respiratory Exam Respiratory Exam: NORMAL BREATHING PATTERN Additional comments: poor inspiratory effort No wheezing - Cardiovascular Exam Cardiovascular Exam: RRR, +S1, +S2 - GI/Abdominal Exam GI & Abdominal Exam: Normal Bowel Sounds, Soft Additional comments: NT, ND - Extremities Exam Extremities exam: Positive for: normal inspection - Neurological Exam Neurological exam: Alert, Oriented x 3 Laboratory Results - last 72 hr 04/30/18 04/30/18 05:50 05:50 WBC 9.9 RBC 4.00 L Hgb 12.1 Hct 35.4 MCV 88.5 MCH 30.3 MCHC 34.3 RDW 14.3 Plt Count 458 H Sodium 134 Potassium 4.6 Chloride 93 L Carbon Dioxide 27 Anion Gap 19 BUN 9 Creatinine 0.7 L Est GFR ( Amer) > 60 Est GFR (Non-Af Amer) > 60 Random Glucose 99 Calcium 9.1 Total Bilirubin 0.3 AST 38 ALT 29 Alkaline Phosphatase 134 H Total Protein 8.1 Albumin 3.9 Globulin 4.3 H Albumin/Globulin Ratio 0.9 L Microbiology 04/28/18 11:12 Sputum Gram Stain - Final 04/28/18 11:12 Sputum Sputum Culture - Final NORMAL ORAL JOSÉ ANTONIO 04/23/18 18:54 Blood-Venous Blood Culture - Final NO GROWTH AFTER 5 DAYS 04/23/18 18:54 Blood-Venous Gram Stain - Final TEST NOT PERFORMED 04/23/18 18:46 Blood-Venous Blood Culture - Final NO GROWTH AFTER 5 DAYS 04/23/18 18:46 Blood-Venous Gram Stain - Final TEST NOT PERFORMED 04/23/18 18:02 Blood-Venous Blood Culture - Final NO GROWTH AFTER 5 DAYS 04/23/18 18:02 Blood-Venous Gram Stain - Final TEST NOT PERFORMED Assessment and Plan (1) Cough Status: Acute (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 remains afebrile slight leukocytosis resolved. admission chest Ct reported as chronic pneumonits and bibasilar bronchiectais, and diffuse atypical Pneumonia. blood cx- neg x 2 influenza - neg cxr- as per report stable LLL patchy infiltrate quantiferon gold- indeterminate CD4-44 urine legionella AG- neg mycoplasma serology-neg plan- await sputum AFB x 3. advise to continue pt. on IV bactrim for presumed PCP day #9. zithromax 1200 mg once a week for MAC prophylaxis since his Cd4 is <50. advise to continue with IV zosyn day #9. d/c zosyn tomm. can continue with his triumeq. may need bronch with BAL for AFB if he can't give any sputum. all above d/w patient and he verbalizes full understanding of all above and agrees with above plan of care.
[2018-05-03] MEDS: Piperacillin/Tazobact 3.375 GM in Sodium Chloride 0.9% 100 ML IVPB SCH ×3 (00:33→16:05)
[2018-05-03] MEDS: Albuterol-Ipratrop 3 mg / 0.5 (3 ml) UD INH SCH ×4 (01:36→19:03)
[2018-05-03] MEDS: Sulfamethoxazole/Trimethoprim 240 MG in Dextrose 5% In Water 250 ML IVPB SCH ×3 (02:00→16:26)
[2018-05-03] MEDS: Morphine 15 mg Immediate Release Tab PO SCH ×3 (06:11→22:20)
[2018-05-03] MEDS: Acetylcysteine 20% Inhal Soln (4ml) INH SCH ×2 (07:58→19:03)
[2018-05-03] MEDS: Patient's Own Med (Abacavir/Dolutegravir/Lamivudi [Triumeq Tablet] 1 TAB) PO SCH (08:27)
[2018-05-03] MEDS: CALCIUM PO SCH (08:29)
[2018-05-03] MEDS: VIT D PO SCH (08:29)
--- NOTE | 2018-05-03 09:32 | PN ---
DATE: 05/03/2018 SUBJECTIVE: The patient seen and examined. Interim events noted. Consults noted and appreciated. Infectious disease and pulmonary followup and interventions noted and appreciated. The patient remains in regular medical floor with isolation. The patient feels okay. Complains of multiple episodes of back pain, controlled with current medication. No new complaint of chest pain or shortness of breath. Not able to provide sputum despite multiple attempts. PHYSICAL EXAMINATION: GENERAL: The patient is frail looking male in no acute distress. VITAL SIGNS: Stable. HEART: S1, S2, normal and regular. LUNGS: Good bilateral air exchange. ABDOMEN: Soft and nontender. EXTREMITY: No edema. No calf swelling. No tenderness. No acute ischemia. 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 DIAGNOSTIC DATA: Available diagnostic data reviewed. ASSESSMENT AND PLAN: Overall, the patient's general medical condition is stable. Plan as ordered. Sergey Dickinson MD
--- NOTE | 2018-05-03 10:30 | CP.PCM.PN ---
Subjective - Date & Time of Evaluation Date of Evaluation: 05/03/18 Time of Evaluation: 10:30 - Subjective Subjective: CLINICALLY IMPROVING LESS SOB Objective - Vital Signs/Intake and Output Vital Signs (last 24 hours): Temp Pulse Resp BP Pulse Ox 97.8 F 68 20 100/68 96 05/03/18 08:33 05/03/18 08:33 05/03/18 08:33 05/03/18 08:33 05/03/18 08:33 - Medications Medications: Current Medications Acetylcysteine (Acetylcysteine 20%) 2 ml INH RBID [facility] Last Admin: 05/03/18 07:58 Dose: 2 ml Albuterol/Ipratropium (Duoneb 3 Mg/0.5 Mg (3 Ml) Ud) 3 ml INH RQ6 [facility] Last Admin: 05/03/18 07:58 Dose: 3 ml Albuterol/Ipratropium (Duoneb 3 Mg/0.5 Mg (3 Ml) Ud) 3 ml INH RQ4 PRN PRN Reason: Shortness of Breath Baclofen (Lioresal) 40 mg PO 0600,1400,2200 [facility] Last Admin: 05/03/18 06:12 Dose: 40 mg Docusate Sodium (Colace) 100 mg PO DAILY [facility] Last Admin: 05/03/18 08:29 Dose: 100 mg Home Med (Abacavir/Dolutegravir/Lamivudi [Triumeq Tablet]) 1 tab PO DAILY [facility] Last Admin: 05/03/18 08:27 Dose: 1 tab Home Med (Ranitidine Hcl [Zantac]) 300 mg PO DAILY [facility] Last Admin: 05/03/18 08:29 Dose: 300 mg Home Med (Calcium Carbonate/Vitamin D3 [Calcium 500 + Vit D Caplet]) 1 each PO DAILY [facility] Last Admin: 05/03/18 08:29 Dose: 1 each Piperacillin Sod/Tazobactam (Sod 3.375 gm/ Sodium Chloride) 100 mls @ 100 mls/hr IVPB Q8 [facility]; Protocol Last Admin: 05/03/18 08:27 Dose: 100 mls/hr Trimethoprim/Sulfamethoxazole (240 mg/ Dextrose) 250 mls @ 100 mls/hr IVPB Q8 [facility]; Protocol Last Admin: 05/03/18 08:27 Dose: 100 mls/hr Metoclopramide HCl (Reglan) 5 mg PO ACHS PRN PRN Reason: Nausea/Vomiting Last Admin: 05/01/18 11:32 Dose: 5 mg Montelukast Sodium (Singulair) 10 mg PO DAILY [facility] Last Admin: 05/03/18 08:29 Dose: 10 mg Morphine Sulfate (Morphine Immediate Release Tab) 15 mg PO Q8H [facility] Last Admin: 05/03/18 06:11 Dose: 15 mg Ondansetron HCl (Zofran Inj) 4 mg IVP Q6 PRN PRN Reason: Nausea/Vomiting Last Admin: 04/30/18 05:45 Dose: 4 mg - Labs Labs: 04/30/18 05:50 04/30/18 05:50 PT 13.3 Seconds (9.8-13.1) H 04/23/18 18:46 INR 1.2 04/23/18 18:46 APTT 37.5 Seconds (25.6-37.1) H 04/23/18 18:46 - Constitutional Appears: Cachectic, Chronically Ill - Head Exam Head Exam: ATRAUMATIC, NORMAL INSPECTION, NORMOCEPHALIC - Eye Exam Eye Exam: EOMI, Normal appearance, PERRL Pupil Exam: NORMAL ACCOMODATION, PERRL - ENT Exam ENT Exam: Mucous Membranes Moist, Normal Exam - Neck Exam Neck Exam: Full ROM, Normal Inspection. absent: Lymphadenopathy - Respiratory Exam Respiratory Exam: Rales, NORMAL BREATHING PATTERN - Cardiovascular Exam Cardiovascular Exam: REGULAR RHYTHM, +S1, +S2. absent: Murmur - GI/Abdominal Exam GI & Abdominal Exam: Soft, Normal Bowel Sounds. absent: Tenderness - Rectal Exam Rectal Exam: NORMAL INSPECTION - Extremities Exam Extremities Exam: Full ROM, Normal Capillary Refill, Normal Inspection. absent: Joint Swelling, Pedal Edema - Back Exam Back Exam: NORMAL INSPECTION - Neurological Exam Neurological Exam: Alert, Awake, CN II-XII Intact, Normal Gait, Oriented x3 - Psychiatric Exam Psychiatric exam: Normal Affect, Normal Mood - Skin Skin Exam: Dry, Intact, Normal Color, Warm Assessment and Plan - Assessment and Plan (Free Text) Assessment: PNEUMONIA HIV DZ Plan: CONTINUE IV ANTIBIOTICS CONSIDER BRONCHOSCOPY WITH LAVAGE NEXT WEEK IF PNEUMONIA PERSISTS
[2018-05-03] MEDS: Sodium Chloride 3% for Inhalation 4 ML VIAL.NEB IH SCH (11:10)
--- NOTE | 2018-05-03 23:04 | ED PDOC ---
- Laboratory Results Result Diagrams: 04/30/18 05:50 04/30/18 05:50 - ECG O2 Sat by Pulse Oximetry: 97 Pulse Ox Interpretation: Normal Medical Decision Making Medical Decision Making: Patient endorsed to me by Dr. Vuong Patient to be admitted for atypical pneumonia given xray findings with resultant weakness. Case discussed with Dr. Dickinson. Disposition - Clinical Impression Clinical Impression: Cough, Pneumonia - POA Present On Arrival: None - Disposition Disposition: Admitted as In-Patient Disposition Time: 22:00 Condition: FAIR
[2018-05-04] MEDS: Piperacillin/Tazobact 3.375 GM in Sodium Chloride 0.9% 100 ML IVPB SCH ×2 (00:28→08:10)
[2018-05-04] MEDS: Sulfamethoxazole/Trimethoprim 240 MG in Dextrose 5% In Water 250 ML IVPB SCH ×3 (01:41→16:57)
[2018-05-04] MEDS: Albuterol-Ipratrop 3 mg / 0.5 (3 ml) UD INH SCH ×4 (02:13→19:12)
[2018-05-04] MEDS: Morphine 15 mg Immediate Release Tab PO SCH ×3 (06:30→22:38)
[2018-05-04] MEDS: Acetylcysteine 20% Inhal Soln (4ml) INH SCH ×2 (07:18→19:11)
[2018-05-04 07:26] LABS: HEMOGLOBIN 10.4 g/dL (12.0-18.0); MEAN CELL VOLUME 90.1 fl (80.0-94.0); MEAN CORPUSCULAR HGB CONC 33.3 g/dL (33.0-37.0); RBC 3.46 Mil/uL (4.40-5.90); RED CELL DISTRIBUTION WIDTH 14.4 % (11.5-14.5); WHITE BLOOD COUNT 5.8 K/uL (4.8-10.8)
[2018-05-04 07:54] LABS: ALB/GLOB RATIO 0.9 (1.0-2.1); ALBUMIN 3.5 g/dL (3.5-5.0); ALT/SGPT 26 U/L (21-72); AST/SGOT 41 U/L (17-59); BLOOD UREA NITROGEN 12 mg/dl (9-20); CALCIUM 8.8 mg/dL (8.4-10.2); GFR NON-AFRICAN AMERICAN > 60
[2018-05-04] MEDS: CALCIUM PO SCH (08:11)
[2018-05-04] MEDS: Patient's Own Med (Abacavir/Dolutegravir/Lamivudi [Triumeq Tablet] 1 TAB) PO SCH (08:11)
[2018-05-04] MEDS: VIT D PO SCH (08:11)
[2018-05-05] MEDS: Sulfamethoxazole/Trimethoprim 240 MG in Dextrose 5% In Water 250 ML IVPB SCH ×4 (00:43→19:06)
[2018-05-05] MEDS: Albuterol-Ipratrop 3 mg / 0.5 (3 ml) UD INH SCH ×4 (01:49→19:29)
[2018-05-05 06:30] LABS: HEMOGLOBIN 10.4 g/dL (12.0-18.0); MEAN CELL VOLUME 90.1 fl (80.0-94.0); MEAN CORPUSCULAR HEMOGLOBIN 29.5 pg (27.0-31.0); MEAN CORPUSCULAR HGB CONC 32.8 g/dL (33.0-37.0); RBC 3.53 Mil/uL (4.40-5.90); RED CELL DISTRIBUTION WIDTH 14.1 % (11.5-14.5); WHITE BLOOD COUNT 5.8 K/uL (4.8-10.8)
[2018-05-05] MEDS: Morphine 15 mg Immediate Release Tab PO SCH ×3 (06:30→21:48)
[2018-05-05 06:58] LABS: ALT/SGPT 27 U/L (21-72); AST/SGOT 40 U/L (17-59); BLOOD UREA NITROGEN 9 mg/dl (9-20); CALCIUM 9.2 mg/dL (8.4-10.2); GFR NON-AFRICAN AMERICAN > 60
[2018-05-05] MEDS: Acetylcysteine 20% Inhal Soln (4ml) INH SCH ×2 (08:07→19:29)
--- NOTE | 2018-05-05 08:15 | PN ---
DATE: 05/04/2018 SUBJECTIVE: The patient seen and examined. Interim events noted. Consults noted and appreciated. Pulmonary followup and interventions noted and appreciated. The patient remains in regular medical floor with isolation. The patient is sleeping, arousable, feels okay, complains of chronic pain, controlled with current pain management. No chest pain. No coughing. Also complains of generalized weakness. PHYSICAL EXAMINATION: GENERAL: The patient is in no acute distress. VITAL SIGNS: Stable. HEART: S1 and S2, normal and regular. LUNGS: Good bilateral air exchange. ABDOMEN: Soft, nontender. EXTREMITIES: No edema. No calf swelling. No tenderness. No acute ischemia. 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 DIAGNOSTIC DATA: Available diagnostic data reviewed. AFB cultures are pending. ASSESSMENT AND PLAN: Overall, the patient is clinically stable, although long-term prognosis remains guarded due to underlying condition. Plan as ordered. Sergey Dickinson MD
[2018-05-05] MEDS: Patient's Own Med (Abacavir/Dolutegravir/Lamivudi [Triumeq Tablet] 1 TAB) PO SCH (08:32)
[2018-05-05] MEDS: VIT D PO SCH (08:32)
[2018-05-05] MEDS: CALCIUM PO SCH (08:32)
--- NOTE | 2018-05-05 09:21 | CP.PCM.PN ---
Subjective - Date & Time of Evaluation Date of Evaluation: 05/05/18 Time of Evaluation: 09:21 - Subjective Subjective: NO NEW CLINICAL FINDINGS NO SOB/CHEST PAINS CACHECTIC Objective - Vital Signs/Intake and Output Vital Signs (last 24 hours): Temp Pulse Resp BP Pulse Ox 97.7 F 73 20 89/59 L 96 05/05/18 07:57 05/05/18 07:57 05/05/18 07:57 05/05/18 07:57 05/05/18 07:57 - Medications Medications: Current Medications Acetylcysteine (Acetylcysteine 20%) 2 ml INH RBID [facility] Last Admin: 05/04/18 19:11 Dose: 2 ml Albuterol/Ipratropium (Duoneb 3 Mg/0.5 Mg (3 Ml) Ud) 3 ml INH RQ6 [facility] Last Admin: 05/05/18 07:43 Dose: 3 ml Albuterol/Ipratropium (Duoneb 3 Mg/0.5 Mg (3 Ml) Ud) 3 ml INH RQ4 PRN PRN Reason: Shortness of Breath Baclofen (Lioresal) 40 mg PO 0600,1400,2200 [facility] Last Admin: 05/05/18 07:01 Dose: Not Given Docusate Sodium (Colace) 100 mg PO DAILY [facility] Last Admin: 05/05/18 08:33 Dose: 100 mg Home Med (Abacavir/Dolutegravir/Lamivudi [Triumeq Tablet]) 1 tab PO DAILY [facility] Last Admin: 05/05/18 08:32 Dose: 1 tab Home Med (Ranitidine Hcl [Zantac]) 300 mg PO DAILY [facility] Last Admin: 05/05/18 08:32 Dose: 300 mg Home Med (Calcium Carbonate/Vitamin D3 [Calcium 500 + Vit D Caplet]) 1 each PO DAILY [facility] Last Admin: 05/05/18 08:32 Dose: 1 each Metoclopramide HCl (Reglan) 5 mg PO ACHS PRN PRN Reason: Nausea/Vomiting Last Admin: 05/01/18 11:32 Dose: 5 mg Montelukast Sodium (Singulair) 10 mg PO DAILY [facility] Last Admin: 05/05/18 08:33 Dose: 10 mg Morphine Sulfate (Morphine Immediate Release Tab) 15 mg PO Q8H [facility] Last Admin: 05/05/18 06:30 Dose: 15 mg Ondansetron HCl (Zofran Inj) 4 mg IVP Q6 PRN PRN Reason: Nausea/Vomiting Last Admin: 05/04/18 17:23 Dose: 4 mg - Labs Labs: 05/05/18 05:45 05/05/18 05:45 PT 13.3 Seconds (9.8-13.1) H 04/23/18 18:46 INR 1.2 04/23/18 18:46 APTT 37.5 Seconds (25.6-37.1) H 04/23/18 18:46 - Constitutional Appears: Cachectic, Chronically Ill - Head Exam Head Exam: ATRAUMATIC, NORMAL INSPECTION, NORMOCEPHALIC - Eye Exam Eye Exam: EOMI, Normal appearance, PERRL Pupil Exam: NORMAL ACCOMODATION, PERRL - ENT Exam ENT Exam: Mucous Membranes Moist, Normal Exam - Neck Exam Neck Exam: Full ROM, Normal Inspection. absent: Lymphadenopathy - Respiratory Exam Respiratory Exam: Decreased Breath Sounds, NORMAL BREATHING PATTERN - Cardiovascular Exam Cardiovascular Exam: REGULAR RHYTHM, +S1, +S2. absent: Murmur - GI/Abdominal Exam GI & Abdominal Exam: Soft, Normal Bowel Sounds. absent: Tenderness - Rectal Exam Rectal Exam: NORMAL INSPECTION - Extremities Exam Extremities Exam: Full ROM, Normal Capillary Refill, Normal Inspection. absent: Joint Swelling, Pedal Edema - Back Exam Back Exam: NORMAL INSPECTION - Neurological Exam Neurological Exam: Alert, Awake, CN II-XII Intact, Oriented x3 - Psychiatric Exam Psychiatric exam: Normal Affect, Normal Mood - Skin Skin Exam: Dry, Intact, Normal Color, Warm Assessment and Plan - Assessment and Plan (Free Text) Assessment: PNEUMONIA--SPUTUM AFB NEGATIVE X 2 HX OF HIV DZ CACHEXIA Plan: REPEAT CXR TO EVALUATE PROGRESS OF PNEUMONIA OBTAIN 1 MORE SPUTUM FOR AFB CONTINUE CURRENT RX
[2018-05-05] MEDS ORDERED: Piperacillin/Tazobact 3.375 GM in Sodium Chloride 0.9% 100 ML IVPB SCH (09:57)
--- NOTE | 2018-05-05 10:08 | CP.PCM.PN ---
Subjective - Date & Time of Evaluation Date of Evaluation: 05/05/18 Time of Evaluation: 10:08 - Subjective Subjective: ID Note- Pt. seen and examined today. remains weak. afebrile 2 sputum AFB smears - negative so far Objective - Vital Signs/Intake and Output Vital Signs (last 24 hours): Temp Pulse Resp BP Pulse Ox 97.7 F 73 20 89/59 L 96 05/05/18 07:57 05/05/18 07:57 05/05/18 07:57 05/05/18 07:57 05/05/18 07:57 - Medications Medications: Current Medications Acetylcysteine (Acetylcysteine 20%) 2 ml INH RBID [facility] Last Admin: 05/04/18 19:11 Dose: 2 ml Albuterol/Ipratropium (Duoneb 3 Mg/0.5 Mg (3 Ml) Ud) 3 ml INH RQ6 [facility] Last Admin: 05/05/18 07:43 Dose: 3 ml Albuterol/Ipratropium (Duoneb 3 Mg/0.5 Mg (3 Ml) Ud) 3 ml INH RQ4 PRN PRN Reason: Shortness of Breath Azithromycin (Zithromax) 1,200 mg PO QWK [facility]; Protocol Baclofen (Lioresal) 40 mg PO 0600,1400,2200 [facility] Last Admin: 05/05/18 07:01 Dose: Not Given Docusate Sodium (Colace) 100 mg PO DAILY [facility] Last Admin: 05/05/18 08:33 Dose: 100 mg Home Med (Abacavir/Dolutegravir/Lamivudi [Triumeq Tablet]) 1 tab PO DAILY [facility] Last Admin: 05/05/18 08:32 Dose: 1 tab Home Med (Ranitidine Hcl [Zantac]) 300 mg PO DAILY [facility] Last Admin: 05/05/18 08:32 Dose: 300 mg Home Med (Calcium Carbonate/Vitamin D3 [Calcium 500 + Vit D Caplet]) 1 each PO DAILY [facility] Last Admin: 05/05/18 08:32 Dose: 1 each Trimethoprim/Sulfamethoxazole (240 mg/ Dextrose) 250 mls @ 250 mls/hr IVPB Q8 [facility]; Protocol Piperacillin Sod/Tazobactam (Sod 3.375 gm/ Sodium Chloride) 100 mls @ 100 mls/hr IVPB Q8 [facility]; Protocol Metoclopramide HCl (Reglan) 5 mg PO ACHS PRN PRN Reason: Nausea/Vomiting Last Admin: 05/01/18 11:32 Dose: 5 mg Montelukast Sodium (Singulair) 10 mg PO DAILY [facility] Last Admin: 05/05/18 08:33 Dose: 10 mg Morphine Sulfate (Morphine Immediate Release Tab) 15 mg PO Q8H [facility] Last Admin: 05/05/18 06:30 Dose: 15 mg Ondansetron HCl (Zofran Inj) 4 mg IVP Q6 PRN PRN Reason: Nausea/Vomiting Last Admin: 05/04/18 17:23 Dose: 4 mg - Labs Labs: - Additional Findings Additional findings: - Constitutional Appears: No Acute Distress, Cachectic, Chronically Ill - Eye Exam Eye Exam: EOMI, PERRL - ENT Exam ENT Exam: Normal Oropharynx - Neck Exam Neck exam: Positive for: Full Rom Additional comments: supple - Respiratory Exam Respiratory Exam: NORMAL BREATHING PATTERN Additional comments: No wheezing - Cardiovascular Exam Cardiovascular Exam: RRR, +S1, +S2 - GI/Abdominal Exam GI & Abdominal Exam: Normal Bowel Sounds, Soft Additional comments: NT, ND - Extremities Exam Extremities exam: Positive for: normal inspection - Neurological Exam Neurological exam: Alert, Oriented x 3 Laboratory Results - last 72 hr 05/04/18 05/04/18 05/05/18 05:20 05:20 05:45 WBC 5.8 5.8 RBC 3.46 L 3.53 L Hgb 10.4 L 10.4 L Hct 31.2 L 31.8 L MCV 90.1 90.1 MCH 30.0 29.5 MCHC 33.3 32.8 L RDW 14.4 14.1 Plt Count 365 375 Sodium 136 Potassium 4.4 Chloride 99 Carbon Dioxide 25 Anion Gap 16 BUN 12 Creatinine 0.8 Est GFR ( Amer) > 60 Est GFR (Non-Af Amer) > 60 Random Glucose 66 L Calcium 8.8 Total Bilirubin 0.2 AST 41 ALT 26 Alkaline Phosphatase 105 Total Protein 7.3 Albumin 3.5 Globulin 3.8 Albumin/Globulin Ratio 0.9 L 05/05/18 05:45 WBC RBC Hgb Hct MCV MCH MCHC RDW Plt Count Sodium 135 Potassium 4.6 Chloride 96 L Carbon Dioxide 25 Anion Gap 19 BUN 9 Creatinine 0.7 L Est GFR ( Amer) > 60 Est GFR (Non-Af Amer) > 60 Random Glucose 73 L Calcium 9.2 Total Bilirubin 0.2 AST 40 ALT 27 Alkaline Phosphatase 127 H D Total Protein 8.0 Albumin 4.0 Globulin 4.0 H Albumin/Globulin Ratio 1.0 Microbiology 05/02/18 14:35 Other: Please Indicate Mycobacterial Culture - Preliminary 05/01/18 17:30 Other: Please Indicate Mycobacterial Culture - Preliminary 04/28/18 11:12 Sputum Gram Stain - Final 04/28/18 11:12 Sputum Sputum Culture - Final NORMAL ORAL JOSÉ ANTONIO 04/23/18 18:54 Blood-Venous Blood Culture - Final NO GROWTH AFTER 5 DAYS 04/23/18 18:54 Blood-Venous Gram Stain - Final TEST NOT PERFORMED 04/23/18 18:46 Blood-Venous Blood Culture - Final NO GROWTH AFTER 5 DAYS 04/23/18 18:46 Blood-Venous Gram Stain - Final TEST NOT PERFORMED 04/23/18 18:02 Blood-Venous Blood Culture - Final NO GROWTH AFTER 5 DAYS 04/23/18 18:02 Blood-Venous Gram Stain - Final TEST NOT PERFORMED Accession No. : [id number] Patient Name / ID : LUISA MAYA / [id number] Exam Date : 05/05/2018 10:07:36 ( Approved ) Study Comment : Sex / Age : M / [id number] Creator : Kleber Keene MD Dictator : Kleber Keene MD Bung Driver : Networks Software Consultant : Kleber Keene MD Approver2 : Report Date : 05/05/2018 12:57:07 My Comment : Date of service: 05/05/2018 PROCEDURE: CHEST RADIOGRAPH, 1 VIEW HISTORY: PNEUMONIA COMPARISON: 04/30/2018 FINDINGS: LUNGS: Clear. PLEURA: No pneumothorax or pleural fluid seen. CARDIOVASCULAR: No radiographic findings to suggest acute or significant cardiovascular disease. OSSEOUS STRUCTURES: No significant abnormalities. VISUALIZED UPPER ABDOMEN: Normal. OTHER FINDINGS: None. IMPRESSION: No active disease. Resolution of left lower lobe infiltrate. 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 remains afebrile slight leukocytosis resolved. admission chest Ct reported as chronic pneumonits and bibasilar bronchiectais, and diffuse atypical Pneumonia. blood cx- neg x 3 influenza - neg cxr- as per report stable LLL patchy infiltrate quantiferon gold- indeterminate CD4-44 urine legionella AG- neg mycoplasma serology-neg sputum AFB smear- Neg x 2 cxr report from today- resolution of left lower lobe pneumonia as per radiologist's reading. plan- await third sputum AFB. advise to continue pt. on IV bactrim for presumed PCP day #12. complete total of 21 days , can be switched to P.O bactrim. zithromax 1200 mg once a week for MAC prophylaxis since his Cd4 is <50. completed 12 days of IV zosyn. d/c zosyn now. can continue with his triumeq. all above d/w patient and he verbalizes full understanding of all above and agrees with above plan of care.\ all above d/w BELLSTAFF Eusebia on .
--- NOTE | 2018-05-05 13:03 | RAD ---
Date of service: 05/05/2018 PROCEDURE: CHEST RADIOGRAPH, 1 VIEW HISTORY: PNEUMONIA COMPARISON: 04/30/2018 FINDINGS: LUNGS: Clear. PLEURA: No pneumothorax or pleural fluid seen. CARDIOVASCULAR: No radiographic findings to suggest acute or significant cardiovascular disease. OSSEOUS STRUCTURES: No significant abnormalities. VISUALIZED UPPER ABDOMEN: Normal. OTHER FINDINGS: None. IMPRESSION: No active disease. Resolution of left lower lobe infiltrate.
--- NOTE | 2018-05-05 13:40 | PQF ---
PROVIDER RESPONSE TEXT: Moderate second degree REVIEWER QUERY TEXT: Malnutrition Severity Malnutrition is documented in the Medical Record. Please specify the severity Such as: -- Mild - first degree -- Moderate - second degree -- Severe - third degree -- Severe malnutrition with marasmus -- Other, please specify BMI: in the EMR:16.1 ID sustainability consultant has documented: Cachexia associated with AIDS, The patient's Clinical Indicators include: xx Query created by: Erika Singer 05/02/2018 7:40 AM Electronically signed by: Sergey Dickinson 05/05/2018 1:36 PM
[2018-05-06] MEDS: Albuterol-Ipratrop 3 mg / 0.5 (3 ml) UD INH SCH ×4 (01:06→19:17)
[2018-05-06] MEDS: Sulfamethoxazole/Trimethoprim 240 MG in Dextrose 5% In Water 250 ML IVPB SCH ×3 (01:26→17:05)
[2018-05-06 05:28] LABS: HEMOGLOBIN 9.4 g/dL (12.0-18.0); MEAN CELL VOLUME 90.1 fl (80.0-94.0); MEAN CORPUSCULAR HEMOGLOBIN 29.6 pg (27.0-31.0); MEAN CORPUSCULAR HGB CONC 32.9 g/dL (33.0-37.0); RBC 3.17 Mil/uL (4.40-5.90); RED CELL DISTRIBUTION WIDTH 14.3 % (11.5-14.5); WHITE BLOOD COUNT 5.9 K/uL (4.8-10.8)
[2018-05-06 05:33] LABS: ALBUMIN 3.6 g/dL (3.5-5.0); ALT/SGPT 28 U/L (21-72); AST/SGOT 38 U/L (17-59); BLOOD UREA NITROGEN 10 mg/dl (9-20); CALCIUM 8.6 mg/dL (8.4-10.2); GFR NON-AFRICAN AMERICAN > 60
[2018-05-06] MEDS: Sodium Chloride 3% for Inhalation 4 ML VIAL.NEB IH SCH (05:46)
[2018-05-06] MEDS: Morphine 15 mg Immediate Release Tab PO SCH ×3 (05:57→21:39)
[2018-05-06] MEDS: Acetylcysteine 20% Inhal Soln (4ml) INH SCH ×2 (07:52→19:17)
--- NOTE | 2018-05-06 08:09 | CP.PCM.PN ---
<Sultan Minal - Last Filed: 05/06/18 11:09> Subjective - Date & Time of Evaluation Date of Evaluation: 05/06/18 Time of Evaluation: 07:20 - Subjective Subjective: atient seen and examined this AM with Dr. Dickinson. Reports cough and dyspnea improved. Afebrile with stable vitals. Denies chest pain, dyspnea, headache or dizziness. Objective - Vital Signs/Intake and Output Vital Signs (last 24 hours): Temp Pulse Resp BP Pulse Ox 98.3 F 68 20 103/68 99 05/06/18 08:06 05/06/18 08:06 05/06/18 08:06 05/06/18 08:06 05/06/18 08:06 - Medications Medications: Current Medications Acetylcysteine (Acetylcysteine 20%) 2 ml INH RBID [facility] Last Admin: 05/06/18 07:52 Dose: 2 ml Albuterol/Ipratropium (Duoneb 3 Mg/0.5 Mg (3 Ml) Ud) 3 ml INH RQ6 [facility] Last Admin: 05/06/18 07:52 Dose: 3 ml Albuterol/Ipratropium (Duoneb 3 Mg/0.5 Mg (3 Ml) Ud) 3 ml INH RQ4 PRN PRN Reason: Shortness of Breath Azithromycin (Zithromax) 1,200 mg PO QWK [facility]; Protocol Baclofen (Lioresal) 40 mg PO 0600,1400,2200 [facility] Last Admin: 05/06/18 05:57 Dose: 40 mg Docusate Sodium (Colace) 100 mg PO DAILY [facility] Last Admin: 05/05/18 08:33 Dose: 100 mg Home Med (Abacavir/Dolutegravir/Lamivudi [Triumeq Tablet]) 1 tab PO DAILY [facility] Last Admin: 05/05/18 08:32 Dose: 1 tab Home Med (Ranitidine Hcl [Zantac]) 300 mg PO DAILY [facility] Last Admin: 05/05/18 08:32 Dose: 300 mg Home Med (Calcium Carbonate/Vitamin D3 [Calcium 500 + Vit D Caplet]) 1 each PO DAILY [facility] Last Admin: 05/05/18 08:32 Dose: 1 each Trimethoprim/Sulfamethoxazole (240 mg/ Dextrose) 250 mls @ 250 mls/hr IVPB Q8 [facility]; Protocol Last Admin: 05/06/18 01:26 Dose: 250 mls/hr Metoclopramide HCl (Reglan) 5 mg PO ACHS PRN PRN Reason: Nausea/Vomiting Last Admin: 05/01/18 11:32 Dose: 5 mg Montelukast Sodium (Singulair) 10 mg PO DAILY [facility] Last Admin: 05/05/18 08:33 Dose: 10 mg Morphine Sulfate (Morphine Immediate Release Tab) 15 mg PO Q8H [facility] Last Admin: 05/06/18 05:57 Dose: 15 mg Ondansetron HCl (Zofran Inj) 4 mg IVP Q6 PRN PRN Reason: Nausea/Vomiting Last Admin: 05/04/18 17:23 Dose: 4 mg - Labs Labs: 05/06/18 04:35 05/06/18 04:35 PT 13.3 Seconds (9.8-13.1) H 04/23/18 18:46 INR 1.2 04/23/18 18:46 APTT 37.5 Seconds (25.6-37.1) H 04/23/18 18:46 - Additional Findings Additional findings: - Constitutional Appears: No Acute Distress, Cachectic - Eye Exam Eye Exam: Normal appearance - ENT Exam ENT Exam: Mucous Membranes Moist - Respiratory Exam Respiratory Exam: Clear to Ausculation Bilateral, NORMAL BREATHING PATTERN. absent: Rhonchi, Wheezes, Respiratory Distress - Cardiovascular Exam Cardiovascular Exam: REGULAR RHYTHM, +S1, +S2 - GI/Abdominal Exam GI & Abdominal Exam: Soft, Normal Bowel Sounds. absent: Tenderness - Neurological Exam Neurological Exam: Alert, Awake - Psychiatric Exam Psychiatric exam: Normal Affect - Skin Skin Exam: Normal Color, Warm Assessment and Plan - Assessment and Plan (Free Text) Assessment: 57 y/o male with pmhx significant for AIDS, Brain lymphoma (s/p resection and chemo), Asthma, and GERD admitted for Diffuse Atypical Pneumonia. Plan: ID consult appreciated: Dr. Esteban Pulmonology consult appreciated: Dr. Ma Continue management as per recommendations Pain management: continue with morphine 15 mg po q8 Continue rest of the plan as ordered. Plan d/w with Dr. Alok Fontaine, pgy-2 <Sergey Dickinson - Last Filed: 05/10/18 11:42> Objective - Vital Signs/Intake and Output Vital Signs (last 24 hours): Temp Pulse Resp BP Pulse Ox 97.5 F L 90 18 93/61 L 97 05/09/18 16:18 05/09/18 16:18 05/09/18 16:18 05/09/18 16:18 05/09/18 16:18 - Labs Labs: 05/06/18 04:35 05/06/18 04:35 PT 13.3 Seconds (9.8-13.1) H 04/23/18 18:46 INR 1.2 04/23/18 18:46 APTT 37.5 Seconds (25.6-37.1) H 04/23/18 18:46 Assessment and Plan - Assessment and Plan (Free Text) Assessment: Patient was personally seen and examined by me in rounds with residents. Available labs and diagnostic data reviewed. Case, Patient's condition and management plan discussed with residents in rounds. Agree with resident's progress note. Plan: As ordered.
[2018-05-06] MEDS: Patient's Own Med (Abacavir/Dolutegravir/Lamivudi [Triumeq Tablet] 1 TAB) PO SCH (08:41)
[2018-05-06] MEDS: VIT D PO SCH (08:41)
[2018-05-06] MEDS: CALCIUM PO SCH (08:41)
--- NOTE | 2018-05-06 09:12 | PN ---
DATE: 05/05/2018 SUBJECTIVE: The patient seen and examined. Interim events noted. Consults noted and appreciated. The patient remains in regular medical floor in isolation room. Complains of constipation. No chest pain. No shortness of breath. No cough. PHYSICAL EXAMINATION: GENERAL: The patient is in no acute distress. VITAL SIGNS: Stable. HEART: S1 and S2, normal and regular. LUNGS: Good bilateral air exchange. ABDOMEN: Soft and nontender. EXTREMITIES: No edema. No calf swelling. No tenderness. No acute ischemia. [employer]: Exam is essentially unchanged. DIAGNOSTIC DATA: Available diagnostic data reviewed. ASSESSMENT AND PLAN: Overall, the patient's general medical condition is stable. Plan as ordered. Sergey Dickinson MD
--- NOTE | 2018-05-06 10:01 | CP.PCM.PN ---
Subjective - Date & Time of Evaluation Date of Evaluation: 05/06/18 Time of Evaluation: 10:01 - Subjective Subjective: CLINICALLY IMPROVING CXR-COMPLETE RESOLUTION OF PNEUMONIA WILL CONTINUE RX PER ID NO BRONCHOSCOPY NECESSARY SINCE PNEUMONIA HAS RESOLVED Objective - Vital Signs/Intake and Output Vital Signs (last 24 hours): Temp Pulse Resp BP Pulse Ox 98.3 F 68 20 103/68 99 05/06/18 08:06 05/06/18 08:06 05/06/18 08:06 05/06/18 08:06 05/06/18 08:06 - Medications Medications: Current Medications Acetylcysteine (Acetylcysteine 20%) 2 ml INH RBID [facility] Last Admin: 05/06/18 07:52 Dose: 2 ml Albuterol/Ipratropium (Duoneb 3 Mg/0.5 Mg (3 Ml) Ud) 3 ml INH RQ6 [facility] Last Admin: 05/06/18 07:52 Dose: 3 ml Albuterol/Ipratropium (Duoneb 3 Mg/0.5 Mg (3 Ml) Ud) 3 ml INH RQ4 PRN PRN Reason: Shortness of Breath Azithromycin (Zithromax) 1,200 mg PO QWK [facility]; Protocol Baclofen (Lioresal) 40 mg PO 0600,1400,2200 [facility] Last Admin: 05/06/18 05:57 Dose: 40 mg Docusate Sodium (Colace) 100 mg PO DAILY [facility] Last Admin: 05/06/18 08:42 Dose: 100 mg Home Med (Abacavir/Dolutegravir/Lamivudi [Triumeq Tablet]) 1 tab PO DAILY [facility] Last Admin: 05/06/18 08:41 Dose: 1 tab Home Med (Ranitidine Hcl [Zantac]) 300 mg PO DAILY [facility] Last Admin: 05/06/18 08:41 Dose: 300 mg Home Med (Calcium Carbonate/Vitamin D3 [Calcium 500 + Vit D Caplet]) 1 each PO DAILY [facility] Last Admin: 05/06/18 08:41 Dose: 1 each Trimethoprim/Sulfamethoxazole (240 mg/ Dextrose) 250 mls @ 250 mls/hr IVPB Q8 [facility]; Protocol Last Admin: 05/06/18 08:42 Dose: 250 mls/hr Metoclopramide HCl (Reglan) 5 mg PO ACHS PRN PRN Reason: Nausea/Vomiting Last Admin: 05/01/18 11:32 Dose: 5 mg Montelukast Sodium (Singulair) 10 mg PO DAILY [facility] Last Admin: 05/06/18 08:42 Dose: 10 mg Morphine Sulfate (Morphine Immediate Release Tab) 15 mg PO Q8H [facility] Last Admin: 05/06/18 05:57 Dose: 15 mg Ondansetron HCl (Zofran Inj) 4 mg IVP Q6 PRN PRN Reason: Nausea/Vomiting Last Admin: 05/04/18 17:23 Dose: 4 mg - Labs Labs: 05/06/18 04:35 05/06/18 04:35 PT 13.3 Seconds (9.8-13.1) H 04/23/18 18:46 INR 1.2 04/23/18 18:46 APTT 37.5 Seconds (25.6-37.1) H 04/23/18 18:46
--- NOTE | 2018-05-06 10:03 | CP.PCM.PN ---
Subjective - Date & Time of Evaluation Date of Evaluation: 05/06/18 Time of Evaluation: 10:03 - Subjective Subjective: AFEBRILE NO NEW CLINICAL FINDINGS WILL CONTINUE CURRENT ANTIBIOTIC RX D/C HOME ON SATURDAY IF STABLE Objective - Vital Signs/Intake and Output Vital Signs (last 24 hours): Temp Pulse Resp BP Pulse Ox 98.3 F 68 20 103/68 99 05/06/18 08:06 05/06/18 08:06 05/06/18 08:06 05/06/18 08:06 05/06/18 08:06 - Medications Medications: Current Medications Acetylcysteine (Acetylcysteine 20%) 2 ml INH RBID [facility] Last Admin: 05/06/18 07:52 Dose: 2 ml Albuterol/Ipratropium (Duoneb 3 Mg/0.5 Mg (3 Ml) Ud) 3 ml INH RQ6 [facility] Last Admin: 05/06/18 07:52 Dose: 3 ml Albuterol/Ipratropium (Duoneb 3 Mg/0.5 Mg (3 Ml) Ud) 3 ml INH RQ4 PRN PRN Reason: Shortness of Breath Azithromycin (Zithromax) 1,200 mg PO QWK [facility]; Protocol Baclofen (Lioresal) 40 mg PO 0600,1400,2200 [facility] Last Admin: 05/06/18 05:57 Dose: 40 mg Docusate Sodium (Colace) 100 mg PO DAILY [facility] Last Admin: 05/06/18 08:42 Dose: 100 mg Home Med (Abacavir/Dolutegravir/Lamivudi [Triumeq Tablet]) 1 tab PO DAILY [facility] Last Admin: 05/06/18 08:41 Dose: 1 tab Home Med (Ranitidine Hcl [Zantac]) 300 mg PO DAILY [facility] Last Admin: 05/06/18 08:41 Dose: 300 mg Home Med (Calcium Carbonate/Vitamin D3 [Calcium 500 + Vit D Caplet]) 1 each PO DAILY [facility] Last Admin: 05/06/18 08:41 Dose: 1 each Trimethoprim/Sulfamethoxazole (240 mg/ Dextrose) 250 mls @ 250 mls/hr IVPB Q8 [facility]; Protocol Last Admin: 05/06/18 08:42 Dose: 250 mls/hr Metoclopramide HCl (Reglan) 5 mg PO ACHS PRN PRN Reason: Nausea/Vomiting Last Admin: 05/01/18 11:32 Dose: 5 mg Montelukast Sodium (Singulair) 10 mg PO DAILY [facility] Last Admin: 05/06/18 08:42 Dose: 10 mg Morphine Sulfate (Morphine Immediate Release Tab) 15 mg PO Q8H [facility] Last Admin: 05/06/18 05:57 Dose: 15 mg Ondansetron HCl (Zofran Inj) 4 mg IVP Q6 PRN PRN Reason: Nausea/Vomiting Last Admin: 05/04/18 17:23 Dose: 4 mg - Labs Labs: 05/06/18 04:35 05/06/18 04:35 PT 13.3 Seconds (9.8-13.1) H 04/23/18 18:46 INR 1.2 04/23/18 18:46 APTT 37.5 Seconds (25.6-37.1) H 04/23/18 18:46
--- NOTE | 2018-05-06 13:40 | CP.PCM.PN ---
Subjective - Date & Time of Evaluation Date of Evaluation: 05/06/18 Time of Evaluation: 13:40 - Subjective Subjective: ID Note- Pt. seen and examined today. Pt. sitting in chair and has better breathing and denies any fever or chills. He promises to try to give third sputum sample. Objective - Vital Signs/Intake and Output Vital Signs (last 24 hours): Temp Pulse Resp BP Pulse Ox 98.3 F 68 20 103/68 99 05/06/18 08:06 05/06/18 08:06 05/06/18 08:06 05/06/18 08:06 05/06/18 08:06 - Medications Medications: Current Medications Acetylcysteine (Acetylcysteine 20%) 2 ml INH RBID [facility] Last Admin: 05/06/18 07:52 Dose: 2 ml Albuterol/Ipratropium (Duoneb 3 Mg/0.5 Mg (3 Ml) Ud) 3 ml INH RQ6 [facility] Last Admin: 05/06/18 13:07 Dose: 3 ml Albuterol/Ipratropium (Duoneb 3 Mg/0.5 Mg (3 Ml) Ud) 3 ml INH RQ4 PRN PRN Reason: Shortness of Breath Baclofen (Lioresal) 40 mg PO 0600,1400,2200 [facility] Last Admin: 05/06/18 13:39 Dose: 40 mg Docusate Sodium (Colace) 100 mg PO DAILY [facility] Last Admin: 05/06/18 08:42 Dose: 100 mg Home Med (Abacavir/Dolutegravir/Lamivudi [Triumeq Tablet]) 1 tab PO DAILY [facility] Last Admin: 05/06/18 08:41 Dose: 1 tab Home Med (Ranitidine Hcl [Zantac]) 300 mg PO DAILY [facility] Last Admin: 05/06/18 08:41 Dose: 300 mg Home Med (Calcium Carbonate/Vitamin D3 [Calcium 500 + Vit D Caplet]) 1 each PO DAILY [facility] Last Admin: 05/06/18 08:41 Dose: 1 each Trimethoprim/Sulfamethoxazole (240 mg/ Dextrose) 250 mls @ 250 mls/hr IVPB Q8 [facility]; Protocol Last Admin: 05/06/18 08:42 Dose: 250 mls/hr Metoclopramide HCl (Reglan) 5 mg PO ACHS PRN PRN Reason: Nausea/Vomiting Last Admin: 05/01/18 11:32 Dose: 5 mg Montelukast Sodium (Singulair) 10 mg PO DAILY [facility] Last Admin: 05/06/18 08:42 Dose: 10 mg Morphine Sulfate (Morphine Immediate Release Tab) 15 mg PO Q8H [facility] Last Admin: 05/06/18 13:39 Dose: 15 mg Ondansetron HCl (Zofran Inj) 4 mg IVP Q6 PRN PRN Reason: Nausea/Vomiting Last Admin: 05/04/18 17:23 Dose: 4 mg - Labs Labs: - Additional Findings Additional findings: - Constitutional Appears: No Acute Distress, Cachectic, Chronically Ill - Eye Exam Eye Exam: EOMI, PERRL - ENT Exam ENT Exam: Normal Oropharynx - Neck Exam Neck exam: Positive for: Full Rom Additional comments: supple - Respiratory Exam Respiratory Exam: NORMAL BREATHING PATTERN Additional comments: better aeration B/L No wheezing - Cardiovascular Exam Cardiovascular Exam: RRR, +S1, +S2 - GI/Abdominal Exam GI & Abdominal Exam: Normal Bowel Sounds, Soft Additional comments: NT, ND - Extremities Exam Extremities exam: Positive for: normal inspection - Neurological Exam Neurological exam: Alert, Oriented x 3 Laboratory Results - last 72 hr 05/04/18 05/04/18 05/05/18 05:20 05:20 05:45 WBC 5.8 5.8 RBC 3.46 L 3.53 L Hgb 10.4 L 10.4 L Hct 31.2 L 31.8 L MCV 90.1 90.1 MCH 30.0 29.5 MCHC 33.3 32.8 L RDW 14.4 14.1 Plt Count 365 375 Sodium 136 Potassium 4.4 Chloride 99 Carbon Dioxide 25 Anion Gap 16 BUN 12 Creatinine 0.8 Est GFR ( Amer) > 60 Est GFR (Non-Af Amer) > 60 Random Glucose 66 L Calcium 8.8 Total Bilirubin 0.2 AST 41 ALT 26 Alkaline Phosphatase 105 Total Protein 7.3 Albumin 3.5 Globulin 3.8 Albumin/Globulin Ratio 0.9 L 05/05/18 05/06/18 05/06/18 05:45 04:35 04:35 WBC 5.9 RBC 3.17 L Hgb 9.4 L Hct 28.5 L MCV 90.1 MCH 29.6 MCHC 32.9 L RDW 14.3 Plt Count 321 Sodium 135 136 Potassium 4.6 4.2 Chloride 96 L 100 Carbon Dioxide 25 24 Anion Gap 19 16 BUN 9 10 Creatinine 0.7 L 0.6 L Est GFR ( Amer) > 60 > 60 Est GFR (Non-Af Amer) > 60 > 60 Random Glucose 73 L 71 L Calcium 9.2 8.6 Total Bilirubin 0.2 0.2 AST 40 38 ALT 27 28 Alkaline Phosphatase 127 H D 111 Total Protein 8.0 7.1 Albumin 4.0 3.6 Globulin 4.0 H 3.5 Albumin/Globulin Ratio 1.0 1.0 Microbiology 05/02/18 14:35 Other: Please Indicate Mycobacterial Culture - Preliminary 05/01/18 17:30 Other: Please Indicate Mycobacterial Culture - Preliminary 04/28/18 11:12 Sputum Gram Stain - Final 04/28/18 11:12 Sputum Sputum Culture - Final NORMAL ORAL JOSÉ ANTONIO 04/23/18 18:54 Blood-Venous Blood Culture - Final NO GROWTH AFTER 5 DAYS 04/23/18 18:54 Blood-Venous Gram Stain - Final TEST NOT PERFORMED 04/23/18 18:46 Blood-Venous Blood Culture - Final NO GROWTH AFTER 5 DAYS 04/23/18 18:46 Blood-Venous Gram Stain - Final TEST NOT PERFORMED 04/23/18 18:02 Blood-Venous Blood Culture - Final NO GROWTH AFTER 5 DAYS 04/23/18 18:02 Blood-Venous Gram Stain - Final TEST NOT PERFORMED Assessment and Plan (1) Cough Status: Acute (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 remains afebrile slight leukocytosis resolved. blood cx- neg x 3 influenza - neg quantiferon gold- indeterminate CD4-44 urine legionella AG- neg mycoplasma serology-neg sputum AFB smear- Neg x 2 cxr report from 05/05/2018- resolution of left lower lobe pneumonia as per radiologist's reading. plan- await third sputum AFB. advise to continue pt. on IV bactrim for presumed PCP day #13. complete total of 21 days , can be switched to P.O bactrim. zithromax 1200 mg once a week for MAC prophylaxis since his Cd4 is <50. completed 12 days of IV zosyn. can continue with his triumeq. all above d/w patient and he verbalizes full understanding of all above and agrees with above plan of care.
[2018-05-07] MEDS: Sulfamethoxazole/Trimethoprim 240 MG in Dextrose 5% In Water 250 ML IVPB SCH ×3 (00:42→17:01)
[2018-05-07] MEDS: Albuterol-Ipratrop 3 mg / 0.5 (3 ml) UD INH SCH ×4 (01:46→19:17)
[2018-05-07] MEDS: Morphine 15 mg Immediate Release Tab PO SCH ×3 (06:03→22:22)
[2018-05-07] MEDS: Albuterol-Ipratrop 3 mg / 0.5 (3 ml) UD INH PRN ×2 (06:20→07:39)
[2018-05-07] MEDS: Acetylcysteine 20% Inhal Soln (4ml) INH SCH ×2 (07:39→19:17)
[2018-05-07] MEDS: Patient's Own Med (Abacavir/Dolutegravir/Lamivudi [Triumeq Tablet] 1 TAB) PO SCH (09:42)
[2018-05-07] MEDS: VIT D PO SCH (09:42)
[2018-05-07] MEDS: CALCIUM PO SCH (09:42)
--- NOTE | 2018-05-07 10:30 | CP.PCM.PN ---
Subjective - Date & Time of Evaluation Date of Evaluation: 05/07/18 Time of Evaluation: 10:29 - Subjective Subjective: FEELS BETTER NO CHEST PAINS/SOB Objective - Vital Signs/Intake and Output Vital Signs (last 24 hours): Temp Pulse Resp BP Pulse Ox 98.1 F 68 20 96/62 L 99 05/07/18 08:07 05/07/18 08:07 05/07/18 08:07 05/07/18 08:07 05/07/18 08:07 - Medications Medications: Current Medications Acetylcysteine (Acetylcysteine 20%) 2 ml INH RBID [facility] Last Admin: 05/07/18 07:39 Dose: 2 ml Albuterol/Ipratropium (Duoneb 3 Mg/0.5 Mg (3 Ml) Ud) 3 ml INH RQ6 [facility] Last Admin: 05/07/18 07:39 Dose: 3 ml Albuterol/Ipratropium (Duoneb 3 Mg/0.5 Mg (3 Ml) Ud) 3 ml INH RQ4 PRN PRN Reason: Shortness of Breath Last Admin: 05/07/18 07:39 Dose: 3 ml Baclofen (Lioresal) 40 mg PO 0600,1400,2200 [facility] Last Admin: 05/07/18 06:04 Dose: 40 mg Docusate Sodium (Colace) 100 mg PO DAILY [facility] Last Admin: 05/07/18 10:08 Dose: Not Given Home Med (Abacavir/Dolutegravir/Lamivudi [Triumeq Tablet]) 1 tab PO DAILY [facility] Last Admin: 05/07/18 09:42 Dose: 1 tab Home Med (Ranitidine Hcl [Zantac]) 300 mg PO DAILY [facility] Last Admin: 05/07/18 09:43 Dose: 300 mg Home Med (Calcium Carbonate/Vitamin D3 [Calcium 500 + Vit D Caplet]) 1 each PO DAILY [facility] Last Admin: 05/07/18 09:42 Dose: 1 each Trimethoprim/Sulfamethoxazole (240 mg/ Dextrose) 250 mls @ 250 mls/hr IVPB Q8 [facility]; Protocol Last Admin: 05/07/18 00:42 Dose: 250 mls/hr Metoclopramide HCl (Reglan) 5 mg PO ACHS PRN PRN Reason: Nausea/Vomiting Last Admin: 05/01/18 11:32 Dose: 5 mg Montelukast Sodium (Singulair) 10 mg PO DAILY [facility] Last Admin: 05/07/18 10:09 Dose: Not Given Morphine Sulfate (Morphine Immediate Release Tab) 15 mg PO Q8H [facility] Last Admin: 05/07/18 06:03 Dose: 15 mg Ondansetron HCl (Zofran Inj) 4 mg IVP Q6 PRN PRN Reason: Nausea/Vomiting Last Admin: 05/04/18 17:23 Dose: 4 mg - Labs Labs: 05/06/18 04:35 05/06/18 04:35 PT 13.3 Seconds (9.8-13.1) H 04/23/18 18:46 INR 1.2 04/23/18 18:46 APTT 37.5 Seconds (25.6-37.1) H 04/23/18 18:46 - Constitutional Appears: No Acute Distress - Head Exam Head Exam: ATRAUMATIC, NORMAL INSPECTION, NORMOCEPHALIC - Eye Exam Eye Exam: EOMI, Normal appearance, PERRL Pupil Exam: NORMAL ACCOMODATION, PERRL - ENT Exam ENT Exam: Mucous Membranes Moist, Normal Exam - Neck Exam Neck Exam: Full ROM, Normal Inspection. absent: Lymphadenopathy - Respiratory Exam Respiratory Exam: Clear to Ausculation Bilateral, NORMAL BREATHING PATTERN - Cardiovascular Exam Cardiovascular Exam: REGULAR RHYTHM, +S1, +S2. absent: Murmur - GI/Abdominal Exam GI & Abdominal Exam: Soft, Normal Bowel Sounds. absent: Tenderness - Rectal Exam Rectal Exam: NORMAL INSPECTION - Exam External exam: NORMAL EXTERNAL EXAM - Extremities Exam Extremities Exam: Full ROM, Normal Capillary Refill, Normal Inspection. absent: Joint Swelling, Pedal Edema - Back Exam Back Exam: NORMAL INSPECTION - Neurological Exam Neurological Exam: Alert, Awake, CN II-XII Intact, Normal Gait, Oriented x3 - Psychiatric Exam Psychiatric exam: Normal Affect, Normal Mood - Skin Skin Exam: Dry, Intact, Normal Color, Warm Assessment and Plan - Assessment and Plan (Free Text) Assessment: PNEUMONIA RESOLVED Plan: NO FURTHER PULMONARY INTERVENTION FOR NOW WILL SIGN OFF CASE AND SEE AGAIN AT YOUR REQUEST
--- NOTE | 2018-05-07 11:49 | CP.PCM.PN ---
<Sultan Minal - Last Filed: 05/07/18 11:47> Subjective - Date & Time of Evaluation Date of Evaluation: 05/07/18 Time of Evaluation: 09:35 - Subjective Subjective: Patient seen and examined this AM. Reports cough and dyspnea improved. States he had some lower back last night and pain medication was given. Afebrile with stable vitals. Denies chest pain, dyspnea, headache or dizziness. Objective - Vital Signs/Intake and Output Vital Signs (last 24 hours): Temp Pulse Resp BP Pulse Ox 98.1 F 68 20 96/62 L 99 05/07/18 08:07 05/07/18 08:07 05/07/18 08:07 05/07/18 08:07 05/07/18 08:07 - Medications Medications: Current Medications Acetylcysteine (Acetylcysteine 20%) 2 ml INH RBID [facility] Last Admin: 05/07/18 07:39 Dose: 2 ml Albuterol/Ipratropium (Duoneb 3 Mg/0.5 Mg (3 Ml) Ud) 3 ml INH RQ6 [facility] Last Admin: 05/07/18 07:39 Dose: 3 ml Albuterol/Ipratropium (Duoneb 3 Mg/0.5 Mg (3 Ml) Ud) 3 ml INH RQ4 PRN PRN Reason: Shortness of Breath Last Admin: 05/07/18 07:39 Dose: 3 ml Baclofen (Lioresal) 40 mg PO 0600,1400,2200 [facility] Last Admin: 05/07/18 06:04 Dose: 40 mg Docusate Sodium (Colace) 100 mg PO DAILY [facility] Last Admin: 05/07/18 10:08 Dose: Not Given Home Med (Abacavir/Dolutegravir/Lamivudi [Triumeq Tablet]) 1 tab PO DAILY [facility] Last Admin: 05/07/18 09:42 Dose: 1 tab Home Med (Ranitidine Hcl [Zantac]) 300 mg PO DAILY [facility] Last Admin: 05/07/18 09:43 Dose: 300 mg Home Med (Calcium Carbonate/Vitamin D3 [Calcium 500 + Vit D Caplet]) 1 each PO DAILY [facility] Last Admin: 05/07/18 09:42 Dose: 1 each Trimethoprim/Sulfamethoxazole (240 mg/ Dextrose) 250 mls @ 250 mls/hr IVPB Q8 [facility]; Protocol Last Admin: 05/07/18 11:06 Dose: 250 mls/hr Metoclopramide HCl (Reglan) 5 mg PO ACHS PRN PRN Reason: Nausea/Vomiting Last Admin: 05/01/18 11:32 Dose: 5 mg Montelukast Sodium (Singulair) 10 mg PO DAILY [facility] Last Admin: 05/07/18 10:09 Dose: Not Given Morphine Sulfate (Morphine Immediate Release Tab) 15 mg PO Q8H [facility] Last Admin: 05/07/18 06:03 Dose: 15 mg Ondansetron HCl (Zofran Inj) 4 mg IVP Q6 PRN PRN Reason: Nausea/Vomiting Last Admin: 05/04/18 17:23 Dose: 4 mg - Labs Labs: 05/06/18 04:35 05/06/18 04:35 PT 13.3 Seconds (9.8-13.1) H 04/23/18 18:46 INR 1.2 04/23/18 18:46 APTT 37.5 Seconds (25.6-37.1) H 04/23/18 18:46 - Additional Findings Additional findings: - Constitutional Appears: No Acute Distress, Cachectic - Eye Exam Eye Exam: Normal appearance - ENT Exam ENT Exam: Mucous Membranes Moist - Respiratory Exam Respiratory Exam: Clear to Auscultation Bilateral, NORMAL BREATHING PATTERN. absent: Rhonchi, Wheezes, Respiratory Distress - Cardiovascular Exam Cardiovascular Exam: REGULAR RHYTHM, +S1, +S2 - GI/Abdominal Exam GI & Abdominal Exam: Soft, Normal Bowel Sounds. absent: Tenderness - Neurological Exam Neurological Exam: Alert, Awake - Psychiatric Exam Psychiatric exam: Normal Affect - Skin Skin Exam: Normal Color, Warm Assessment and Plan - Assessment and Plan (Free Text) Assessment: 57 y/o male with pmhx significant for AIDS, Brain lymphoma (s/p resection and chemo), Asthma, and GERD admitted for Diffuse Atypical Pneumonia. Plan: ID consult appreciated: Dr. Esteban Awaiting for third sputum for AF[employer] Pulmonology consult appreciated: Dr. Ma Continue management as per recommendations Pain management: continue with morphine 15 mg po q8 Continue rest of the plan as ordered. Plan d/w with Dr. Alok Fontaine, pgy-2 <Sergey Dickinson - Last Filed: 05/10/18 11:43> Objective - Vital Signs/Intake and Output Vital Signs (last 24 hours): Temp Pulse Resp BP Pulse Ox 97.5 F L 90 18 93/61 L 97 05/09/18 16:18 05/09/18 16:18 05/09/18 16:18 05/09/18 16:18 05/09/18 16:18 - Labs Labs: 05/06/18 04:35 05/06/18 04:35 PT 13.3 Seconds (9.8-13.1) H 04/23/18 18:46 INR 1.2 04/23/18 18:46 APTT 37.5 Seconds (25.6-37.1) H 04/23/18 18:46 Assessment and Plan - Assessment and Plan (Free Text) Assessment: Patient was personally seen and examined by me in rounds with residents. Available labs and diagnostic data reviewed. Case, Patient's condition and management plan discussed with residents in rounds. Agree with resident's progress note. Plan: As ordered.
[2018-05-07] MEDS: Sodium Chloride 3% for Inhalation 4 ML VIAL.NEB IH SCH (16:15)
[2018-05-08] MEDS: Sulfamethoxazole/Trimethoprim 240 MG in Dextrose 5% In Water 250 ML IVPB SCH ×3 (00:52→16:55)
[2018-05-08] MEDS: Albuterol-Ipratrop 3 mg / 0.5 (3 ml) UD INH SCH ×4 (01:13→19:23)
[2018-05-08] MEDS: Morphine 15 mg Immediate Release Tab PO SCH ×3 (06:28→22:06)
[2018-05-08] MEDS: Acetylcysteine 20% Inhal Soln (4ml) INH SCH ×2 (07:47→19:22)
--- NOTE | 2018-05-08 07:54 | CP.PCM.PN ---
<Sultan Minal - Last Filed: 05/08/18 08:15> Subjective - Date & Time of Evaluation Date of Evaluation: 05/08/18 Time of Evaluation: 07:35 - Subjective Subjective: Patient seen and examined this AM with Dr. Dickinson. Reports he had one episode of vomiting yesterday and nausea,vomiting or abdominal this AM. Afebrile with stable vitals. Denies chest pain, dyspnea, headache or dizziness. Collected 3rd specimen for AFB. Objective - Vital Signs/Intake and Output Vital Signs (last 24 hours): Temp Pulse Resp BP Pulse Ox 98 F 82 20 102/67 98 05/08/18 00:27 05/08/18 00:27 05/08/18 00:27 05/08/18 00:27 05/08/18 00:27 - Medications Medications: Current Medications Acetylcysteine (Acetylcysteine 20%) 2 ml INH RBID [facility] Last Admin: 05/08/18 07:47 Dose: 2 ml Albuterol/Ipratropium (Duoneb 3 Mg/0.5 Mg (3 Ml) Ud) 3 ml INH RQ6 [facility] Last Admin: 05/08/18 07:47 Dose: 3 ml Albuterol/Ipratropium (Duoneb 3 Mg/0.5 Mg (3 Ml) Ud) 3 ml INH RQ4 PRN PRN Reason: Shortness of Breath Last Admin: 05/07/18 07:39 Dose: 3 ml Baclofen (Lioresal) 40 mg PO 0600,1400,2200 [facility] Last Admin: 05/08/18 06:28 Dose: 40 mg Docusate Sodium (Colace) 100 mg PO DAILY [facility] Last Admin: 05/07/18 10:08 Dose: Not Given Home Med (Abacavir/Dolutegravir/Lamivudi [Triumeq Tablet]) 1 tab PO DAILY [facility] Last Admin: 05/07/18 09:42 Dose: 1 tab Home Med (Ranitidine Hcl [Zantac]) 300 mg PO DAILY [facility] Last Admin: 05/07/18 09:43 Dose: 300 mg Home Med (Calcium Carbonate/Vitamin D3 [Calcium 500 + Vit D Caplet]) 1 each PO DAILY [facility] Last Admin: 05/07/18 09:42 Dose: 1 each Trimethoprim/Sulfamethoxazole (240 mg/ Dextrose) 250 mls @ 250 mls/hr IVPB Q8 [facility]; Protocol Last Admin: 05/08/18 00:52 Dose: 250 mls/hr Metoclopramide HCl (Reglan) 5 mg PO ACHS PRN PRN Reason: Nausea/Vomiting Last Admin: 05/01/18 11:32 Dose: 5 mg Montelukast Sodium (Singulair) 10 mg PO DAILY [facility] Last Admin: 05/07/18 10:09 Dose: Not Given Morphine Sulfate (Morphine Immediate Release Tab) 15 mg PO Q8H [facility] Last Admin: 05/08/18 06:28 Dose: 15 mg Ondansetron HCl (Zofran Inj) 4 mg IVP Q6 PRN PRN Reason: Nausea/Vomiting Last Admin: 05/04/18 17:23 Dose: 4 mg - Labs Labs: 05/06/18 04:35 05/06/18 04:35 PT 13.3 Seconds (9.8-13.1) H 04/23/18 18:46 INR 1.2 04/23/18 18:46 APTT 37.5 Seconds (25.6-37.1) H 04/23/18 18:46 - Additional Findings Additional findings: - Constitutional Appears: No Acute Distress, Cachectic - Eye Exam Eye Exam: Normal appearance - ENT Exam ENT Exam: Mucous Membranes Moist - Respiratory Exam Respiratory Exam: Clear to Auscultation Bilateral, NORMAL BREATHING PATTERN. absent: Rhonchi, Wheezes, Respiratory Distress - Cardiovascular Exam Cardiovascular Exam: REGULAR RHYTHM, +S1, +S2 - GI/Abdominal Exam GI & Abdominal Exam: Soft, Normal Bowel Sounds. absent: Tenderness - Neurological Exam Neurological Exam: Alert, Awake - Psychiatric Exam Psychiatric exam: Normal Affect - Skin Skin Exam: Normal Color, Warm Assessment and Plan - Assessment and Plan (Free Text) Assessment: 57 y/o male with pmhx significant for AIDS, Brain lymphoma (s/p resection and chemo), Asthma, and GERD admitted for Diffuse Atypical Pneumonia. Plan: ID consult appreciated: Dr. Esteban Collected third sputum for AFB Pulmonology consult appreciated: Dr. Ma Continue management as per recommendations Pain management: continue with morphine 15 mg po q8 PT/OT for gait and strength Continue rest of the plan as ordered. Plan d/w with Dr. Alok Fontaine, pgy-2 <Sergey Dickinson K - Last Filed: 05/10/18 11:48> Objective - Vital Signs/Intake and Output Vital Signs (last 24 hours): Temp Pulse Resp BP Pulse Ox 97.5 F L 90 18 93/61 L 97 05/09/18 16:18 05/09/18 16:18 05/09/18 16:18 05/09/18 16:18 05/09/18 16:18 - Labs Labs: 05/06/18 04:35 05/06/18 04:35 PT 13.3 Seconds (9.8-13.1) H 04/23/18 18:46 INR 1.2 04/23/18 18:46 APTT 37.5 Seconds (25.6-37.1) H 04/23/18 18:46 Assessment and Plan - Assessment and Plan (Free Text) Assessment: Patient was personally seen and examined by me in rounds with residents. Available labs and diagnostic data reviewed. Case, Patient's condition and management plan discussed with residents in rounds. Agree with resident's progress note. Plan: As ordered.
[2018-05-08] MEDS: CALCIUM PO SCH ×2 (08:37→09:29)
[2018-05-08] MEDS: Patient's Own Med (Abacavir/Dolutegravir/Lamivudi [Triumeq Tablet] 1 TAB) PO SCH (08:37)
[2018-05-08] MEDS: VIT D PO SCH ×2 (08:37→09:29)
[2018-05-08] MEDS: Sodium Chloride 3% for Inhalation 4 ML VIAL.NEB IH SCH (09:59)
[2018-05-09] MEDS: Sulfamethoxazole/Trimethoprim 240 MG in Dextrose 5% In Water 250 ML IVPB SCH ×2 (00:35→09:25)
[2018-05-09] MEDS: Albuterol-Ipratrop 3 mg / 0.5 (3 ml) UD INH SCH ×3 (01:53→13:02)
[2018-05-09] MEDS: Acetylcysteine 20% Inhal Soln (4ml) INH SCH (07:16)
[2018-05-09] MEDS: Morphine 15 mg Immediate Release Tab PO SCH ×3 (07:34→16:00)
--- NOTE | 2018-05-09 08:07 | CP.PCM.PN ---
<[place] - Last Filed: 05/09/18 12:31> Subjective - Date & Time of Evaluation Date of Evaluation: 05/09/18 Time of Evaluation: 07:30 - Subjective Subjective: Patient seen and examined this AM with Dr. Dickinson. Reports he had trouble sleeping last night. Report poor appetite. Denies nausea, vomiting or abdominal pain. Denies chest pain, dyspnea, headache or dizziness. Afebrile with stable baseline low BP Objective - Vital Signs/Intake and Output Vital Signs (last 24 hours): Temp Pulse Resp BP Pulse Ox 97.8 F 76 20 90/60 L 95 05/08/18 23:54 05/08/18 23:54 05/08/18 23:54 05/08/18 23:54 05/08/18 23:54 - Medications Medications: Current Medications Acetylcysteine (Acetylcysteine 20%) 2 ml INH RBID [facility] [place] Last Admin: 05/09/18 07:16 Dose: 2 ml Albuterol/Ipratropium (Duoneb 3 Mg/0.5 Mg (3 Ml) Ud) 3 ml INH RQ6 [facility] Last Admin: 05/09/18 07:17 Dose: 3 ml Albuterol/Ipratropium (Duoneb 3 Mg/0.5 Mg (3 Ml) Ud) 3 ml INH RQ4 PRN PRN Reason: Shortness of Breath Last Admin: 05/07/18 07:39 Dose: 3 ml Baclofen (Lioresal) 40 mg PO 0600,1400,2200 [facility] Last Admin: 05/09/18 07:32 Dose: Not Given Docusate Sodium (Colace) 100 mg PO DAILY [facility] Last Admin: 05/08/18 09:29 Dose: Not Given Home Med (Abacavir/Dolutegravir/Lamivudi [Triumeq Tablet]) 1 tab PO DAILY [facility] Last Admin: 05/08/18 08:37 Dose: 1 tab Home Med (Ranitidine Hcl [Zantac]) 300 mg PO DAILY [facility] Last Admin: 05/08/18 08:38 Dose: 300 mg Home Med (Calcium Carbonate/Vitamin D3 [Calcium 500 + Vit D Caplet]) 1 each PO DAILY [facility] Last Admin: 05/08/18 09:29 Dose: Not Given Trimethoprim/Sulfamethoxazole (240 mg/ Dextrose) 250 mls @ 250 mls/hr IVPB Q8 [facility]; Protocol Last Admin: 05/09/18 00:35 Dose: 250 mls/hr Metoclopramide HCl (Reglan) 5 mg PO ACHS PRN PRN Reason: Nausea/Vomiting Last Admin: 05/01/18 11:32 Dose: 5 mg Montelukast Sodium (Singulair) 10 mg PO DAILY [facility] Last Admin: 05/08/18 08:38 Dose: 10 mg Morphine Sulfate (Morphine Immediate Release Tab) 15 mg PO Q8H [facility] Last Admin: 05/09/18 07:34 Dose: Not Given Ondansetron HCl (Zofran Inj) 4 mg IVP Q6 PRN PRN Reason: Nausea/Vomiting Last Admin: 05/04/18 17:23 Dose: 4 mg - Labs Labs: 05/06/18 04:35 05/06/18 04:35 PT 13.3 Seconds (9.8-13.1) H 04/23/18 18:46 INR 1.2 04/23/18 18:46 APTT 37.5 Seconds (25.6-37.1) H 04/23/18 18:46 - Additional Findings Additional findings: - Constitutional Appears: No Acute Distress, Cachectic - Eye Exam Eye Exam: Normal appearance - ENT Exam ENT Exam: Mucous Membranes Moist - Respiratory Exam Respiratory Exam: Clear to Auscultation Bilateral, NORMAL BREATHING PATTERN. absent: Rhonchi, Wheezes, Respiratory Distress - Cardiovascular Exam Cardiovascular Exam: REGULAR RHYTHM, +S1, +S2 - GI/Abdominal Exam GI & Abdominal Exam: Soft, Normal Bowel Sounds. absent: Tenderness - Neurological Exam Neurological Exam: Alert, Awake - Psychiatric Exam Psychiatric exam: Normal Affect - Skin Skin Exam: Normal Color, Warm Assessment and Plan - Assessment and Plan (Free Text) Assessment: 57 y/o male with pmhx significant for AIDS, Brain lymphoma (s/p resection and chemo), Asthma, and GERD admitted for Diffuse Atypical Pneumonia. Plan: ID consult appreciated: Dr. Esteban Third sputum specimen is negative for AFB Pulmonology consult appreciated: Dr. Ma Continue management as per recommendations Pain management: continue with morphine 15 mg po q8 PT/OT for gait and strength Continue rest of the plan as ordered. Plan d/w with Dr. Alok Fontaine, pgy-2 <Dickinson,Sergey K - Last Filed: 05/10/18 11:44> Objective - Vital Signs/Intake and Output Vital Signs (last 24 hours): Temp Pulse Resp BP Pulse Ox 97.5 F L 90 18 93/61 L 97 05/09/18 16:18 18 16:18 05/09/18 16:18 05/09/18 16:18 05/09/18 16:18 - Labs Labs: 05/06/18 04:35 05/06/18 04:35 PT 13.3 Seconds (9.8-13.1) H 04/23/18 18:46 INR 1.2 04/23/18 18:46 APTT 37.5 Seconds (25.6-37.1) H 04/23/18 18:46 Assessment and Plan - Assessment and Plan (Free Text) Assessment: Patient was personally seen and examined by me in rounds with residents. Available labs and diagnostic data reviewed. Case, Patient's condition and management plan discussed with residents in rounds. Agree with resident's progress note. Plan: As ordered.
[2018-05-09 08:09] VITALS: RESP 18; TEMP 97.5; O2SAT 97
[2018-05-09] MEDS: CALCIUM PO SCH ×2 (08:28→10:31)
[2018-05-09] MEDS: Patient's Own Med (Abacavir/Dolutegravir/Lamivudi [Triumeq Tablet] 1 TAB) PO SCH ×2 (08:28→10:29)
[2018-05-09] MEDS: VIT D PO SCH ×2 (08:28→10:31)
--- NOTE | 2018-05-09 15:54 | CP.PCM.PN ---
Subjective - Date & Time of Evaluation Date of Evaluation: 05/09/18 Time of Evaluation: 15:53 - Subjective Subjective: ID Note- Pt. seen and examined today. pt. now has 3 negative sputum AFB smears. Pneumonia has cleared as well. he is being d/c home today as per PCP. Objective - Vital Signs/Intake and Output Vital Signs (last 24 hours): Temp Pulse Resp BP Pulse Ox 97.5 F L 75 18 101/53 L 97 05/09/18 08:09 05/09/18 08:09 05/09/18 08:09 05/09/18 09:54 05/09/18 08:09 - Medications Medications: Current Medications Acetylcysteine (Acetylcysteine 20%) 2 ml INH RBID [facility] Last Admin: 05/09/18 07:16 Dose: 2 ml Albuterol/Ipratropium (Duoneb 3 Mg/0.5 Mg (3 Ml) Ud) 3 ml INH RQ6 [facility] Last Admin: 05/09/18 13:02 Dose: 3 ml Albuterol/Ipratropium (Duoneb 3 Mg/0.5 Mg (3 Ml) Ud) 3 ml INH RQ4 PRN PRN Reason: Shortness of Breath Last Admin: 05/07/18 07:39 Dose: 3 ml Baclofen (Lioresal) 40 mg PO 0600,1400,2200 [facility] Last Admin: 05/09/18 14:54 Dose: 40 mg Docusate Sodium (Colace) 100 mg PO DAILY [facility] Last Admin: 05/09/18 10:31 Dose: Not Given Home Med (Abacavir/Dolutegravir/Lamivudi [Triumeq Tablet]) 1 tab PO DAILY [facility] Last Admin: 05/09/18 10:29 Dose: Not Given Home Med (Ranitidine Hcl [Zantac]) 300 mg PO DAILY [facility] Last Admin: 05/09/18 08:29 Dose: 300 mg Home Med (Calcium Carbonate/Vitamin D3 [Calcium 500 + Vit D Caplet]) 1 each PO DAILY [facility] Last Admin: 05/09/18 10:31 Dose: Not Given Trimethoprim/Sulfamethoxazole (240 mg/ Dextrose) 250 mls @ 250 mls/hr IVPB Q8 [facility]; Protocol Last Admin: 05/09/18 09:25 Dose: 250 mls/hr Metoclopramide HCl (Reglan) 5 mg PO ACHS PRN PRN Reason: Nausea/Vomiting Last Admin: 05/01/18 11:32 Dose: 5 mg Montelukast Sodium (Singulair) 10 mg PO DAILY [facility] Last Admin: 05/09/18 10:31 Dose: Not Given Morphine Sulfate (Morphine Immediate Release Tab) 15 mg PO Q8H [facility] Last Admin: 05/09/18 09:24 Dose: 15 mg Ondansetron HCl (Zofran Inj) 4 mg IVP Q6 PRN PRN Reason: Nausea/Vomiting Last Admin: 05/09/18 14:53 Dose: 4 mg - Labs Labs: - Additional Findings Additional findings: - Constitutional Appears: No Acute Distress, Cachectic, Chronically Ill - Eye Exam Eye Exam: EOMI, PERRL - ENT Exam ENT Exam: Normal Oropharynx - Neck Exam Neck exam: Positive for: Full Rom Additional comments: supple - Respiratory Exam Respiratory Exam: NORMAL BREATHING PATTERN Additional comments: better aeration B/L No wheezing - Cardiovascular Exam Cardiovascular Exam: RRR, +S1, +S2 - GI/Abdominal Exam GI & Abdominal Exam: Normal Bowel Sounds, Soft Additional comments: NT, ND - Extremities Exam Extremities exam: Positive for: normal inspection - Neurological Exam Neurological exam: Alert, Oriented x 3 Microbiology 05/07/18 15:09 Other: Please Indicate Mycobacterial Culture - Preliminary 05/02/18 14:35 Other: Please Indicate Mycobacterial Culture - Preliminary 05/01/18 17:30 Other: Please Indicate Mycobacterial Culture - Preliminary 04/28/18 11:12 Sputum Gram Stain - Final 04/28/18 11:12 Sputum Sputum Culture - Final NORMAL ORAL JOSÉ ANTONIO 04/23/18 18:54 Blood-Venous Blood Culture - Final NO GROWTH AFTER 5 DAYS 04/23/18 18:54 Blood-Venous Gram Stain - Final TEST NOT PERFORMED 04/23/18 18:46 Blood-Venous Blood Culture - Final NO GROWTH AFTER 5 DAYS 04/23/18 18:46 Blood-Venous Gram Stain - Final TEST NOT PERFORMED 04/23/18 18:02 Blood-Venous Blood Culture - Final NO GROWTH AFTER 5 DAYS 04/23/18 18:02 Blood-Venous Gram Stain - Final TEST NOT PERFORMED Assessment and Plan (1) Cough Status: Acute (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 remains afebrile slight leukocytosis resolved. blood cx- neg x 3 influenza - neg quantiferon gold- indeterminate CD4-44 urine legionella AG- neg mycoplasma serology-neg sputum AFB smear- Neg x 3 cxr report from 05/05/2018- resolution of left lower lobe pneumonia as per radiologist's reading. plan- pt. is being d/c home today. has completed 14 days of IV bactrim for presumed PCP. can complete the rest of his bactrim course po bactrim for 7 more days as outpatient. pt. would need to continue with bactrim DS 3 times a week once his 21 days of treatment is finished until his cd4 rises to above 200. zithromax 1200 mg once a week for MAC prophylaxis since his Cd4 is <50. completed 12 days of IV zosyn. can continue with his triumeq as outpatient. pt. to f/u with his ID doc in [facility] next week all above d/w patient and he verbalizes full understanding of all above and agrees with above plan of care.
[2018-05-09 16:18] VITALS: BP 93/61; PULSE 90
== END 2018-05-09 17:05 | DRG 975 ==
LOC: H.ER 16:57 → H.ERHOLD 22:08 → H.MEDSURG1 23:59
PROVIDERS: ADMIT Internal Medicine; ATTEND Internal Medicine
DX: B20 Human immunodeficiency virus [HIV] disease (principal); B59 Pneumocystosis; R64 Cachexia; Z68.1 Body mass index [BMI] 19.9 or less, adult; E44.0 Moderate protein-calorie malnutrition; J47.0 Bronchiectasis with acute lower respiratory infection; H91.93 Unspecified hearing loss, bilateral; G89.4 Chronic pain syndrome; J45.909 Unspecified asthma, uncomplicated; K21.9 Gastro-esophageal reflux disease without esophagitis; K59.00 Constipation, unspecified; M41.9 Scoliosis, unspecified; M81.0 Age-related osteoporosis without current pathological fracture; R29.6 Repeated falls; Z79.82 Long term (current) use of aspirin; Z79.891 Long term (current) use of opiate analgesic; Z85.72 Personal history of non-Hodgkin lymphomas; Z85.841 Personal history of malignant neoplasm of brain; Z87.01 Personal history of pneumonia (recurrent); Z87.891 Personal history of nicotine dependence; Z90.49 Acquired absence of other specified parts of digestive tract; Z92.21 Personal history of antineoplastic chemotherapy; F32.9 Major depressive disorder, single episode, unspecified; H26.9 Unspecified cataract; K29.70 Gastritis, unspecified, without bleeding; M19.90 Unspecified osteoarthritis, unspecified site; Z79.899 Other long term (current) drug therapy

== ENCOUNTER 2018-05-09 15:23 | Inpatient (IN) | payer OTHER ==
[2018-05-09 17:31] VITALS: BMI 15.3
[2018-05-09] MEDS ORDERED: Albuterol-Ipratrop 3 mg / 0.5 (3 ml) UD INH PRN (20:00)
[2018-05-09] MEDS: Acetylcysteine 20% Inhal Soln (4ml) INH SCH (20:53)
[2018-05-09] MEDS: Albuterol-Ipratrop 3 mg / 0.5 (3 ml) UD INH SCH (20:54)
[2018-05-09] MEDS: Tmp-Smz 800 mg-160 mg DS Tab PO SCH (22:28)
[2018-05-09] MEDS: Morphine 15 mg Immediate Release Tab PO SCH (23:15)
[2018-05-10] MEDS: Albuterol-Ipratrop 3 mg / 0.5 (3 ml) UD INH SCH ×4 (01:07→20:39)
[2018-05-10] MEDS: Morphine 15 mg Immediate Release Tab PO SCH ×3 (06:01→21:40)
[2018-05-10 06:55] LABS: HEMOGLOBIN 10.8 g/dL (12.0-18.0); MEAN CELL VOLUME 91.1 fl (80.0-94.0); MEAN CORPUSCULAR HGB CONC 32.9 g/dL (33.0-37.0); RBC 3.59 Mil/uL (4.40-5.90); RED CELL DISTRIBUTION WIDTH 14.3 % (11.5-14.5); WHITE BLOOD COUNT 5.2 K/uL (4.8-10.8)
[2018-05-10 07:02] LABS: ALBUMIN 4.2 g/dL (3.5-5.0); ALT/SGPT 42 U/L (21-72); AST/SGOT 50 U/L (17-59); BLOOD UREA NITROGEN 12 mg/dl (9-20); CALCIUM 9.5 mg/dL (8.4-10.2); GFR NON-AFRICAN AMERICAN > 60
[2018-05-10] MEDS ORDERED: Influenza Vaccine 60 MCG/0.5 ML SYR (3 yr & up) IM ONE (07:54)
[2018-05-10] MEDS: Acetylcysteine 20% Inhal Soln (4ml) INH SCH ×2 (08:44→20:39)
[2018-05-10] MEDS: Tmp-Smz 800 mg-160 mg DS Tab PO SCH ×2 (09:50→21:39)
[2018-05-10] MEDS: VITAMIN D3 PO SCH (09:51)
[2018-05-10] MEDS: CALCIUM CARBONATE PO SCH (09:51)
[2018-05-10] MEDS: DOLUTEGRAVIR PO SCH (09:52)
[2018-05-10] MEDS: RANITIDINE HCL 300 MG PO SCH (09:52)
[2018-05-10] MEDS: ABACAVIR PO SCH (09:52)
[2018-05-10] MEDS: LAMIVUDI PO SCH (09:52)
--- NOTE | 2018-05-10 20:42 | HP ---
CHIEF COMPLAINT: The patient was transferred from medical floor for completion of treatment. HISTORY OF PRESENT ILLNESS: This is a 57-year-old male known case of HIV positive with very low CD4 count who was admitted to medical floor and was treated and the patient was transferred to transitional care unit for completion of treatment and early cooperation. The patient complains of generalized weakness and generalized pain, controlled with current medication. The patient does not complain of any other symptoms. REVIEW OF SYSTEMS: Positive for pain and weakness. Review of systems otherwise is negative for headache, dizziness, syncope, loss of consciousness, chest pain, shortness of breath, nausea, vomiting, diarrhea, or constipation. Review of systems of all other organ systems are unremarkable. PAST MEDICAL HISTORY: As mentioned earlier is significant for HIV positive with . PAST SURGICAL HISTORY: Unremarkable. PERSONAL HISTORY: The patient is nonsmoker, nondrinker, no substance abuse, and he is homosexual. FAMILY HISTORY: Noncontributory. PHYSICAL EXAMINATION: GENERAL: Cachectic-looking, frail 57-year-old male, in no acute distress. VITAL SIGNS: Stable. Temperature afebrile, pulse 80, respirations 18, blood pressure 130/80. HEENT: Pupils are reacting to light. Normocephalic, atraumatic skull. NECK: No JVD. No thyromegaly. No lymphadenopathy. No nystagmus. HEART: S1 and S2, normal and regular. LUNG: Good bilateral air exchange. ABDOMEN: Soft, nontender. EXTREMITIES: No edema. No calf swelling. No tenderness. No acute ischemia. 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 DIAGNOSTIC DATA: Available diagnostic data reviewed. CBC, BMP laboratory findings. ADMITTING IMPRESSION: Pneumonia, human immunodeficiency virus positive. PLAN: As ordered. Case and plan discussed with the patient. Sergey Dickinson MD
[2018-05-11] MEDS: Albuterol-Ipratrop 3 mg / 0.5 (3 ml) UD INH SCH ×5 (03:08→19:26)
[2018-05-11] MEDS: Morphine 15 mg Immediate Release Tab PO SCH ×3 (06:31→21:21)
[2018-05-11] MEDS: Acetylcysteine 20% Inhal Soln (4ml) INH SCH ×2 (09:05→19:26)
[2018-05-11] MEDS: CALCIUM CARBONATE PO SCH (09:51)
[2018-05-11] MEDS: VITAMIN D3 PO SCH (09:51)
[2018-05-11] MEDS: DOLUTEGRAVIR PO SCH (09:52)
[2018-05-11] MEDS: ABACAVIR PO SCH (09:52)
[2018-05-11] MEDS: LAMIVUDI PO SCH (09:52)
[2018-05-11] MEDS: RANITIDINE HCL 300 MG PO SCH (09:53)
[2018-05-11] MEDS: Tmp-Smz 800 mg-160 mg DS Tab PO SCH ×2 (09:59→21:23)
--- NOTE | 2018-05-11 12:21 | PN ---
DATE: 05/11/2018 SUBJECTIVE: The patient seen and examined. Interim events noted. The patient remains in transitional care unit. The patient feels okay. Denies any chest pain. No shortness of breath. Complains of generalized weakness. Was able to do some physical therapy, but then got tired, so did not complete the session. No specific other issue reported by nursing staff. The patient has pain, which is controlled with current pain medications. PHYSICAL EXAMINATION: GENERAL: The patient is in no acute distress. VITAL SIGNS: Stable. Physical exam is essentially unchanged. DIAGNOSTIC DATA: Available diagnostic data reviewed. ASSESSMENT AND PLAN: Overall, the patient stable. Plan as ordered. Sergey Dickinson MD
[2018-05-12] MEDS: Albuterol-Ipratrop 3 mg / 0.5 (3 ml) UD INH SCH ×4 (01:18→19:30)
[2018-05-12] MEDS: Morphine 15 mg Immediate Release Tab PO SCH ×3 (05:46→22:04)
[2018-05-12] MEDS: Acetylcysteine 20% Inhal Soln (4ml) INH SCH ×2 (07:18→19:30)
--- NOTE | 2018-05-12 08:18 | PN ---
DATE: 05/12/2018 SUBJECTIVE: The patient is seen and examined. Interim events noted. The patient remains in regular transitional care unit. Feels okay. Complains of constipation. Telephone orders were given yesterday, and the patient still does not have any bowel movements. No chest pain. No shortness of breath. PHYSICAL EXAMINATION: GENERAL: The patient is in no acute distress. VITAL SIGNS: Stable. HEART: S1 and S2, normal and regular. LUNGS: Good bilateral air exchange. ABDOMEN: Soft and nontender. No sign of acute abdomen. No guarding. No rigidity. No rebound. No sign of infection. EXTREMITIES: No calf swelling. No tenderness. No acute ischemia. CENTRAL NERVOUS SYSTEM: Essentially unchanged. DIAGNOSTIC DATA: Available diagnostic data reviewed. ASSESSMENT AND PLAN: Overall, the patient's general medical condition is stable. Plan as ordered. Sergey Dickinson MD
[2018-05-12] MEDS: VITAMIN D3 PO SCH (09:17)
[2018-05-12] MEDS: RANITIDINE HCL 300 MG PO SCH (09:17)
[2018-05-12] MEDS: CALCIUM CARBONATE PO SCH (09:17)
[2018-05-12] MEDS: DOLUTEGRAVIR PO SCH (09:18)
[2018-05-12] MEDS: Tmp-Smz 800 mg-160 mg DS Tab PO SCH ×2 (09:18→22:02)
[2018-05-12] MEDS: ABACAVIR PO SCH (09:18)
[2018-05-12] MEDS: LAMIVUDI PO SCH (09:18)
[2018-05-13] MEDS: Albuterol-Ipratrop 3 mg / 0.5 (3 ml) UD INH SCH ×4 (01:01→19:35)
[2018-05-13] MEDS: Morphine 15 mg Immediate Release Tab PO SCH ×2 (06:43→13:52)
[2018-05-13] MEDS: Acetylcysteine 20% Inhal Soln (4ml) INH SCH ×2 (07:40→19:35)
[2018-05-13] MEDS: CALCIUM CARBONATE PO SCH (08:32)
[2018-05-13] MEDS: LAMIVUDI PO SCH (08:32)
[2018-05-13] MEDS: VITAMIN D3 PO SCH (08:32)
[2018-05-13] MEDS: DOLUTEGRAVIR PO SCH (08:32)
[2018-05-13] MEDS: ABACAVIR PO SCH (08:32)
[2018-05-13] MEDS: RANITIDINE HCL 300 MG PO SCH (08:32)
[2018-05-13] MEDS: Tmp-Smz 800 mg-160 mg DS Tab PO SCH ×2 (08:34→23:43)
--- NOTE | 2018-05-13 12:39 | PN ---
DATE: 05/13/2018 SUBJECTIVE: The patient seen and examined. Interim events noted. The patient remains in transitional care unit. Feels okay, but still is constipated, did not move bowels yet, also wants to see pain management doctor. PHYSICAL EXAMINATION: GENERAL: The patient is in no acute distress. VITAL SIGNS: Stable. Physical exam is essentially unchanged. ABDOMEN: No sign of abdominal obstruction or impaction. Abdomen remains soft, nontender. DIAGNOSTIC DATA: Available diagnostic data reviewed. ASSESSMENT AND PLAN: Overall, the patient's general medical condition is stable. Plan as ordered. Sergey Dickinson MD
[2018-05-13] MEDS: Morphine 15 mg SR Tab PO SCH (21:57)
[2018-05-14] MEDS: Albuterol-Ipratrop 3 mg / 0.5 (3 ml) UD INH SCH ×4 (01:06→19:10)
[2018-05-14] MEDS: Morphine 15 mg SR Tab PO SCH ×3 (05:59→22:29)
[2018-05-14] MEDS: Acetylcysteine 20% Inhal Soln (4ml) INH SCH ×2 (08:38→19:10)
[2018-05-14] MEDS: VITAMIN D3 PO SCH (08:54)
[2018-05-14] MEDS: RANITIDINE HCL 300 MG PO SCH (08:54)
[2018-05-14] MEDS: Tmp-Smz 800 mg-160 mg DS Tab PO SCH ×2 (08:54→21:30)
[2018-05-14] MEDS: DOLUTEGRAVIR PO SCH (08:54)
[2018-05-14] MEDS: LAMIVUDI PO SCH (08:54)
[2018-05-14] MEDS: ABACAVIR PO SCH (08:54)
[2018-05-14] MEDS: CALCIUM CARBONATE PO SCH (08:54)
--- NOTE | 2018-05-14 10:49 | CP.PCM.CON ---
History of Present Illness - History of Present Illness History of Present Illness: 57 YR OLD MALE WHO IS KNOWN TO ME FROM HIS RECENT ADMISSION ON A MEDICAL WANG.HE HAS A HISTORY OF HIV DISEASE,PNEUMONIA AND GENERAL DEBILITY.HE WAS IN RESPIRATORY ISOLATION TO RULE OUT PULMONARY TUBERCULOSIS RECENT CXR DEPICTED COMPLETE RESOLUTION OF PNEUMONIA AND ALL SPUTUM STUDIES WERE NON-REVEALING Past Patient History - Infectious Disease Hx of Infectious Diseases: None - Past Medical History & Family History Past Medical History?: Yes - Past Social History Smoking Status: Former Smoker - CARDIAC Hx Cardiac Disorders: No - PULMONARY Hx Respiratory Disorders: Yes Hx Asthma: Yes Hx Pneumonia: Yes - NEUROLOGICAL Hx Neurological Disorder: Yes HX Cerebrovascular Accident: No Other/Comment: Brain Ca - HEENT Hx HEENT Problems: Yes Hx Blind: No Hx Cataracts: Yes Hx Deafness: Yes (B/L [place]) Hx Difficulty Chewing: No Hx Epistaxis: No Hx Glaucoma: No Hx Macular Degeneration: No Other/Comment: impaired hearing, used to have Left and right hearing aid years ago. 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 - INTEGUMENTARY Hx Dermatological Problems: No Other/Comment: ble discolored - MUSCULOSKELETAL/RHEUMATOLOGICAL Hx Falls: Yes - GASTROINTESTINAL Hx Gastrointestinal Disorders: Yes Hx Gastritis: Yes Hx Gastroesophageal Reflux: Yes - GENITOURINARY/GYNECOLOGICAL Hx Genitourinary Disorders: No - PSYCHIATRIC Hx Substance Use: No - SURGICAL HISTORY Hx Surgeries: Yes Hx Appendectomy: Yes Hx Tonsillectomy: Yes 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 - ANESTHESIA Hx Anesthesia: Yes Hx Anesthesia Reactions: No Hx Malignant Hyperthermia: No Meds Allergies/Adverse Reactions: Allergies Allergy/AdvReac Type Severity Reaction Status Date / Time No Known Allergies Allergy Verified 05/09/18 17:31 - Medications Medications: Current Medications Acetylcysteine (Acetylcysteine 20%) 2 ml INH RBID [facility] Last Admin: 05/14/18 08:38 Dose: 2 ml Albuterol/Ipratropium (Duoneb 3 Mg/0.5 Mg (3 Ml) Ud) 3 ml INH RQ4 PRN PRN Reason: Shortness of Breath Albuterol/Ipratropium (Duoneb 3 Mg/0.5 Mg (3 Ml) Ud) 3 ml INH RQ6 [facility] Last Admin: 05/14/18 08:38 Dose: 3 ml Baclofen (Lioresal) 40 mg PO Q8@0600,1400,2200 [facility] Last Admin: 05/14/18 05:59 Dose: 40 mg Docusate Sodium (Colace Liquid) 100 mg PO TID [facility] Last Admin: 05/14/18 08:54 Dose: Not Given Home Med (Abacavir/Dolutegravir/Lamivudi [Triumeq Tablet]) 1 tab PO DAILY [facility] Last Admin: 05/14/18 08:54 Dose: 1 tab Home Med (Calcium Carbonate/Vitamin D3 [Calcium 500 + Vit D Caplet]) 1 each PO DAILY [facility] Last Admin: 05/14/18 08:54 Dose: 1 each Home Med (Ranitidine Hcl [Zantac]) 300 mg PO DAILY [facility] Last Admin: 05/14/18 08:54 Dose: 300 mg Lactulose (Enulose) 20 gm PO HS [facility] Last Admin: 05/13/18 22:01 Dose: 20 gm Metoclopramide HCl (Reglan) 5 mg PO ACHS PRN PRN Reason: Nausea/Vomiting Last Admin: 05/12/18 09:17 Dose: 5 mg Montelukast Sodium (Singulair) 10 mg PO DAILY [facility] Last Admin: 05/14/18 08:54 Dose: 10 mg Morphine Sulfate (Morphine Extended Release Tab) 45 mg PO Q8@0600,1400,2200 [facility] Last Admin: 05/14/18 05:59 Dose: 45 mg Ondansetron HCl (Zofran Inj) 4 mg IVP Q6 PRN PRN Reason: Nausea/Vomiting Sodium Phosphate (Fleet Enema) 135 ml ND ONCE PRN PRN Reason: Constipation Trimethoprim/Sulfamethoxazole (Bactrim Ds Tab) 1 tab PO Q12 [facility]; Protocol Last Admin: 05/14/18 08:54 Dose: 1 tab Physical Exam - Constitutional Appears: Well, Cachectic - Head Exam Head Exam: ATRAUMATIC, NORMAL INSPECTION, NORMOCEPHALIC - Eye Exam Eye Exam: EOMI, Normal appearance, PERRL Pupil Exam: NORMAL ACCOMODATION, PERRL - ENT Exam ENT Exam: Mucous Membranes Moist, Normal Exam - Neck Exam Neck exam: Positive for: Normal Inspection - Respiratory Exam Respiratory Exam: Clear to Auscultation Bilateral, Prolonged Expiratory Phase, NORMAL BREATHING PATTERN - Cardiovascular Exam Cardiovascular Exam: REGULAR RHYTHM - GI/Abdominal Exam GI & Abdominal Exam: Normal Bowel Sounds, Soft. absent: Tenderness - Rectal Exam Rectal Exam: NORMAL INSPECTION - Extremities Exam Extremities exam: Positive for: normal inspection - Back Exam Back exam: NORMAL INSPECTION - Neurological Exam Neurological exam: Alert, CN II-XII Intact, Normal Gait, Oriented x3, Reflexes Normal - Psychiatric Exam Psychiatric exam: Normal Affect, Normal Mood - Skin Skin Exam: Dry, Intact, Normal Color, Warm Results - Vital Signs Recent Vital Signs: Last Vital Signs Temp 98.0 F 05/14/18 08:18 Pulse 82 05/14/18 08:18 Resp 18 05/14/18 08:18 BP 118/56 L 05/14/18 08:18 Pulse Ox 98 05/14/18 08:18 - Labs Result Diagrams: 05/10/18 05:30 05/10/18 05:30 Assessment & Plan - Assessment and Plan (Free Text) Assessment: HIV DZ PNEUMONIA RESOLVED Plan: NO FURTHER PULMONARY INTERVENTION FOR NOW WILL SIGN OFF CASE AND SEE AGAIN AT YOUR REQUEST - Date & Time Date: 05/14/18 Time: 10:50
--- NOTE | 2018-05-14 12:23 | PN ---
DATE: 05/14/2018 SUBJECTIVE: The patient seen and examined. Interim events noted. The patient complained of increased pain yesterday and medications were adjusted. Currently, the patient complains of on and off pain controlled with current pain medications and also requesting to see pain management doctor. No chest pain or shortness of breath. PHYSICAL EXAMINATION: GENERAL: The patient is in no acute distress. VITAL SIGNS: Stable. HEART EXAM: S1 and S2. Normal and regular. LUNGS: Good bilateral air exchange. ABDOMEN: Soft and nontender. EXTREMITY EXAM: No calf swelling. No tenderness. No acute ischemia. PEDIATRIC DERMATOLOGIST EXAM: Essentially unchanged. DIAGNOSTIC DATA: Available diagnostic data reviewed. ASSESSMENT AND PLAN: Overall, the patient's general medical condition is stable. Plan as ordered. Sergey Dickinson MD
[2018-05-14 17:06] VITALS: RESP 20
--- NOTE | 2018-05-14 18:50 | CP.PCM.CON ---
History of Present Illness - History of Present Illness History of Present Illness: Dr Warren PMR consultation on Thierry Quiroga, born 1960, who has been admitted to [facility] with peumonia but also with severe LBP. Has history of chronic pain and has had compression fractures with kyphoplasty in the past but this is radicular pain down the right LE. He had recently fallen too. I will get plain lumbar films. I will start on a Prednisone taper. He has no focal strength deficits. He is extremely kyphotic but percussion did not lead to extraordinary pain. He is on chronic and stable opioid medications and does not appear to have significant pain med seeking behaviour I will follow up with the results of the initial prednisone Past Patient History - Infectious Disease Hx of Infectious Diseases: None - Past Medical History & Family History Past Medical History?: Yes - Past Social History Smoking Status: Former Smoker - CARDIAC Hx Cardiac Disorders: No - PULMONARY Hx Respiratory Disorders: Yes Hx Asthma: Yes Hx Pneumonia: Yes - NEUROLOGICAL Hx Neurological Disorder: Yes HX Cerebrovascular Accident: No Other/Comment: Brain Ca - HEENT Hx HEENT Problems: Yes Hx Blind: No Hx Cataracts: Yes Hx Deafness: Yes (B/[place]) Hx Difficulty Chewing: No Hx Epistaxis: No Hx Glaucoma: No Hx Macular Degeneration: No Other/Comment: impaired hearing, used to have Left and right hearing aid years ago. 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 - INTEGUMENTARY Hx Dermatological Problems: No Other/Comment: ble discolored - MUSCULOSKELETAL/RHEUMATOLOGICAL Hx Falls: Yes - GASTROINTESTINAL Hx Gastrointestinal Disorders: Yes Hx Gastritis: Yes Hx Gastroesophageal Reflux: Yes - GENITOURINARY/GYNECOLOGICAL Hx Genitourinary Disorders: No - PSYCHIATRIC Hx Substance Use: No - SURGICAL HISTORY Hx Surgeries: Yes Hx Appendectomy: Yes Hx Tonsillectomy: Yes 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 - ANESTHESIA Hx Anesthesia: Yes Hx Anesthesia Reactions: No Hx Malignant Hyperthermia: No Meds Allergies/Adverse Reactions: Allergies Allergy/AdvReac Type Severity Reaction Status Date / Time No Known Allergies Allergy Verified 05/09/18 17:31 - Medications Medications: Current Medications Acetylcysteine (Acetylcysteine 20%) 2 ml INH RBID [facility] Last Admin: 05/14/18 08:38 Dose: 2 ml Albuterol/Ipratropium (Duoneb 3 Mg/0.5 Mg (3 Ml) Ud) 3 ml INH RQ4 PRN PRN Reason: Shortness of Breath Albuterol/Ipratropium (Duoneb 3 Mg/0.5 Mg (3 Ml) Ud) 3 ml INH RQ6 [facility] Last Admin: 05/14/18 13:47 Dose: 3 ml Baclofen (Lioresal) 40 mg PO Q8@0600,1400,2200 [facility] Last Admin: 05/14/18 15:00 Dose: 40 mg Docusate Sodium (Colace Liquid) 100 mg PO TID [facility] Last Admin: 05/14/18 17:05 Dose: Not Given Home Med (Abacavir/Dolutegravir/Lamivudi [Triumeq Tablet]) 1 tab PO DAILY [facility] Last Admin: 05/14/18 08:54 Dose: 1 tab Home Med (Calcium Carbonate/Vitamin D3 [Calcium 500 + Vit D Caplet]) 1 each PO DAILY [facility] Last Admin: 05/14/18 08:54 Dose: 1 each Home Med (Ranitidine Hcl [Zantac]) 300 mg PO DAILY [facility] Last Admin: 05/14/18 08:54 Dose: 300 mg Lactulose (Enulose) 20 gm PO HS [facility] Last Admin: 05/13/18 22:01 Dose: 20 gm Metoclopramide HCl (Reglan) 5 mg PO ACHS PRN PRN Reason: Nausea/Vomiting Last Admin: 05/12/18 09:17 Dose: 5 mg Montelukast Sodium (Singulair) 10 mg PO DAILY [facility] Last Admin: 05/14/18 08:54 Dose: 10 mg Morphine Sulfate (Morphine Extended Release Tab) 45 mg PO Q8@0600,1400,2200 [facility] Last Admin: 05/14/18 15:00 Dose: 45 mg Ondansetron HCl (Zofran Inj) 4 mg IVP Q6 PRN PRN Reason: Nausea/Vomiting Prednisone (Prednisone Tab) 60 mg PO Q24H [facility] Stop: 05/15/18 18:46 Prednisone (Prednisone Tab) 50 mg PO Q24H [facility] Stop: 05/17/18 18:46 Prednisone (Prednisone Tab) 40 mg PO Q24H [facility] Stop: 05/19/18 18:46 Prednisone (Prednisone Tab) 30 mg PO Q24H [facility] Stop: 05/21/18 18:46 Prednisone (Prednisone Tab) 20 mg PO Q24H [facility] Stop: 05/23/18 18:46 Prednisone (Prednisone Tab) 10 mg PO Q24H [facility] Stop: 05/25/18 18:46 Sodium Phosphate (Fleet Enema) 135 ml [place] ONCE PRN PRN Reason: Constipation Trimethoprim/Sulfamethoxazole (Bactrim Ds Tab) 1 tab PO Q12 [facility]; Protocol Last Admin: 05/14/18 08:54 Dose: 1 tab Results - Vital Signs Recent Vital Signs: Last Vital Signs Temp 97.0 F L 05/14/18 17:05 Pulse 97 H 05/14/18 17:05 Resp 20 05/14/18 17:05 BP 91/61 L 05/14/18 17:05 Pulse Ox 98 05/14/18 17:05 - Labs Result Diagrams: 05/10/18 05:30 05/10/18 05:30
[2018-05-14] MEDS ORDERED: Morphine 30 mg SR Tab PO SCH (22:00)
[2018-05-15] MEDS: Albuterol-Ipratrop 3 mg / 0.5 (3 ml) UD INH SCH ×4 (01:43→19:48)
[2018-05-15] MEDS: Morphine 15 mg SR Tab PO SCH ×3 (06:29→23:21)
[2018-05-15] MEDS: Acetylcysteine 20% Inhal Soln (4ml) INH SCH ×2 (07:31→19:48)
[2018-05-15] MEDS: VITAMIN D3 PO SCH (08:18)
[2018-05-15] MEDS: DOLUTEGRAVIR PO SCH (08:18)
[2018-05-15] MEDS: ABACAVIR PO SCH (08:18)
[2018-05-15] MEDS: CALCIUM CARBONATE PO SCH (08:18)
[2018-05-15] MEDS: LAMIVUDI PO SCH (08:18)
--- NOTE | 2018-05-15 10:40 | RAD ---
Date of service: 05/15/2018 PROCEDURE: Radiographs of the Lumbar Spine. HISTORY: low back pain COMPARISON: No prior. FINDINGS: There is large amount of stool in the colon and fecal impaction in the descending colon and rectum. BONES: Multilevel kyphoplasty in the visualized lower thoracic spine and at L1. There are age indeterminate osteoporotic compression fracture deformities from L2-L4. DISC SPACES: Unremarkable. OTHER FINDINGS: None. IMPRESSION: Age indeterminate multilevel osteoporotic compression deformities from L2-L5. Severe constipation and fecal impaction in the descending colon and rectum.
[2018-05-15] MEDS: RANITIDINE HCL 300 MG PO SCH (12:46)
--- NOTE | 2018-05-15 16:05 | PN ---
DATE: 05/15/2018 SUBJECTIVE: The patient seen and examined. Interim events noted. Pulmonary and Pain Management consult noted and appreciated. The patient remains in transitional care unit. The patient feels okay. Denies any chest pain or shortness of breath. Pain is adequately controlled. PHYSICAL EXAMINATION: GENERAL: The patient is in no acute distress. VITAL SIGNS: Stable. HEART: S1 and S2. Normal and regular. LUNGS: Good bilateral air exchange. ABDOMEN: Soft, nontender. EXTREMITIES: No edema. No calf swelling. No tenderness. No acute ischemia. COMMERCIAL MARKETING SPECIALIST: Exam is essentially unchanged. DIAGNOSTIC DATA: Available diagnostic data reviewed. ASSESSMENT AND PLAN: Overall, the patient's general medical condition is stable. Plan as ordered. Sergey Dickinson MD
--- NOTE | 2018-05-15 17:03 | CP.PCM.PN ---
Subjective - Date & Time of Evaluation Date of Evaluation: 05/15/18 Time of Evaluation: 17:02 - Subjective Subjective: Patient is doing better today and therapy noticed this as well after only one dosage of the 60mg of Prednisone continue with current dose taper. lumbar x-ray had L1-4 age indeterminate compression fractures. At this point the spine is stable and the LBP is not too severe to warrant any surgical intervention Objective - Vital Signs/Intake and Output Vital Signs (last 24 hours): Temp Pulse Resp BP Pulse Ox 97.7 F 74 20 95/67 L 99 05/15/18 08:11 05/15/18 08:11 05/15/18 08:11 05/15/18 08:11 05/15/18 08:11 - Medications Medications: Current Medications Acetylcysteine (Acetylcysteine 20%) 2 ml INH RBID [facility] Last Admin: 05/15/18 07:31 Dose: 2 ml Albuterol/Ipratropium (Duoneb 3 Mg/0.5 Mg (3 Ml) Ud) 3 ml INH RQ4 PRN PRN Reason: Shortness of Breath Albuterol/Ipratropium (Duoneb 3 Mg/0.5 Mg (3 Ml) Ud) 3 ml INH RQ6 [facility] Last Admin: 05/15/18 13:34 Dose: 3 ml Baclofen (Lioresal) 40 mg PO Q8@0600,1400,2200 [facility] Last Admin: 05/15/18 14:05 Dose: 40 mg Docusate Sodium (Colace Liquid) 100 mg PO TID [facility] Last Admin: 05/15/18 12:47 Dose: Not Given Home Med (Abacavir/Dolutegravir/Lamivudi [Triumeq Tablet]) 1 tab PO DAILY [facility] Last Admin: 05/15/18 08:18 Dose: 1 tab Home Med (Calcium Carbonate/Vitamin D3 [Calcium 500 + Vit D Caplet]) 1 each PO DAILY [facility] Last Admin: 05/15/18 08:18 Dose: 1 each Home Med (Ranitidine Hcl [Zantac]) 300 mg PO DAILY [facility] Last Admin: 05/15/18 12:46 Dose: 300 mg Lactulose (Enulose) 20 gm PO HS [facility] Last Admin: 05/14/18 22:29 Dose: 20 gm Metoclopramide HCl (Reglan) 5 mg PO ACHS PRN PRN Reason: Nausea/Vomiting Last Admin: 05/12/18 09:17 Dose: 5 mg Montelukast Sodium (Singulair) 10 mg PO DAILY [facility] Last Admin: 05/15/18 09:32 Dose: 10 mg Morphine Sulfate (Morphine Extended Release Tab) 45 mg PO Q8@0600,1400,2200 [facility] Last Admin: 05/15/18 14:03 Dose: 45 mg Ondansetron HCl (Zofran Inj) 4 mg IVP Q6 PRN PRN Reason: Nausea/Vomiting Prednisone (Prednisone Tab) 60 mg PO Q24H [facility] Stop: 05/15/18 18:46 Last Admin: 05/14/18 22:28 Dose: 60 mg Prednisone (Prednisone Tab) 50 mg PO Q24H [facility] Stop: 05/17/18 18:46 Prednisone (Prednisone Tab) 40 mg PO Q24H [facility] Stop: 05/19/18 18:46 Prednisone (Prednisone Tab) 30 mg PO Q24H [facility] Stop: 05/21/18 18:46 Prednisone (Prednisone Tab) 20 mg PO Q24H [facility] Stop: 05/23/18 18:46 Prednisone (Prednisone Tab) 10 mg PO Q24H [facility] Stop: 05/25/18 18:46 Sodium Phosphate (Fleet Enema) 135 ml [place] ONCE PRN PRN Reason: Constipation - Labs Labs: 05/10/18 05:30 05/10/18 05:30
[2018-05-16] MEDS: Albuterol-Ipratrop 3 mg / 0.5 (3 ml) UD INH SCH ×4 (01:08→19:35)
[2018-05-16] MEDS: Morphine 15 mg SR Tab PO SCH ×3 (06:04→22:10)
[2018-05-16] MEDS: Acetylcysteine 20% Inhal Soln (4ml) INH SCH ×2 (07:36→19:35)
[2018-05-16] MEDS: LAMIVUDI PO SCH (08:28)
[2018-05-16] MEDS: CALCIUM CARBONATE PO SCH (08:28)
[2018-05-16] MEDS: RANITIDINE HCL 300 MG PO SCH (08:28)
[2018-05-16] MEDS: DOLUTEGRAVIR PO SCH (08:28)
[2018-05-16] MEDS: ABACAVIR PO SCH (08:28)
[2018-05-16] MEDS: VITAMIN D3 PO SCH (08:28)
--- NOTE | 2018-05-16 19:00 | CP.PCM.PN ---
Subjective - Date & Time of Evaluation Date of Evaluation: 05/16/18 Time of Evaluation: 18:58 - Subjective Subjective: Patient seen in the room has pain still in spite of the prednisone ambulating in therapies but he says still with significant pain LS x-ray has multiple compression fractures I will get ortho consult he cannot lay down for CT or MRI Objective - Vital Signs/Intake and Output Vital Signs (last 24 hours): Temp Pulse Resp BP Pulse Ox 97.0 F L 78 20 124/74 98 05/16/18 16:52 05/16/18 16:52 05/16/18 16:52 05/16/18 16:52 05/16/18 16:52 - Medications Medications: Current Medications Acetylcysteine (Acetylcysteine 20%) 2 ml INH RBID [facility] Last Admin: 05/16/18 07:36 Dose: 2 ml Albuterol/Ipratropium (Duoneb 3 Mg/0.5 Mg (3 Ml) Ud) 3 ml INH RQ4 PRN PRN Reason: Shortness of Breath Albuterol/Ipratropium (Duoneb 3 Mg/0.5 Mg (3 Ml) Ud) 3 ml INH RQ6 [facility] Last Admin: 05/16/18 13:06 Dose: 3 ml Baclofen (Lioresal) 40 mg PO Q8@0600,1400,2200 [facility] Last Admin: 05/16/18 13:54 Dose: 40 mg Docusate Sodium (Colace Liquid) 100 mg PO TID [facility] Last Admin: 05/16/18 17:12 Dose: Not Given Home Med (Abacavir/Dolutegravir/Lamivudi [Triumeq Tablet]) 1 tab PO DAILY [facility] Last Admin: 05/16/18 08:28 Dose: 1 tab Home Med (Calcium Carbonate/Vitamin D3 [Calcium 500 + Vit D Caplet]) 1 each PO DAILY [facility] Last Admin: 05/16/18 08:28 Dose: 1 each Home Med (Ranitidine Hcl [Zantac]) 300 mg PO DAILY [facility] Last Admin: 05/16/18 08:28 Dose: 300 mg Lactulose (Enulose) 20 gm PO HS [facility] Last Admin: 05/15/18 23:21 Dose: 20 gm Metoclopramide HCl (Reglan) 5 mg PO ACHS PRN PRN Reason: Nausea/Vomiting Last Admin: 05/12/18 09:17 Dose: 5 mg Montelukast Sodium (Singulair) 10 mg PO DAILY [facility] Last Admin: 05/16/18 08:29 Dose: 10 mg Morphine Sulfate (Morphine Extended Release Tab) 45 mg PO Q8@0600,1400,2200 [facility] Last Admin: 05/16/18 13:54 Dose: 45 mg Ondansetron HCl (Zofran Inj) 4 mg IVP Q6 PRN PRN Reason: Nausea/Vomiting Prednisone (Prednisone Tab) 50 mg PO Q24H [facility] Stop: 05/17/18 18:46 Last Admin: 05/16/18 18:02 Dose: 50 mg Prednisone (Prednisone Tab) 40 mg PO Q24H [facility] Stop: 05/19/18 18:46 Prednisone (Prednisone Tab) 30 mg PO Q24H [facility] Stop: 05/21/18 18:46 Prednisone (Prednisone Tab) 20 mg PO Q24H [facility] Stop: 05/23/18 18:46 Prednisone (Prednisone Tab) 10 mg PO Q24H [facility] Stop: 05/25/18 18:46 Sodium Phosphate (Fleet Enema) 135 ml [place] ONCE PRN PRN Reason: Constipation Trimethoprim/Sulfamethoxazole (Bactrim Ds Tab) 1 tab PO [facility]; Protocol - Labs Labs: 05/10/18 05:30 05/10/18 05:30
[2018-05-17] MEDS: Albuterol-Ipratrop 3 mg / 0.5 (3 ml) UD INH SCH ×4 (01:07→19:08)
[2018-05-17] MEDS: Morphine 15 mg SR Tab PO SCH ×3 (06:27→21:12)
[2018-05-17] MEDS: Acetylcysteine 20% Inhal Soln (4ml) INH SCH ×2 (07:35→19:08)
[2018-05-17] MEDS: DOLUTEGRAVIR PO SCH (09:26)
[2018-05-17] MEDS: ABACAVIR PO SCH (09:26)
[2018-05-17] MEDS: RANITIDINE HCL 300 MG PO SCH (09:26)
[2018-05-17] MEDS: LAMIVUDI PO SCH (09:26)
[2018-05-17] MEDS: CALCIUM CARBONATE PO SCH (09:27)
[2018-05-17] MEDS: VITAMIN D3 PO SCH (09:27)
--- NOTE | 2018-05-17 13:00 | PN ---
DATE: 05/17/2018 SUBJECTIVE: The patient seen and examined. Interim events noted. Consults noted and appreciated. Physiatry intervention noted and appreciated. The patient remains in transitional care unit. The patient complains of pain, but controlled with medications. No chest pain. No shortness of breath. PHYSICAL EXAMINATION: GENERAL: The patient is in no acute distress. VITAL SIGNS: Stable. HEART: S1 and S2, normal and regular. LUNGS: Good bilateral air exchange. ABDOMEN: Soft and nontender. No sign of obstruction or impaction. EXTREMITIES: No edema. No calf swelling. No tenderness. No acute ischemia. CENTRAL NERVOUS SYSTEM: Exam is essentially unchanged. DIAGNOSTIC DATA: Available diagnostic data reviewed. ASSESSMENT AND PLAN: Overall, the patient's general medical condition is stable. The patient is . Plan as ordered. Sergey Dickinson MD
[2018-05-18] MEDS: Albuterol-Ipratrop 3 mg / 0.5 (3 ml) UD INH SCH ×4 (01:18→19:16)
[2018-05-18] MEDS: Morphine 15 mg SR Tab PO SCH ×3 (06:10→21:04)
[2018-05-18] MEDS: Acetylcysteine 20% Inhal Soln (4ml) INH SCH ×2 (07:26→19:16)
[2018-05-18] MEDS: LAMIVUDI PO SCH (08:47)
[2018-05-18] MEDS: ABACAVIR PO SCH (08:47)
[2018-05-18] MEDS: CALCIUM CARBONATE PO SCH (08:47)
[2018-05-18] MEDS: VITAMIN D3 PO SCH (08:47)
[2018-05-18] MEDS: RANITIDINE HCL 300 MG PO SCH (08:47)
[2018-05-18] MEDS: DOLUTEGRAVIR PO SCH (08:47)
--- NOTE | 2018-05-18 14:07 | PN ---
DATE: 05/18/2018 SUBJECTIVE: The patient seen and examined. Interim events noted. The patient remains in transitional care unit. Still complains of pain, but medication helps. The patient also had good bowel movement yesterday. No other complaint. PHYSICAL EXAMINATION: GENERAL: The patient is in no acute distress. VITAL SIGNS: Stable. HEART: S1 and S2, normal and regular. LUNGS: Good bilateral air exchange. ABDOMEN: Soft, nontender. EXTREMITIES: No edema. No calf swelling. No tenderness. No acute ischemia. CENTRAL NERVOUS SYSTEM: Exam is essentially unchanged. DIAGNOSTIC DATA: Available diagnostic data reviewed. ASSESSMENT AND PLAN: Overall, the patient's general medical condition is stable. Plan as ordered. Sergey Dickinson MD
[2018-05-19] MEDS: Albuterol-Ipratrop 3 mg / 0.5 (3 ml) UD INH SCH ×4 (01:37→19:16)
[2018-05-19] MEDS: Morphine 15 mg SR Tab PO SCH ×3 (06:15→21:56)
[2018-05-19] MEDS: Acetylcysteine 20% Inhal Soln (4ml) INH SCH ×2 (08:14→19:16)
[2018-05-19] MEDS: LAMIVUDI PO SCH (08:23)
[2018-05-19] MEDS: CALCIUM CARBONATE PO SCH (08:23)
[2018-05-19] MEDS: VITAMIN D3 PO SCH (08:23)
[2018-05-19] MEDS: ABACAVIR PO SCH (08:23)
[2018-05-19] MEDS: RANITIDINE HCL 300 MG PO SCH (08:23)
[2018-05-19] MEDS: DOLUTEGRAVIR PO SCH (08:23)
[2018-05-19] MEDS ORDERED: Tmp-Smz 800 mg-160 mg DS Tab PO SCH (09:00)
--- NOTE | 2018-05-19 13:00 | PN ---
DATE: 05/19/2018 SUBJECTIVE: The patient seen and examined. Interim events noted. The patient remains in transitional care unit. The patient is sleeping and arousable. No new complaint other than chronic pain the patient is suffering from. PHYSICAL EXAMINATION: GENERAL: The patient is in no acute distress. VITAL SIGNS: Stable. Physical exam is essentially unchanged. LABORATORY DATA: Available diagnostic data reviewed. ASSESSMENT AND PLAN: Overall, the patient's general medical condition is stable. Plan as ordered. Sergey Dickinson MD
--- NOTE | 2018-05-19 17:54 | CP.PCM.CON ---
History of Present Illness - History of Present Illness History of Present Illness: Orthopedic consult: Dr. Boss Patient is a 57 y/o male with PMH HIV/AIDS, brain lymphoma with resection who c/o lower back pain with radiation to the RLE. He was admitted due to pneumonia. The patient has had chronic back issues for many years involving multiple lumbar compression fracture and kyphoplasties. A few weeks ago, the pain began to radiate to his RLE down to his toes. He denies numbness and tingling. He also denies saddle paresthesias and bowel/bladder incontinence. The pain is moderate to severe and worsened with position changes in bed and relieved with sitting. He has been on prednisone taper without relief. He denies CP/SOB/N/V/D/fever/dysuria/melena. Review of Systems - Review of Systems All systems: reviewed and no additional remarkable complaints except Review of Systems: as per HPI Past Patient History - Infectious Disease Hx of Infectious Diseases: None - Past Medical History & Family History Past Medical History?: Yes Past Family History: Reviewed and not pertinent - Past Social History Smoking Status: Former Smoker Alcohol: None Drugs: Denies - CARDIAC Hx Cardiac Disorders: No - PULMONARY Hx Respiratory Disorders: Yes Hx Asthma: Yes Hx Pneumonia: Yes - NEUROLOGICAL Hx Neurological Disorder: Yes HX Cerebrovascular Accident: No Other/Comment: Brain Ca - HEENT Hx HEENT Problems: Yes Hx Blind: No Hx Cataracts: Yes Hx Deafness: Yes (B/L [place]) Hx Difficulty Chewing: No Hx Epistaxis: No Hx Glaucoma: No Hx Macular Degeneration: No Other/Comment: impaired hearing, used to have Left and right hearing aid years ago. 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 - INTEGUMENTARY Hx Dermatological Problems: No Other/Comment: ble discolored - MUSCULOSKELETAL/RHEUMATOLOGICAL Hx Falls: Yes - GASTROINTESTINAL Hx Gastrointestinal Disorders: Yes Hx Gastritis: Yes Hx Gastroesophageal Reflux: Yes - GENITOURINARY/GYNECOLOGICAL Hx Genitourinary Disorders: No - PSYCHIATRIC Hx Substance Use: No - SURGICAL HISTORY Hx Surgeries: Yes Hx Appendectomy: Yes Hx Tonsillectomy: Yes 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 - ANESTHESIA Hx Anesthesia: Yes Hx Anesthesia Reactions: No Hx Malignant Hyperthermia: No Meds Allergies/Adverse Reactions: Allergies Allergy/AdvReac Type Severity Reaction Status Date / Time No Known Allergies Allergy Verified 05/09/18 17:31 - Medications Medications: Current Medications Acetylcysteine (Acetylcysteine 20%) 2 ml INH RBID [facility] Last Admin: 05/19/18 08:14 Dose: Not Given Albuterol/Ipratropium (Duoneb 3 Mg/0.5 Mg (3 Ml) Ud) 3 ml INH RQ4 PRN PRN Reason: Shortness of Breath Albuterol/Ipratropium (Duoneb 3 Mg/0.5 Mg (3 Ml) Ud) 3 ml INH RQ6 [facility] Last Admin: 05/19/18 13:14 Dose: 3 ml Baclofen (Lioresal) 40 mg PO Q8@0600,1400,2200 [facility] Last Admin: 05/19/18 14:04 Dose: 40 mg Docusate Sodium (Colace Liquid) 100 mg PO TID [facility] Last Admin: 05/19/18 16:27 Dose: Not Given Home Med (Abacavir/Dolutegravir/Lamivudi [Triumeq Tablet]) 1 tab PO DAILY [facility] Last Admin: 05/19/18 08:23 Dose: 1 tab Home Med (Calcium Carbonate/Vitamin D3 [Calcium 500 + Vit D Caplet]) 1 each PO DAILY [facility] Last Admin: 05/19/18 08:23 Dose: 1 each Home Med (Ranitidine Hcl [Zantac]) 300 mg PO DAILY [facility] Last Admin: 05/19/18 08:23 Dose: 300 mg Lactulose (Enulose) 20 gm PO HS [facility] Last Admin: 05/18/18 21:05 Dose: 20 gm Metoclopramide HCl (Reglan) 5 mg PO ACHS PRN PRN Reason: Nausea/Vomiting Last Admin: 05/12/18 09:17 Dose: 5 mg Montelukast Sodium (Singulair) 10 mg PO DAILY [facility] Last Admin: 05/19/18 08:24 Dose: 10 mg Morphine Sulfate (Morphine Extended Release Tab) 45 mg PO Q8@0600,1400,2200 [facility] Last Admin: 05/19/18 14:03 Dose: 45 mg Ondansetron HCl (Zofran Inj) 4 mg IVP Q6 PRN PRN Reason: Nausea/Vomiting Prednisone (Prednisone Tab) 40 mg PO Q24H [facility] Stop: 05/19/18 18:46 Last Admin: 05/18/18 18:17 Dose: 40 mg Prednisone (Prednisone Tab) 30 mg PO Q24H [facility] Stop: 05/21/18 18:46 Prednisone (Prednisone Tab) 20 mg PO Q24H [facility] Stop: 05/23/18 18:46 Prednisone (Prednisone Tab) 10 mg PO Q24H [facility] Stop: 05/25/18 18:46 Sodium Phosphate (Fleet Enema) 135 ml [place] ONCE PRN PRN Reason: Constipation Trimethoprim/Sulfamethoxazole (Bactrim Ds Tab) 1 tab PO MWF [facility]; Protocol Physical Exam - Constitutional Appears: Well, No Acute Distress - Head Exam Head Exam: ATRAUMATIC, NORMOCEPHALIC - Eye Exam Eye Exam: EOMI, Normal appearance, PERRL - ENT Exam ENT Exam: Mucous Membranes Moist - Respiratory Exam Respiratory Exam: NORMAL BREATHING PATTERN - Cardiovascular Exam Cardiovascular Exam: +S1, +S2 - GI/Abdominal Exam GI & Abdominal Exam: Soft. absent: Tenderness - Back Exam Back exam: paraspinal tenderness (right sided), vertebral tenderness (diffuse lumbar) Additional comments: severe thoracic kyphosis no lesions, no masses sensation intact SP/DP/TN motor intact EHL/FHL/TA/G +SLR sitting RLE - Neurological Exam Neurological exam: Alert, Oriented x3 - Psychiatric Exam Psychiatric exam: Normal Affect, Normal Mood - Skin Skin Exam: Normal Color, Warm Results - Vital Signs Recent Vital Signs: Last Vital Signs Temp 97.7 F 05/19/18 15:30 Pulse 89 05/19/18 15:30 Resp 20 05/19/18 15:30 BP 96/52 L 05/19/18 15:30 Pulse Ox 98 05/19/18 15:30 - Labs Result Diagrams: 05/10/18 05:30 05/10/18 05:30 Assessment & Plan (1) Lumbar pain with radiation down right leg Assessment and Plan: -No acute orthopedic intervention at this time -Recommend PT/OT back strengthening and ROM exercises -pain control as per medicine -recommend referral to loan servicing specialist -Please reconsult as needed -above d/w Dr. Boss in agreement Status: Acute Radiology Interpretation - Notes: Notes:: Accession No. : [id number] Patient Name / ID : LUISA MAYA / [id number] Exam Date : 05/15/2018 09:47:47 ( Approved ) Study Comment : Sex / Age : M / 57Y Creator : Patricia Jaramillo MD Dictator : Patricia Jaramillo MD Radioactive Waste Disposal Dispatcher : Canal Boat Captain : Patricia Jaramillo MD Approver2 : Report Date : 05/15/2018 10:34:24 My Comment : Date of service: 05/15/2018 PROCEDURE: Radiographs of the Lumbar Spine. HISTORY: low back pain COMPARISON: No prior. FINDINGS: There is large amount of stool in the colon and fecal impaction in the descending colon and rectum. BONES: Multilevel kyphoplasty in the visualized lower thoracic spine and at L1. There are age indeterminate osteoporotic compression fracture deformities from L2-L4. DISC SPACES: Unremarkable. OTHER FINDINGS: None. IMPRESSION: Age indeterminate multilevel osteoporotic compression deformities from L2-L5. Severe constipation and fecal impaction in the descending colon and rectum.
[2018-05-20] MEDS: Albuterol-Ipratrop 3 mg / 0.5 (3 ml) UD INH SCH ×4 (02:02→19:08)
[2018-05-20] MEDS: Morphine 15 mg SR Tab PO SCH ×3 (05:59→21:42)
[2018-05-20] MEDS: Acetylcysteine 20% Inhal Soln (4ml) INH SCH ×2 (07:35→19:08)
[2018-05-20] MEDS: VITAMIN D3 PO SCH (08:24)
[2018-05-20] MEDS: CALCIUM CARBONATE PO SCH (08:24)
[2018-05-20] MEDS: ABACAVIR PO SCH (08:24)
[2018-05-20] MEDS: LAMIVUDI PO SCH (08:24)
[2018-05-20] MEDS: RANITIDINE HCL 300 MG PO SCH (08:24)
[2018-05-20] MEDS: DOLUTEGRAVIR PO SCH (08:24)
[2018-05-21] MEDS: Albuterol-Ipratrop 3 mg / 0.5 (3 ml) UD INH SCH ×4 (02:32→19:08)
[2018-05-21] MEDS: Morphine 15 mg SR Tab PO SCH ×3 (05:49→21:36)
[2018-05-21] MEDS: Acetylcysteine 20% Inhal Soln (4ml) INH SCH ×2 (07:36→19:08)
[2018-05-21] MEDS: CALCIUM CARBONATE PO SCH (08:14)
[2018-05-21] MEDS: VITAMIN D3 PO SCH (08:14)
[2018-05-21] MEDS: ABACAVIR PO SCH (08:15)
[2018-05-21] MEDS: DOLUTEGRAVIR PO SCH (08:15)
[2018-05-21] MEDS: LAMIVUDI PO SCH (08:15)
[2018-05-21] MEDS: RANITIDINE HCL 300 MG PO SCH (08:15)
--- NOTE | 2018-05-21 08:58 | PN ---
DATE: 05/20/2018 SUBJECTIVE: The patient seen and examined. Interim events noted. The patient remains in regular transitional care unit. The patient feels okay. Denies any chest pain. No shortness of breath. The patient has chronic pain, was seen by Orthopedic yesterday. Suggestions were followed. Consult appreciated. The patient denies any chest pain or shortness of breath. The patient also had a chest x-ray done, which showed constipation although the patient also state that he had some bowel movements after x-ray. PHYSICAL EXAMINATION: GENERAL: The patient is in no acute distress. VITAL SIGNS: Stable. HEART: S1 and S2. Normal and regular. LUNGS: Good bilateral air exchange. ABDOMEN: Soft and nontender. EXTREMITIES: No edema. No calf swelling. No tenderness. No acute ischemia. CENTRAL NERVOUS SYSTEM: Essentially unchanged. DIAGNOSTIC DATA: Available diagnostic data reviewed. ASSESSMENT AND PLAN: Overall, the patient's general medical condition is stable. Plan as ordered. Sergey Dickinson MD
[2018-05-21 11:17] VITALS: O2SAT 100
--- NOTE | 2018-05-21 13:25 | PN ---
DATE: 05/21/2018 SUBJECTIVE: The patient seen and examined. Interim events noted. The patient remains in transitional care unit. Feels okay. Pain is controlled. No new complaint of chest pain. No shortness of breath. PHYSICAL EXAMINATION: GENERAL: The patient is in no acute distress. VITAL SIGNS: Stable. Physical exam is essentially unchanged. DIAGNOSTIC DATA: Available diagnostic data reviewed. ASSESSMENT AND PLAN: Overall, the patient is medically stable. The patient is for possible subacute rehab transfer. Plan as ordered. Sergey Dickinson MD
[2018-05-22] MEDS: Albuterol-Ipratrop 3 mg / 0.5 (3 ml) UD INH SCH ×3 (01:00→13:29)
[2018-05-22] MEDS: Morphine 15 mg SR Tab PO SCH ×2 (06:34→14:19)
[2018-05-22] MEDS: Acetylcysteine 20% Inhal Soln (4ml) INH SCH (07:26)
[2018-05-22 07:54] VITALS: BP 86/56; PULSE 75; TEMP 96.6
[2018-05-22] MEDS: RANITIDINE HCL 300 MG PO SCH (08:40)
[2018-05-22] MEDS: DOLUTEGRAVIR PO SCH (08:40)
[2018-05-22] MEDS: LAMIVUDI PO SCH (08:40)
[2018-05-22] MEDS: ABACAVIR PO SCH (08:40)
[2018-05-22] MEDS: VITAMIN D3 PO SCH (09:23)
[2018-05-22] MEDS: CALCIUM CARBONATE PO SCH (09:23)
--- NOTE | 2018-05-22 13:59 | PN ---
DATE: 05/22/2018 SUBJECTIVE: The patient is seen and examined. Interim events noted. The patient remains in transitional care unit. Feels okay. Complains of generalized pain, controlled with current pain management. No chest pain. No shortness of breath. PHYSICAL EXAMINATION: GENERAL: The patient is in no acute distress. VITAL SIGNS: Stable. Physical exam is essentially unchanged. DIAGNOSTIC DATA: Available diagnostic data reviewed. ASSESSMENT AND PLAN: Overall, the patient's general medical condition is stable. The patient is awaiting transfer to Subacute Rehabilitation. Plan as ordered. Case and plan discussed with the patient. Sergey Dickinson MD
== END 2018-05-22 16:06 | DRG 976 ==
LOC: H.TCU 17:39
PROVIDERS: ADMIT Internal Medicine; ATTEND Internal Medicine
PROC: F07Z8FZ Transfer Training Treatment using Assistive, Adaptive, Supportive or Protective Equipment (ICD-10-PCS; principal; 2018-05-09)
PROC: F07Z9FZ Gait Training/Functional Ambulation Treatment using Assistive, Adaptive, Supportive or Protective Equipment (ICD-10-PCS; 2018-05-09)
PROC: F08Z1FZ Dressing Techniques Treatment using Assistive, Adaptive, Supportive or Protective Equipment (ICD-10-PCS; 2018-05-09)
PROC: 3E02340 Introduction of Influenza Vaccine into Muscle, Percutaneous Approach (ICD-10-PCS; 2018-05-10)
DX: J18.9 Pneumonia, unspecified organism (principal); B20 Human immunodeficiency virus [HIV] disease; G89.29 Other chronic pain; H91.90 Unspecified hearing loss, unspecified ear; R53.81 Other malaise; Z87.891 Personal history of nicotine dependence; J45.909 Unspecified asthma, uncomplicated; K29.70 Gastritis, unspecified, without bleeding; K21.9 Gastro-esophageal reflux disease without esophagitis; K56.41 Fecal impaction; M40.209 Unspecified kyphosis, site unspecified; M81.0 Age-related osteoporosis without current pathological fracture; Z23 Encounter for immunization